=== PATIENT | female | born 1940 | race Caucasian/White ===

== ENCOUNTER → 2022-07-28 12:23 | Outpatient (CLI) | payer MEDICARE, OTHER, SELFPAY ==
--- NOTE | ~2022-07-28 | XR_ITS ---
XR chest 2V 07/28/2022 12:43 Indication: Difficulty breathing Procedure: 2 view chest Comparison: No prior studies for comparison. Findings: Cardiomegaly. Elevation of the right diaphragm with underlying compressive atelectasis. Lef t lung clear. No significant effusion, focal pneumonia, edema or pneumothorax. No acute osseous abnor mality. Partially visualized sclerotic lesion proximal aspect of the left humerus, likely bone island . Impression: 1: Elevation of the right diaphragm with underlying right basilar atelectasis. Reviewed, dictated and finalized at location A. Impression: 1: Elevation of the right diaphragm with underlying right basilar atelectasis.
== END ==
PROVIDERS: PCP Internal Medicine; Visit Provider Internal Medicine
DX: R06.89 Other abnormalities of breathing (principal)
CPT/HCPCS: 36415; 71046; 80053; 80061; 84443; 85025

== ENCOUNTER 2022-07-28 12:46 | Outpatient (CLI) | payer MEDICARE, SELFPAY ==
[2022-07-28 20:00] LABS: Alanine Aminotransferase 21 U/L (6-35); Albumin Level 4.1 g/dL (3.5-5.1); Alkaline Phosphatase 176 U/L (38-126); Anion Gap 13 mmol/L (8-16); Aspartate Amino Transferase 34 U/L (14-36); Bilirubin,Total 1.1 mg/dL (0.2-1.3); Blood Urea Nitrogen 21 mg/dL (7-17); Calcium 9.4 mg/dL (8.4-10.2); Carbon Dioxide 30 mmol/L (22-30); Chloride 100 mmol/L (98-107); Cholesterol 262 mg/dL (0-200); Estimated Glomerular Filt Rate 53; Glucose 90 mg/dL (65-110); HDL Direct 51 mg/dL; Potassium 4.2 mmol/L (3.4-5.0); Sodium 143 mmol/L (137-145); Triglycerides 89 mg/dL (<150)
[2022-07-28 20:11] LABS: LDL Cholesterol Direct 154 mg/dL
[2022-07-28 21:09] LABS: Basophils Percent Auto 0.6 % (0.2-1.2); Eosinophils Absolute Auto 0.1 K/mm3 (0-0.3); Eosinophils Percent Auto 1.8 % (0-4.4); Hematocrit 44.6 % (37.0-47.0); Hemoglobin 14.1 g/dL (12.0-15.0); Immature Granulocyte Absolute 0.01 K/mm3 (0.00-0.031); Immature Granulocyte Percent A 0.1 % (0-0.5); Mean Corpuscular HGB Conc 31.6 g/dl (32-36); Mean Corpuscular Hemoglobin 30.2 pg (26-34); Mean Corpuscular Volume 95.5 fl (80-100); Mean Platelet Volume 10.3 fl (7.4-10.4); Monocytes Absolute Auto 0.7 K/mm3 (0.1-0.6); Monocytes Percent Auto 10.2 % (2.6-8.5); Neutrophils Percent Auto 70.3 % (45.5-73.1); Platelet Count Result 244 k/mm3 (150-375); Red Blood Count 4.67 M/mm3 (4.2-5.4); Red Cell Distribution Width 13.8 % (11.5-14.5); White Blood Count 7.1 K/mm3 (4.5-10.0)
== END 2022-07-28 12:47 | disposition home or self-care (01) ==
PROVIDERS: PCP Internal Medicine; Visit Provider Internal Medicine
DX: I10 Essential (primary) hypertension (principal); Z79.01 Long term (current) use of anticoagulants; Z13.220 Encounter for screening for lipoid disorders; I48.91 Unspecified atrial fibrillation; E03.9 Hypothyroidism, unspecified
CPT/HCPCS: 36415; 80053; 80061; 84443; 85025

== ENCOUNTER 2022-08-22 08:35 | Outpatient (CLI) | payer MEDICARE, OTHER, SELFPAY ==
--- NOTE | ~2022-08-22 | CT_ITS ---
EXAMINATION: CT diagnostic chest wo con DATE: 08/22/2022 08:59 INDICATION: Elevated hemidiaphragm TECHNIQUE: Computed tomography (CT) of the chest was performed without intravenous contrast. The dose -length product (DLP) was 274.43 mGy-cm. Automated exposure control and iterative reconstruction tech nique were employed. COMPARISON: None FINDINGS: There is elevation of the right hemidiaphragm with adjacent passive atelectasis of the righ t lung. There is an endoluminal filling defect of a right middle lobe bronchus (image 59). There is a cluster of peripheral tree-in-bud opacities in the right upper lobe. There are scattered small nodul es. A fissural lymph node is noted along the major fissure on the left. No pleural effusion or pneumo thorax. There is biatrial enlargement of the heart. Calcified coronary artery atherosclerosis is note d. There are no pathologically enlarged thoracic lymph nodes. There are bridging osteophytes at multi ple levels in the spine, consistent with diffuse idiopathic skeletal hyperostosis (DISH). IMPRESSION: 1. Elevation of the right hemidiaphragm of unclear etiology. 2. Peripheral tree-in-bud opacities in the right upper lobe, likely infectious or inflammatory. 3. Endoluminal filling defect of a right middle lobe bronchus which may reflect mucous however, endob ronchial tumor is a consideration. Follow-up CT in three months is recommended. Reviewed, dictated and finalized at location A. IMPRESSION: 1. Elevation of the right hemidiaphragm of unclear etiology. 2. Peripheral tree-in-bud opacities in the right upper lobe, likely infectious or inflammatory. 3. Endoluminal filling defect of a right middle lobe bronchus which may reflect mucous however, endobronchial tumor is a consideration. Follow-up CT in three months is recommended.
--- NOTE | 2022-08-22 09:50 | ECHO_ITS ---
Patient Info Name: Catrina Clark Age: 82 years : 1940 Gender: Female Ht: 64 in Wt: 180 lbs BSA: 1.95 m2 HR: 92 bpm BP: 110 / 72 mmHg Heart Rhythm: Atrial Fibrillation Technical Quality: Fair Exam Date: 08/22/2022 10:29 AM Exam Location: [facility] Patient Status: Outpatient Admit Date: 08/22/2022 Staff Ordering Physician: Angel Corbin DO Family Lawyer: Angy Dean RDCS Attending Provider: Angel Corbin DO Referring Physician: Emerald SCHULTE; Exam Type: CA echo dop color flow w con Study Info Indications - non rheumatic mitral valve inssuffiency Complete two-dimensional, color flow and Doppler transthoracic echocardiogram is performed with contrast to opacify the left ventricle and to improve the deliniation of the left ventricle endocardial borders. Contrast/Agitated Saline Contrast/Ag. Saline: Definity Amount: 2.00 ml Administered By: Angy Dean [facility] IV Access: Left Site Condition: IV removed Summary 1. Left ventricular chamber dimension is normal. 2. Left ventricular systolic function is normal, estimated at 60-65%. 3. There is no increased left ventricular wall thickness. 4. The left ventricular diastolic function is indeterminate. 5. Left atrial chamber dimension is severely enlarged. 6. Right atrial chamber dimension is severely enlarged. 7. There is no aortic valve stenosis. 8. There is mild mitral valve regurgitation. 9. There is moderate to severe tricuspid valve regurgitation. 10. Mild pulmonary hypertension, estimated pulmonary arterial systolic pressure is 41 mmHg. Left Ventricle Left ventricular chamber dimension is normal. Left ventricular systolic function is normal, estimated at 60-65%. There is no increased left ventricular wall thickness. The left ventricular diastolic function is indeterminate. Right Ventricle Right ventricular chamber dimension is normal. Right ventricular systolic function is normal. Left Atria Left atrial chamber dimension is severely enlarged. Right Atria Right atrial chamber dimension is severely enlarged. Aortic Valve The aortic valve is not well visualized. There is no aortic valve stenosis. There is no aortic valve regurgitation. Pulmonic Valve The pulmonic valve is not well visualized. Mitral Valve The mitral valve has normal leaflets. There is mild mitral valve regurgitation. Tricuspid Valve The tricuspid valve leaflets are normal. There is moderate to severe tricuspid valve regurgitation. Mild pulmonary hypertension, estimated pulmonary arterial systolic pressure is 41 mmHg. Pericardium/Pleural The pericardium appears normal. There is small pericardial effusion. Inferior Vena Cava Normal inferior vena cava with >50% collapse upon inspiration consistent with normal right atrial pressure, 5 mmHg. Aorta The aortic root size at the sinus of Valsalva is normal. Left Ventricular Outflow Tract Name Value Normal LVOT Doppler LVOT Peak Gradient 4 mmHg LVOT Mean Gradient 2 mmHg LVOT VTI 21.61 cm LVOT VTI/AV VTI Ratio
[2022-08-22] MEDS: PERFLUTREN LIPID MICROSPHERES 1.5 ML VIAL DILUTED TO 10 ML TOTAL VOLUME IV PUSH (11:15)
== END 2022-08-22 08:36 | disposition home or self-care (01) ==
PROVIDERS: PCP Internal Medicine; Visit Provider Internal Medicine
DX: I48.91 Unspecified atrial fibrillation (principal); J98.6 Disorders of diaphragm; R91.8 Other nonspecific abnormal finding of lung field; I27.20 Pulmonary hypertension, unspecified; I08.1 Rheumatic disorders of both mitral and tricuspid valves
CPT/HCPCS: 71250; C8929

== ENCOUNTER 2023-05-06 11:16 | Emergency (ER) | payer MEDICARE, OTHER, SELFPAY ==
[2023-05-06 11:23] VITALS: BP 119/80; PULSE 60; RESP 18; TEMP 36.3; O2SAT 97
--- NOTE | 2023-05-06 14:17 | ED.LOWEXIN ---
HPI - Extremity Injury (Lower) General Chief Complaint: Extremity Injury, Lower Stated Complaint: left leg bruising - on Eliquis Time Seen by Provider: 05/06/23 12:20 Source: patient and family Mode of arrival: ambulatory Limitations: no limitations History of Present Illness HPI Narrative: This is a 82 year old female that presents to the ER after an injury this morning. Reports her son's dog hit her leg with its paw. Reports she has swelling and bruising to the area. Her [id number] brought her in for evaluation. Denies fever, erythema, edema, or numbness. Related Data Allergies Allergy/AdvReac Type Severity Reaction Status Date / Time No Known Allergies Allergy Unverified 05/06/23 11:17 Review of Systems Review of Systems: CONSTITUTIONAL: Denies fever SKIN: Reports hematoma MUSCULOSKELETAL: Denies joint pain, or myalgia. NEUROLOGIC: Denies numbness All systems reviewed & are unremarkable except as noted in HPI and below PMFSH Past Medical History Medical History Acquired hypothyroidism Atrial fibrillation Heart disease nursing home current use of anticoagulant Thyroid disorder Family History Family History Father Hypertension Heart problem Mother Parkinson disease Social History Social History Smoking status: Never smoker Exam Narrative: GENERAL: Well-appearing, well-nourished, and in no acute distress. HEAD: Normocephalic, atraumatic. EYES: EOMI. CHEST: No respiratory distress. HEART: Regular rate EXTREMITIES: Normal range of motion. No edema, erythema or warmth of the leg. Quarter sized hematoma to the left anterior shins. Compartments are soft. Normal DP pulse SKIN: Warm, dry, no rash. NEURO: No focal deficits. Alert and oriented x3. PSYCH: Normal mood and affect Course Vital Signs Vital signs: Vital Signs Temperature 97.3 F L 05/06/23 11:23 Pulse Rate 60 05/06/23 11:23 Respiratory Rate 18 05/06/23 11:23 Blood Pressure 119/80 05/06/23 11:23 Pulse Oximetry 97 05/06/23 11:23 Oxygen Delivery Room Air 05/06/23 11:23 Temperature 97.3 F L 05/06/23 11:23 Pulse Rate 60 05/06/23 11:23 Respiratory Rate 18 05/06/23 11:23 Blood Pressure 119/80 05/06/23 11:23 Pulse Oximetry 97 05/06/23 11:23 Oxygen Delivery Room Air 05/06/23 11:23 MDM - Extremity Injury (Lower) MDM Narrative Medical decision making narrative: This patient since emergency department for hematoma to the left anterior simon. Patient is neurovascularly intact. Compartments are soft. There is no erythema, warmth, or edema of the leg. Patient was instructed on continued care of her hematoma. She is on Eliquis, but will need to remain on this due to her history of atrial fibrillation with a recent stroke earlier this year. She does not live in the area. I instructed her that she should have some follow-up with a general surgeon for this. She was given warnings of signs/symptoms to look out for and when to return to the ER Differential Diagnosis Differential diagnosis: Likely other (hematoma, abrasion) Critical Care Time Critical Care Time Critical Care Time: No Discharge Plan Discharge Clinical Impression: Hematoma Patient Disposition: Home, Self-Care Condition: Stable Instructions: Hematoma (ED) Additional Instructions: Return to the emergency department if you experience fever, redness and swelling of your leg, abnormal drainage from the area, numbness, or any other symptoms that are concerning to you. Ice to the area. Elevate the leg while seated. Over the counter pain medication as needed. Wear YOGESH wrap while awake There is no signs of infection or anything concerning that I see today Follow-up with a general surgeon back home. You may need to eventually have this drained if it causes an
== END 2023-05-06 14:41 | disposition home or self-care (01) ==
PROVIDERS: Emergency Provider Physician Assistant
DX: S80.12XA Contusion of left lower leg, initial encounter (principal); I48.91 Unspecified atrial fibrillation; I51.9 Heart disease, unspecified; E03.9 Hypothyroidism, unspecified; Z86.73 Personal history of transient ischemic attack (TIA), and cerebral infarction without residual deficits; Z79.01 Long term (current) use of anticoagulants; W54.1XXA Struck by dog, initial encounter
CPT/HCPCS: 99282

== ENCOUNTER 2023-06-30 10:14 | Inpatient (IN) | payer MEDICARE, OTHER, SELFPAY ==
[2023-06-30] VITALS (7 sets, daily range): BP systolic 101–116; BP diastolic 67–82; PULSE 91–116; RESP 16–24; TEMP 35.8–36.6; O2SAT 94–99; BMI 29.3
--- NOTE | ~2023-06-30 | US_ITS ---
EXAMINATION: US abdomen limited DATE: 07/06/2023 08:31 INDICATION: Abnormal liver function tests. TECHNIQUE: Multiple grayscale and Doppler ultrasound images of the abdomen were obtained. COMPARISON: CT abdomen and pelvis 06/30/2023 FINDINGS: The visualized portions of the head and body of the pancreas are normal. The liver is amelia l without focal lesion. There is normal flow in main portal vein. The gallbladder is normal in size. No gallstones or gallbladder wall thickening. There is no sonographic Hebert sign. The common duct is normal and measures 4 mm. IMPRESSION: 1. Normal right upper quadrant ultrasound. Reviewed, dictated and finalized at location A.
--- NOTE | ~2023-06-30 | CT_ITS ---
EXAMINATION: CT abdomen pelvis wo con DATE: 06/30/2023 14:42 INDICATION: Nausea and vomiting. TECHNIQUE: Computed tomography (CT) of the abdomen and pelvis was performed without intravenous contr ast. Automated exposure control and iterative reconstruction technique were employed. The dose-length product was 698.58 mGy-cm. COMPARISON: Chest CT 08/22/2022 FINDINGS: There is chronic elevation of right hemidiaphragm. There is mild atelectasis bilaterally. T here is mild bronchiectasis in right middle lobe. No pleural effusion. There is biatrial enlargement of the heart. There are coronary artery calcifications. No pericardial effusion. There is a small sli ding hiatal hernia. The liver, gallbladder, pancreas, and adrenal glands are normal. There are are pe ripheral calcifications of the spleen, likely from old injury. Right kidney is normal. There are cyst s in left kidney measuring up to 1.9 cm. There is no urolithiasis. There is diverticulosis of the col on without evidence of diverticulitis. There is liquid stool in the colon suggestive of diarrhea. The appendix is normal. There is an umbilical hernia containing fat. Aortic atherosclerosis is noted. Th ere are no pathologically enlarged lymph nodes. There is mild thoracic and lumbar spondylosis. There are bridging endplate osteophytes at multiple levels in the spine, consistent with diffuse idiopathic skeletal hyperostosis (DISH). IMPRESSION: 1. Trace perihepatic ascites. 2. Small sliding hiatal hernia. 3. Chronic elevation of right hemidiaphragm. Reviewed, dictated and finalized at location A.
[2023-06-30 11:21] LABS: Basophils Percent Auto 0.5 % (0.2-1.2); Eosinophils Percent Auto 0.3 % (0-4.4); Hematocrit 50.3 % (37.0-47.0); Hemoglobin 16.8 g/dL (12.0-15.0); Immature Granulocyte Absolute 0.04 K/mm3 (0.00-0.031); Immature Granulocyte Percent A 0.6 % (0-0.5); Lymphocytes Absolute Auto 1.47 K/mm3 (0.9-3.2); Lymphocytes Percent Auto 22.9 % (18.3-44.2); Mean Corpuscular HGB Conc 33.4 g/dl (32-36); Mean Corpuscular Hemoglobin 30.1 pg (26-34); Mean Corpuscular Volume 90.1 fl (80-100); Mean Platelet Volume 10.8 fl (7.4-10.4); Monocytes Absolute Auto 0.8 K/mm3 (0.1-0.6); Monocytes Percent Auto 11.8 % (2.6-8.5); Neutrophils Absolute Auto 4.1 K/mm3 (1.3-6.7); Neutrophils Percent Auto 63.9 % (45.5-73.1); Platelet Count Result 248 k/mm3 (150-375); Red Blood Count 5.58 M/mm3 (4.2-5.4); Red Cell Distribution Width 17.2 % (11.5-14.5); White Blood Count 6.4 K/mm3 (4.5-10.0)
[2023-06-30 11:34] LABS: Alanine Aminotransferase 69 U/L (6-35); Albumin Level 4.6 g/dL (3.5-5.1); Alkaline Phosphatase 238 U/L (38-126); Anion Gap 18 mmol/L (8-16); Aspartate Amino Transferase 147 U/L (14-36); Bilirubin,Total 2.8 mg/dL (0.2-1.3); Blood Urea Nitrogen 27 mg/dL (7-17); Calcium 8.8 mg/dL (8.4-10.2); Carbon Dioxide 30 mmol/L (22-30); Chloride 89 mmol/L (98-107); Estimated CRCL calculation 32 ml/min; Estimated Glomerular Filt Rate 39; Glucose 106 mg/dL (65-110); Lipase 180 U/L (23-300); Potassium 2.9 mmol/L (3.4-5.0); Sodium 137 mmol/L (137-145)
[2023-06-30] MEDS: SODIUM CHLORIDE 0.9% IV 1,000 ML 999 ML IV CONT (14:10)
--- NOTE | 2023-06-30 15:25 | ED.NAVMDI ---
HPI - Nausea/Vomiting/Diarrhea General Chief complaint: Nausea/Vomiting/Diarrhea Stated complaint: n/v/d and epigastric pain Time Seen by Provider: 06/30/23 13:44 History of Present Illness HPI Narrative: This is an 82-year-old female, with past history of A-fib on Xarelto, presents emergency department complaining of nausea and vomiting for the past 4 days. The patient states she had some upper respiratory congestion but no known sick contacts. She began having multiple episodes of nausea and vomiting initially without blood and with small streaks of blood and now blood free. She denies pain, loss of consciousness but has some lightheadedness. Related Data Allergies Allergy/AdvReac Type Severity Reaction Status Date / Time No Known Allergies Allergy Verified 06/30/23 18:21 Review of Systems Review of Systems: CONSTITUTIONAL: Denies fever, chills, or sweats. ENT: Rhinorrhea and congestion denies sore throat, or otalgia. CARDIOVASCULAR: Palpitations denies chest pain, or edema. RESPIRATORY: Denies cough or dyspnea. GASTROINTESTINAL: Nausea, vomiting and diarrhea denies abdominal pain GENITOURINARY: Denies dysuria or hematuria. SKIN: Denies rash or itching. MUSCULOSKELETAL: Denies back pain, joint pain, or myalgia. NEUROLOGIC: Lightheadedness denies headache, numbness, or weakness. PSYCHIATRIC: Denies anxiety or depression. PMFSH Past Medical History Medical History Acquired hypothyroidism Atrial fibrillation Heart disease assisted current use of anticoagulant Thyroid disorder Family History Family History Father Hypertension Heart problem Mother Parkinson disease Social History Social History (Updated 06/30/23 @ 16:09 by Ronal Gao MD) Smoking status: Never smoker Alcohol intake: never Substance use: never Lack of Transportation: No Lack of Food: Never True Current Housing: Decline to Answer Concerned About Future Housing: Decline to Answer Difficulty Paying Gas/Electric Bills: Decline to Answer Difficulty Paying for Meds: Decline to Answer Currently Unemployed: Decline to Answer Education: Decline to Answer Difficulty w/ Childcare or Family Care: Decline to Answer Spiritual care concerns: No Exam Narrative: GENERAL: Well-developed, well-nourished, and in no acute distress. HEAD: Normocephalic, atraumatic. EYES: PERRLA and EOMI. ENT: Nares clear, no rhinorrhea or epistaxis. Mucous membranes dry. Oropharynx without tonsillar hypertrophy exudate or other lesions. NECK: Supple. No carotid bruits or JVD CHEST: Clear to auscultation. No respiratory distress. No wheezes rales or rhonchi HEART: Irregularly irregular rhythm. No murmur heard. Normal peripheral pulses. ABDOMEN: Soft, nontender, nondistended, normal active bowel sounds. EXTREMITIES: Normal range of motion. No edema. SKIN: Warm, dry, no rash. NEURO: Alert and oriented x3. Moving all 4 limbs purposefully. PSYCH: Normal mood and affect. Course Course Emergency Course: 16:05 - CT abdomen pelvis not concerning for obstruction. Chemistries demonstrate creatinine elevation of 1.3 from a baseline of 1 with hypokalemia of 2.9. Despite IV fluids and nausea medications, the patient continues to vomit. I discussed the patient with hospitalist, ETHAN Tello who accepts admission. Vital Signs Vital signs: Vital Signs Temperature 97.8 F 06/30/23 11:22 Pulse Rate 109 H 06/30/23 11:22 Respiratory Rate 16 06/30/23 11:22 Blood Pressure 101/67 06/30/23 11:22 Pulse Oximetry 99 06/30/23 11:22 Oxygen Delivery Room Air 06/30/23 11:22 Temperature 97.8 F 06/30/23 11:22 Pulse Rate 109 H 06/30/23 17:39 Respiratory Rate 24 H 06/30/23 17:39 Blood Pressure 116/71 06/30/23 17:39 Pulse Oximetry 94 06/30/23 18:35 Oxygen Delivery Room Air 06/30/23 18:35 MDM - Na
[2023-06-30] MEDS: POTASSIUM CHLORIDE 20 MEQ PACKET (FOR LIQUID) 40 MEQ PO (16:16)
[2023-06-30] MEDS: LACTATED RINGERS 1,000 ML 125 ML IV CONT (17:00)
[2023-06-30] MEDS: KCL 40 MEQ/WATER 100 ML 100 ML 25 ML IVPB (17:01)
--- NOTE | 2023-06-30 18:13 | ADMGEN ---
This patient, Catrina Clark, was admitted to Medical Room 347-01. Patient/family oriented to hospital policies and general routines including ID bracelet, bed and alarms, visiting hours, pain management, procedures, bathroom and other care routines, personal items, smoking policy, room service/diet, and visiting hours. Information on how to activate the Rapid Response Team has been discussed. Patient/Family are encouraged to report perceived risks to care and to ask questions if they do not understand what they are told or what they should do.
--- NOTE | 2023-06-30 21:03 | PM.IMHP ---
H&P: HPI History of Present Illness Date/Time: 06/30/23 21:03 Chief Complaint: Nausea and Vomiting Narrative: 82 y/o F with hx of A-Fib on anti-coagulation, CVA and AAA w/coiling (10/2022) presents here with 3-4 days of nausea and 6 days of loose stools. Patient reports 3-4 days of nausea and vomiting, as well as 6 days of loose stools. Patient described emesis as green with black in it . One episode of hemoptysis - described as vomit streaked with bright red blood. She denies fever, chills, and body aches. She has been experiencing decreased appetite - attempted to remedy with BRAT diet without success. Stool has been loose and brown. She denies recent antibiotic use. Remote history of AAA w/coil repair in Oct. Experienced CVA in December while off blood thinner, able to attend rehab and does not have residual deficits. 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 Patient lives with son. Full Code. Occasionally uses walker. 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 Sexual Orientation (if Verbalized by the Patient): Straight or Heterosexual Spiritual care concerns: No Meds Home Medications and Allergies Home Medications Medication Instructions Recorded Confirmed Type apixaban 5 mg tablet (Eliquis) 5 mg PO BID #60 tabs 12/09/22 09/05/23 Rx levothyroxine 88 mcg capsule 88 mcg PO DAILY #30 caps 10/03/22 06/30/23 Rx lisinopril 40 mg tablet 40 mg PO DAILY #30 tabs 10/03/22 06/30/23 Rx metoprolol succinate 100 mg 100 mg PO DAILY #30 tabs 10/03/22 06/30/23 Rx tablet,extended release 24 hr lorazepam 0.5 mg tablet 0.5 mg PO DAILY PRN anxiety #30 10/04/22 06/30/23 Rx tabs allopurinol 300 mg tablet 300 mg PO DAILY 06/30/23 06/30/23 History colchicine (gout) 0.6 mg capsule 0.6 mg PO BID 06/30/23 06/30/23 History hydrochlorothiazide 12.5 mg capsule 12.5 mg PO DAILY 06/30/23 06/30/23 History rosuvastatin 20 mg tablet 20 mg PO HS 06/30/23 06/30/23 History trospium 20 mg tablet 20 mg PO BID 06/30/23 06/30/23 History Allergies Allergy/AdvReac Type Severity Reaction Status Date / Time No Known Allergies Allergy Verified 06/30/23 18:21 Vital Signs Vital Signs - 24 hr 06/30/23 11:22 06/30/23 14:20 06/30/23 14:21 Temperature 97.8 F Pulse Rate 109 H 115 H 116 H Respiratory Rate 16 Blood Pressure 101/67 110/76 114/79 Pulse Oximetry 99 Oxygen Delivery Room Air 06/30/23 17:39 06/30/23 18:35 Temperature Pulse Rate 109 H Respiratory Rate 24 H Blood Pressure 116/71 Pulse Oximetry 94 94 Oxygen Delivery Room Air H&P: Results Labs Labs: Short CBC 06/30/23 Range/Units 11:09 WBC 6.4 (4.5-10.0) K/mm3 Hgb 16.8 H (12.0-15.0) g/dL Hct 50.3 H (37.0-47.0) % Plt Count 248 (150-375) k/mm3 BMP 06/30/23 11:09 Sodium 137 Potassium 2.9 L Chloride 89 L Carbon Dioxid
[2023-06-30] MEDS: ROSUVASTATIN 10 MG TABLET 20 MG PO (21:51)
[2023-06-30] MEDS: hydroCHLOROthiazide 12.5 MG CAPSULE PO (23:02)
[2023-07-01] VITALS (14 sets, daily range): BP systolic 78–111; BP diastolic 33–58; PULSE 82–124; RESP 14–20; TEMP 35.8–36.8; O2SAT 93–98
[2023-07-01] MEDS: METOPROLOL SUCCINATE EXT REL 100 MG TABCR PO ×2 (00:02→12:04)
[2023-07-01 03:08] LABS: Appearance Urine Cloudy (Clear); Bacteria Urine 1+ /hpf; Bilirubin Urine Negative (Negative); Blood Urine Negative (Negative); Color Urine Yellow (Yellow); Glucose Urine UA Negative (Negative); Hyaline Casts Urine Present /lpf; Ketones Urine 1+ mg/dL (Negative); Leukocyte Esterase Ur 2+ LEU/UL (Negative); Nitrate Urine Negative (Negative); Protein Urine Trace mg/dL (Negative); RBC Urine 0-2 /hpf (0-2); Specific Grav Ur 1.016 (1.001-1.035); Squamous Epithelial Cell Urine Moderate /hpf (Few); pH Urine 5.5 (5.0-9.0)
[2023-07-01 03:09] LABS: Add Urine Microscopic? YES
[2023-07-01] MEDS: LACTATED RINGERS 1,000 ML 125 ML IV CONT ×2 (05:17→16:31)
[2023-07-01] MEDS: LEVOTHYROXINE SODIUM 88 MCG TABLET PO (05:21)
[2023-07-01 05:45] LABS: Basophils Percent Auto 0.4 % (0.2-1.2); Eosinophils Percent Auto 0.7 % (0-4.4); Hemoglobin 13.1 g/dL (12.0-15.0); Immature Granulocyte Absolute 0.02 K/mm3 (0.00-0.031); Immature Granulocyte Percent A 0.4 % (0-0.5); Lymphocytes Absolute Auto 1.61 K/mm3 (0.9-3.2); Lymphocytes Percent Auto 29.9 % (18.3-44.2); Mean Corpuscular HGB Conc 32.8 g/dl (32-36); Mean Corpuscular Hemoglobin 29.5 pg (26-34); Mean Corpuscular Volume 90.1 fl (80-100); Monocytes Absolute Auto 0.9 K/mm3 (0.1-0.6); Neutrophils Absolute Auto 2.8 K/mm3 (1.3-6.7); Neutrophils Percent Auto 52.6 % (45.5-73.1); Platelet Count Result 205 k/mm3 (150-375); Red Blood Count 4.44 M/mm3 (4.2-5.4); Red Cell Distribution Width 16.4 % (11.5-14.5); White Blood Count 5.4 K/mm3 (4.5-10.0)
[2023-07-01 06:11] LABS: Anion Gap 6 mmol/L (8-16); Blood Urea Nitrogen 23 mg/dL (7-17); Calcium 7.6 mg/dL (8.4-10.2); Carbon Dioxide 31 mmol/L (22-30); Chloride 96 mmol/L (98-107); Estimated CRCL calculation 45 ml/min; Estimated Glomerular Filt Rate 60; Glucose 101 mg/dL (65-110); Potassium 2.6 mmol/L (3.4-5.0); Sodium 133 mmol/L (137-145)
[2023-07-01] MEDS: POTASSIUM CHLORIDE 20 MEQ ER TABLET 80 MEQ PO (06:41)
[2023-07-01 06:44] LABS: Magnesium 1.4 mg/dL (1.6-2.3)
[2023-07-01] MEDS: POTASSIUM CHLORIDE INJ 40 MEQ in SODIUM CHLORIDE 0.9% IV 500 ML 130 MEQ IVPB (06:47)
[2023-07-01] MEDS: FAMOTIDINE 20 MG TABLET PO ×2 (09:04→21:17)
[2023-07-01] MEDS: hydroCHLOROthiazide 12.5 MG CAPSULE PO (09:04)
[2023-07-01] MEDS: lisinopriL 20 MG TABLET 40 MG PO (09:04)
[2023-07-01] MEDS: allopurinoL 300 MG TABLET PO (09:04)
[2023-07-01] MEDS: COLCHICINE 0.6 MG TABLET PO ×2 (09:05→16:30)
[2023-07-01] MEDS: ONDANSETRON INJ 4 MG/2 ML VIAL IV PUSH (09:26)
--- NOTE | 2023-07-01 09:46 | PM.IMPN ---
Progress Note: A&P Assessment and Plan (1) Intractable vomiting: Code(s): R11.10 - Vomiting, unspecified Status: Acute Assessment and Plan: Concern for GI bleed, GI consult ordered and pending Will likely need EGD Continue PPI (2) JAYSON (acute kidney injury): Code(s): N17.9 - Acute kidney failure, unspecified Status: Acute Assessment and Plan: Resolved, monitor Normal saline bolus x1, recheck blood pressure after this (3) Atrial fibrillation: Code(s): I48.91 - Unspecified atrial fibrillation Status: Acute Assessment and Plan: Rate controlled, hold Eliquis, continue metoprolol, monitor Plan Chronic Conditions -Gout: continue allopurinol and colchicine -HTN: continue home medications HCTZ, lisinopril. Monitor BP. First HCTZ dose now, then resume as scheduled. -Hypothyroidism: continue Levothyroxine 88 mcg, check TSH w/reflex -Anxiety: continue 0.5 mg PO PRN -HLD: continue rosuvastatin 20 mg -AAA: coiled, no evidence of dissection or changes per CT Abd/Pelvis. See full read above. Diet: NPO, ice chips DVT Prophylaxis: SCDs, currently on Eliquis GI prophylaxis: PPI b.i.d. Code Status: Full Code Subjective Date/time seen: 07/01/23 09:46 Interval history: 82 y/o F with hx of A-Fib on anti-coagulation, CVA and AAA w/coiling (10/2022) presents here with 3-4 days of nausea and 6 days of loose stools concerning for GI bleed. No overnight events noted. No chest pain or shortness of breath. No fevers or chills. She reports coffee-ground emesis yesterday, couple episodes this morning. She continues to have nausea, emesis and diarrhea. No obvious blood in her stool. Review of Systems Review of Systems: 12 point review of systems was assessed and was negative except as noted in the HPI Exam Narrative: General: No acute distress, alert and oriented per baseline HEENT: Atraumatic, normocephalic, mucous membranes moist CV: Regular rate and rhythm, S1, S2 Lungs: Clear to auscultation bilaterally, no rales or crackles noted, no wheezes, good air entry Abdomen: Soft, nontender, nondistended Extremities: Normal to inspection Skin: No rashes noted, no lesions or wounds seen Psych: Euthymic, normal affect Objective Data Vital Signs Vital Signs: Vital Signs - 24 hr 06/30/23 11:22 06/30/23 14:20 06/30/23 14:21 Temperature 97.8 F Pulse Rate 109 H 115 H 116 H Respiratory Rate 16 Blood Pressure 101/67 110/76 114/79 Pulse Oximetry 99 Oxygen Delivery Room Air 06/30/23 17:39 06/30/23 18:35 06/30/23 20:00 Temperature Pulse Rate 109 H 104 H Respiratory Rate 24 H Blood Pressure 116/71 Pulse Oximetry 94 94 Oxygen Delivery Room Air 06/30/23 22:00 07/01/23 00:02 07/01/23 00:00 Temperature 96.4 F L Pulse Rate 91 124 H 117 H Respiratory Rate 18 Blood Pressure 107/82 Pulse Oximetry 97 Oxygen Delivery 07/01/23 04:00 07/01/23 05:57 07/01/23 08:00 Temperature 96.4 F L Pulse Rate 97 96 Respiratory Rate 18 Blood Pressure 111/58 L Pulse Oximetry 93 Oxygen Delivery Room Air Intake/Output Intake/Output: Intake & Output 06/28/23 06/29/23 06/30/23 07/01/23 23:59 23:59 23:59 23:59 Intake Total 1100 1640 Output Total 400 Balance 1100 1240 Meds/Results Medications: Active Medications Generic Name Dose Route Start Last Admin Trade Name Freq PRN Reason Stop Dose Admin Allopurinol 300 mg 07/01/23 09:00 07/01/23 09:04 Allopurinol 300 Mg Tablet PO 300 mg DAILY MIGUEL ANGEL Administration Colchicine 0.6 mg 07/01/23 09:00 07/01/23 09:05 Colchicine 0.6 Mg Tablet PO 07/31/23 08:59 0.6 mg BID MIGUEL ANGEL Administration Famotidine 20 mg 07/01/23 09:00 07/01/23 09:04 Famotidine 20 Mg Tablet PO 20 mg Q12HR MIGUEL ANGEL Administration Hydrochlorothiazide 12.5 mg 07/01/23 09:00 07/01/23 09:04 Hydrochlorothiazide 12.5 Mg Capsule PO 12.5 mg DAILY MIGUEL ANGEL
[2023-07-01] MEDS: MAGNESIUM SULF 2 GM/WATER 50ML 2 GM/50 ML BAG IVPB (12:05)
[2023-07-01] MEDS: SODIUM CHLORIDE 0.9% IV 1,000 ML 999 ML IV CONT ×2 (13:42→21:16)
[2023-07-01 13:51] LABS: Magnesium 2.6 mg/dL (1.6-2.3); Potassium 4.4 mmol/L (3.4-5.0)
[2023-07-01 16:20] LABS: Basophils Percent Auto 0.6 % (0.2-1.2); Eosinophils Percent Auto 0.8 % (0-4.4); Hematocrit 45.9 % (37.0-47.0); Hemoglobin 14.3 g/dL (12.0-15.0); Immature Granulocyte Absolute 0.02 K/mm3 (0.00-0.031); Immature Granulocyte Percent A 0.4 % (0-0.5); Lymphocytes Percent Auto 24.3 % (18.3-44.2); Mean Corpuscular HGB Conc 31.2 g/dl (32-36); Mean Corpuscular Hemoglobin 30.1 pg (26-34); Mean Corpuscular Volume 96.6 fl (80-100); Mean Platelet Volume 10.9 fl (7.4-10.4); Monocytes Absolute Auto 0.8 K/mm3 (0.1-0.6); Monocytes Percent Auto 15.4 % (2.6-8.5); Neutrophils Absolute Auto 2.9 K/mm3 (1.3-6.7); Neutrophils Percent Auto 58.5 % (45.5-73.1); Platelet Count Result 171 k/mm3 (150-375); Red Blood Count 4.75 M/mm3 (4.2-5.4); Red Cell Distribution Width 17.2 % (11.5-14.5); White Blood Count 4.9 K/mm3 (4.5-10.0)
[2023-07-01] MEDS: MIDODRINE HCL 10 MG TABLET PO (16:27)
[2023-07-01] MEDS: PANTOPRAZOLE SODIUM IV 40 MG VIAL IV PUSH ×2 (16:27→21:17)
[2023-07-01] MEDS: ROSUVASTATIN 10 MG TABLET 20 MG PO (21:17)
[2023-07-02] VITALS (15 sets, daily range): BP systolic 74–123; BP diastolic 42–75; PULSE 70–96; RESP 16–23; TEMP 35.8–36.7; O2SAT 92–100
[2023-07-02 05:38] LABS: Basophils Percent Auto 0.5 % (0.2-1.2); Eosinophils Absolute Auto 0.1 K/mm3 (0-0.3); Eosinophils Percent Auto 1.1 % (0-4.4); Hematocrit 41.8 % (37.0-47.0); Immature Granulocyte Absolute 0.03 K/mm3 (0.00-0.031); Immature Granulocyte Percent A 0.5 % (0-0.5); Lymphocytes Absolute Auto 1.29 K/mm3 (0.9-3.2); Mean Corpuscular HGB Conc 31.1 g/dl (32-36); Mean Corpuscular Hemoglobin 29.4 pg (26-34); Mean Corpuscular Volume 94.6 fl (80-100); Mean Platelet Volume 11.3 fl (7.4-10.4); Monocytes Absolute Auto 0.9 K/mm3 (0.1-0.6); Monocytes Percent Auto 15.3 % (2.6-8.5); Neutrophils Absolute Auto 3.4 K/mm3 (1.3-6.7); Neutrophils Percent Auto 59.6 % (45.5-73.1); Platelet Count Result 187 k/mm3 (150-375); Red Blood Count 4.42 M/mm3 (4.2-5.4); White Blood Count 5.6 K/mm3 (4.5-10.0)
[2023-07-02 05:50] LABS: Alanine Aminotransferase 52 U/L (6-35); Albumin Level 2.7 g/dL (3.5-5.1); Alkaline Phosphatase 183 U/L (38-126); Anion Gap 5 mmol/L (8-16); Aspartate Amino Transferase 96 U/L (14-36); Bilirubin,Total 1.1 mg/dL (0.2-1.3); Blood Urea Nitrogen 17 mg/dL (7-17); Calcium 7.7 mg/dL (8.4-10.2); Carbon Dioxide 25 mmol/L (22-30); Chloride 108 mmol/L (98-107); Estimated CRCL calculation 41 ml/min; Estimated Glomerular Filt Rate 53; Glucose 81 mg/dL (65-110); Potassium 3.6 mmol/L (3.4-5.0); Sodium 138 mmol/L (137-145)
--- NOTE | 2023-07-02 08:53 | PM.IMPN ---
Progress Note: A&P Assessment and Plan (1) Intractable vomiting: Code(s): R11.10 - Vomiting, unspecified Status: Acute Assessment and Plan: GI consult appreciated, EGD 07/02, continue PPI (2) JAYSON (acute kidney injury): Code(s): N17.9 - Acute kidney failure, unspecified Status: Acute Assessment and Plan: Resolved, monitor (3) Atrial fibrillation: Code(s): I48.91 - Unspecified atrial fibrillation Status: Acute Assessment and Plan: Rate controlled, hold Eliquis, continue metoprolol, monitor Plan Chronic Conditions -Gout: continue allopurinol and colchicine -HTN: continue home medications HCTZ, lisinopril. Monitor BP. First HCTZ dose now, then resume as scheduled. -Hypothyroidism: continue Levothyroxine 88 mcg, check TSH w/reflex -Anxiety: continue 0.5 mg PO PRN -HLD: continue rosuvastatin 20 mg -AAA: coiled, no evidence of dissection or changes per CT Abd/Pelvis. See full read above. Diet: ADAT DVT Prophylaxis: SCDs, currently on Eliquis GI prophylaxis: PPI b.i.d. Code Status: Full Code Subjective Date/time seen: 07/02/23 08:53 Interval history: 82 y/o F with hx of A-Fib on anti-coagulation, CVA and AAA w/coiling (10/2022) presents here with 3-4 days of nausea and 6 days of loose stools concerning for GI bleed. No overnight events noted. No chest pain or shortness of breath. No fevers or chills. Still with some diarrhea, less nausea, no emesis. Review of Systems Review of Systems: 12 point review of systems was assessed and was negative except as noted in the HPI Exam Narrative: General: No acute distress, alert and oriented per baseline HEENT: Atraumatic, normocephalic, mucous membranes moist CV: Regular rate and rhythm, S1, S2 Lungs: Clear to auscultation bilaterally, no rales or crackles noted, no wheezes, good air entry Abdomen: Soft, nontender, nondistended Extremities: Normal to inspection Skin: No rashes noted, no lesions or wounds seen Psych: Euthymic, normal affect Objective Data Vital Signs Vital Signs: Vital Signs - 24 hr 07/01/23 11:08 07/01/23 12:04 07/01/23 12:00 Temperature Pulse Rate 82 83 Respiratory Rate Blood Pressure Pulse Oximetry 93 Oxygen Delivery Room Air 07/01/23 14:00 07/01/23 15:57 07/01/23 16:00 Temperature 98.3 F Pulse Rate 84 82 Respiratory Rate 14 Blood Pressure 78/58 L 78/58 L Pulse Oximetry 98 Oxygen Delivery 07/01/23 20:43 07/01/23 21:53 07/01/23 20:00 Temperature 97.3 F L Pulse Rate 113 H 82 Respiratory Rate 20 Blood Pressure 85/33 L 84/55 L Pulse Oximetry 96 Oxygen Delivery 07/02/23 00:00 07/02/23 01:32 07/02/23 01:45 Temperature 97.5 F L Pulse Rate 73 70 Respiratory Rate 16 Blood Pressure 74/45 L 74/42 L Pulse Oximetry 93 Oxygen Delivery 07/02/23 01:46 07/02/23 04:00 07/02/23 05:43 Temperature 97.9 F Pulse Rate 79 77 Respiratory Rate 16 Blood Pressure 80/46 L 100/42 L Pulse Oximetry 92 Oxygen Delivery 07/02/23 08:43 Temperature Pulse Rate Respiratory Rate Blood Pressure Pulse Oximetry 92 Oxygen Delivery Room Air Intake/Output Intake/Output: Intake & Output 06/29/23 06/30/23 07/01/23 07/02/23 23:59 23:59 23:59 23:59 Intake Total 1100 4690 Output Total 404 100 Balance 1100 4286 -100 Meds/Results Medications: Active Medications Generic Name Dose Route Start Last Admin Trade Name Dustin PRN Reason Stop Dose Admin Allopurinol 300 mg 07/01/23 09:00 07/01/23 09:04 Allopurinol 300 Mg Tablet PO 300 mg DAILY MIGUEL ANGEL Administration Colchicine 0.6 mg 07/01/23 09:00 07/01/23 16:30 Colchicine 0.6 Mg Tablet PO 07/31/23 08:59 0.6 mg BID MIGUEL ANGEL Administration Famotidine 20 mg 07/01/23 09:00 07/01/23 21:17 Famotidine 20 Mg Tablet PO 20 mg Q12HR MIGUEL ANGEL Administration Lactated Ringer's 1,000 mls @ 125 mls/hr 06/30/23 16:10
[2023-07-02] MEDS: PANTOPRAZOLE SODIUM IV 40 MG VIAL IV PUSH ×2 (09:17→20:52)
[2023-07-02] MEDS: allopurinoL 300 MG TABLET PO (09:17)
[2023-07-02] MEDS: LEVOTHYROXINE SODIUM 88 MCG TABLET PO (09:17)
[2023-07-02] MEDS: COLCHICINE 0.6 MG TABLET PO ×2 (09:17→17:10)
[2023-07-02] MEDS: FAMOTIDINE 20 MG TABLET PO (09:17)
[2023-07-02] MEDS: LACTATED RINGERS 1,000 ML 125 ML IV CONT (09:22)
[2023-07-02] MEDS: LACTATED RINGERS 1,000 ML 150 ML IV CONT (12:02)
--- NOTE | 2023-07-02 12:18 | WPDANESEPPF ---
Anes - Initial Pre Proc Eval Procedure: Operation Date: 07/02/23 12:45 Proposed Procedures p Esophagogastroduodenoscopy EGD - rGaham Rodriguez MD Date/Time: 07/02/23 12:18 Surgeon: Ryan Olivo MD Pre Op Diagnosis: Intractable Nausea and Vomiting Patient Data Age: 82 Gender: F Height: 1.65 m Weight: 80 kg Last Vital Signs Temp 96.4 F L 07/02/23 11:58 Pulse 80 07/02/23 11:58 Resp 18 07/02/23 11:58 BP 86/48 L 07/02/23 11:58 Pulse Ox 98 07/02/23 11:58 O2 Del Method Room Air 07/02/23 11:58 Allergies Allergy/AdvReac Type Severity Reaction Status Date / Time No Known Allergies Allergy Verified 06/30/23 18:21 Home Medications Medication Instructions Recorded Confirmed Type apixaban 5 mg tablet (Eliquis) 5 mg PO BID #60 tabs 10/03/22 06/30/23 Rx levothyroxine 88 mcg capsule 88 mcg PO DAILY #30 caps 10/03/22 06/30/23 Rx lisinopril 40 mg tablet 40 mg PO DAILY #30 tabs 10/03/22 06/30/23 Rx metoprolol succinate 100 mg 100 mg PO DAILY #30 tabs 10/03/22 06/30/23 Rx tablet,extended release 24 hr lorazepam 0.5 mg tablet 0.5 mg PO DAILY PRN anxiety #30 10/04/22 06/30/23 Rx tabs allopurinol 300 mg tablet 300 mg PO DAILY 06/30/23 06/30/23 History colchicine (gout) 0.6 mg capsule 0.6 mg PO BID 06/30/23 06/30/23 History hydrochlorothiazide 12.5 mg capsule 12.5 mg PO DAILY 06/30/23 06/30/23 History rosuvastatin 20 mg tablet 20 mg PO HS 06/30/23 06/30/23 History trospium 20 mg tablet 20 mg PO BID 06/30/23 06/30/23 History Laboratory Tests 07/01/23 07/01/23 07/02/23 13:25 16:04 05:21 WBC 4.9 K/mm3 5.6 K/mm3 (4.5-10.0) (4.5-10.0) RBC 4.75 M/mm3 4.42 M/mm3 (4.2-5.4) (4.2-5.4) Hgb 14.3 g/dL 13.0 g/dL (12.0-15.0) (12.0-15.0) Hct 45.9 % 41.8 % (37.0-47.0) (37.0-47.0) MCV 96.6 D fl 94.6 fl (80-100) (80-100) MCH 30.1 pg 29.4 pg (26-34) (26-34) MCHC 31.2 L g/dl 31.1 L g/dl (32-36) (32-36) RDW 17.2 H % 17.0 H % (11.5-14.5) (11.5-14.5) Plt Count 171 k/mm3 187 k/mm3 (150-375) (150-375) MPV 10.9 H fl 11.3 H fl (7.4-10.4) (7.4-10.4) Immature Gran % (Auto) 0.4 % 0.5 % (0-0.5) (0-0.5) Neut % (Auto) 58.5 % 59.6 % (45.5-73.1) (45.5-73.1) Lymph % (Auto) 24.3 % 23.0 % (18.3-44.2) (18.3-44.2) [place] % (Auto) 15.4 H % 15.3 H % (2.6-8.5) (2.6-8.5) Eos % (Auto) 0.8 % 1.1 % (0-4.4) (0-4.4) Baso % (Auto) 0.6 % 0.5 % (0.2-1.2) (0.2-1.2) Lymph # (Auto) 1.20 K/mm3 1.29 K/mm3 (0.9-3.2) (0.9-3.2) [place] # (Auto) 0.8 H K/mm3 0.9 H K/mm3 (0.1-0.6) (0.1-0.6) Eos # (Auto) 0.0 K/mm3 0.1 K/mm3 (0-0.3) (0-0.3) Baso # (Auto) 0.0 K/mm3 0.0 K/mm3 (0.0-0.1) (0.0-0.1) Abs Immat Gran (auto) 0.02 K/mm3 0.03 K/mm3 (0.00-0.031) (0.00-0.031) Absolute Neuts (auto) 2.9 K/mm3 3.4 K/mm3 (1.3-6.7) (1.3-6.7) Absolute Nucleated RBC 0.0 K/mm3 0.0 K/mm3 (0.0-0.012) (0.0-0.012) Nucleated RBC % 0.0 % 0.0 % (0.0-0.2) (0.0-0.2) Sodium 138 mmol/L (137-145) Potassium 4.4 mmol/L 3.6 mmol/L (3.4-5.0) (3.4-5.0) Chloride 108 H mmol/L (98-107) Carbon Dioxide 25 mmol/L (22-30) Anion Gap 5 L mmol/L (8-16) BUN 17 mg/dL (7-17) Creatinine 1.00 mg/dL (0.7-1.0) Estim Creat Clear Calc 41 ml/min Estimated GFR 53 L (59 - ) Glucose 81 mg/dL (65-110) Calcium 7.7 L mg/dL (8.4-10.2) Magnesium 2.6 H mg/dL (1.6-2.3) Total Bilirubin 1.1 mg/dL (0.2-1.3) AST 96 H U/L (14-36) ALT 52 H U/L (6-35) Alkaline Phosphatase 183 H U/L (38-126) Total Protein 5.0 L g/dL (6.3-8.2) Albumin 2.7 L g/dL (3.5-5.1) TSH 2.110 uIU/mL (0.465-4.680) Patient hx anesthesia problems:
--- NOTE | 2023-07-02 12:43 | WPDGICN ---
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 She had 4 days of nausea and vomiting then noted coffee ground emesis, as well as 6 days of loose stools. She also had decreased appetite. Remote history of AAA w/coil repair in Oct. CVA in December now using eliquis. K 2.6, hgb 14, CT scan reviewed trace perihepatic ascites. Small sliding hiatal hernia. Chronic elevation of right hemidiaphragm. Also noted mild elevated transaminases. Review of Systems Review of Systems: CONSTITUTIONAL: Denies fever, chills, or sweats. ENT: Rhinorrhea and congestion denies sore throat, or otalgia. CARDIOVASCULAR: Palpitations denies chest pain, or edema. RESPIRATORY: Denies cough or dyspnea. GASTROINTESTINAL: Nausea, vomiting and diarrhea denies abdominal pain GENITOURINARY: Denies dysuria or hematuria. SKIN: Denies rash or itching. MUSCULOSKELETAL: Denies back pain, joint pain, or myalgia. NEUROLOGIC: Lightheadedness denies headache, numbness, or weakness. PSYCHIATRIC: Denies anxiety or depression. [facility] Past Medical History Medical History (Updated 07/02/23 @ 16:43 by Graham Rodriguez MD) AAA (abdominal aortic aneurysm) without rupture Acquired hypothyroidism Atrial fibrillation Coffee ground emesis Elevated liver enzymes Gout Heart disease HLD (hyperlipidemia) shelter current use of anticoagulant Family History Family History Father Hypertension Heart problem Mother Parkinson disease Social History Social History (Updated 07/01/23 @ 00:34 by Elisha Chairez APRN) Social History: . Patient lives with son. Full Code. Occasionally uses walker. 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
--- NOTE | 2023-07-02 13:14 | SUR.OPER ---
1312: DR. CA NOTIFIED OF BLOOD PRESSURE. STATES HE WILL COME OBSERVE PT. PT. AWAKE. PULSE 73. SAO2-100%.
--- NOTE | 2023-07-02 13:15 | SUR.OPER ---
1313:. DR. CA AT BEDSIDE.
--- NOTE | 2023-07-02 13:18 | SUR.OPER ---
10MG. EPHEDRINE GIVEN IVP PER DR. CA.
--- NOTE | 2023-07-02 13:24 | SUR.OPER ---
1319: BLOOD PRESSURE 123/75.
[2023-07-02] MEDS: ONDANSETRON INJ 4 MG/2 ML VIAL IV PUSH (18:04)
[2023-07-02] MEDS: ROSUVASTATIN 10 MG TABLET 20 MG PO (20:52)
[2023-07-02] MEDS: LORazepam (*CRX) 0.5 MG TABLET PO (20:54)
[2023-07-03] MEDS: LACTATED RINGERS 1,000 ML 125 ML IV CONT (02:37)
[2023-07-03 05:26] VITALS: BP 99/48; PULSE 97; RESP 18; TEMP 36.7; O2SAT 95
[2023-07-03 05:47] LABS: Basophils Percent Auto 0.7 % (0.2-1.2); Eosinophils Absolute Auto 0.1 K/mm3 (0-0.3); Eosinophils Percent Auto 1.1 % (0-4.4); Hematocrit 39.1 % (37.0-47.0); Hemoglobin 12.5 g/dL (12.0-15.0); Immature Granulocyte Absolute 0.04 K/mm3 (0.00-0.031); Immature Granulocyte Percent A 0.9 % (0-0.5); Lymphocytes Absolute Auto 1.26 K/mm3 (0.9-3.2); Lymphocytes Percent Auto 27.8 % (18.3-44.2); Mean Corpuscular Hemoglobin 30.3 pg (26-34); Mean Corpuscular Volume 94.9 fl (80-100); Mean Platelet Volume 11.2 fl (7.4-10.4); Monocytes Absolute Auto 0.9 K/mm3 (0.1-0.6); Neutrophils Absolute Auto 2.3 K/mm3 (1.3-6.7); Neutrophils Percent Auto 49.5 % (45.5-73.1); Platelet Count Result 154 k/mm3 (150-375); Red Blood Count 4.12 M/mm3 (4.2-5.4); Red Cell Distribution Width 17.1 % (11.5-14.5); White Blood Count 4.5 K/mm3 (4.5-10.0)
[2023-07-03 06:02] LABS: Alanine Aminotransferase 55 U/L (6-35); Albumin Level 2.8 g/dL (3.5-5.1); Alkaline Phosphatase 195 U/L (38-126); Anion Gap 7 mmol/L (8-16); Aspartate Amino Transferase 104 U/L (14-36); Bilirubin,Total 1.1 mg/dL (0.2-1.3); Blood Urea Nitrogen 17 mg/dL (7-17); Carbon Dioxide 28 mmol/L (22-30); Chloride 103 mmol/L (98-107); Estimated CRCL calculation 34 ml/min; Estimated Glomerular Filt Rate 43; Glucose 96 mg/dL (65-110); Potassium 3.5 mmol/L (3.4-5.0); Sodium 138 mmol/L (137-145)
[2023-07-03 08:00] VITALS: PULSE 97; RESP 18; O2SAT 95
[2023-07-03] MEDS: COLCHICINE 0.6 MG TABLET PO ×2 (08:16→17:13)
[2023-07-03] MEDS: PANTOPRAZOLE SODIUM IV 40 MG VIAL IV PUSH ×2 (08:16→21:16)
[2023-07-03] MEDS: allopurinoL 300 MG TABLET PO (08:16)
[2023-07-03] MEDS: LEVOTHYROXINE SODIUM 88 MCG TABLET PO (08:16)
--- NOTE | 2023-07-03 09:57 | PM.DS ---
DS: Admitting Diagnosis Discharge Date 07/03/23 Admitting Diagnosis diarrhea DS: Discharge Diagnosis Discharge Diagnosis (1) Intractable vomiting: Code(s): R11.10 - Vomiting, unspecified Status: Acute Assessment and Plan: GI consult appreciated, EGD 07/02, continue PPI (2) JAYSON (acute kidney injury): Code(s): N17.9 - Acute kidney failure, unspecified Status: Acute Assessment and Plan: Resolved, monitor (3) Atrial fibrillation: Code(s): I48.91 - Unspecified atrial fibrillation Status: Acute Assessment and Plan: Rate controlled, hold Eliquis, continue metoprolol, monitor Plan Chronic Conditions -Gout: continue allopurinol and colchicine -HTN: continue home medications HCTZ, lisinopril. Monitor BP. First HCTZ dose now, then resume as scheduled. -Hypothyroidism: continue Levothyroxine 88 mcg, check TSH w/reflex -Anxiety: continue 0.5 mg PO PRN -HLD: continue rosuvastatin 20 mg -AAA: coiled, no evidence of dissection or changes per CT Abd/Pelvis. See full read above. Diet: ADAT DVT Prophylaxis: SCDs, currently on Eliquis GI prophylaxis: PPI b.i.d. Code Status: Full Code DS: Summary Hospital Course Hospital Course: 82 y/o F with hx of A-Fib on anti-coagulation, CVA and AAA w/coiling (10/2022) presents here with 3-4 days of nausea and 6 days of loose stools. Patient reports 3-4 days of nausea and vomiting, as well as 6 days of loose stools. Patient described emesis as green with black in it . One episode of hemoptysis - described as vomit streaked with bright red blood. She denies fever, chills, and body aches. She has been experiencing decreased appetite - attempted to remedy with BRAT diet without success. Stool has been loose and brown. She denies recent antibiotic use. Remote history of AAA w/coil repair in Oct. Experienced CVA in December while off blood thinner, able to attend rehab and does not have residual deficits. Time Spent with Patient Time attestation: Total time spent providing and/or coordinating discharge services: Exam Narrative: General: No acute distress, alert and oriented per baseline HEENT: Atraumatic, normocephalic, mucous membranes moist CV: Regular rate and rhythm, S1, S2 Lungs: Clear to auscultation bilaterally, no rales or crackles noted, no wheezes, good air entry Abdomen: Soft, nontender, nondistended Extremities: Normal to inspection Skin: No rashes noted, no lesions or wounds seen Psych: Euthymic, normal affect DS: Data Data Completed and Pending Pending studies at discharge: Pending at discharge 07/02/23 12:50 Surgical [PTH] Routine Labs on day of discharge: Labs from last 24 hours 07/03/23 05:35 WBC 4.5 RBC 4.12 L Hgb 12.5 Hct 39.1 MCV 94.9 MCH 30.3 MCHC 32.0 RDW 17.1 H Plt Count 154 MPV 11.2 H Immature Gran % (Auto) 0.9 H Neut % (Auto) 49.5 Lymph % (Auto) 27.8 [place] % (Auto) 20.0 H Eos % (Auto) 1.1 Baso % (Auto) 0.7 Lymph # (Auto) 1.26 [place] # (Auto) 0.9 H Eos # (Auto) 0.1 Baso # (Auto) 0.0 Abs Immat Gran (auto) 0.04 H Absolute Neuts (auto) 2.3 Absolute Nucleated RBC 0.0 Nucleated RBC % 0.0 Sodium 138 Potassium 3.5 Chloride 103 Carbon Dioxide 28 Anion Gap 7 L BUN 17 Creatinine 1.20 H Estim Creat Clear Calc 34 Estimated GFR 43 L Glucose 96 Calcium 8.0 L Total Bilirubin 1.1 AST 104 H ALT 55 H Alkaline Phosphatase 195 H Total Protein 5.0 L Albumin 2.8 L Discharge Plan Discharge Attending physician on discharge: Stephanie Jackson Consulting providers: Graham Rodriguez Discharging Clinician: Stephanie Jackson Patient Disposition: Home, Self-Care Activity: as tolerated Diet: as tolerated Patient Instructions: Antibiotic Form Stand Alone Forms: General Discharge Information Follow-up/Referrals: Graham Rodriguez MD [Physician] - Angel Corbin DO [Primary Car
[2023-07-03] MEDS: SODIUM CHLORIDE 0.9% IV 1,000 ML 999 ML IV CONT (13:00)
[2023-07-03 13:16] VITALS: BP 103/68; PULSE 110; RESP 19
--- NOTE | 2023-07-03 13:54 | WPDGIPROGNO ---
Progress Note: A&P Assessment and Plan (1) Coffee ground emesis: Code(s): K92.0 - Hematemesis Status: Acute Assessment and Plan: no signs of bleeding mild esophagitis on ppi advance diet as tolerated, also antiemetics- still some nausea (2) Lower abdominal pain: Code(s): R10.30 - Lower abdominal pain, unspecified Status: Acute Assessment and Plan: CT scan reviewed monitor (3) Elevated liver enzymes: Code(s): R74.8 - Abnormal levels of other serum enzymes Status: Acute (4) JAYSON (acute kidney injury): Code(s): N17.9 - Acute kidney failure, unspecified Status: Acute Subjective Date/time seen: 07/03/23 13:54 Interval history: egd with mild esophagitis and mild gastritis, no signs of bleeding still some nausea but eating, also lower abdominal pain Review of Systems Review of Systems: All systems reviewed & are unremarkable except as noted in HPI and below Exam Narrative: General: No acute distress, alert and oriented per baseline HEENT: Atraumatic, normocephalic, mucous membranes moist Neck supple CV: Regular rate and rhythm, S1, S2 Lungs: Clear to auscultation bilaterally, no rales or crackles noted, no wheezes, good air entry Abdomen: Soft, mild ttp in lower abdomen, no rebound, +BS, nondistended Extremities: Normal to inspection Skin: No rashes noted, no lesions or wounds seen Psych: Euthymic, normal affect Objective Data Vital Signs Vital Signs: Vital Signs - 24 hr 07/02/23 15:32 07/02/23 20:45 07/02/23 20:00 Temperature 97.3 F L 98.1 F Pulse Rate 96 84 Respiratory Rate 18 18 Blood Pressure 93/57 L 104/50 L Pulse Oximetry 93 98 Oxygen Delivery Room Air 07/02/23 21:31 07/03/23 05:26 07/03/23 08:00 Temperature 98.1 F Pulse Rate 97 97 Respiratory Rate 18 18 Blood Pressure 99/48 L Pulse Oximetry 97 95 95 Oxygen Delivery Room Air Room Air 07/03/23 13:16 Temperature Pulse Rate 110 H Respiratory Rate 19 Blood Pressure 103/68 Pulse Oximetry Oxygen Delivery Intake/Output Intake/Output: Intake & Output 06/30/23 07/01/23 07/02/23 07/03/23 23:59 23:59 23:59 23:59 Intake Total 1100 4690 1640 1400 Output Total 404 101 Balance 1100 4286 1539 1400 Meds/Results Medications: Active Medications Generic Name Dose Route Start Last Admin Trade Name Freq PRN Reason Stop Dose Admin Allopurinol 300 mg 07/01/23 09:00 07/03/23 08:16 Allopurinol 300 Mg Tablet PO 300 mg DAILY MIGUEL ANGEL Administration Colchicine 0.6 mg 07/01/23 09:00 07/03/23 08:16 Colchicine 0.6 Mg Tablet PO 07/31/23 08:59 0.6 mg BID MIGUEL ANGEL Administration Levothyroxine Sodium 88 mcg 07/01/23 09:00 07/03/23 08:16 Levothyroxine Sodium 88 Mcg Tablet PO 07/31/23 08:59 88 mcg DAILY MIGUEL ANGEL Administration Lorazepam 0.5 mg 06/30/23 20:59 07/02/23 20:54 Lorazepam (*Crx) 0.5 Mg Tablet PO 0.5 mg DAILY PRN Administration anxiety Metoprolol Succinate 100 mg 07/01/23 12:00 07/01/23 12:04 Metoprolol Succinate Ext Rel 100 Mg Tabcr PO 100 mg DAILY MIGUEL ANGEL Administration Ondansetron HCl 4 mg 07/01/23 09:13 07/02/23 18:04 Ondansetron Inj 4 Mg/2 Ml Vial IV PUSH 4 mg Q4H PRN Administration Nausea And Vomiting Pantoprazole Sodium 40 mg 07/01/23 14:40 07/03/23 08:16 Pantoprazole Sodium Iv 40 Mg Vial IV PUSH 40 mg Q12HR MIGUEL ANGEL Administration Rosuvastatin Calcium 20 mg 06/30/23 21:00 07/02/23 20:52 Rosuvastatin 10 Mg Tablet PO 20 mg HS MIGUEL ANGEL Administration Radiology Results: ITS Impressions Abdomen/Pelvis CT 06/30/23 14:46 IMPRESSION: 1. Trace perihepatic ascites. 2. Small sliding hiatal hernia. 3. Chronic elevation of right hemidiaphragm. Labs Labs: Laboratory Results - last 24 hr 07/03/23 05:35 WBC 4.5 RBC 4.12 L Hgb 12.5 Hct 39.1 MCV 94.9 MCH 30.3 MCHC 32.0 RDW 17.1 H Plt Count 154 MPV 11.2 H Immature Gran % (Auto) 0.
[2023-07-03 15:20] LABS: Anion Gap 6 mmol/L (8-16); Blood Urea Nitrogen 15 mg/dL (7-17); Calcium 7.8 mg/dL (8.4-10.2); Carbon Dioxide 30 mmol/L (22-30); Chloride 103 mmol/L (98-107); Estimated CRCL calculation 34 ml/min; Estimated Glomerular Filt Rate 43; Glucose 98 mg/dL (65-110); Sodium 139 mmol/L (137-145)
--- NOTE | 2023-07-03 15:59 | PM.IMPN ---
Progress Note: A&P Assessment and Plan (1) Intractable vomiting: Code(s): R11.10 - Vomiting, unspecified Status: Acute Assessment and Plan: GI consult appreciated, EGD 07/02, continue PPI (2) JAYSON (acute kidney injury): Code(s): N17.9 - Acute kidney failure, unspecified Status: Acute Assessment and Plan: Resolved, monitor (3) Atrial fibrillation: Code(s): I48.91 - Unspecified atrial fibrillation Status: Acute Assessment and Plan: Rate controlled, hold Eliquis, continue metoprolol, monitor (4) Transaminitis: Code(s): R74.01 - Elevation of levels of liver transaminase levels Status: Acute Assessment and Plan: Unsure of etiology, continues to worsen, check hepatitis panel Plan Chronic Conditions -Gout: continue allopurinol and colchicine -HTN: continue home medications HCTZ, lisinopril. Monitor BP. First HCTZ dose now, then resume as scheduled. -Hypothyroidism: continue Levothyroxine 88 mcg, check TSH w/reflex -Anxiety: continue 0.5 mg PO PRN -HLD: continue rosuvastatin 20 mg -AAA: coiled, no evidence of dissection or changes per CT Abd/Pelvis. See full read above. Diet: ADAT DVT Prophylaxis: SCDs, currently on Eliquis GI prophylaxis: PPI b.i.d. Code Status: Full Code Subjective Date/time seen: 07/03/23 15:59 Interval history: 82 y/o F with hx of A-Fib on anti-coagulation, CVA and AAA w/coiling (10/2022) presents here with 3-4 days of nausea and 6 days of loose stools concerning for GI bleed. No overnight events noted. No chest pain or shortness of breath. No fevers or chills. Still with some diarrhea, less nausea, no emesis. Review of Systems Review of Systems: 12 point review of systems was assessed and was negative except as noted in the HPI Exam Narrative: General: No acute distress, alert and oriented per baseline HEENT: Atraumatic, normocephalic, mucous membranes moist CV: Regular rate and rhythm, S1, S2 Lungs: Clear to auscultation bilaterally, no rales or crackles noted, no wheezes, good air entry Abdomen: Soft, nontender, nondistended Extremities: Normal to inspection Skin: No rashes noted, no lesions or wounds seen Psych: Euthymic, normal affect Objective Data Vital Signs Vital Signs: Vital Signs - 24 hr 07/02/23 20:45 07/02/23 20:00 07/02/23 21:31 Temperature 98.1 F Pulse Rate 84 Respiratory Rate 18 Blood Pressure 104/50 L Pulse Oximetry 98 97 Oxygen Delivery Room Air Room Air 07/03/23 05:26 07/03/23 08:00 07/03/23 13:16 Temperature 98.1 F Pulse Rate 97 97 110 H Respiratory Rate 18 18 19 Blood Pressure 99/48 L 103/68 Pulse Oximetry 95 95 Oxygen Delivery Room Air Intake/Output Intake/Output: Intake & Output 06/30/23 07/01/23 07/02/23 07/03/23 23:59 23:59 23:59 23:59 Intake Total 1100 4690 1640 1400 Output Total 404 101 Balance 1100 4286 1539 1400 Meds/Results Medications: Active Medications Generic Name Dose Route Start Last Admin Trade Name Freq PRN Reason Stop Dose Admin Allopurinol 300 mg 07/01/23 09:00 07/03/23 08:16 Allopurinol 300 Mg Tablet PO 300 mg DAILY MIGUEL ANGEL Administration Colchicine 0.6 mg 07/01/23 09:00 07/03/23 08:16 Colchicine 0.6 Mg Tablet PO 07/31/23 08:59 0.6 mg BID MIGUEL ANGEL Administration Levothyroxine Sodium 88 mcg 07/01/23 09:00 07/03/23 08:16 Levothyroxine Sodium 88 Mcg Tablet PO 07/31/23 08:59 88 mcg DAILY MIGUEL ANGEL Administration Lorazepam 0.5 mg 06/30/23 20:59 07/02/23 20:54 Lorazepam (*Crx) 0.5 Mg Tablet PO 0.5 mg DAILY PRN Administration anxiety Metoprolol Succinate 100 mg 07/01/23 12:00 07/01/23 12:04 Metoprolol Succinate Ext Rel 100 Mg Tabcr PO 100 mg DAILY MIGUEL ANGEL Administration Ondansetron HCl 4 mg 07/01/23 09:13 07/02/23 18:04 Ondansetron Inj 4 Mg/2 Ml Vial IV PUSH 4 mg Q4H PRN Administration Nausea And Vomiting Pantoprazole
[2023-07-03] MEDS: POTASSIUM CHLORIDE INJ 40 MEQ in SODIUM CHLORIDE 0.9% IV 500 ML 100 MEQ IVPB (17:12)
[2023-07-03 17:18] LABS: Hepatitis B Surface Antigen Negative (Negative)
[2023-07-03 17:24] LABS: HAV RESULT Negative (Negative); Hepatitis B Core IgM Result Negative (Negative)
[2023-07-03 17:39] LABS: Hepatitis C Virus Antibody Negative (Negative)
[2023-07-03 19:44] VITALS: BP 115/64; PULSE 102; RESP 18; TEMP 36.7; O2SAT 95
[2023-07-03] MEDS: ROSUVASTATIN 10 MG TABLET 20 MG PO (21:15)
[2023-07-04 05:39] LABS: Basophils Percent Auto 0.5 % (0.2-1.2); Eosinophils Percent Auto 0.7 % (0-4.4); Hematocrit 39.2 % (37.0-47.0); Hemoglobin 12.5 g/dL (12.0-15.0); Immature Granulocyte Absolute 0.03 K/mm3 (0.00-0.031); Immature Granulocyte Percent A 0.7 % (0-0.5); Lymphocytes Absolute Auto 1.17 K/mm3 (0.9-3.2); Lymphocytes Percent Auto 27.9 % (18.3-44.2); Mean Corpuscular HGB Conc 31.9 g/dl (32-36); Mean Corpuscular Hemoglobin 29.9 pg (26-34); Mean Corpuscular Volume 93.8 fl (80-100); Mean Platelet Volume 10.8 fl (7.4-10.4); Monocytes Absolute Auto 0.8 K/mm3 (0.1-0.6); Neutrophils Absolute Auto 2.1 K/mm3 (1.3-6.7); Neutrophils Percent Auto 50.2 % (45.5-73.1); Platelet Count Result 133 k/mm3 (150-375); Red Blood Count 4.18 M/mm3 (4.2-5.4); Red Cell Distribution Width 17.1 % (11.5-14.5); White Blood Count 4.2 K/mm3 (4.5-10.0)
[2023-07-04 05:52] LABS: Alanine Aminotransferase 55 U/L (6-35); Albumin Level 2.6 g/dL (3.5-5.1); Alkaline Phosphatase 178 U/L (38-126); Anion Gap 4 mmol/L (8-16); Aspartate Amino Transferase 81 U/L (14-36); Blood Urea Nitrogen 12 mg/dL (7-17); Carbon Dioxide 30 mmol/L (22-30); Chloride 106 mmol/L (98-107); Estimated CRCL calculation 37 ml/min; Estimated Glomerular Filt Rate 48; Glucose 93 mg/dL (65-110); Sodium 140 mmol/L (137-145)
[2023-07-04 06:16] VITALS: BP 101/55; PULSE 89; RESP 16; TEMP 36.5; O2SAT 97
[2023-07-04 07:40] VITALS: RESP 16; O2SAT 97
[2023-07-04 07:55] LABS: Anisocytosis 1+ (NORMAL); Atypical Lymphocytes Present; Platelet Estimate Adequate (Adequate); Schistocytes None Seen (NORMAL)
[2023-07-04] MEDS: LEVOTHYROXINE SODIUM 88 MCG TABLET PO (08:53)
[2023-07-04] MEDS: allopurinoL 300 MG TABLET PO (08:53)
[2023-07-04] MEDS: PANTOPRAZOLE SODIUM IV 40 MG VIAL IV PUSH ×2 (08:53→20:51)
[2023-07-04] MEDS: COLCHICINE 0.6 MG TABLET PO ×2 (08:53→16:30)
--- NOTE | 2023-07-04 09:59 | WPDGIPROGNO ---
Progress Note: A&P Assessment and Plan (1) Intractable vomiting: Code(s): R11.10 - Vomiting, unspecified Status: Acute Assessment and Plan: Patient continues complain of vomiting but also is tolerating diet intermittently. Will continue supportive care for now. Recent EGD showed mild esophagitis. Continue PPI therapy and monitor for now. (2) Diarrhea: Code(s): R19.7 - Diarrhea, unspecified Status: Acute Assessment and Plan: Diarrhea noted today. Stool cultures will be obtained. Continue IV rehydration. Will give Lomotil briefly to try to control the symptoms. (3) Elevated liver enzymes: Code(s): R74.8 - Abnormal levels of other serum enzymes Status: Acute Assessment and Plan: mild elevation of LFTs noted. Appear to be in association with her current infection. Gastroenteritis suspected. Continue to monitor LFTs conservatively for now. Subjective Date/time seen: 07/04/23 09:59 Interval history: Patient seen covering for Dr. Trujillo today. Patient awakened this morning had several episodes of diarrhea. Continues to have mild emesis although has been offered a regular diet and keep it down. No bleeding noted. No fever noted. Review of Systems Review of Systems: Review of systems noncontributory. Exam Narrative: Physical exam reveals patient be alert comfortable at rest. HEENT exam reveals no icterus. Lungs are clear. Heart without murmur. Abdomen is soft and nontender today. No organomegaly evident. Objective Data Vital Signs Vital Signs: Vital Signs - 24 hr 07/03/23 13:16 07/03/23 19:44 07/03/23 20:00 Temperature 98.1 F Pulse Rate 110 H 102 H Respiratory Rate 19 18 Blood Pressure 103/68 115/64 Pulse Oximetry 95 Oxygen Delivery Room Air 07/04/23 06:16 Temperature 97.7 F Pulse Rate 89 Respiratory Rate 16 Blood Pressure 101/55 L Pulse Oximetry 97 Oxygen Delivery Intake/Output Intake/Output: Intake & Output 07/01/23 07/02/23 07/03/23 07/04/23 23:59 23:59 23:59 23:59 Intake Total 4690 1640 2440 770 Output Total 404 101 Balance 4286 1539 2440 770 Meds/Results Medications: Active Medications Generic Name Dose Route Start Last Admin Trade Name Freq PRN Reason Stop Dose Admin Allopurinol 300 mg 07/01/23 09:00 07/04/23 08:53 Allopurinol 300 Mg Tablet PO 300 mg DAILY MIGUEL ANGEL Administration Colchicine 0.6 mg 07/01/23 09:00 07/04/23 08:53 Colchicine 0.6 Mg Tablet PO 07/31/23 08:59 0.6 mg BID MIGUEL ANGEL Administration Diphenoxylate HCl/Atropine 1 tablet 07/04/23 09:57 Diphenoxylate/Atropine (*Crx) 2.5 Mg Tablet PO PRN PRN Diarrhea Levothyroxine Sodium 88 mcg 07/01/23 09:00 07/04/23 08:53 Levothyroxine Sodium 88 Mcg Tablet PO 07/31/23 08:59 88 mcg DAILY MIGUEL ANGEL Administration Lorazepam 0.5 mg 06/30/23 20:59 07/02/23 20:54 Lorazepam (*Crx) 0.5 Mg Tablet PO 0.5 mg DAILY PRN Administration anxiety Metoprolol Succinate 100 mg 07/01/23 12:00 07/01/23 12:04 Metoprolol Succinate Ext Rel 100 Mg Tabcr PO 100 mg DAILY MIGUEL ANGEL Administration Ondansetron HCl 4 mg 07/01/23 09:13 07/02/23 18:04 Ondansetron Inj 4 Mg/2 Ml Vial IV PUSH 4 mg Q4H PRN Administration Nausea And Vomiting Pantoprazole Sodium 40 mg 07/01/23 14:40 07/04/23 08:53 Pantoprazole Sodium Iv 40 Mg Vial IV PUSH 40 mg Q12HR MIGUEL ANGEL Administration Rosuvastatin Calcium 20 mg 06/30/23 21:00 07/03/23 21:15 Rosuvastatin 10 Mg Tablet PO 20 mg HS MIGUEL ANGEL Administration Radiology Results: ITS Impressions Abdomen/Pelvis CT 06/30/23 14:46 IMPRESSION: 1. Trace perihepatic ascites. 2. Small sliding hiatal hernia. 3. Chronic elevation of right hemidiaphragm. Labs Labs: Laboratory Results - last 24 hr 07/03/23 07/03/23 07/04/23 05:35 15:00 05:27 WBC 4.2 L RBC 4.18 L Hgb 12.5 Hct 39.2 MCV 93.8 MCH 29.9 MCHC 3
--- NOTE | 2023-07-04 12:50 | PM.IMPN ---
Progress Note: A&P Assessment and Plan (1) Intractable vomiting: Code(s): R11.10 - Vomiting, unspecified Status: Acute Assessment and Plan: GI consult appreciated, EGD 07/02, continue PPI (2) JAYSON (acute kidney injury): Code(s): N17.9 - Acute kidney failure, unspecified Status: Acute Assessment and Plan: Resolved, monitor (3) Atrial fibrillation: Code(s): I48.91 - Unspecified atrial fibrillation Status: Acute Assessment and Plan: Rate controlled, hold Eliquis, continue metoprolol, monitor (4) Transaminitis: Code(s): R74.01 - Elevation of levels of liver transaminase levels Status: Acute Assessment and Plan: Unsure of etiology, likely 2/2 acute infection-acute GE suspected, hepatitis panel negative Improving, monitor Stool studies, stool occult blood test pending Plan Chronic Conditions -Gout: continue allopurinol and colchicine -HTN: continue home medications HCTZ, lisinopril. Monitor BP. First HCTZ dose now, then resume as scheduled. -Hypothyroidism: continue Levothyroxine 88 mcg, check TSH w/reflex -Anxiety: continue 0.5 mg PO PRN -HLD: continue rosuvastatin 20 mg -AAA: coiled, no evidence of dissection or changes per CT Abd/Pelvis. See full read above. Diet: ADAT DVT Prophylaxis: SCDs, currently on Eliquis GI prophylaxis: PPI b.i.d. Code Status: Full Code Subjective Date/time seen: 07/04/23 12:50 Interval history: 82 y/o F with hx of A-Fib on anti-coagulation, CVA and AAA w/coiling (10/2022) presents here with 3-4 days of nausea and 6 days of loose stools concerning for GI bleed. No overnight events noted. No chest pain or shortness of breath. No nausea, vomiting. No fevers or chills. Still with diarrhea, much improved. Review of Systems Review of Systems: 12 point review of systems was assessed and was negative except as noted in the HPI Exam Narrative: General: No acute distress, alert and oriented per baseline HEENT: Atraumatic, normocephalic, mucous membranes moist CV: Regular rate and rhythm, S1, S2 Lungs: Clear to auscultation bilaterally, no rales or crackles noted, no wheezes, good air entry Abdomen: Soft, nontender, nondistended Extremities: Normal to inspection Skin: No rashes noted, no lesions or wounds seen Psych: Euthymic, normal affect Objective Data Vital Signs Vital Signs: Vital Signs - 24 hr 07/03/23 13:16 07/03/23 19:44 07/03/23 20:00 Temperature 98.1 F Pulse Rate 110 H 102 H Respiratory Rate 19 18 Blood Pressure 103/68 115/64 Pulse Oximetry 95 Oxygen Delivery Room Air 07/04/23 06:16 07/04/23 07:40 Temperature 97.7 F Pulse Rate 89 Respiratory Rate 16 16 Blood Pressure 101/55 L Pulse Oximetry 97 97 Oxygen Delivery Room Air Intake/Output Intake/Output: Intake & Output 07/01/23 07/02/23 07/03/23 07/04/23 23:59 23:59 23:59 23:59 Intake Total 4690 1640 2440 1130 Output Total 404 101 500 Balance 4286 1539 2440 630 Meds/Results Medications: Active Medications Generic Name Dose Route Start Last Admin Trade Name Freq PRN Reason Stop Dose Admin Allopurinol 300 mg 07/01/23 09:00 07/04/23 08:53 Allopurinol 300 Mg Tablet PO 300 mg DAILY MIGUEL ANGEL Administration Colchicine 0.6 mg 07/01/23 09:00 07/04/23 08:53 Colchicine 0.6 Mg Tablet PO 07/31/23 08:59 0.6 mg BID MIGUEL ANGEL Administration Diphenoxylate HCl/Atropine 1 tablet 07/04/23 09:57 Diphenoxylate/Atropine (*Crx) 2.5 Mg Tablet PO PRN PRN Diarrhea Levothyroxine Sodium 88 mcg 07/01/23 09:00 07/04/23 08:53 Levothyroxine Sodium 88 Mcg Tablet PO 07/31/23 08:59 88 mcg DAILY MIGUEL ANGEL Administration Lorazepam 0.5 mg 06/30/23 20:59 07/02/23 20:54 Lorazepam (*Crx) 0.5 Mg Tablet PO 0.5 mg DAILY PRN Administration anxiety Metoprolol Succinate 100 mg 07/01/23 12:00 07/01/23 12:04 Metoprolol Succinate Ext Rel 100 Mg Tabcr PO 1
[2023-07-04] MEDS: POTASSIUM CHLORIDE 20 MEQ ER TABLET 80 MEQ PO (13:18)
[2023-07-04 13:50] VITALS: BP 113/61; PULSE 118; RESP 18; TEMP 36.6; O2SAT 95
[2023-07-04] MEDS: DIPHENOXYLATE/ATROPINE (*CRX) 2.5 MG TABLET 1 TABLET PO ×2 (16:01→19:06)
[2023-07-04 16:54] LABS: Toxigenic C. Diff NEGATIVE (NEGATIVE)
[2023-07-04] MEDS: ROSUVASTATIN 10 MG TABLET 20 MG PO (20:51)
[2023-07-04 20:52] VITALS: BP 138/78; PULSE 76; RESP 18; TEMP 36.7; O2SAT 94
[2023-07-05 03:57] VITALS: BP 109/61; PULSE 89; RESP 16; TEMP 36.6; O2SAT 97
[2023-07-05 05:18] LABS: Basophils Percent Auto 0.6 % (0.2-1.2); Eosinophils Percent Auto 0.4 % (0-4.4); Hematocrit 38.4 % (37.0-47.0); Hemoglobin 12.4 g/dL (12.0-15.0); Immature Granulocyte Absolute 0.03 K/mm3 (0.00-0.031); Immature Granulocyte Percent A 0.6 % (0-0.5); Lymphocytes Absolute Auto 1.33 K/mm3 (0.9-3.2); Lymphocytes Percent Auto 24.8 % (18.3-44.2); Mean Corpuscular HGB Conc 32.3 g/dl (32-36); Mean Corpuscular Hemoglobin 29.8 pg (26-34); Mean Corpuscular Volume 92.3 fl (80-100); Mean Platelet Volume 10.7 fl (7.4-10.4); Monocytes Absolute Auto 1.1 K/mm3 (0.1-0.6); Monocytes Percent Auto 20.1 % (2.6-8.5); Neutrophils Absolute Auto 2.9 K/mm3 (1.3-6.7); Neutrophils Percent Auto 53.5 % (45.5-73.1); Platelet Count Result 156 k/mm3 (150-375); Red Blood Count 4.16 M/mm3 (4.2-5.4); Red Cell Distribution Width 16.7 % (11.5-14.5); White Blood Count 5.4 K/mm3 (4.5-10.0)
[2023-07-05 05:33] LABS: Alanine Aminotransferase 55 U/L (6-35); Albumin Level 2.6 g/dL (3.5-5.1); Alkaline Phosphatase 183 U/L (38-126); Anion Gap 2 mmol/L (8-16); Aspartate Amino Transferase 88 U/L (14-36); Blood Urea Nitrogen 10 mg/dL (7-17); Calcium 8.2 mg/dL (8.4-10.2); Carbon Dioxide 34 mmol/L (22-30); Chloride 103 mmol/L (98-107); Estimated CRCL calculation 41 ml/min; Estimated Glomerular Filt Rate 53; Glucose 95 mg/dL (65-110); Potassium 3.3 mmol/L (3.4-5.0); Sodium 139 mmol/L (137-145)
[2023-07-05 08:30] VITALS: RESP 16; O2SAT 97
[2023-07-05] MEDS: PANTOPRAZOLE SODIUM IV 40 MG VIAL IV PUSH ×2 (08:30→20:45)
[2023-07-05] MEDS: DIPHENOXYLATE/ATROPINE (*CRX) 2.5 MG TABLET 1 TABLET PO ×3 (08:30→16:32)
[2023-07-05] MEDS: allopurinoL 300 MG TABLET PO (08:30)
[2023-07-05] MEDS: COLCHICINE 0.6 MG TABLET PO ×2 (08:30→16:32)
[2023-07-05] MEDS: LEVOTHYROXINE SODIUM 88 MCG TABLET PO (08:30)
--- NOTE | 2023-07-05 09:48 | PM.IMPN ---
Progress Note: A&P Assessment and Plan (1) Intractable vomiting: Code(s): R11.10 - Vomiting, unspecified Status: Acute Assessment and Plan: GI consult appreciated, EGD 07/02, continue PPI (2) JAYSON (acute kidney injury): Code(s): N17.9 - Acute kidney failure, unspecified Status: Acute Assessment and Plan: Resolved, monitor (3) Atrial fibrillation: Code(s): I48.91 - Unspecified atrial fibrillation Status: Acute Assessment and Plan: Rate controlled, hold Eliquis, continue metoprolol, monitor (4) Transaminitis: Code(s): R74.01 - Elevation of levels of liver transaminase levels Status: Acute Assessment and Plan: Unsure of etiology, likely 2/2 acute infection-acute GE suspected, hepatitis panel negative Improving, monitor Stool studies, stool occult blood test pending 07/05: Unchanged, check RUQ US Plan Chronic Conditions -Gout: continue allopurinol and colchicine -HTN: continue home medications HCTZ, lisinopril. Monitor BP. First HCTZ dose now, then resume as scheduled. -Hypothyroidism: continue Levothyroxine 88 mcg, check TSH w/reflex -Anxiety: continue 0.5 mg PO PRN -HLD: continue rosuvastatin 20 mg -AAA: coiled, no evidence of dissection or changes per CT Abd/Pelvis. See full read above. Diet: ADAT DVT Prophylaxis: SCDs, currently on Eliquis GI prophylaxis: PPI b.i.d. Code Status: Full Code Subjective Date/time seen: 07/05/23 09:48 Interval history: 82 y/o F with hx of A-Fib on anti-coagulation, CVA and AAA w/coiling (10/2022) presents here with 3-4 days of nausea and 6 days of loose stools concerning for GI bleed. No overnight events noted. No chest pain or shortness of breath. No nausea, vomiting. No fevers or chills. Still with diarrhea, much improved. Feels much better than when she came in, and better than yesterday. Review of Systems Review of Systems: 12 point review of systems was assessed and was negative except as noted in the HPI Exam Narrative: General: No acute distress, alert and oriented per baseline HEENT: Atraumatic, normocephalic, mucous membranes moist CV: Regular rate and rhythm, S1, S2 Lungs: Clear to auscultation bilaterally, no rales or crackles noted, no wheezes, good air entry Abdomen: Soft, nontender, nondistended Extremities: Normal to inspection Skin: No rashes noted, no lesions or wounds seen Psych: Euthymic, normal affect Objective Data Vital Signs Vital Signs: Vital Signs - 24 hr 07/04/23 13:50 07/04/23 20:52 07/04/23 20:00 Temperature 97.9 F 98.1 F Pulse Rate 118 H 76 Respiratory Rate 18 18 Blood Pressure 113/61 138/78 Pulse Oximetry 95 94 Oxygen Delivery Room Air 07/05/23 03:57 07/05/23 08:30 Temperature 97.8 F Pulse Rate 89 Respiratory Rate 16 16 Blood Pressure 109/61 Pulse Oximetry 97 97 Oxygen Delivery Room Air Intake/Output Intake/Output: Intake & Output 07/02/23 07/03/23 07/04/23 07/05/23 23:59 23:59 23:59 23:59 Intake Total 1640 2440 1610 350 Output Total 101 1000 Balance 1539 2440 610 350 Meds/Results Medications: Active Medications Generic Name Dose Route Start Last Admin Trade Name Freq PRN Reason Stop Dose Admin Allopurinol 300 mg 07/01/23 09:00 07/05/23 08:30 Allopurinol 300 Mg Tablet PO 300 mg DAILY MIGUEL ANGEL Administration Colchicine 0.6 mg 07/01/23 09:00 07/05/23 08:30 Colchicine 0.6 Mg Tablet PO 07/31/23 08:59 0.6 mg BID MIGUEL ANGEL Administration Diphenoxylate HCl/Atropine 1 tablet 07/04/23 09:57 07/05/23 08:30 Diphenoxylate/Atropine (*Crx) 2.5 Mg Tablet PO 1 tablet PRN PRN Administration Diarrhea Levothyroxine Sodium 88 mcg 07/01/23 09:00 07/05/23 08:30 Levothyroxine Sodium 88 Mcg Tablet PO 07/31/23 08:59 88 mcg DAILY MIGUEL ANGEL Administration Lorazepam 0.5 mg 06/30/23 20:59 07/02/23 20:54 Lorazepam (*Crx) 0.5 Mg Tablet PO 0.5 mg DAILY PRN Ad
--- NOTE | 2023-07-05 10:13 | WPDGIPROGNO ---
Progress Note: A&P Assessment and Plan (1) Diarrhea: Code(s): R19.7 - Diarrhea, unspecified Status: Acute Assessment and Plan: Diarrhea appears to have lessened. Stool for C difficile toxin negative. Other cultures are pending. Patient on a trial of Lomotil to help with symptoms. Will await stool cultures. (2) Intractable vomiting: Code(s): R11.10 - Vomiting, unspecified Status: Acute Assessment and Plan: Patient no longer with intractable vomiting. She appears to have a poor appetite. But tolerating regular diet at present. (3) Transaminitis: Code(s): R74.01 - Elevation of levels of liver transaminase levels Status: Acute Assessment and Plan: Elevated transaminases noted. Hepatitis serologies are negative. Perhaps this is rated late it to her gastroenteritis. Continue to monitor. Will need to be followed till resolution. Dr. Trujillo returns tomorrow and will resume care. 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 Tolerating regular diet. She is somewhat difficult historian. But appears to have had less diarrhea than she complained of yesterday. Complains of not feeling well but specifics are difficult to describe. Stool cultures pending at this point. No additional vomiting reported. Review of Systems Review of Systems: Review of systems noncontributory. Exam Narrative: Physical exam reveals patient be alert sitting at bedside. Comfortable at rest. HEENT exam reveals no icterus. Lungs are clear. Heart without murmur. Abdomen bowel sounds present soft no localized tenderness. No masses appreciated. Objective Data Vital Signs Vital Signs: Vital Signs - 24 hr 07/04/23 13:50 07/04/23 20:52 07/04/23 20:00 Temperature 97.9 F 98.1 F Pulse Rate 118 H 76 Respiratory Rate 18 18 Blood Pressure 113/61 138/78 Pulse Oximetry 95 94 Oxygen Delivery Room Air 07/05/23 03:57 07/05/23 08:30 Temperature 97.8 F Pulse Rate 89 Respiratory Rate 16 16 Blood Pressure 109/61 Pulse Oximetry 97 97 Oxygen Delivery Room Air Intake/Output Intake/Output: Intake & Output 07/02/23 07/03/23 07/04/23 09/10/23 23:59 23:59 23:59 23:59 Intake Total 1640 2440 1610 470 Output Total 101 1000 Balance 1539 2440 610 470 Meds/Results Medications: Active Medications Generic Name Dose Route Start Last Admin Trade Name Freq PRN Reason Stop Dose Admin Allopurinol 300 mg 07/01/23 09:00 07/05/23 08:30 Allopurinol 300 Mg Tablet PO 300 mg DAILY MIGUEL ANGEL Administration Colchicine 0.6 mg 07/01/23 09:00 07/05/23 08:30 Colchicine 0.6 Mg Tablet PO 07/31/23 08:59 0.6 mg BID MIGUEL ANGEL Administration Diphenoxylate HCl/Atropine 1 tablet 07/04/23 09:57 07/05/23 08:30 Diphenoxylate/Atropine (*Crx) 2.5 Mg Tablet PO 1 tablet PRN PRN Administration Diarrhea Levothyroxine Sodium 88 mcg 07/01/23 09:00 07/05/23 08:30 Levothyroxine Sodium 88 Mcg Tablet PO 07/31/23 08:59 88 mcg DAILY MIGUEL ANGEL Administration Lorazepam 0.5 mg 06/30/23 20:59 07/02/23 20:54 Lorazepam (*Crx) 0.5 Mg Tablet PO 0.5 mg DAILY PRN Administration anxiety Metoprolol Succinate 100 mg 07/01/23 12:00 07/01/23 12:04 Metoprolol Succinate Ext Rel 100 Mg Tabcr PO 100 mg DAILY MIGUEL ANGEL Administration Ondansetron HCl 4 mg 07/01/23 09:13 07/02/23 18:04 Ondansetron Inj 4 Mg/2 Ml Vial IV PUSH 4 mg Q4H PRN Administration Nausea And Vomiting Pantoprazole Sodium 40 mg 07/01/23 14:40 07/05/23 08:30 Pantoprazole Sodium Iv 40 Mg Vial IV PUSH 40 mg Q12HR MIGUEL ANGEL Administration Rosuvastatin Calcium 20 mg 06/30/23 21:00 07/04/23 20:51 Rosuvastatin 10 Mg Tablet PO 20 mg HS MIGUEL ANGEL Administration Radiology Results: ITS Impr
[2023-07-05 14:02] VITALS: BP 101/53; PULSE 106; RESP 18; TEMP 36.4; O2SAT 96
[2023-07-05] MEDS: ROSUVASTATIN 10 MG TABLET 20 MG PO (20:45)
[2023-07-05 21:24] VITALS: BP 110/65; PULSE 117; RESP 18; TEMP 36.7; O2SAT 95
[2023-07-06 05:09] VITALS: BP 105/75; PULSE 62; RESP 15; TEMP 36.7; O2SAT 95
[2023-07-06 06:00] LABS: Basophils Percent Auto 0.3 % (0.2-1.2); Eosinophils Percent Auto 0.4 % (0-4.4); Hematocrit 41.6 % (37.0-47.0); Hemoglobin 13.4 g/dL (12.0-15.0); Immature Granulocyte Absolute 0.06 K/mm3 (0.00-0.031); Immature Granulocyte Percent A 0.9 % (0-0.5); Lymphocytes Absolute Auto 2.09 K/mm3 (0.9-3.2); Mean Corpuscular HGB Conc 32.2 g/dl (32-36); Mean Corpuscular Hemoglobin 29.8 pg (26-34); Mean Corpuscular Volume 92.4 fl (80-100); Mean Platelet Volume 10.9 fl (7.4-10.4); Monocytes Absolute Auto 1.1 K/mm3 (0.1-0.6); Neutrophils Absolute Auto 3.5 K/mm3 (1.3-6.7); Neutrophils Percent Auto 51.4 % (45.5-73.1); Platelet Count Result 172 k/mm3 (150-375); Red Cell Distribution Width 17.3 % (11.5-14.5); White Blood Count 6.8 K/mm3 (4.5-10.0)
[2023-07-06 06:08] LABS: Alanine Aminotransferase 72 U/L (6-35); Albumin Level 2.8 g/dL (3.5-5.1); Alkaline Phosphatase 242 U/L (38-126); Anion Gap 7 mmol/L (8-16); Aspartate Amino Transferase 120 U/L (14-36); Bilirubin,Total 1.5 mg/dL (0.2-1.3); Blood Urea Nitrogen 10 mg/dL (7-17); Calcium 8.4 mg/dL (8.4-10.2); Carbon Dioxide 32 mmol/L (22-30); Chloride 99 mmol/L (98-107); Estimated CRCL calculation 37 ml/min; Estimated Glomerular Filt Rate 48; Glucose 94 mg/dL (65-110); Sodium 138 mmol/L (137-145)
[2023-07-06 08:00] VITALS: PULSE 62; RESP 15; O2SAT 96
[2023-07-06] MEDS: COLCHICINE 0.6 MG TABLET PO ×2 (08:52→17:35)
[2023-07-06] MEDS: LEVOTHYROXINE SODIUM 88 MCG TABLET PO (08:52)
[2023-07-06] MEDS: PANTOPRAZOLE SODIUM IV 40 MG VIAL IV PUSH ×2 (08:52→20:22)
[2023-07-06] MEDS: allopurinoL 300 MG TABLET PO (08:52)
[2023-07-06 10:04] VITALS: O2SAT 96
[2023-07-06] MEDS: POTASSIUM CHLORIDE INJ 40 MEQ in SODIUM CHLORIDE 0.9% IV 500 ML 100 MEQ IVPB ×2 (10:27→17:35)
--- NOTE | 2023-07-06 10:32 | WPDGIPROGNO ---
Progress Note: A&P Assessment and Plan (1) Diarrhea: Code(s): R19.7 - Diarrhea, unspecified Status: Acute Assessment and Plan: pending stool studies supportive care C diff negative will consider to do sigmoidoscopy if no clinical improvement in 1-2 days (2) Lower abdominal pain: Code(s): R10.30 - Lower abdominal pain, unspecified Status: Acute (3) Coffee ground emesis: Code(s): K92.0 - Hematemesis Status: Acute Assessment and Plan: resolved mild esophagitis in EGD, pending biopsies (4) Transaminitis: Code(s): R74.01 - Elevation of levels of liver transaminase levels Status: Acute Assessment and Plan: in setting of gastroenteritis hepatitis negative monitor (5) Esophagitis: Code(s): K20.90 - Esophagitis, unspecified without bleeding Status: Acute Assessment and Plan: ppi Subjective Date/time seen: 07/06/23 10:32 Interval history: still with nausea and diarrhea similar lower abdominal pain, stool result pending Review of Systems Review of Systems: All systems reviewed & are unremarkable except as noted in HPI and below Exam Narrative: General: No acute distress, alert and oriented per baseline HEENT: Atraumatic, normocephalic, mucous membranes moist Neck supple CV: Regular rate and rhythm, S1, S2 Lungs: Clear to auscultation bilaterally, no rales or crackles noted, no wheezes, good air entry Abdomen: Soft, mild ttp in lower abdomen, no rebound, +BS, nondistended Extremities: Normal to inspection Skin: No rashes noted, no lesions or wounds seen Psych: Euthymic, normal affect Objective Data Vital Signs Vital Signs: Vital Signs - 24 hr 07/05/23 14:02 07/05/23 20:00 07/05/23 21:24 Temperature 97.6 F 98.0 F Pulse Rate 106 H 117 H Respiratory Rate 18 18 Blood Pressure 101/53 L 110/65 Pulse Oximetry 96 95 Oxygen Delivery Room Air 07/06/23 05:09 07/06/23 10:04 Temperature 98.0 F Pulse Rate 62 Respiratory Rate 15 Blood Pressure 105/75 Pulse Oximetry 95 96 Oxygen Delivery Room Air Intake/Output Intake/Output: Intake & Output 07/03/23 07/04/23 07/05/23 07/06/23 23:59 23:59 23:59 23:59 Intake Total 2440 1610 1610 Output Total 1000 600 Balance 2440 610 1010 Meds/Results Medications: Active Medications Generic Name Dose Route Start Last Admin Trade Name Dustin PRN Reason Stop Dose Admin Allopurinol 300 mg 07/01/23 09:00 07/06/23 08:52 Allopurinol 300 Mg Tablet PO 300 mg DAILY MIGUEL ANGEL Administration Colchicine 0.6 mg 07/01/23 09:00 07/06/23 08:52 Colchicine 0.6 Mg Tablet PO 07/31/23 08:59 0.6 mg BID MIGUEL ANGEL Administration Diphenoxylate HCl/Atropine 1 tablet 07/04/23 09:57 07/05/23 16:32 Diphenoxylate/Atropine (*Crx) 2.5 Mg Tablet PO 1 tablet PRN PRN Administration Diarrhea Potassium Chloride 40 meq/ 520 mls @ 130 mls/hr 07/06/23 09:50 07/06/23 10:27 Sodium Chloride IVPB 07/06/23 17:49 100 mls/hr Q4H MIGUEL ANGEL Administration Levothyroxine Sodium 88 mcg 07/01/23 09:00 07/06/23 08:52 Levothyroxine Sodium 88 Mcg Tablet PO 07/31/23 08:59 88 mcg DAILY MIGUEL ANGEL Administration Lorazepam 0.5 mg 06/30/23 20:59 07/02/23 20:54 Lorazepam (*Crx) 0.5 Mg Tablet PO 0.5 mg DAILY PRN Administration anxiety Metoprolol Succinate 100 mg 07/01/23 12:00 07/01/23 12:04 Metoprolol Succinate Ext Rel 100 Mg Tabcr PO 100 mg DAILY MIGUEL ANGEL Administration Ondansetron HCl 4 mg 07/01/23 09:13 07/02/23 18:04 Ondansetron Inj 4 Mg/2 Ml Vial IV PUSH 4 mg Q4H PRN Administration Nausea And Vomiting Pantoprazole Sodium 40 mg 07/01/23 14:40 07/06/23 08:52 Pantoprazole Sodium Iv 40 Mg Vial IV PUSH 40 mg Q12HR MIGUEL ANGEL Administration Rosuvastatin Calcium 20 mg 06/30/23 21:00 07/05/23 20:45 Rosuvastatin 10 Mg Tablet PO 20 mg HS MIGUEL ANGEL Administration Radiology Results: ITS Impressions Abdomen/Pelv
[2023-07-06 14:00] VITALS: BP 109/59; PULSE 117; RESP 18; TEMP 37.2; O2SAT 94
--- NOTE | 2023-07-06 16:37 | PM.IMPN ---
Progress Note: A&P Assessment and Plan (1) Intractable vomiting: Code(s): R11.10 - Vomiting, unspecified Status: Acute Assessment and Plan: GI consult appreciated, EGD 07/02, continue PPI Suspect etiology is acute viral GE Follow up stool studies C dif negative (2) JAYSON (acute kidney injury): Code(s): N17.9 - Acute kidney failure, unspecified Status: Acute Assessment and Plan: Resolved, monitor (3) Atrial fibrillation: Code(s): I48.91 - Unspecified atrial fibrillation Status: Acute Assessment and Plan: Rate controlled, hold Eliquis, continue metoprolol, monitor (4) Transaminitis: Code(s): R74.01 - Elevation of levels of liver transaminase levels Status: Acute Assessment and Plan: Unsure of etiology, likely 2/2 acute infection-acute GE suspected, hepatitis panel negative Improving, monitor Stool studies, stool occult blood test pending 07/05: Unchanged, check RUQ US 07/06: improved, US wnl, monitor Plan Chronic Conditions -Gout: continue allopurinol and colchicine -HTN: continue home medications HCTZ, lisinopril. Monitor BP. First HCTZ dose now, then resume as scheduled. -Hypothyroidism: continue Levothyroxine 88 mcg, check TSH w/reflex -Anxiety: continue 0.5 mg PO PRN -HLD: continue rosuvastatin 20 mg -AAA: coiled, no evidence of dissection or changes per CT Abd/Pelvis. Diet: ADAT DVT Prophylaxis: SCDs, currently on Eliquis GI prophylaxis: PPI b.i.d. Code Status: Full Code Subjective Date/time seen: 07/06/23 16:37 Interval history: 82 y/o F with hx of A-Fib on anti-coagulation, CVA and AAA w/coiling (10/2022) presents here with 3-4 days of nausea and 6 days of loose stools concerning for GI bleed. No overnight events noted. No chest pain or shortness of breath. No nausea, vomiting. No fevers or chills. Significantly less diarrhea today, feels much better than yesterday. Review of Systems Review of Systems: 12 point review of systems was assessed and was negative except as noted in the HPI Exam Narrative: General: No acute distress, alert and oriented per baseline HEENT: Atraumatic, normocephalic, mucous membranes moist CV: Regular rate and rhythm, S1, S2 Lungs: Clear to auscultation bilaterally, no rales or crackles noted, no wheezes, good air entry Abdomen: Soft, nontender, nondistended Extremities: Normal to inspection Skin: No rashes noted, no lesions or wounds seen Psych: Euthymic, normal affect Objective Data Vital Signs Vital Signs: Vital Signs - 24 hr 07/05/23 20:00 07/05/23 21:24 07/06/23 05:09 Temperature 98.0 F 98.0 F Pulse Rate 117 H 62 Respiratory Rate 18 15 Blood Pressure 110/65 105/75 Pulse Oximetry 95 95 Oxygen Delivery Room Air 07/06/23 10:04 07/06/23 08:00 07/06/23 14:00 Temperature 98.9 F Pulse Rate 62 117 H Respiratory Rate 15 18 Blood Pressure 109/59 L Pulse Oximetry 96 96 94 Oxygen Delivery Room Air Room Air Intake/Output Intake/Output: Intake & Output 07/03/23 07/04/23 07/05/23 07/06/23 23:59 23:59 23:59 23:59 Intake Total 2440 1610 1610 Output Total 1000 600 Balance 2440 610 1010 Meds/Results Medications: Active Medications Generic Name Dose Route Start Last Admin Trade Name Carlitoq PRN Reason Stop Dose Admin Allopurinol 300 mg 07/01/23 09:00 07/06/23 08:52 Allopurinol 300 Mg Tablet PO 300 mg DAILY MIGUEL ANGEL Administration Colchicine 0.6 mg 07/01/23 09:00 07/06/23 08:52 Colchicine 0.6 Mg Tablet PO 07/31/23 08:59 0.6 mg BID MIGUEL ANGEL Administration Diphenoxylate HCl/Atropine 1 tablet 07/04/23 09:57 07/05/23 16:32 Diphenoxylate/Atropine (*Crx) 2.5 Mg Tablet PO 1 tablet PRN PRN Administration Diarrhea Potassium Chloride 40 meq/ 520 mls @ 130 mls/hr 07/06/23 09:50 07/06/23 10:27 Sodium Chloride IVPB 07/06/23 17:49 100 mls/hr Q4H MIGUEL ANGEL Administration Levothyroxine Sodium
[2023-07-06] MEDS: ROSUVASTATIN 10 MG TABLET 20 MG PO (20:22)
[2023-07-06 21:27] VITALS: BP 115/65; PULSE 120; RESP 16; TEMP 36.2; O2SAT 97
[2023-07-07 05:26] LABS: Basophils Percent Auto 0.6 % (0.2-1.2); Eosinophils Percent Auto 0.4 % (0-4.4); Immature Granulocyte Absolute 0.04 K/mm3 (0.00-0.031); Immature Granulocyte Percent A 0.6 % (0-0.5); Lymphocytes Absolute Auto 1.26 K/mm3 (0.9-3.2); Lymphocytes Percent Auto 18.4 % (18.3-44.2); Mean Corpuscular HGB Conc 31.7 g/dl (32-36); Mean Corpuscular Hemoglobin 29.4 pg (26-34); Mean Corpuscular Volume 92.8 fl (80-100); Mean Platelet Volume 10.7 fl (7.4-10.4); Monocytes Percent Auto 14.5 % (2.6-8.5); Neutrophils Absolute Auto 4.5 K/mm3 (1.3-6.7); Neutrophils Percent Auto 65.5 % (45.5-73.1); Platelet Count Result 167 k/mm3 (150-375); Red Blood Count 4.42 M/mm3 (4.2-5.4); Red Cell Distribution Width 17.2 % (11.5-14.5); White Blood Count 6.9 K/mm3 (4.5-10.0)
[2023-07-07 05:37] LABS: Alanine Aminotransferase 91 U/L (6-35); Albumin Level 2.7 g/dL (3.5-5.1); Alkaline Phosphatase 249 U/L (38-126); Anion Gap 6 mmol/L (8-16); Aspartate Amino Transferase 168 U/L (14-36); Bilirubin,Total 1.8 mg/dL (0.2-1.3); Blood Urea Nitrogen 9 mg/dL (7-17); Calcium 7.8 mg/dL (8.4-10.2); Carbon Dioxide 29 mmol/L (22-30); Chloride 103 mmol/L (98-107); Estimated CRCL calculation 37 ml/min; Estimated Glomerular Filt Rate 48; Glucose 103 mg/dL (65-110); Potassium 3.5 mmol/L (3.4-5.0); Sodium 138 mmol/L (137-145)
[2023-07-07 05:41] VITALS: BP 115/62; PULSE 125; RESP 16; TEMP 36.7; O2SAT 91
[2023-07-07] MEDS: LEVOTHYROXINE SODIUM 88 MCG TABLET PO (09:00)
[2023-07-07] MEDS: COLCHICINE 0.6 MG TABLET PO ×2 (09:00→17:30)
[2023-07-07] MEDS: allopurinoL 300 MG TABLET PO (09:00)
[2023-07-07] MEDS: PANTOPRAZOLE SODIUM IV 40 MG VIAL IV PUSH ×2 (09:00→20:15)
--- NOTE | 2023-07-07 10:44 | PM.IMPN ---
Progress Note: A&P Assessment and Plan (1) Intractable vomiting: Code(s): R11.10 - Vomiting, unspecified Status: Acute Assessment and Plan: GI consult appreciated, EGD 07/02, continue PPI Suspect etiology is acute viral GE versus intrahepatic etiology? Ultrasound and hepatitis panel both negative, unsure of etiology of symptoms coupled with elevated transaminases? Follow up stool studies C dif negative (2) JAYSON (acute kidney injury): Code(s): N17.9 - Acute kidney failure, unspecified Status: Acute Assessment and Plan: Resolved, monitor (3) Atrial fibrillation: Code(s): I48.91 - Unspecified atrial fibrillation Status: Acute Assessment and Plan: Rate controlled, hold Eliquis, continue metoprolol, monitor Patient very concerned about being off the Eliquis, restart as soon as able (4) Transaminitis: Code(s): R74.01 - Elevation of levels of liver transaminase levels Status: Acute Assessment and Plan: Unsure of etiology, likely 2/2 acute infection-acute GE suspected, hepatitis panel negative Improving, monitor Stool studies, stool occult blood test pending 07/05: Unchanged, check RUQ US 07/06: Improved, US wnl, monitor 07/07: Cont to worsen, unsure of etiology, defer to GI for further workup, Plan Chronic Conditions -Gout: continue allopurinol and colchicine -HTN: continue home medications HCTZ, lisinopril. Monitor BP. First HCTZ dose now, then resume as scheduled. -Hypothyroidism: continue Levothyroxine 88 mcg, check TSH w/reflex -Anxiety: continue 0.5 mg PO PRN -HLD: hold statin while LFTs elevated -AAA: coiled, no evidence of dissection or changes per CT Abd/Pelvis. Diet: ADAT DVT Prophylaxis: SCDs, currently on Eliquis GI prophylaxis: PPI b.i.d. Code Status: Full Code Subjective Date/time seen: 07/07/23 10:44 Interval history: 82 y/o F with hx of A-Fib on anti-coagulation, CVA and AAA w/coiling (10/2022) presents here with 3-4 days of nausea and 6 days of loose stools concerning for GI bleed. Overnight patient states that she has significant nausea with emesis, diarrhea seems improved. She is also having some abdominal pain and cramping. She states she feels much worse than yesterday. No chest pain or shortness of breath. Review of Systems Review of Systems: 12 point review of systems was assessed and was negative except as noted in the HPI Exam Narrative: General: No acute distress, alert and oriented per baseline HEENT: Atraumatic, normocephalic, mucous membranes moist CV: Regular rate and rhythm, S1, S2 Lungs: Clear to auscultation bilaterally, no rales or crackles noted, no wheezes, good air entry Abdomen: Diffusely tender to palpation, no peritoneal signs Extremities: Normal to inspection Skin: No rashes noted, no lesions or wounds seen Psych: Euthymic, normal affect Objective Data Vital Signs Vital Signs: Vital Signs - 24 hr 07/06/23 14:00 07/06/23 20:00 07/06/23 21:27 Temperature 98.9 F 97.1 F L Pulse Rate 117 H 120 H Respiratory Rate 18 16 Blood Pressure 109/59 L 115/65 Pulse Oximetry 94 97 Oxygen Delivery Room Air 07/07/23 05:41 07/07/23 09:00 Temperature 98.1 F Pulse Rate 125 H Respiratory Rate 16 Blood Pressure 115/62 Pulse Oximetry 91 Oxygen Delivery Room Air Intake/Output Intake/Output: Intake & Output 07/04/23 07/05/23 07/06/23 07/07/23 23:59 23:59 23:59 23:59 Intake Total 1610 1610 742 50 Output Total 1000 600 Balance 610 1010 742 50 Meds/Results Medications: Active Medications Generic Name Dose Route Start Last Admin Trade Name Carlitoq PRN Reason Stop Dose Admin Allopurinol 300 mg 07/01/23 09:00 07/07/23 09:00 Allopurinol 300 Mg Tablet PO 300 mg DAILY MIGUEL ANGEL Administration Colchicine 0.6 mg 07/01/23 09:00 07/07/23 09:00 Colchicine 0.6 Mg Tablet PO 07/31/23 08:59 0.6 mg BID MIGUEL ANGEL Administration Diphenox
[2023-07-07 14:00] VITALS: BP 120/84; PULSE 118; RESP 20; TEMP 36.8; O2SAT 100
--- NOTE | 2023-07-07 14:28 | WPDGIPROGNO ---
Progress Note: A&P Assessment and Plan (1) Diarrhea: Code(s): R19.7 - Diarrhea, unspecified Status: Acute Assessment and Plan: stool studies no sign of infection supportive care C diff negative diarrhea improved some but still she is not back to her baseline, she is ok to proceed with colonoscopy tomorrow (2) Lower abdominal pain: Code(s): R10.30 - Lower abdominal pain, unspecified Status: Acute Assessment and Plan: similar (3) Coffee ground emesis: Code(s): K92.0 - Hematemesis Status: Acute Assessment and Plan: resolved, bx showed mild esophagitis (4) Transaminitis: Code(s): R74.01 - Elevation of levels of liver transaminase levels Status: Acute Assessment and Plan: in setting of gastroenteritis, abdominal US negative hepatitis negative monitor (5) Esophagitis: Code(s): K20.90 - Esophagitis, unspecified without bleeding Status: Acute Assessment and Plan: ppi bx reviewed Subjective Date/time seen: 07/07/23 14:28 Interval history: still with nausea and diarrhea but better consistency, not back to her baseline Review of Systems Review of Systems: All systems reviewed & are unremarkable except as noted in HPI and below Exam Narrative: General: No acute distress, alert and oriented per baseline HEENT: Atraumatic, normocephalic, mucous membranes moist Neck supple CV: Regular rate and rhythm, S1, S2 Lungs: Clear to auscultation bilaterally, no rales or crackles noted, no wheezes, good air entry Abdomen: Soft, mild ttp in lower abdomen, no rebound, +BS, nondistended Extremities: Normal to inspection Neuro: non-focal Skin: No rashes noted, no lesions or wounds seen Psych: Euthymic, normal affect Objective Data Vital Signs Vital Signs: Vital Signs - 24 hr 07/06/23 20:00 07/06/23 21:27 07/07/23 05:41 Temperature 97.1 F L 98.1 F Pulse Rate 120 H 125 H Respiratory Rate 16 16 Blood Pressure 115/65 115/62 Pulse Oximetry 97 91 Oxygen Delivery Room Air 07/07/23 09:00 Temperature Pulse Rate Respiratory Rate Blood Pressure Pulse Oximetry Oxygen Delivery Room Air Intake/Output Intake/Output: Intake & Output 09/09/23 09/10/23 09/11/23 09/12/23 23:59 23:59 23:59 23:59 Intake Total 1610 1610 742 50 Output Total 1000 600 Balance 610 1010 742 50 Meds/Results Medications: Active Medications Generic Name Dose Route Start Last Admin Trade Name Freq PRN Reason Stop Dose Admin Allopurinol 300 mg 07/01/23 09:00 07/07/23 09:00 Allopurinol 300 Mg Tablet PO 300 mg DAILY MIGUEL ANGEL Administration Colchicine 0.6 mg 07/01/23 09:00 07/07/23 09:00 Colchicine 0.6 Mg Tablet PO 07/31/23 08:59 0.6 mg BID MIGUEL ANGEL Administration Diphenoxylate HCl/Atropine 1 tablet 07/04/23 09:57 07/05/23 16:32 Diphenoxylate/Atropine (*Crx) 2.5 Mg Tablet PO 1 tablet PRN PRN Administration Diarrhea Levothyroxine Sodium 88 mcg 07/01/23 09:00 07/07/23 09:00 Levothyroxine Sodium 88 Mcg Tablet PO 07/31/23 08:59 88 mcg DAILY MIGUEL ANGEL Administration Lorazepam 0.5 mg 06/30/23 20:59 07/02/23 20:54 Lorazepam (*Crx) 0.5 Mg Tablet PO 0.5 mg DAILY PRN Administration anxiety Metoprolol Succinate 100 mg 07/01/23 12:00 07/01/23 12:04 Metoprolol Succinate Ext Rel 100 Mg Tabcr PO 100 mg DAILY MIGUEL ANGEL Administration Ondansetron HCl 4 mg 07/01/23 09:13 07/02/23 18:04 Ondansetron Inj 4 Mg/2 Ml Vial IV PUSH 4 mg Q4H PRN Administration Nausea And Vomiting Pantoprazole Sodium 40 mg 07/01/23 14:40 07/07/23 09:00 Pantoprazole Sodium Iv 40 Mg Vial IV PUSH 40 mg Q12HR MIGUEL ANGEL Administration Rosuvastatin Calcium 20 mg 06/30/23 21:00 07/06/23 20:22 Rosuvastatin 10 Mg Tablet PO 20 mg HS MIGUEL ANGEL Administration Radiology Results: ITS Impressions Abdomen/Pelvis CT 06/30/23 14:46 IMPRESSION: 1. Trace perihepatic ascites. 2. Small
[2023-07-07] MEDS: BISACODYL 5 MG TABLET EC 20 MG PO (17:30)
[2023-07-07] MEDS: polyethylene glycoL 3350 238 GM BOTTLE PO (17:30)
[2023-07-07 17:50] LABS: Influenza A QL RT-PCR Negative (Negative); Influenza B QL RT-PCR Negative (Negative); RSV RNA, RT-PCR Negative (Negative); SARS-CoV-2 RNA PCR Negative (Negative)
[2023-07-07 19:52] VITALS: BP 126/68; PULSE 70; RESP 16; TEMP 36.6; O2SAT 97
[2023-07-07] MEDS: ONDANSETRON INJ 4 MG/2 ML VIAL IV PUSH (22:21)
[2023-07-08] VITALS (9 sets, daily range): BP systolic 93–130; BP diastolic 65–81; PULSE 76–148; RESP 13–20; TEMP 36.1–36.8; O2SAT 94–98
[2023-07-08 05:41] LABS: Basophils Percent Auto 0.4 % (0.2-1.2); Eosinophils Absolute Auto 0.1 K/mm3 (0-0.3); Eosinophils Percent Auto 0.7 % (0-4.4); Hemoglobin 13.8 g/dL (12.0-15.0); Immature Granulocyte Absolute 0.03 K/mm3 (0.00-0.031); Immature Granulocyte Percent A 0.4 % (0-0.5); Lymphocytes Percent Auto 27.7 % (18.3-44.2); Mean Corpuscular HGB Conc 32.9 g/dl (32-36); Mean Corpuscular Hemoglobin 30.3 pg (26-34); Mean Corpuscular Volume 92.1 fl (80-100); Mean Platelet Volume 10.4 fl (7.4-10.4); Monocytes Absolute Auto 1.1 K/mm3 (0.1-0.6); Monocytes Percent Auto 13.9 % (2.6-8.5); Neutrophils Absolute Auto 4.3 K/mm3 (1.3-6.7); Neutrophils Percent Auto 56.9 % (45.5-73.1); Platelet Count Result 179 k/mm3 (150-375); Red Blood Count 4.56 M/mm3 (4.2-5.4); Red Cell Distribution Width 17.1 % (11.5-14.5); White Blood Count 7.6 K/mm3 (4.5-10.0)
[2023-07-08 05:49] LABS: Potassium 2.9 mmol/L (3.4-5.0); Sodium 138 mmol/L (137-145)
[2023-07-08 05:50] LABS: Alanine Aminotransferase 127 U/L (6-35); Albumin Level 2.8 g/dL (3.5-5.1); Alkaline Phosphatase 324 U/L (38-126); Anion Gap 7 mmol/L (8-16); Aspartate Amino Transferase 262 U/L (14-36); Bilirubin,Total 2.1 mg/dL (0.2-1.3); Blood Urea Nitrogen 6 mg/dL (7-17); Calcium 8.2 mg/dL (8.4-10.2); Carbon Dioxide 30 mmol/L (22-30); Chloride 101 mmol/L (98-107); Estimated CRCL calculation 37 ml/min; Estimated Glomerular Filt Rate 48; Glucose 91 mg/dL (65-110)
[2023-07-08] MEDS: PANTOPRAZOLE SODIUM IV 40 MG VIAL IV PUSH ×2 (08:32→20:46)
--- NOTE | 2023-07-08 09:30 | PC.NURSE ---
Patient off of unit to GI lab
--- NOTE | 2023-07-08 09:56 | PC.NURSE ---
Patient returned to unit from GI lab
--- NOTE | 2023-07-08 10:11 | PC.NURSE ---
Manager Search gave update to Stefan patient's son.
--- NOTE | 2023-07-08 10:12 | SUR.PREOP ---
pt transported to GI department via stretcher. VS obtained upon arrival. Anesthesia Ayden notified of VS immediately. pt appeared in NAD. denies complaints, A&O x 3. case CX per anesthesia and MD Trujillo notified. pt transported back to inpatient room. Floor RN aware.
--- NOTE | 2023-07-08 10:25 | PCNWS ---
Weekly nutritional screen. Patient is tolerating current diet with adequate intake. No weight loss reported. No nutritional needs at this time.
--- NOTE | 2023-07-08 10:49 | WPDGIPROGNO ---
Progress Note: A&P Assessment and Plan (1) Diarrhea: Code(s): R19.7 - Diarrhea, unspecified Status: Acute Assessment and Plan: stool studies no sign of infection supportive care C diff negative sigmoidoscopy tomorrow (today had Afib with RVR) (2) Lower abdominal pain: Code(s): R10.30 - Lower abdominal pain, unspecified Status: Acute Assessment and Plan: similar (3) Coffee ground emesis: Code(s): K92.0 - Hematemesis Status: Acute Assessment and Plan: resolved, bx showed mild esophagitis h/h stable will be ok to resume eliquis at this point (h/o Afib and stroke) (4) Transaminitis: Code(s): R74.01 - Elevation of levels of liver transaminase levels Status: Acute Assessment and Plan: in setting of gastroenteritis, recent abdominal US negative hepatitis negative monitor (5) Esophagitis: Code(s): K20.90 - Esophagitis, unspecified without bleeding Status: Acute Assessment and Plan: ppi bx reviewed Subjective Date/time seen: 07/08/23 10:50 Interval history: some nausea after drinking prep, this morning on Afib with RVR and postponed sigmoidoscopy Review of Systems Review of Systems: All systems reviewed & are unremarkable except as noted in HPI and below Exam Const: General: comfortable and no acute distress HENMT: Face/Nose/Sinus: Normal nares present Eyes: General: appearance normal, both eyes and all related structures Neck: Neck: supple Resp: Auscultation: clear to auscultation bilaterally Cardio: Rhythm: abnormal rhythm irregularly irregular GI: Inspection: non-distended GI Palp: Yes Soft to palpation and No Tenderness to palpation present (GI) Auscultation: normal bowel sounds Skin: General skin exam: normal color Neuro: Speech: normal speech Motor exam (neuro): 5/5 motor strength present throughout Extrem: General: normal to inspection Psych: Mental Status: mental status grossly normal Objective Data Vital Signs Vital Signs: Vital Signs - 24 hr 07/07/23 14:00 07/07/23 19:52 07/07/23 20:00 Temperature 98.2 F 97.8 F Pulse Rate 118 H 70 Respiratory Rate 20 16 Blood Pressure 120/84 126/68 Pulse Oximetry 100 97 Oxygen Delivery Room Air 07/08/23 04:47 07/08/23 08:32 07/08/23 09:52 Temperature 98.3 F 97.0 F L Pulse Rate 97 143 H Respiratory Rate 16 20 Blood Pressure 130/80 120/74 Pulse Oximetry 94 98 Oxygen Delivery Room Air Room Air Intake/Output Intake/Output: Intake & Output 07/05/23 07/06/23 07/07/23 07/08/23 23:59 23:59 23:59 23:59 Intake Total 6573 556 0383 300 Output Total 600 Balance 0952 116 5807 300 Meds/Results Medications: Active Medications Generic Name Dose Route Start Last Admin Trade Name Freq PRN Reason Stop Dose Admin Allopurinol 300 mg 07/01/23 09:00 07/08/23 07:59 Allopurinol 300 Mg Tablet PO Not Given DAILY MIGUEL ANGEL Colchicine 0.6 mg 07/01/23 09:00 07/08/23 07:59 Colchicine 0.6 Mg Tablet PO 07/31/23 08:59 Not Given BID MIGUEL ANGEL Dicyclomine HCl 20 mg 07/07/23 14:42 Dicyclomine Hcl 10 Mg Capsule PO QID PRN Abdominal Cramping Diphenoxylate HCl/Atropine 1 tablet 07/04/23 09:57 07/05/23 16:32 Diphenoxylate/Atropine (*Crx) 2.5 Mg Tablet PO 1 tablet PRN PRN Administration Diarrhea Levothyroxine Sodium 88 mcg 07/01/23 09:00 07/08/23 07:59 Levothyroxine Sodium 88 Mcg Tablet PO 07/31/23 08:59 Not Given DAILY MIGUEL ANGEL Lorazepam 0.5 mg 06/30/23 20:59 07/02/23 20:54 Lorazepam (*Crx) 0.5 Mg Tablet PO 0.5 mg DAILY PRN Administration anxiety Metoprolol Succinate 100 mg 07/01/23 12:00 07/01/23 12:04 Metoprolol Succinate Ext Rel 100 Mg Tabcr PO 100 mg DAILY MIGUEL ANGEL Administration Ondansetron HCl 4 mg 07/01/23 09:13 07/07/23 22:21 Ondansetron Inj 4 Mg/2 Ml Vial IV PUSH 4 mg Q4H PRN Administration Nausea And Vomiting Pantoprazole Sodium 40 m
--- NOTE | 2023-07-08 11:48 | ECG_ITS ---
Measurements Intervals [place] Rate: 125 P: ND: 0 QRS: -23 QRSD: 89 T: -31 QT: 328 QTc: 473 Interpretive Statements ATRIAL FIBRILLATION WITH RAPID VENTRICULAR RESPONSE LOW QRS VOLTAGE- DIFFUSE LEADS CANNOT RULE OUT SEPTAL INFARCT, AGE INDETERMINATE BORDERLINE T WAVE ABNORMALITY- ANT/INF LEADS ABNORMAL ECG NO PREVIOUS ECG AVAILABLE FOR COMPARISON Electronically Signed On 07-08-2023 12:30:15 CDT by Tyler Haywood D.O.
--- NOTE | 2023-07-08 12:31 | PC.NURSE ---
Medical Instrument Cable [employer]ator called Dr Isbell with results of EKG. No answer.
--- NOTE | 2023-07-08 13:28 | PC.NURSE ---
Patient IV is leaking. Deputy Clerk Of [address] called IV ultrasound Bright Dumont to place new IV.
[2023-07-08] MEDS: METOPROLOL TARTRATE INJ 5 MG/5 ML VIAL IV PUSH (13:40)
[2023-07-08] MEDS: COLCHICINE 0.6 MG TABLET PO (16:18)
--- NOTE | 2023-07-08 17:42 | PM.IMPN ---
Progress Note: A&P Assessment and Plan (1) Intractable vomiting: Code(s): R11.10 - Vomiting, unspecified Status: Acute Assessment and Plan: With concern for coffee-ground emesis. GI consult appreciated, EGD 07/02 showing grade 2 esophagitis in the distal esophagus so seen with erosive changes. Biopsies were taken. Hiatal hernia noted. Mild gastritis with biopsies taken. Duodenum was normal. CT of the abdomen pelvis showed trace perihepatic ascites. Suspect etiology is acute viral GE versus intrahepatic etiology? Ultrasound and hepatitis panel both negative, unsure of etiology of symptoms coupled with elevated transaminases? C dif negative. Stool studies are negative. Continue Protonix. (2) Diarrhea: Code(s): R19.7 - Diarrhea, unspecified Status: Acute Assessment and Plan: C diff is negative. Stool studies are negative. Stool study showing no signs of infection. GI has been consulted. Plan is for sigmoidoscopy tomorrow. Resume Eliquis when okay with GI after procedure. (3) JAYSON (acute kidney injury): Code(s): N17.9 - Acute kidney failure, unspecified Status: Acute Assessment and Plan: Creatinine 1.3 on admission and has overall improved to 1.1. Probably at her baseline. Will continue to monitor. (4) Atrial fibrillation: Code(s): I48.91 - Unspecified atrial fibrillation Status: Acute Assessment and Plan: Patient very concerned about being off the Eliquis. Explained that would be inappropriate added back today since she could have a colonoscopy that may require biopsies. She was hypotensive early in her hospital course blood pressures been stable since. Metoprolol has not been resumed. Called by nursing due to tachycardia. EKG does show AFib with RVR so IV metoprolol x1 was given. Will continue to monitor on telemetry. Will add back oral metoprolol immediate release and advance as she tolerates. (5) Transaminitis: Code(s): R74.01 - Elevation of levels of liver transaminase levels Status: Acute Assessment and Plan: Unsure of etiology, likely 2/2 acute infection-acute GE suspected, hepatitis panel negative. Right upper quadrant ultrasound was normal. All values are trending upward still. Check lipase. May need MRCP. Plan Chronic Conditions -Gout: continue allopurinol but hold colchicine -HTN: BP soft early on but better now. HCTZ, lisinopril remain on hold. Resume scheduled metoprolol. -Hypothyroidism: TSH normal. continue Levothyroxine -Anxiety: continue Ativan 0.5 mg PO PRN -HLD: hold statin while LFTs elevated -AAA: coiled, no evidence of dissection or changes per CT Abd/Pelvis. Diet: clears DVT Prophylaxis: SCDs GI prophylaxis: PPI b.i.d. Code Status: Full Code Subjective Date/time seen: 07/08/23 17:42 Interval history: 82 y/o F with hx of A-Fib on anti-coagulation, CVA and AAA w/coiling (10/2022) presents here with 3-4 days of nausea and 6 days of loose stools concerning for GI bleed. Assuming care. Chart reviewed. Patient feeling better. No longer feels nauseous. No vomiting. Denies chest pain or shortness of breath. Still having some mild lower abdominal pain. Endoscopy cancelled due to elevated heart rate. walking with walker. up to the chair Exam Narrative: General: No acute distress, alert and oriented per baseline sitting at side of bed feeding herself HEENT: Atraumatic, normocephalic, mucous membranes moist CV: irregularly irregular; tele now showing controlled rate Lungs: Clear to auscultation bilaterally, no rales or crackles noted, no wheezes, good air entry Abdomen: NT/ND, +BS, sot Extremities: trace edema Skin: No rashes noted, left simon raised black eschar about the size of a renato Psych: anxious Objective Data Vital Signs Vital Signs: Vital Signs - 24 hr 07/07/23 19:52 07/07/23 20:00 07/08/23 04:47 Temperature 97.8 F 98.3 F Pulse Rate 70 9
[2023-07-08 18:31] LABS: Magnesium 0.8 mg/dL (1.6-2.3); Potassium 2.9 mmol/L (3.4-5.0)
[2023-07-08] MEDS: METOPROLOL TARTRATE 25 MG TABLET PO (20:47)
[2023-07-08] MEDS: POTASSIUM CHLORIDE INJ 40 MEQ in SODIUM CHLORIDE 0.9% IV 500 ML 130 MEQ IVPB (20:47)
[2023-07-08] MEDS: MAGNESIUM SULFATE 3GM/D5W100ML 3 GM/100 ML BAG IVPB (20:47)
[2023-07-09] VITALS (15 sets, daily range): BP systolic 72–112; BP diastolic 34–71; PULSE 73–100; RESP 14–28; TEMP 36.2–36.6; O2SAT 94–98
[2023-07-09 05:54] LABS: Basophils Percent Auto 0.6 % (0.2-1.2); Eosinophils Percent Auto 0.4 % (0-4.4); Hemoglobin 12.1 g/dL (12.0-15.0); Immature Granulocyte Absolute 0.05 K/mm3 (0.00-0.031); Immature Granulocyte Percent A 0.7 % (0-0.5); Lymphocytes Absolute Auto 1.63 K/mm3 (0.9-3.2); Lymphocytes Percent Auto 23.8 % (18.3-44.2); Mean Corpuscular HGB Conc 32.7 g/dl (32-36); Mean Corpuscular Hemoglobin 30.1 pg (26-34); Mean Platelet Volume 10.3 fl (7.4-10.4); Monocytes Percent Auto 14.9 % (2.6-8.5); Neutrophils Absolute Auto 4.1 K/mm3 (1.3-6.7); Neutrophils Percent Auto 59.6 % (45.5-73.1); Platelet Count Result 154 k/mm3 (150-375); Red Blood Count 4.02 M/mm3 (4.2-5.4); Red Cell Distribution Width 17.2 % (11.5-14.5); White Blood Count 6.9 K/mm3 (4.5-10.0)
[2023-07-09 06:09] LABS: Alanine Aminotransferase 115 U/L (6-35); Albumin Level 2.5 g/dL (3.5-5.1); Alkaline Phosphatase 335 U/L (38-126); Anion Gap 2 mmol/L (8-16); Aspartate Amino Transferase 180 U/L (14-36); Bilirubin,Total 1.5 mg/dL (0.2-1.3); Blood Urea Nitrogen 6 mg/dL (7-17); Calcium 7.7 mg/dL (8.4-10.2); Carbon Dioxide 32 mmol/L (22-30); Chloride 104 mmol/L (98-107); Estimated CRCL calculation 37 ml/min; Estimated Glomerular Filt Rate 48; Glucose 91 mg/dL (65-110); Lipase 205 U/L (23-300); Potassium 3.1 mmol/L (3.4-5.0); Sodium 138 mmol/L (137-145)
[2023-07-09] MEDS: METOPROLOL TARTRATE 25 MG TABLET PO ×2 (08:48→21:20)
[2023-07-09] MEDS: LEVOTHYROXINE SODIUM 88 MCG TABLET PO (08:48)
[2023-07-09] MEDS: PANTOPRAZOLE SODIUM IV 40 MG VIAL IV PUSH (08:48)
[2023-07-09 10:42] LABS: Magnesium 1.8 mg/dL (1.6-2.3)
[2023-07-09] MEDS: LACTATED RINGERS 1,000 ML 150 ML IV CONT (12:35)
--- NOTE | 2023-07-09 13:08 | WPDANESEPPF ---
Anes - Initial Pre Proc Eval Procedure: Operation Date: 07/02/23 12:45 Proposed Procedures p Esophagogastroduodenoscopy EGD - Graham Rodriguez MD Operation Date: 07/08/23 11:00 Proposed Procedures p Flexible Sigmoidoscopy - Graham Rodriguez MD Operation Date: 07/09/23 13:30 Proposed Procedures p Flexible Sigmoidoscopy - Graham Rodriguez MD Date/Time: 07/09/23 13:08 Surgeon: Ryan Olivo MD Pre Op Diagnosis: Intractable Nausea and Vomiting Patient Data Age: 82 Gender: F Height: 1.65 m Weight: 80 kg Last Vital Signs Temp 36.2 C L 07/09/23 12:33 Pulse 81 07/09/23 12:33 Resp 18 07/09/23 12:33 BP 93/71 L 07/09/23 12:33 Pulse Ox 96 07/09/23 12:33 O2 Del Method Room Air 07/09/23 12:33 Allergies Allergy/AdvReac Type Severity Reaction Status Date / Time No Known Allergies Allergy Verified 07/09/23 12:32 Home Medications Medication Instructions Recorded Confirmed Type apixaban 5 mg tablet (Eliquis) 5 mg PO BID #60 tabs 10/03/22 06/30/23 Rx levothyroxine 88 mcg capsule 88 mcg PO DAILY #30 caps 10/03/22 06/30/23 Rx lisinopril 40 mg tablet 40 mg PO DAILY #30 tabs 10/03/22 06/30/23 Rx metoprolol succinate 100 mg 100 mg PO DAILY #30 tabs 10/03/22 06/30/23 Rx tablet,extended release 24 hr lorazepam 0.5 mg tablet 0.5 mg PO DAILY PRN anxiety #30 10/04/22 06/30/23 Rx tabs allopurinol 300 mg tablet 300 mg PO DAILY 06/30/23 06/30/23 History colchicine (gout) 0.6 mg capsule 0.6 mg PO BID 06/30/23 06/30/23 History hydrochlorothiazide 12.5 mg capsule 12.5 mg PO DAILY 06/30/23 06/30/23 History rosuvastatin 20 mg tablet 20 mg PO HS 06/30/23 06/30/23 History trospium 20 mg tablet 20 mg PO BID 06/30/23 06/30/23 History Laboratory Tests 07/08/23 07/09/23 07/09/23 17:51 05:30 05:33 WBC 6.9 K/mm3 (4.5-10.0) RBC 4.02 L M/mm3 (4.2-5.4) Hgb 12.1 g/dL (12.0-15.0) Hct 37.0 % (37.0-47.0) MCV 92.0 fl (80-100) MCH 30.1 pg (26-34) MCHC 32.7 g/dl (32-36) RDW 17.2 H % (11.5-14.5) Plt Count 154 k/mm3 (150-375) MPV 10.3 fl (7.4-10.4) Immature Gran % (Auto) 0.7 H % (0-0.5) Neut % (Auto) 59.6 % (45.5-73.1) Lymph % (Auto) 23.8 % (18.3-44.2) [place] % (Auto) 14.9 H % (2.6-8.5) Eos % (Auto) 0.4 % (0-4.4) Baso % (Auto) 0.6 % (0.2-1.2) Lymph # (Auto) 1.63 K/mm3 (0.9-3.2) [place] # (Auto) 1.0 H K/mm3 (0.1-0.6) Eos # (Auto) 0.0 K/mm3 (0-0.3) Baso # (Auto) 0.0 K/mm3 (0.0-0.1) Abs Immat Gran (auto) 0.05 H K/mm3 (0.00-0.031) Absolute Neuts (auto) 4.1 K/mm3 (1.3-6.7) Absolute Nucleated RBC 0.0 K/mm3 (0.0-0.012) Nucleated RBC % 0.0 % (0.0-0.2) Sodium 138 mmol/L (137-145) Potassium 2.9 L mmol/L 3.1 L mmol/L (3.4-5.0) (3.4-5.0) Chloride 104 mmol/L (98-107) Carbon Dioxide 32 H mmol/L (22-30) Anion Gap 2 L mmol/L (8-16) BUN 6 L mg/dL (7-17) Creatinine 1.10 H mg/dL (0.7-1.0) Estim Creat Clear Calc 37 ml/min Estimated GFR 48 L (59 - ) Glucose 91 mg/dL (65-110) Calcium 7.7 L mg/dL (8.4-10.2) Magnesium 0.8 L mg/dL 1.8 mg/dL (1.6-2.3) (1.6-2.3) Total Bilirubin 1.5 H mg/dL (0.2-1.3) AST 180 H U/L (14-36) ALT 115 H U/L (6-35) Alkaline Phosphatase 335 H U/L (38-126) Total Protein 5.0 L g/dL (6.3-8.2) Albumin 2.5 L g/dL (3.5-5.1) Lipase 205 U/L (23-300) Patient hx anesthesia problems: none Family hx anesthesia problems: none Results Review: All pre-operative results and documents have been reviewed as part of the pre-operative evaluation. [facility] Past Medical History Medical History
[2023-07-09] MEDS: allopurinoL 300 MG TABLET PO (14:40)
[2023-07-09] MEDS: POTASSIUM CHLORIDE 20 MEQ PACKET (FOR LIQUID) 40 MEQ PO (15:15)
--- NOTE | 2023-07-09 15:40 | PM.IMPN ---
Progress Note: A&P Assessment and Plan (1) Intractable vomiting: Code(s): R11.10 - Vomiting, unspecified Status: Acute Assessment and Plan: With concern for coffee-ground emesis. GI consult appreciated, EGD 07/02 showing grade 2 esophagitis in the distal esophagus seen with erosive changes. Biopsies were taken. Hiatal hernia noted. Mild gastritis with biopsies taken. Duodenum was normal. CT of the abdomen pelvis showed trace perihepatic ascites. Path showing reactive changes and mild esophagitis but no eosinophils and negative for H. pylori. C dif negative. Stool studies are negative. Ultrasound and hepatitis panel both negative. Suspect etiology is acute viral GE with her symptoms coupled with elevated LFTs Continue Protonix. (2) Diarrhea: Code(s): R19.7 - Diarrhea, unspecified Status: Acute Assessment and Plan: C diff is negative. Stool studies are negative. Stool study showing no signs of infection. GI has been consulted. Sigmoidoscopy normal. Resume diet. (3) JAYSON (acute kidney injury): Code(s): N17.9 - Acute kidney failure, unspecified Status: Acute Assessment and Plan: Creatinine 1.3 on admission and has overall improved to 1.1. Probably at her baseline. Will continue to monitor. (4) Atrial fibrillation: Code(s): I48.91 - Unspecified atrial fibrillation Status: Acute Assessment and Plan: Patient very concerned about being off the Eliquis. Sigmoidoscopy noted - resume Eliquis today. She was hypotensive early in her hospital course and Metoprolol had not been resumed. Patient developed tachycardia. EKG does show AFib with RVR so IV metoprolol x1 was given. Will continue to monitor on telemetry. BP better so resumed low dose of metoprolol yesterday. BP still soft during the procedure. Continue to hold HCTZ and lisinopril. Advance metoprolol as able. (5) Transaminitis: Code(s): R74.01 - Elevation of levels of liver transaminase levels Status: Acute Assessment and Plan: Unsure of etiology, likely 2/2 acute infection-acute GE suspected. Hepatitis panel negative. Right upper quadrant ultrasound was normal. AST/ALT trending down now. Lipase normal. Follow Plan Chronic Conditions -Gout: continue allopurinol but hold colchicine -HTN: BP soft still. HCTZ, lisinopril remain on hold. Continue scheduled metoprolol. -Hypothyroidism: TSH normal. continue Levothyroxine -Anxiety: continue Ativan 0.5 mg PO PRN -HLD: hold statin while LFTs elevated -AAA: coiled, no evidence of dissection or changes per CT Abd/Pelvis. Diet: low fiber DVT Prophylaxis: SCDs GI prophylaxis: PPI b.i.d. Code Status: Full Code Subjective Date/time seen: 07/09/23 15:40 Interval history: 82 y/o F with hx of A-Fib on anti-coagulation, CVA and AAA w/coiling (10/2022) presents here with 3-4 days of nausea and 6 days of loose stools concerning for GI bleed. Feels well today. No chest pain or shortness of breath. Last night she did have left arm left pain that radiated to left chest and across to right chest lasting a few seconds. This is typical and chronic for her. She has it about once per month. Her physician is aware. She states that she hasn't had a stress test or LHC in the past Exam Narrative: AF 97.9 112/70 88 18 94% ra Gen - NARD Chest - CTA bilaterally, nml RR CV - irregularly irregular; tele now showing controlled rate Abd - Soft, NT/ND, Positive BS Ext - No pedal edema Neuro - Alert and oriented. Nonfocal exam. Psych - Nml mood and affect Skin - Warm and dry. left simon raised black eschar about the size of a renato Objective Data Vital Signs Vital Signs: Vital Signs - 24 hr 07/08/23 16:04 07/08/23 20:47 07/08/23 21:21 Temperature 98.2 F Pulse Rate 85 76 84 Respiratory Rate 13 Blood Pressure 93/65 L Pulse Oximetry 95 Oxygen Delivery Oxygen Flow Rate 07/08/23 20:00 0
[2023-07-09] MEDS: DICYCLOMINE HCL 10 MG CAPSULE 20 MG PO (21:20)
[2023-07-09] MEDS: APIXABAN 5 MG TABLET PO (21:20)
[2023-07-10] VITALS (8 sets, daily range): BP systolic 102; BP diastolic 51–64; PULSE 74–93; RESP 16; TEMP 36.4–36.5; O2SAT 97
[2023-07-10 05:49] LABS: Basophils Percent Auto 0.5 % (0.2-1.2); Eosinophils Percent Auto 0.3 % (0-4.4); Hematocrit 35.4 % (37.0-47.0); Hemoglobin 11.2 g/dL (12.0-15.0); Immature Granulocyte Absolute 0.04 K/mm3 (0.00-0.031); Immature Granulocyte Percent A 0.6 % (0-0.5); Lymphocytes Absolute Auto 1.37 K/mm3 (0.9-3.2); Lymphocytes Percent Auto 22.2 % (18.3-44.2); Mean Corpuscular HGB Conc 31.6 g/dl (32-36); Mean Corpuscular Hemoglobin 29.9 pg (26-34); Mean Corpuscular Volume 94.4 fl (80-100); Mean Platelet Volume 10.7 fl (7.4-10.4); Monocytes Absolute Auto 0.9 K/mm3 (0.1-0.6); Monocytes Percent Auto 14.6 % (2.6-8.5); Neutrophils Absolute Auto 3.8 K/mm3 (1.3-6.7); Neutrophils Percent Auto 61.8 % (45.5-73.1); Platelet Count Result 137 k/mm3 (150-375); Red Blood Count 3.75 M/mm3 (4.2-5.4); Red Cell Distribution Width 17.6 % (11.5-14.5); White Blood Count 6.2 K/mm3 (4.5-10.0)
[2023-07-10 05:58] LABS: Alanine Aminotransferase 92 U/L (6-35); Albumin Level 2.3 g/dL (3.5-5.1); Alkaline Phosphatase 273 U/L (38-126); Anion Gap 1 mmol/L (8-16); Aspartate Amino Transferase 124 U/L (14-36); Blood Urea Nitrogen 11 mg/dL (7-17); Calcium 7.8 mg/dL (8.4-10.2); Carbon Dioxide 31 mmol/L (22-30); Chloride 105 mmol/L (98-107); Estimated CRCL calculation 32 ml/min; Estimated Glomerular Filt Rate 39; Glucose 101 mg/dL (65-110); Magnesium 1.4 mg/dL (1.6-2.3); Potassium 3.1 mmol/L (3.4-5.0); Sodium 137 mmol/L (137-145)
--- NOTE | 2023-07-10 08:00 | P.PNAN_ITS ---
Anes - Prog Note Post-Op Date/Time: 07/10/23 08:00 Cardiovascular status: normal Respiratory status: normal Airway patency: baseline Mental status: baseline Post-Op hydration status: normal Vital Signs: Last Vital Signs Temp 36.5 C 07/10/23 03:55 Pulse 86 07/10/23 04:00 Resp 16 07/10/23 03:55 BP 102/64 07/10/23 03:55 Pulse Ox 97 07/10/23 03:55 O2 Del Method Room Air 07/09/23 20:00 O2 Flow Rate 4 07/09/23 13:26 Pain Score (VAS): no complaints I/O: Intake & Output 07/09/23 07/10/23 07/10/23 23:59 07:59 15:59 Intake Total 480 450 Balance 480 450 Laboratory Tests 07/10/23 05:27 07/10/23 05:27 07/04/23 07/09/23 07/09/23 15:29 05:30 14:28 WBC RBC Hgb Hct MCV MCH MCHC RDW Plt Count MPV Immature Gran % (Auto) Neut % (Auto) Lymph % (Auto) [place] % (Auto) Eos % (Auto) Baso % (Auto) Lymph # (Auto) [place] # (Auto) Eos # (Auto) Baso # (Auto) Abs Immat Gran (auto) Absolute Neuts (auto) Absolute Nucleated RBC Nucleated RBC % Sodium Potassium 3.0 L Chloride Carbon Dioxide Anion Gap BUN Creatinine Estim Creat Clear Calc Estimated GFR Glucose Calcium Magnesium 1.8 Total Bilirubin AST ALT Alkaline Phosphatase Total Protein Albumin Ova & Parasites Negative 07/10/23 05:27 WBC 6.2 RBC 3.75 L Hgb 11.2 L Hct 35.4 L MCV 94.4 MCH 29.9 MCHC 31.6 L RDW 17.6 H Plt Count 137 L MPV 10.7 H Immature Gran % (Auto) 0.6 H Neut % (Auto) 61.8 Lymph % (Auto) 22.2 [place] % (Auto) 14.6 H Eos % (Auto) 0.3 Baso % (Auto) 0.5 Lymph # (Auto) 1.37 [place] # (Auto) 0.9 H Eos # (Auto) 0.0 Baso # (Auto) 0.0 Abs Immat Gran (auto) 0.04 H Absolute Neuts (auto) 3.8 Absolute Nucleated RBC 0.0 Nucleated RBC % 0.0 Sodium 137 Potassium 3.1 L Chloride 105 Carbon Dioxide 31 H Anion Gap 1 L BUN 11 D Creatinine 1.30 H Estim Creat Clear Calc 32 Estimated GFR 39 L Glucose 101 Calcium 7.8 L Magnesium 1.4 L Total Bilirubin 1.0 AST 124 H ALT 92 H Alkaline Phosphatase 273 H Total Protein 5.0 L Albumin 2.3 L Ova & Parasites Post-procedural complaints: none Patient Feedback: Patient satisfied with anesthetic care.
[2023-07-10] MEDS: PANTOPRAZOLE 40 MG TABLET PO (09:28)
[2023-07-10] MEDS: DICYCLOMINE HCL 10 MG CAPSULE 20 MG PO (09:28)
[2023-07-10] MEDS: DIPHENOXYLATE/ATROPINE (*CRX) 2.5 MG TABLET 1 TABLET PO (09:28)
[2023-07-10] MEDS: APIXABAN 5 MG TABLET PO (09:28)
[2023-07-10] MEDS: METOPROLOL TARTRATE 25 MG TABLET PO (09:28)
[2023-07-10] MEDS: allopurinoL 300 MG TABLET PO (09:28)
[2023-07-10] MEDS: MAGNESIUM SULF 2 GM/WATER 50ML 2 GM/50 ML BAG IVPB (09:32)
[2023-07-10] MEDS: POTASSIUM CHLORIDE 20 MEQ PACKET (FOR LIQUID) 40 MEQ PO (09:32)
[2023-07-10] MEDS: LEVOTHYROXINE SODIUM 88 MCG TABLET PO (11:59)
--- NOTE | 2023-07-10 13:38 | WPDGIPROGNO ---
Progress Note: A&P Assessment and Plan (1) Diarrhea: Code(s): R19.7 - Diarrhea, unspecified Status: Acute Assessment and Plan: stool studies no sign of infection sigmoidoscopy unremarkable clinically better, she can go home (2) Lower abdominal pain: Code(s): R10.30 - Lower abdominal pain, unspecified Status: Acute Assessment and Plan: resolved (3) Coffee ground emesis: Code(s): K92.0 - Hematemesis Status: Acute Assessment and Plan: resolved, bx showed mild esophagitis she is back on eliquis (4) Transaminitis: Code(s): R74.01 - Elevation of levels of liver transaminase levels Status: Acute Assessment and Plan: in setting of gastroenteritis, recent abdominal US negative hepatitis negative monitor (5) Esophagitis: Code(s): K20.90 - Esophagitis, unspecified without bleeding Status: Acute Assessment and Plan: ppi Subjective Date/time seen: 07/10/23 13:38 Interval history: she is feeling much better, sigmoidoscopy only diverticulosis, no colitis she is ready to go home Review of Systems Review of Systems: All systems reviewed & are unremarkable except as noted in HPI and below Exam Const: General: comfortable and no acute distress HENMT: Face/Nose/Sinus: Normal nares present Eyes: General: appearance normal, both eyes and all related structures Neck: Neck: no JVD Resp: Auscultation: clear to auscultation bilaterally Cardio: Rate: regular rate Rhythm: abnormal rhythm regularly irregular GI: Inspection: non-distended GI Palp: Yes Soft to palpation and No Tenderness to palpation present (GI) Auscultation: normal bowel sounds Skin: General skin exam: normal color Neuro: Speech: normal speech Motor exam (neuro): 5/5 motor strength present throughout Extrem: General: normal to inspection Psych: Mental Status: mental status grossly normal Objective Data Vital Signs Vital Signs: Vital Signs - 24 hr 07/09/23 13:56 07/09/23 14:00 07/09/23 16:05 Temperature 97.9 F Pulse Rate 77 88 91 Respiratory Rate 25 H 18 Blood Pressure 93/49 L 112/70 Pulse Oximetry 96 94 Oxygen Delivery Room Air 07/09/23 21:01 07/09/23 21:20 07/09/23 20:00 Temperature 97.7 F Pulse Rate 92 92 Respiratory Rate 18 Blood Pressure 106/70 Pulse Oximetry 94 Oxygen Delivery Room Air 07/10/23 03:55 07/09/23 20:00 07/10/23 00:00 Temperature 97.7 F Pulse Rate 88 81 74 Respiratory Rate 16 Blood Pressure 102/64 Pulse Oximetry 97 Oxygen Delivery 07/10/23 04:00 07/10/23 09:28 Temperature Pulse Rate 86 86 Respiratory Rate Blood Pressure Pulse Oximetry Oxygen Delivery Intake/Output Intake/Output: Intake & Output 07/07/23 07/08/23 07/09/23 07/10/23 23:59 23:59 23:59 23:59 Intake Total 1410 1260 1630 690 Output Total 600 Balance 1410 1260 1030 690 Meds/Results Medications: Active Medications Generic Name Dose Route Start Last Admin Trade Name Freq PRN Reason Stop Dose Admin Allopurinol 300 mg 07/01/23 09:00 07/10/23 09:28 Allopurinol 300 Mg Tablet PO 300 mg DAILY MIGUEL ANGEL Administration Apixaban 5 mg 07/09/23 21:00 07/10/23 09:28 Apixaban 5 Mg Tablet PO 5 mg Q12HR MIGUEL ANGEL Administration Colchicine 0.6 mg 07/01/23 09:00 07/08/23 16:18 Colchicine 0.6 Mg Tablet PO 07/31/23 08:59 0.6 mg BID MIGUEL ANGEL Administration Dicyclomine HCl 20 mg 07/07/23 14:42 07/10/23 09:28 Dicyclomine Hcl 10 Mg Capsule PO 20 mg QID PRN Administration Abdominal Cramping Diphenoxylate HCl/Atropine 1 tablet 07/04/23 09:57 07/10/23 09:28 Diphenoxylate/Atropine (*Crx) 2.5 Mg Tablet PO 1 tablet PRN PRN Administration Diarrhea Levothyroxine Sodium 88 mcg 07/10/23 11:00 07/10/23 11:59 Levothyroxine Sodium 88 Mcg Tablet PO 88 mcg DAILY@0630 MIGUEL ANGEL Administration Lorazepam 0.5 mg 06/30/23 20:59 07/02/23 20:54 Lorazepam
--- NOTE | 2023-07-10 15:58 | PM.DS ---
DS: Admitting Diagnosis Discharge Date 07/10/23 Admitting Diagnosis Nausea and Vomiting DS: Discharge Diagnosis Discharge Diagnosis (1) Intractable vomiting: Code(s): R11.10 - Vomiting, unspecified Status: Acute (2) Diarrhea: Code(s): R19.7 - Diarrhea, unspecified Status: Acute (3) JAYSON (acute kidney injury): Code(s): N17.9 - Acute kidney failure, unspecified Status: Acute (4) Atrial fibrillation: Code(s): I48.91 - Unspecified atrial fibrillation Status: Acute (5) Transaminitis: Code(s): R74.01 - Elevation of levels of liver transaminase levels Status: Acute DS: Summary Hospital Course Reason for hospitalization: 82 y/o F with hx of A-Fib on anti-coagulation, CVA and AAA w/coiling (10/2022) presents here with 3-4 days of nausea and 6 days of loose stools concerning for GI bleed. Please see H&P for details. Hospital Course: On admission, there was concern for coffee-ground emesis. GI consulted. EGD 07/02 showing grade 2 esophagitis in the distal esophagus seen with erosive changes.? Biopsies were taken.? Hiatal hernia noted.? Mild gastritis with biopsies taken.? Duodenum was normal.? CT of the abdomen pelvis showed trace perihepatic ascites. Path showing reactive changes and mild esophagitis but no eosinophils and negative for H. pylori. C diff negative.? Stool studies are negative. Abdominal ultrasound normal and hepatitis panel both negative. Sigmoidoscopy normal. Creatinine 1.3 on admission and has overall improved to 1.1.? Probably at her baseline.?LFTs elevated likely 2/2 acute infection-acute GE suspected. AST/ALT trending down now.? Lipase normal.? Patient very concerned about being off the Eliquis but resumed when safe to do so. She was hypotensive early in her hospital course and Metoprolol was held.? Patient developed tachycardia. EKG does show AFib with RVR so IV metoprolol x1 was given.? BP better so resumed low dose of metoprolol. BP still soft during the procedure so not advanced. Continue to hold HCTZ and lisinopril. She overall did well and was able to be discharged home on 07/10/23\ Status at Discharge Cognitive/behavioral status at discharge: Stable Time Spent with Patient Time attestation: Total time spent providing and/or coordinating discharge services: 34 minutes Time spent: Greater than 30 minutes Exam Narrative: AF 97.5 102/51 80 16 97% ra Gen - NARD Chest - CTA bilaterally, nml RR CV - irregularly irregular; tele now showing controlled rate Abd - Soft, NT/ND, Positive BS Ext - No pedal edema Psych - Nml mood and affect Skin - Warm and dry. left simon raised black eschar about the size of a renato DS: Data Data Completed and Pending Completed studies during hospitalization: Pending at discharge 07/02/23 12:50 Surgical [PTH] Routine Pending studies at discharge: Pending at discharge 07/09/23 13:25 Surgical [PTH] Routine Labs on day of discharge: Labs from last 24 hours 07/10/23 07/04/23 05:27 15:29 WBC 6.2 RBC 3.75 L Hgb 11.2 L Hct 35.4 L MCV 94.4 MCH 29.9 MCHC 31.6 L RDW 17.6 H Plt Count 137 L MPV 10.7 H Immature Gran % (Auto) 0.6 H Neut % (Auto) 61.8 Lymph % (Auto) 22.2 Keith % (Auto) 14.6 H Eos % (Auto) 0.3 Baso % (Auto) 0.5 Lymph # (Auto) 1.37 Keith # (Auto) 0.9 H Eos # (Auto) 0.0 Baso # (Auto) 0.0 Abs Immat Gran (auto) 0.04 H Absolute Neuts (auto) 3.8 Absolute Nucleated RBC 0.0 Nucleated RBC % 0.0 Sodium 137 Potassium 3.1 L Chloride 105 Carbon Dioxide 31 H Anion Gap 1 L BUN 11 D Creatinine 1.30 H Estim Creat Clear Calc 32 Estimated GFR 39 L Glucose 101 Calcium 7.8 L Magnesium 1.4 L Total Bilirubin 1.0 AST 124 H ALT 92 H Alkaline Phosphatase 273 H Total Protein 5.0 L Albumin 2.3 L Ova & Parasites Negative Discharge Plan Discharge Attending physician on dischar
== END 2023-07-10 18:25 | disposition home health service (06) | DRG 392 ==
LOC: ANHED 14:07 → ANH3MED 18:01
PROVIDERS: Internal Medicine; Internal Medicine Gastroenterology; Student in an Organized Health Care Education/Training Program; Admitting Provider Hospitalist; Emergency Provider Preventive Medicine Aerospace Medicine; PCP Internal Medicine; Visit Provider Internal Medicine
PROC: 0DJ08ZZ Inspection of Upper Intestinal Tract, Via Natural or Artificial Opening Endoscopic (ICD-10-PCS; CPT 43235; principal; 2023-07-02 12:45)
PROC: 0DJD8ZZ Inspection of Lower Intestinal Tract, Via Natural or Artificial Opening Endoscopic (ICD-10-PCS; CPT 45330; principal; 2023-07-08 11:00)
DX: K20.90 Esophagitis, unspecified without bleeding (principal); N17.9 Acute kidney failure, unspecified; K92.0 Hematemesis; A08.4 Viral intestinal infection, unspecified; K57.30 Diverticulosis of large intestine without perforation or abscess without bleeding; E03.9 Hypothyroidism, unspecified; E78.5 Hyperlipidemia, unspecified; E87.6 Hypokalemia; F41.9 Anxiety disorder, unspecified; I95.9 Hypotension, unspecified; I10 Essential (primary) hypertension; I48.91 Unspecified atrial fibrillation; K44.9 Diaphragmatic hernia without obstruction or gangrene; K29.70 Gastritis, unspecified, without bleeding; M10.9 Gout, unspecified; R74.8 Abnormal levels of other serum enzymes; R74.01 Elevation of levels of liver transaminase levels; Z20.822 Contact with and (suspected) exposure to COVID-19; Z86.73 Personal history of transient ischemic attack (TIA), and cerebral infarction without residual deficits; Z79.01 Long term (current) use of anticoagulants
CPT/HCPCS: 36415; 74176; 76705; 80048; 80053; 80074; 81001; 83690; 83735; 84132; 84443; 85025; 87045; 87086; 87088; 87177; 87209; 87269; 87272; 87427; 87449; 87493; 87637; 88305; 88312; 89055; 93005; 96361; 96365; 96366; 96367; 96375; 99285; A9270; C9113; G0378; J2371; J2405; J2704; J3475; J3480; J7030; J7040; J7120

== ENCOUNTER 2023-07-15 15:18 | Outpatient (NON) | payer MEDICARE, OTHER, SELFPAY ==
[2023-07-15 15:59] LABS: Hematocrit 39.7 % (37.0-47.0); Hemoglobin 12.6 g/dL (12.0-15.0); Mean Corpuscular HGB Conc 31.7 g/dl (32-36); Mean Corpuscular Hemoglobin 29.8 pg (26-34); Mean Corpuscular Volume 93.9 fl (80-100); Mean Platelet Volume 10.2 fl (7.4-10.4); Platelet Count Result 257 k/mm3 (150-375); Red Blood Count 4.23 M/mm3 (4.2-5.4); Red Cell Distribution Width 18.7 % (11.5-14.5); White Blood Count 5.7 K/mm3 (4.5-10.0)
[2023-07-15 16:25] LABS: Appearance Urine Clear (Clear); Bacteria Urine None Seen /hpf; Bilirubin Urine Negative (Negative); Blood Urine Negative (Negative); Color Urine Yellow (Yellow); Glucose Urine UA Negative (Negative); Ketones Urine Negative (Negative); Leukocyte Esterase Ur 2+ LEU/UL (Negative); Nitrate Urine Negative (Negative); Non Pathogenic Casts 0-2; Protein Urine Negative (Negative); RBC Urine 0-2 /hpf (0-2); Specific Grav Ur 1.008 (1.001-1.035); Squamous Epithelial Cell Urine Occasional /hpf (Few)
[2023-07-15 16:33] LABS: Add Urine Microscopic? YES
[2023-07-15 16:39] LABS: Magnesium 1.6 mg/dL (1.6-2.3)
== END 2023-07-15 15:19 | disposition home or self-care (01) ==
PROVIDERS: PCP Internal Medicine; Visit Provider Internal Medicine
DX: K20.90 Esophagitis, unspecified without bleeding (principal); K92.0 Hematemesis; N17.9 Acute kidney failure, unspecified; E87.6 Hypokalemia; R74.01 Elevation of levels of liver transaminase levels; R39.15 Urgency of urination
CPT/HCPCS: 81001; 83735; 85027; 87086; 87088

== ENCOUNTER 2023-07-20 17:24 | Emergency (ER) | payer MEDICARE, OTHER, SELFPAY ==
[2023-07-20 18:08] VITALS: BP 104/56; PULSE 94; RESP 19; TEMP 36.5; O2SAT 97
[2023-07-20 20:05] VITALS: BP 110/64; PULSE 64; RESP 17; TEMP 36.6; O2SAT 98
--- NOTE | 2023-07-20 22:00 | ED.WOUNDLAC ---
HPI - Wound/Laceration General Chief Complaint: Wound/Laceration Stated Complaint: left simon lac Time Seen by Provider: 07/20/23 20:38 Source: patient Mode of arrival: ambulatory Limitations: no limitations History of Present Illness HPI narrative: Patient is an 82-year-old female who presents to the ED with report of a wound to her left simon. Patient reports she was trying to pull her walker closer to her from sitting on the couch when the walker hit her simon and she sustained a flap laceration to her mid simon. Patient then presented here for evaluation. She is on eliquis d/t hx of afib. Denies any other injuries. Denies significant pain. Denies numbness or tingling. Related Data Home Medications Medication Instructions Recorded Confirmed allopurinol 300 mg tablet 300 mg PO DAILY 06/30/23 06/30/23 colchicine (gout) 0.6 mg capsule 0.6 mg PO BID 06/30/23 06/30/23 rosuvastatin 20 mg tablet 20 mg PO HS 06/30/23 06/30/23 trospium 20 mg tablet 20 mg PO BID 06/30/23 06/30/23 Allergies Allergy/AdvReac Type Severity Reaction Status Date / Time No Known Allergies Allergy Verified 07/09/23 12:32 Review of Systems Review of Systems: CONSTITUTIONAL: Denies fever, chills, or sweats. SKIN: See HPI. MUSCULOSKELETAL: Denies back pain, joint pain, or myalgia. NEUROLOGIC: Denies tingling, numbness, or weakness. All systems reviewed & are unremarkable except as noted in HPI and below PMFSH Past Medical History Medical History AAA (abdominal aortic aneurysm) without rupture Acquired hypothyroidism Atrial fibrillation Coffee ground emesis Elevated liver enzymes Esophagitis Gout Heart disease HLD (hyperlipidemia) residential current use of anticoagulant Lower abdominal pain Family History Family History Father Hypertension Heart problem Mother Parkinson disease Social History Social History Social History: . Patient lives with son. Full Code. Occasionally uses walker. 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 HEAD: Normocephalic, atraumatic. NECK: Supple. No adenopathy, no masses. RESPIRATORY: Airway patent, respirations nonlabored. Clear to auscultation bilaterally, no rales, rhonchi, wheezing. CARDIOVASCULAR: Regular rate and rhythm without murmurs, rubs, or gallops. Pedal pulses 2+ and equal bilaterally. MUSCULOSKELETAL: Moves all extremities. Strength/ROM intact without gross deformities. SKIN: Warm, dry, normal color. No rashes. L mid simon with 3cm flap skin tear. Flap of skin very thin. Small underlying hematoma. No significant TTP. No active bleeding. NEURO: A&O X3. Speech clear. Cranial nerves II-XII grossly intact. Steady gait. No ataxic movements. PSYCHIATRIC: Appropriate mood and affect. Normal interaction. Course Vital Signs Vital signs: Vital Signs Temperature 97.7 F 07/20/23 18:08 Pulse Rate 94 07/20/23 18:08 Respiratory Rate 19 07/20/23 18:08 Blood Pressure 104/56 L 07/20/23 18:08 Pulse Oximetry 97 07/20/23 18:08 Oxygen Delivery Room Air 07/20/23 18:08 Temperature 97.8 F 07/20/23 20:05
[2023-07-20] MEDS: TETANUS,DIPHTHERIA,AC PERTUSSIS ADULT (0.5 ML) BOOSTRIX IM (23:01)
== END 2023-07-20 23:15 | disposition home or self-care (01) ==
PROVIDERS: Emergency Provider Physician Assistant; PCP Internal Medicine
DX: S81.812A Laceration without foreign body, left lower leg, initial encounter (principal); Z79.01 Long term (current) use of anticoagulants; E03.9 Hypothyroidism, unspecified; I48.91 Unspecified atrial fibrillation; W22.8XXA Striking against or struck by other objects, initial encounter; Z23 Encounter for immunization
CPT/HCPCS: 90471; 90715; 99282

== ENCOUNTER 2023-07-31 17:45 | Outpatient (NON) | payer MEDICARE, OTHER, SELFPAY ==
[2023-07-31 18:38] LABS: Basophils Percent Auto 0.5 % (0.2-1.2); Eosinophils Absolute Auto 0.2 K/mm3 (0-0.3); Eosinophils Percent Auto 2.5 % (0-4.4); Hematocrit 42.6 % (37.0-47.0); Hemoglobin 13.1 g/dL (12.0-15.0); Immature Granulocyte Absolute 0.02 K/mm3 (0.00-0.031); Immature Granulocyte Percent A 0.3 % (0-0.5); Lymphocytes Absolute Auto 2.33 K/mm3 (0.9-3.2); Lymphocytes Percent Auto 39.4 % (18.3-44.2); Mean Corpuscular HGB Conc 30.8 g/dl (32-36); Mean Corpuscular Hemoglobin 30.3 pg (26-34); Mean Corpuscular Volume 98.4 fl (80-100); Mean Platelet Volume 10.8 fl (7.4-10.4); Monocytes Absolute Auto 0.8 K/mm3 (0.1-0.6); Monocytes Percent Auto 13.4 % (2.6-8.5); Neutrophils Absolute Auto 2.6 K/mm3 (1.3-6.7); Neutrophils Percent Auto 43.9 % (45.5-73.1); Platelet Count Result 265 k/mm3 (150-375); Red Blood Count 4.33 M/mm3 (4.2-5.4); Red Cell Distribution Width 17.6 % (11.5-14.5); White Blood Count 5.9 K/mm3 (4.5-10.0)
[2023-07-31 18:54] LABS: Appearance Urine Clear (Clear); Bacteria Urine Rare /hpf; Bilirubin Urine Negative (Negative); Blood Urine Negative (Negative); Color Urine Yellow (Yellow); Glucose Urine UA Negative (Negative); Ketones Urine Negative (Negative); Leukocyte Esterase Ur 2+ LEU/UL (Negative); Need Manual Microscopic Reviewed; Nitrate Urine Negative (Negative); Non Pathogenic Casts 0-2; Protein Urine Negative (Negative); RBC Urine 0-2 /hpf (0-2); Specific Grav Ur 1.009 (1.001-1.035); Squamous Epithelial Cell Urine Few /hpf (Few); Urobilinogen Urine 0.2 mg/dL (<2.0); WBC Urine 0-5 /hpf; pH Urine 6.5 (5.0-9.0)
[2023-07-31 18:57] LABS: Add Urine Microscopic? YES
[2023-07-31 19:29] LABS: Alanine Aminotransferase 27 U/L (6-35); Albumin Level 3.5 g/dL (3.5-5.1); Alkaline Phosphatase 216 U/L (38-126); Anion Gap 8 mmol/L (8-16); Aspartate Amino Transferase 51 U/L (14-36); Bilirubin,Total 0.8 mg/dL (0.2-1.3); Blood Urea Nitrogen 6 mg/dL (7-17); Calcium 8.8 mg/dL (8.4-10.2); Carbon Dioxide 30 mmol/L (22-30); Chloride 101 mmol/L (98-107); Estimated Glomerular Filt Rate 60; Glucose 58 mg/dL (65-110); Magnesium 1.6 mg/dL (1.6-2.3); Potassium 3.7 mmol/L (3.4-5.0); Sodium 139 mmol/L (137-145)
== END 2023-07-31 17:46 | disposition home or self-care (01) ==
LOC: HOME HLTH 17:48
PROVIDERS: PCP Internal Medicine; Visit Provider Clinical Nurse Specialist
DX: K92.0 Hematemesis (principal); R74.01 Elevation of levels of liver transaminase levels; R39.15 Urgency of urination
CPT/HCPCS: 80053; 81001; 83735; 85025

== ENCOUNTER 2023-08-03 12:57 | Outpatient (CLI) | payer MEDICARE, OTHER, SELFPAY ==
--- NOTE | ~2023-08-03 | US_ITS ---
EXAMINATION: US aorta DATE: 08/03/2023 13:35 INDICATION: Abdominal aortic aneurysm TECHNIQUE: Grayscale, color Doppler, and pulsed Doppler images of the aorta and common iliac arteries were obtained. COMPARISON: None. FINDINGS: The proximal aorta measures 1.7 cm. The mid aorta measures 1.8 cm. The distal aorta measures 1.7 cm. The right common iliac artery measures 1.2 cm. The left common iliac artery measures 1.4 cm. IMPRESSION: 1. Normal caliber abdominal aorta. Reviewed, dictated and finalized at location A.
--- NOTE | ~2023-08-03 | MM_ITS ---
EXAMINATION: MM screening michael BI w lupe HISTORY: Screening mammogram TECHNIQUE: Craniocaudal and mediolateral oblique 3-D tomosynthesis images were obtained and synthetic 2-D images were generated. CAD analysis was submitted and interpreted. COMPARISON: No prior mammogram is available for comparison at this institution. BREAST PARENCHYMAL COMPOSITION: There are scattered areas of fibroglandular density. FINDINGS: Mild fibroglandular asymmetry. Occasional bilateral benign calcifications. There is no evid ence of suspicious mass, calcification, or architectural distortion to suggest malignancy in either b reast.. IMPRESSION: 1. No mammographic evidence of malignancy. 2. Recommend routine screening mammography in one year. BI-RADS Category 2: Benign finding(s). Reviewed, dictated and finalized at location A.
== END 2023-08-03 12:58 | disposition home or self-care (01) ==
LOC: CHSIMG 12:59
PROVIDERS: PCP Internal Medicine; Visit Provider Clinical Nurse Specialist
DX: Z12.31 Encounter for screening mammogram for malignant neoplasm of breast (principal); I71.40 Abdominal aortic aneurysm, without rupture, unspecified
CPT/HCPCS: 76775; 77063; 77067

== ENCOUNTER 2023-08-20 09:28 | Outpatient (CLI) | payer MEDICARE, OTHER, SELFPAY ==
[2023-08-20 19:59] LABS: Appearance Urine Cloudy (Clear); Bacteria Urine Rare /hpf; Bilirubin Urine Negative (Negative); Blood Urine Negative (Negative); Color Urine Yellow (Yellow); Glucose Urine UA Negative (Negative); Ketones Urine Negative (Negative); Leukocyte Esterase Ur 3+ LEU/UL (NEGATIVE); Nitrate Urine Negative (Negative); Non Pathogenic Casts 0-2; Protein Urine Negative (Negative); RBC Urine 0-2 /hpf (0-2); Specific Grav Ur 1.011 (1.001-1.035); Squamous Epithelial Cell Urine Moderate /hpf (Few); Urobilinogen Urine 0.2 mg/dL (<2.0); pH Urine 5.5 (5.0-9.0)
[2023-08-20 20:02] LABS: Add Urine Microscopic? YES
== END 2023-08-20 09:29 | disposition home or self-care (01) ==
PROVIDERS: PCP Internal Medicine; Visit Provider Internal Medicine
DX: R39.15 Urgency of urination (principal)
CPT/HCPCS: 81001; 87086; 87088

== ENCOUNTER → 2023-08-31 13:45 | Outpatient (CLI) | payer MEDICARE, OTHER, SELFPAY ==
--- NOTE | ~2023-08-31 | CT_ITS ---
CT Scan of the Chest without Contrast: Clinical Indication: Endobronchial mass, abnormal x-ray Technique: Contiguous sections were acquired throughout the chest without intravenous contrast. Dose reduction technique was used on this scan by utilizing automated exposure control and iterative recon struction technique. The dose-length product (DLP) was 198.48 mGy-cm. COMPARISON: 08/22/2022 Findings: There is no evidence of any significant mediastinal, hilar or axillary lymphadenopathy. Atherosclerot ic calcifications of the aorta. There is no evidence of pleural or pericardial effusion. Focal tree-in-bud type opacities in the peripheral right upper lobe are stable from prior exam. Focal endobronchial densities or nodules in the right middle lobe are unchanged. Left lung is clear. Images through the upper abdomen reveal no abnormalities. Impression: Stable focal tree-in-bud opacities in the peripheral right upper lobe. Small airways infection is a c onsideration. Focal endobronchial densities/nodules and right middle lobe are unchanged. Stability suggests chronic mucous or impacted debris. Reviewed, dictated and finalized at location M. 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 Small ai rways infection is a consideration. Focal endobronchial densities/nodules and right middle lobe are unchanged. Stab ility suggests chronic mucous or impacted debris.
== END ==
PROVIDERS: PCP Internal Medicine; Visit Provider Internal Medicine
DX: R91.8 Other nonspecific abnormal finding of lung field (principal)
CPT/HCPCS: 71250

== ENCOUNTER 2024-06-09 14:35 | Emergency (ER) | payer MEDICARE, OTHER, SELFPAY ==
[2024-06-09 14:46] VITALS: BP 104/55; PULSE 84; RESP 16; TEMP 36.5; O2SAT 98
--- NOTE | 2024-06-09 14:56 | ED.LOWEXIN ---
HPI - Extremity Injury (Lower) General Chief Complaint: Extremity Injury, Lower Stated Complaint: SCRATCH TO R LEG Time Seen by Provider: 06/09/24 14:56 Source: patient, family, RN notes reviewed and old records reviewed Mode of arrival: ambulatory (with walker) Limitations: no limitations History of Present Illness HPI Narrative: 83-year-old female who presents to [facility] accompanied by son with complaints of skin tear to her right lower leg after dog jumped up on her last night and scratched her anterior lower leg causing skin tear with bleeding under control. Patient reports that after patient took a nap today the area started bleeding along the top of the skin tear area and can't get it to stop. Patient is on daily Eliquis for afib MD complaint: leg injury Onset (ago): day(s) (since yesterday evening) Type of Injury: other (skin tear) Severity scale (1-10): 4 Treatments prior to arrival: bandage Related Data Home Medications Medication Instructions Recorded Confirmed allopurinol 300 mg tablet 300 mg PO DAILY 06/30/23 06/09/24 trospium 20 mg tablet 20 mg PO BID 06/30/23 05/23/24 aspirin 81 mg tablet,delayed 81 mg PO DAILY 05/03/24 06/09/24 release (Adult Aspirin Regimen) metoprolol succinate 25 mg 20 mg PO DAILY 06/09/24 06/09/24 tablet,extended release 24 hr Allergies Allergy/AdvReac Type Severity Reaction Status Date / Time No Known Allergies Allergy Verified 05/23/24 11:09 Review of Systems Review of Systems: CONSTITUTIONAL: Denies fever, chills, or sweats. CARDIOVASCULAR: Denies chest pain, palpitations, or edema. RESPIRATORY: Denies cough or dyspnea. GASTROINTESTINAL: Denies abdominal pain, nausea, vomiting SKIN: Reports skin tear to right lower leg after son's dog jumped on her and scraped her skin last night bleeding had been under control till today after she awoke from her nap. Patient has some active bleeding to upper skin tear area, patient is on Eliquis MUSCULOSKELETAL: Denies myalgia. 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 Patient lives with son. Full Code. Occasionally uses walker. 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 There is no relevant family history pertinent to the presenting complaint Exam Narrative: GENERAL: Well-appearing, well-nourished, and in no acute distress. HEAD: Normocephalic, atraumatic. EYES: PERRLA and EOMI. ENT: Nares clear, no rhinorrhea or epistaxis. Mucous membra
== END 2024-06-09 16:28 | disposition home or self-care (01) ==
PROVIDERS: Emergency Provider Registered Nurse; PCP Internal Medicine
DX: S81.811A Laceration without foreign body, right lower leg, initial encounter (principal); W54.8XXA Other contact with dog, initial encounter; I48.91 Unspecified atrial fibrillation; Z79.01 Long term (current) use of anticoagulants; E03.9 Hypothyroidism, unspecified; M10.9 Gout, unspecified; I50.9 Heart failure, unspecified; I65.22 Occlusion and stenosis of left carotid artery; Z79.82 Long term (current) use of aspirin
CPT/HCPCS: 99213; G0463

== ENCOUNTER 2024-07-28 11:00 | Outpatient (RCR) | payer MEDICARE, OTHER, SELFPAY ==
--- NOTE | 2024-07-18 12:12 | OPREHPOC ---
Outpatient Therapy Plan of Care This is a Multidisciplinary Plan of Care that may contain components documented by all disciplines (PT, OT, and ST.) PT Problem 1 PT Problem #1 Knowledge Deficit PT Goal 1 Goal / Goal Update Patient will be independent with HEP Target Visit 2 PT Problem 2 PT Problem #2 Impaired Strength PT Goal 1 Goal / Goal Update Improve fortunato hip flexion strength to 4+/5 to improve foot clearance with gait and ADLs Target Visit 10 PT Goal 2 Goal / Goal Update Improve fortunato hip abduction strength to 4/5 to improve pelvic stability with gait and ADLs Target Visit 10 PT Problem 3 PT Problem #3 Impaired Balance PT Goal 1 Goal / Goal Update Improve Tinetti score by 5 point to reduce fall risk with daily ambulation and transfers Target Visit 10 PT Goal 2 Goal / Goal Update Patient will improve 2 minute walk test to 300' to improve gait speed for fall reduction in community ambulation Target Visit 10
--- NOTE | 2024-07-18 12:12 | PTOPEVAL1 ---
Assessment and note entered by Marcus Tavarez, PT Evaluation Information Assessment Status Evaluation ICD-10 Condition Codes (PT) R26.9,Weakness R53.1 Onset December 2022 Subjective Information Reports that she has been doing home health therapy. She had a CVA 1.5 years ago. She has history of falls with the most recent being March 2024. She has been doing therapy off and on since then while living with her son up in [place]. She has been using a Rollator walker since this. Reports more weakness on on the left side of her body. She is doing some ambulation around the house without AD. She is having a lot of trouble getting up and out of chairs as well. She has been trying to increase her walking but has been getting out of breath. Not currently driving but was prior to CVA. Reported Pain Level Pain Score 0: Self Report Assessment PT Clinical Summary Patient presents with fortunato weakness greater on left and more prevalent in hips. She demonstrates High fall risk in three different assessment categories and has shown inconsistent use of AD for safety. Patient will benefit form skilled therapy to address functional and objective deficits for reduced fall risk, improved ambulation, improved strength, and improved ADL performance. Plan of Care Interventions Gait Training,Hot Pack/Cold Pack,Neuro Re- education,Therapeutic Activities,Therapeutic Exercise PT Services Indicated Yes Treatment Frequency and 2x/week for 10 visits Duration These treatments will address the objective and functional deficits as defined above. The patient will be advanced safely and appropriately in order for the patient to progress towards his/her prior level of function. Additional exercises will be introduced and as well as a comprehensive home exercise program upon discharge, if needed, ?to ensure carryover of functional gains achieved in the clinic. This treatment plan has been reviewed and agreement upon by the patient.
== END 2024-10-07 10:42 | disposition home or self-care (01) ==
LOC: ANHPT 11:00
PROVIDERS: PCP Internal Medicine; Visit Provider Nurse Practitioner
DX: R26.9 Unspecified abnormalities of gait and mobility (principal); R53.1 Weakness
CPT/HCPCS: 97110; 97112; 97161; 97530

== ENCOUNTER 2025-05-02 20:31 | Inpatient (IN) | payer MEDICARE, OTHER, SELFPAY ==
--- NOTE | ~2025-05-02 | CT_ITS ---
CT of the Abdomen and Pelvis: Indication: Abdominal pain Technique: 2.5 mm axial scans were obtained through the abdomen and pelvis following intravenous adm inistration of 100 cc of Omnipaque 350. Dose reduction technique was used on this scan by utilizing a utomated exposure control and iterative reconstruction technique. The dose-length product (DLP) was 9 49.18 mGy-cm. COMPARISON: 06/30/2023 Findings: Scans through the lung bases are unremarkable. Small hiatal hernia present. The liver, spleen, pancreas, gallbladder, adrenals and kidneys are within normal limits. There are at herosclerotic calcifications of the aorta. No lymphadenopathy. There is wall thickening of the distal/terminal ileum with mild adjacent haziness. No bowel obstructi on. No abscess or free air. Small fat-containing umbilical hernia present. Images through the pelvis were performed. Urinary bladder unremarkable. No adnexal mass evident. Trac e pelvic free fluid present. Impression: Wall thickening of the distal/terminal ileum with adjacent haziness, compatible with infectious/infla mmatory enteritis. Correlate clinically. Small hiatal hernia. Small fat-containing umbilical hernia. Reviewed, dictated and finalized at location . Impression: Wall thickening of the distal/terminal ileum with adjacent haziness, compatible with infectious/inflammatory enteritis. Correlate clinically. Small hiatal hernia. Small fat-containing umbilical hernia.
--- OUTSIDE RECORDS SUMMARY | 2025-05-02 20:33 | XMS_ITS | Patient Health Record ---
Author Organization [facility] Address [address] [place] [address] Care Team Providers Care Aligning Checker Name Role Phone Christopher Mejia Primary Care Provider VESTA Torres Unavailable [phone] Allergies No Known Allergies Reason For Referral No Information Medications Medication SIG (Take, Route, Frequency, Duration) Notes Start Date End Date Status Eliquis 5 MG Oral for 30 Activ e Colchicine 0.6 MG TAKE 1 CAPSULE BY MOUTH TWICE DAILY Oral for 30 Active Levothyroxine Sodium 88 MCG Oral for 30 Active Metoprolol Succinate ER 100 MG TAKE 1 TA BLET BY MOUTH EVERY DAY Oral for 30 Active Trospium Chloride 20 MG TAKE 1 TABLET BY MOUTH TWICE DAILY Oral for 30 Active hydroCHLOROthiazide 12.5 MG TAKE 1 CAPSU LE BY MOUTH EVERY DAY Oral for 30 Active Social History Tobacco Use: Social History Observation Description Date Details (start date - stop date) Never Smoker NA - NA Tobacco Use/Smoking Question Answer Notes Are you a nonsmoker Problems Problem Type SNOMED Code ICD Code Onset Dates Problem Status W/U Status Risk Notes Problem [id number] Cerebrovascular event (I63.9) Active confirmed Plan Of Treatment Pending Test Test Name Order Date EEG 04/17/2023 Insurance Providers Payer Name Payer Address Payer Phone Subscriber Number Group Number Insured Name Patient Relationship to Insured Coverage Start Date Coverage End Date [place]IC[place] [address] [place] [phone] [id number] YOSI PAL Self - patient is the insured [facility] [address] [address] [place] [phone] [id number] YOSI PAL Self - patient is the insured Medical (General) History Medical History History ICD Code Stroke Arthritis Hospitalization History Reason Date(Month/Year) Stroke - [facility] 12/2022 Aneurysm - [facility] 10/2022
--- OUTSIDE RECORDS SUMMARY | 2025-05-02 20:34 | XMS_ITS | Continuity of Care Document ---
Author Organization [facility] Address [address] [place] [address] [place] [address] Phone Care Team Providers Care Goodyear Stitcher Name Role Phone Rashi Orozco PTA Unavailable Unavailable Procedures Procedure Date Therapeutic Activities Neuromuscular Re-Ed Therapeutic Activities Therapeutic Exercise Hot or Cold Pack Therapeutic Activities Therapeutic Exercise Manual Therapy Therapeutic Activities Therapeutic Exercise Manual Therapy Hot or Cold Pack Therapeutic Activities Neuromuscular Re-Ed Therapeutic Activities Therapeutic Exercise Manual Therapy Hot or Cold Pack Therapeutic Activities Therapeutic Exercise Hot or Cold Pack Therapeutic Activities Neuromuscular Re-Ed Therapeutic Activities Neuromuscular Re-Ed Therapeutic Activities Therapeutic Exercise Hot or Cold Pack Progress Note Therapeutic Exercise Hot or Cold Pack Therapeutic Activities Progress Note Therapeutic Activities Neuromuscular Re-Ed Advance Directives Directive Yes / No Effective Date File Name No Information Encounters Encounter Description Practice Location Reason(s) For Visit Diagnoses Date Provider Providers Copied on Encounter [facility], [address] [facility] [address], [place], [place], [id number], tel:[phone] [place] No Information 5 Ohnesorge Rashi. . Referring Provider: Ryan Hinson, [address], [place], [address]. tel:[phone] [facility] [address] [facility] [address], [place], [place], [id number], [place] tel:[phone] [place] No Information 5 Perry Alfaro. . Referring Provider: Ryan Hinson [address], [place], [address]. tel:[phone] [facility] [address] [place], [place] [address], [place], [place], [id number], tel:[phone] [place] No Information 0 5 [place] Rashi. . Referring Provider: Ryan Hinson [address], [place], [address]. tel:[phone] [facility] [address] [facility] [address] [facility] [address], [place], [place], [id number], tel:[phone] [place] No Information 0 5 Daryl Delatorre. . Referring Provider: Ryan Hinson [address], [place], [address]. tel:[phone] [facility] [address] [facility] [address], [place], [place], [address], [place] tel:[phone] [place] No Information 5 Oh[place]orge Rashi. . Referring Provider: Ryan Hinson [address], [place], [address]. tel:[phone] [facility] [address], [place], [place], [address], [place] tel:[phone] [place] No Information Ok-2 6-202 5 Forbes Aleida. . Referring Provider: Robyn Perez [address], [place], [address]. tel:[phone] [facility] [address], [place], [place], [address], [place] tel:[phone] [place] No Information Ok-2 3-202 5 Forbes Aleida. . Referring Provider: Robyn Perez [address], [place], [address]. tel:[phone] [facility] [address] [place], [place] [address], [place], [place], [address], [place] tel:[phone] [place] No Information Ok-2 3-202 5 Ohnesorge Rashi. . Referring Provider: Robyn Perez [address], [place], [address]. tel:[phone] [facility] [address], [place], [place], [address], [place] tel:[phone] [place] No Information Ok-2 0-202 5 Ohnesorge Rashi. . Referring Provider: Robyn Perez [address], [place], [address]. tel:[phone] [facility] [address], [place], [place], [address], [place] tel:[phone] [place] No Information Ok-2 0-202 5 Brito Nandini. . Referring Provider: Viviana [address], [place], [address]. tel:[phone] [facility] [address], [place], [place], [address], [place] tel:[phone] [place] No Information Ok-1 2-202 5 Andrei Shin. . Referring Provider: Ryan Hinson, [address], [place], [address]. tel:[phone] [facility], [address], [place], [place], [id number], tel:[phone] [place] No Information 5 Ernesto Markham. . Referring Provider: Ryan Hinson [address], [place], [address]. tel:[phone] Family History Family Member Type Diagnosis Age At Onset No Information Payers Payer name Insurance type Covered democrat ID Authorconniea augie(s) Medicare [place] [id number] Social History Type Description Quantity Date Captured Comments Sex Female Smoking Status No Information Chief Complaint And Reason For Visit No Information Reason For Referral Reason For Referral No Information History Of Present Illness Encounter Date Complaint History Of Prese nt Illness No Information Functional Status Date Functional Assessmen t No Information Instructions Date Instruction Additional Infor mation No Information Assessments Type Assessment Date No Information Patient Care Teams Name Effective Dates (start - stop) Status Members No Information
--- OUTSIDE RECORDS SUMMARY | 2025-05-02 20:34 | XMS_ITS | Encounter Summary ---
Author Organization [facility] Address [address] [place] [address] Phone Care Team Providers Care Recycling Technician Name Role Phone Genesis Link MD Unavailable [phone] Silvano Lopes MD Primary Care Provider [phone] Arnoldo Begum MD Unavailable Dalila Pool APRN, [employer] CLAIM EXAMINER Unavailable Encounter Details Date Type Department Care Team (Late st Contact Info) Description 06/04/2020 Telephone [facility] [address] [place] [address] Jemal Davis MD [address] [facility] [address] [place] [id number] Social History Tobacco Use Types Packs/Day Years Used Date Smoking Tobacco: Never Smokeless Tobacco: Never Alcohol Use Standard Drinks/Week Comments No 0 (1 standard drink = 0.6 oz pur e alcohol) Comments No Sex and Gender Information Value Date Recorded Sex Assigned at Not on file Legal Sex Female 3:08 AM GLOBE CHANGER Gender Identity Not on file Sexual Orientation Not on file COVID-19 Exposure Response Date Recorded In the last month, have you been in contact with someone who was confirmed or suspected to have Coronavirus / COVID-19? No / Unsure 06/07/2020 11:03 AM CDT documented as of this encounter Miscellaneous Notes * Telephone Encounter - Emely Vargas - 06/04/2020 2:26 PM CDT Call to patient reviewed preop appts and covid testing with patient she voiced understanding. documented in this encounter Plan of Treatment Not on file documented as of this encounter Visit Diagnoses Not on filedocumented in this encounter Additional Health Concerns Infection Onset Date Last Indicated Resolved Time COVID - 19 09/22/2021 09/22/2021 10/12/2021 12:1 6 AM GLOBE CHANGER Assessment Noted Time PHQ-9 Depression Total Score: 0 02/10/20 18 12:17 PM CDT documented as of this encounter Care Teams Recycling Technician Relationship Specialty Start Date End Date Silvano Lopes MD [address] [address] PCP - General Internal Medicine 08/02/19 Genesis Link MD [address] [place] [address] Consulting Physician Cardiovascular Disease - Cardiology 10/24/11 Arnoldo Begum MD [address] [place] [address] Consulting Physician Cardiovascular Disease - Cardiology 09/30/19 Dalila Pool, SUPERVISOR CD AREA, [employer]INE INS[employer] CLAIM EXAMINER [address] [place] [address] Nurse Practitioner Advanced Practice Nurse 08/02/21 documented as of this encounter
--- OUTSIDE RECORDS SUMMARY | 2025-05-02 20:34 | XMS_ITS ---
Author Name MARIAELENA HOPPER Address [address] [facility] [address] [place] [address] Phone [phone] Organization [facility]) Care Team Providers Care Air Conditioning Mechanic Industrial Name Role Phone PAUL MARIAELENA Unavailable [phone] Unavailable Unavailable Unavailable Max Leach Unavailable [phone] ALICIA MOSES Unavailable [phone] Reason for Referral Not Available Allergies, adverse reactions, alerts No known allergies History of medication use Medication Class Instructions Start Date End Date Trospium Chloride 20 mg Tab No Data Available No Data Available Colchicine 0.6 mg Tab No Data Available 2024-11-01 N o Data Available Allopurinol 300 mg Tab No Data Available 2024-11-01 No Data Available Levothyroxine Sodium 75 MCG Tab No Data Available 2024 No Data Available Eliquis 5 mg Tab No Data Available 2024-11-01 No Jourdan a Available Metoprolol Succinate ER 50 m g Tab ER 24hr No Data Available 2024-11-01 No Data Available Rosuvastatin Calcium 10 mg Tab No Data Available 11-01 No Data Available Aspirin 81 mg Tab delayed rel No Data Available 11-01 No Data Available MiraLax 17 GM/SCOOP Powder No Data Available 7 No Data Available Problem List Problem Status Onset Date Resolved Date Synopsis Hyperlipidemia Active 2024-11-01 N/A N/A Primary hypothyroidism Active 2024-11-01 N/A N/ A Gout Active 2024-11-01 N/A N/A Osteoarthritis Active 2024-11-01 N/A N/A Osteoporosis Active 2024-11-01 N/A N/A Hypertensive heart failure Active 2024-12-02 N/A Taking medications as schedule. Blood pressure is stable. Heart failure is stable. No signs of current or impending exacerbation. Monitor. Chronic heart failure with preserved ejection fraction Active 2024-11-01 N/A Taki ng medications as schedule. Heart failure is stable. No signs of current or impending exacerbation. Monitor. Afib Active 2024-11-01 N/A On Metoprolol and Eliquis. No abnormal bleeding or bruising. Disease process is stable. Monitor. Influenza A Active 2024-12-02 N/A Tested positi ve on 11/25, continues to have a cough. Getting better. Treated with a course of Tamiflu. Monitor Pulmonary hypertension Active 2024-11-01 N/A Di sease process is stable. Taking her medications as prescribed. Montior. Encounters Encounters Type Facility Date of Service Diagnosis/Co mplaint Home visit for evaluation and management of new patient requiring medically appropriate examination and high level of medical decision making. If using time, at least 75 minutes total time on [facility] 11/01/2024 Unspecified atrial fibrillationEssential (primary) hypertensionHyperlipidemia, unspecifiedHypothyroidism, unspecifiedGout, unspecifiedUnspecified osteoarthritis, unspecified siteChronic diastolic (congestive) heart failurePulmonary hypertension, unspecifiedDepression, unspecified Home visit for evaluation and management of new patient requiring medically appropriate examination and high level of medical decision making. If using time, at least 75 minutes total time on [facility] 11/01/2024 Essential (primary) hypertensionChronic diastolic (congestive) heart failureUnspecified atrial fibrillation Home visit for evaluation and management of new patient requiring medically appropriate examination and high level of medical decision making. If using time, at least 75 minutes total time on [facility] 11/01/2024 Essential (primary) hypertensionChronic diastolic (congestive) heart failure Home visit for evaluation and management of new patient requiring medically appropriate examination and high level of medical decision making. If using time, at least 75 minutes total time on [facility] 11/01/2024 Unspecified osteoart hritis, unspecified site Home visit for evaluation and management of new patient requiring medically appropriate examination and high level of medical decision making. If using time, at least 75 minutes total time on [facility] 11/01/2024 Unspecified atrial fibrillationEssential (primary) hypertensionHyperlipidemia, unspecifiedHypothyroidism, unspecifiedGout, unspecified Home visit for evaluation and management of established patient requiring medically appropriate examination and low level of medical decision making. If using time, at least 30 minutes total time on [facility] 12/02/2024 Unspecified atrial fibrillationHyperlipidemia, unspecifiedGout, unspecifiedChronic diastolic (congestive) heart failureHypertensive heart disease with heart failureFlu due to oth ident influenza virus w oth resp manifestPulmonary hypertension, unspecified Home visit for evaluation and management of established patient requiring medically appropriate examination and low level of medical decision making. If using time, at least 30 minutes total time on [facility] 12/02/2024 Essential (primary) hypertension Home visit for evaluation and management of established patient requiring medically appropriate examination and low level of medical decision making. If using time, at least 30 minutes total time on [facility] 12/02/2024 Essential (primary) hypertension Home visit for evaluation and management of established patient requiring medically appropriate examination and low level of medical decision making. If using time, at least 30 minutes total time on [facility] 12/02/2024 Flu due to oth ident influenza virus w oth resp manifestChronic diastolic (congestive) heart failureHypertensive heart disease with heart failure Vital Signs Date of Collection Vitals 2024-11-01 08:35:37 Height - 162.56 cmWe ight - 70.76 kgBody Mass Index (BMI) - 26.78 kg/m2BP Diastolic - 80.0 mm[Hg]BP Systolic - 98.0 mm[Hg]Heart Rate - 68.0 /minRespiratory Rate - 14.0 /minBody Temperature - 36.67 CelO2 % BldC Oximetry - 96.0 %Pain Scale - 0.0 {score} 2024-12-02 09:21:14 BP Diastolic - 72.0 mm[Hg]BP Systolic - 118.0 mm[Hg]Heart Rate - 98.0 /minRespiratory Rate - 18.0 /minBody Temperature - 37.0 CelO2 % BldC Oximetry - 97.0 %Pain Scale - 0.0 {score} Social History Social History Social History Observation Description Effec tive Time Current Smoking Status Never smoker 9 Sex Female History of Procedures Procedures Service Procedure code Service date Servicing provider Phone# Home visit for evaluation and management of new patient requiring medically appropriate examination and high level of medical decision making. If using time, at least 75 minutes total time on encounte [id number] 2024-11-01 No Data Available No Data Availa ble Most recent systolic blood pressure <130 mm Hg 3074F 2024-11-01 No Data Available No Data Availa ble Most recent dystolic blood pressure 80-89 mm Hg 3079F 2024-11-01 No Data Available No Data Availa ble Pain severity quantified; no pain present 1126F 2024-11-01 No Data Available No Data Availa ble Medication list documented in medical record [id number] 2024-11-01 No Data Available No Data Availa ble Home visit for evaluation and management of established patient requiring medically appropriate examination and low level of medical decision making. If using time, at least [place] [address] 2024-12-02 No Data Available No Data Availa ble Most recent systolic blood pressure <130 mm Hg 3074F 2024-12-02 No Data Available No Data Availa ble Most recent dystolic blood pressure <80 mm Hg 3078F 2024-12-02 No Data Available No Data Availa ble Pain severity quantified; no pain present 1126F 2024-12-02 No Data Available No Data Availa ble Functional Status No Information Mental Status No Information Assessments Date of Service Assessments 2024-11-01 08:35:37 AfibEssential hypert ensionHyperlipidemiaPrimary hypothyroidismGoutChronic heart failure with preserved ejection fractionOsteoarthritisPulmonary hypertensionDepression 2024-12-02 09:21:14 AfibChronic heart fa ilure with preserved ejection fractionPulmonary hypertensionHypertensive heart failureInfluenza A Plan of Care Date of Service Plans 2024-11-01 08:35:37 Well-controlled on E liquisDiscussed follow-up with PCP and cardiology as directedWell-controlled on metoprololDiscussed follow-up with PCP and cardiology as directedWell-controlled on rosuvastatinDiscussed follow-up with PCP and cardiology as directedWell-controlled on levothyroxineDiscussed follow-up with PCP as directedWell-controlled on allopurinolDiscussed follow-up with PCP as directedWell-controlled now, obtain ECHODiscussed follow-up with PCP and cardiology as directedWell-controlled, no medsDiscussed follow-up with PCP as Vernoica, obtain ECHODiscussed follow-up with Zara, however pt is interested in meeting with psychRefignacio sent to [facility] provider 2024-12-02 09:21:14 On Metoprolol and El iquis. No abnormal bleeding or bruising. Disease process is stable. Monitor.Taking medications as schedule. Heart failure is stable. No signs of current or impending exacerbation. Monitor.Disease process is stable. Taking her medications as prescribed. Montior.Taking medications as schedule. Blood pressure is stable. Heart failure is stable. No signs of current or impending exacerbation. Monitor.Tested positive on 11/25, continues to have a cough. Getting better. Treated with a course of Tamiflu. Monitor Health Concerns Date Concern 2024-12-02 The patient was seen and examined this morning. She reports having a cough. Coughing up white sputum. She took a bad fall in August of last year. Multiple fractures of the face and kneecap. While she was hospitalized she developed pneumonia.Since then she has been okay but then she tested positive for Influenza A after coming down with a cough and being sent to the immediate care. She was treated with a course of Tamiflu.
--- OUTSIDE RECORDS SUMMARY | 2025-05-02 20:34 | XMS_ITS | Patient Health Record ---
Author Organization [facility] Address [address] [place] [address] Support Name Relationship Address Phone Catrina Clark Guarantor Unknown [phone] Allergies No Known Allergies Reason For Referral No Information Medications Medication SIG (Take, Route, Frequency, Duration) Notes Start Date End Date Status Lisinopril 40 MG Oral daily; Duration: 0 1 (one) TABLET qD (daily) ORAL 09/06/2013 Active Digoxin 250 MCG Oral daily; Duration: 0 1 (one) TABLET qD (daily) ORAL 09/06/2013 Active Problems Problem Type SNOMED Code ICD Code Onset Dates Problem Status W/U Status Risk Notes Problem Localized, primary osteoarthritis of the ankle and/or foot (969055593) OA, Foot- Ankle (715.17) 11/15/2012 Active confirmed Problem Arthralgia of the ankle and/or foot (990756952) Jnt Pain Ankle/Foot (719.47) 11/15/2012 Active confirmed Plan Of Treatment No Information Insurance Providers Payer Name Payer Address Payer Phone Subscriber Number Group Number Insured Name Patient Relationship to Insured Coverage Start Date Coverage End Date Medicare Part B [address] [facility] [place] [id number] Catrina Simpson i Self - patient is the insured 3 [facility] [address] [address] [place] [address] [id number] Brandon Simpson i Spouse - patient is the spouse of the insured 3 Medical (General) History Surgical History Surgery Date(Month/Year) surgical / procedural No surgical / proc edural history
--- OUTSIDE RECORDS SUMMARY | 2025-05-02 20:34 | XMS_ITS | Encounter Summary ---
Author Organization [facility] Address [address] [place] [address] Phone Care Team Providers Care Advanced Manufacturing Technician Name Role Phone Genesis Link MD Unavailable [phone] Silvano Lopes MD Primary Care Provider Arnoldo Begum MD Unavailable Dalila Pool APRN, CHAIRMAN EMERITUS Unavailable Reason for Visit * Reason Comments Medication Refill toprol Encounter Details Date Type Department Care Team (Late st Contact Info) Description 09/29/2022 Refill [facility] [place] [facility] - [place] [place] [address] Genesis Link MD [address] [place] [address] Medication Refill (toprol) Social History Tobacco Use Types Packs/Day Years Used Date Smoking Tobacco: Never Smokeless Tobacco: Never Alcohol Use Standard Drinks/Week Comments No 0 (1 standard drink = 0.6 oz pur e alcohol) Comments No Sex and Gender Information Value Date Recorded Sex Assigned at Not on file Legal Sex Female 3:08 AM QUALITY CONTROL INDUSTRIAL ENGINEER Gender Identity Not on file Sexual Orientation Not on file documented as of this encounter Miscellaneous Notes * Telephone Encounter - Jojo Ferris - 09/30/2022 7:02 AM CST Patient of Dr. Link Last office visit- 07/17/2020 Next office visit- Patient cancelled 01/01/2022 appointment and never rescheduled Scheduling - can you please contact patient to reschedule follow-up for future refills. Results for orders placed or performed in visit on 08/29/20 EKG 12 LEAD Result Value Ref Range Ventricular Rate 79 BPM Atrial Rate 468 BPM QRS Duration 76 ms Q-T Duration 368 ms QTC CALCULATION 421 ms R [place] -12 degrees T [place] 0 degrees Impression Atrial fibrillation Low voltage QRS Cannot rule out Anterior infarct , age undetermined Abnormal ECG When compared with ECG of 17-JUL-2020 13:37, Vent. rate has decreased BY 43 BPM Minimal criteria for Anterior infarct are now present Confirmed by Pushpa AGUILAR, Gray Galicia ([id number]) on 09/04/2020 8:35:12 AM Refill approved per protocol and sent to for cosign. ITY CONTROL INDUSTRIAL ENGINEER documented in this encounter Plan of Treatment Not on file documented as of this encounter Visit Diagnoses Not on filedocumented in this encounter Additional Health Concerns Assessment Noted Time PHQ-9 Depression Total Score: 0 02/10/20 18 12:17 PM CDT documented as of this encounter Care Teams Advanced Manufacturing Technician Relationship Specialty Start Date End Date Silvano Lopes MD [address] [facility] [address] [address] [address] PCP - General Internal Medicine 08/02/19 Genesis Link MD [address] [place] [phone] Consulting Physician Cardiovascular Disease - Cardiology 10/24/11 Arnoldo Begum MD [address] [place] [address] Consulting Physician Cardiovascular Disease - Cardiology 09/30/19 Dalila Pool APRN, CHAIRMAN EMERITUS [address] [place] [address] Nurse Practitioner Advanced Practice Nurse 08/02/21 documented as of this encounter
--- OUTSIDE RECORDS SUMMARY | 2025-05-02 20:34 | XMS_ITS | Encounter Summary ---
Author Organization [facility] Address [address] [place] [address] Phone Care Team Providers Care Vest Baster Name Role Phone Genesis Link MD Unavailable [phone] Silvano Lopes MD Primary Care Provider Arnoldo Begum MD Unavailable Dalila Pool APRN, MASTER CONTROL ENGINEER Unavailable Encounter Details Date Type Department Care Team (Late st Contact Info) Description 06/04/2020 Telephone [facility] [place] [address] [place] [address] Jemal Davis MD [address] [facility] [address] [place] [phone] Social History Tobacco Use Types Packs/Day Years Used Date Smoking Tobacco: Never Smokeless Tobacco: Never Alcohol Use Standard Drinks/Week Comments No 0 (1 standard drink = 0.6 oz pur e alcohol) Comments No Sex and Gender Information Value Date Recorded Sex Assigned at Not on file Legal Sex Female 3:08 AM CHOIR ACCOMPANIST Gender Identity Not on file Sexual Orientation Not on file COVID-19 Exposure Response Date Recorded In the last month, have you been in contact with someone who was confirmed or suspected to have Coronavirus / COVID-19? No / Unsure 06/07/2020 11:03 AM CDT documented as of this encounter Miscellaneous Notes * Telephone Encounter - Emely Vargas - 06/04/2020 1:44 PM CDT Call to patient [facility]. Advised her of need for covid testing and H and P. Call to Dr. Lopes's office and they will see patient on 06/05/20 at 1445. Left message on [employer] to return scotty. documented in this encounter Plan of Treatment Not on file documented as of this encounter Results * PRE PROCEDURE/SCREEN SARS-COV-2 PCR (06/05/2020 5:15 PM CDT) SARSCOV2 NOT DETECTED (Reference Range for this test is Not Detected) 06/06/2020 1:36 PM CDT [facility] Swab NASOPHARYNGEAL STRUCTURE / Unknown Non-Phlebotomy Collection / Unknown 06/05/2020 5:15 PM CDT 06/05/2020 5:15 PM CDT Narrative [facility] - 06/06/2020 1:36 PM CDT Authorized Fact Sheets about this test for providers and patients are available at: https://www.fda.gov/medical-devices/yhaiozyku-orytxrybvh-anndwkt-devices/emergen cy-us e-authorizations us Jemal Davis MD MICROBIOLOGY - GENERAL ORDERABL ES Final Result [facility] [address] [place] [address], [place] documented in this encounter Visit Diagnoses Diagnosis Preop testing- Primary Preoperative examination, unspecified documented in this encounter Additional Health Concerns Infection Onset Date Last Indicated Resolved Time COVID - 19 09/22/2021 09/22/2021 10/12/2021 12:1 6 AM CHOIR ACCOMPANIST Assessment Noted Time PHQ-9 Depression Total Score: 0 02/10/20 18 12:17 PM CDT documented as of this encounter Care Teams Vest Baster Relationship Specialty Start Date End Date Silvano Lopes MD [address] [place] [address] PCP - General Internal Medicine 08/02/19 Genesis Link MD [address] [facility] [place] [phone] Consulting Physician Cardiovascular Disease - Cardiology 10/24/11 Arnoldo Begum MD [address] [place] [phone] Consulting Physician Cardiovascular Disease - Cardiology 09/30/19 Dalila Pool APRN, MASTER CONTROL ENGINEER [address] [facility] [address] Nurse Practitioner Advanced Practice Nurse 08/02/21 documented as of this encounter
--- OUTSIDE RECORDS SUMMARY | 2025-05-02 20:34 | XMS_ITS | Clinical Summary ---
Author Organization [facility] Address [address] [place] [address] Phone Care Team Providers Care School Bus Driver Name Role Phone Genesis Link MD Unavailable [phone] Silvano Lopes MD Primary Care Provider Arnoldo Begum MD Unavailable Dalila Pool APRN, DRY MILL OPERATOR Unavailable Allergies No known active allergies Medications Cholecalciferol (VITAMIN D PO) Take 5,000 Units by mouth daily. Active colchicine-probe necid 0.5-500 MG Tablet Take 1 Tablet by mouth 2 times daily. 1 Active Calcium Carb-Cholecalcif jah (CALCIUM 600 + D PO) Take by mouth daily. Active levothyroxine (SYNTHROID) 88 MCG Tablet 1 tablet once daily except on Sundays 30 Tablet 7 1 Active alendronate (FOSAMAX) 70 MG Tablet One tablet once a week 12 Tablet 3 1 Active methylPREDNISolo ne (MEDROL) 4 MG Tablet Take 4 mg by mouth daily. Active apixaban (Eliquis) 5 MG TabletIndication s:Atrial Fibrillation Take 1 Tablet by mouth 2 times daily. Indications: Atrial Fibrillation 180 Tablet 3 2 Active lisinopril (PRINIVIL, ZESTRIL) 40 MG Tablet TAKE 1 TABLET BY MOUTH DAILY 30 Tablet 2 Active metoprolol Succinate (TOPROL-XL) 100 MG TABLET SR 24 HR Take 1 Tablet by mouth daily. 90 Tablet 2 Active Active Problems Problem Noted Date Diagnosed Date Closed displaced fracture of styloid process of left radius with routine healing 06/04/2020 Caregiver stress 10/10/2019 Osteoarthritis of both knees 02/09/2018 Vitamin D deficiency 08/22/2016 Moderate tricuspid regurgitation 07/22/2016 Atrial enlargement, bilateral 07/22/2016 Mild pulmonary hypertension 07/22/2016 Anticoagulant long-term use 07/22/2016 Gout 11/14/2013 Primary hypothyroidism 09/08/2013 Hyperlipidemia 09/08/2013 Obesity 07/01/2011 Osteopenia 07/01/2011 Anticoagulation management encounter 06/10/2011 AF (atrial fibrillation) 10/15/2010 Cardiomyopathy, secondary 10/15/2010 Resolved Problems Problem Noted Date Diagnosed Date Resolved Date Systolic and diastolic CHF, chronic 10/15/2010 10/03/2014 Immunizations Immunization Administration Dates Next Due Influenza Vaccine 09/08/2013 Influenza Vaccine greater than 3 yrs 07/26/2018, 07/26/2017 Influenza, High-dose, Quadrivalent 07/27/2022 Influenza, Quadrivalent, Adjuvanted 07/22/2021 Influenza, Trivalent, Adjuvanted, PF 08/23/2019 Influenza, high-dose, trivalent, PF 07/12/2020,1 10/29/2014 PUR FLU 3+ YRS PRES FREE QUAD IM 10/03/2014 PUR FLU HIGH DOSE (FLUZONE) 08/22/2016 PUR PCV-13 09/29/2016 Pneumococcal Vaccine - 13 Valent 09/29/2016 Pneumococcal Vaccine Adult - 23 Valent 1 TDAP Vaccine 05/18/2019 Zoster Vaccine, live 09/06/2014 Family History Medical History Relation Name Comments Breast Cancer Maternal Aunt Coronary Artery Disease Other Hypertension Other Osteoporosis Other Ovarian Cancer Neg Hx Relation Name Status Comments Maternal Aunt Other Social History Tobacco Use Types Packs/Day Years Used Date Smoking Tobacco: Never Smokeless Tobacco: Never Tobacco Cessation:Counseling Given: No Alcohol Use Standard Drinks/Week Comments No 0 (1 standard drink = 0.6 oz pur e alcohol) Comments No Sex and Gender Information Value Date Recorded Sex Assigned at Not on file Legal Sex Female 3:08 AM COOK CASHIER FOOD PREP Gender Identity Not on file Sexual Orientation Not on file Last Filed Vital Signs Vital Sign Reading Time Taken Comments Blood Pressure 136/65 09/22/2021 10:31 AM COOK CASHIER FOOD PREP Pulse 84 09/22/2021 10:31 AM COOK CASHIER FOOD PREP Temperature 37.2 C (98.9 F) 09/22/2021 10:31 AM COOK CASHIER FOOD PREP Respiratory Rate 18 09/22/2021 10:31 AM COOK CASHIER FOOD PREP Oxygen Saturation 98% 09/22/2021 10:31 AM COOK CASHIER FOOD PREP Inhaled Oxygen Concentration - - Weight 81.6 kg (180 lb) 09/22/2021 10:31 AM COOK CASHIER FOOD PREP Height 165.1 cm (5' 5) 08/02/2021 9:16 AM CDT Body Mass Index 29.95 08/02/2021 9:16 AM CDT Plan of Treatment Health Maintenance Due Date Last Done Comments Hepatitis C Virus (HCV) Screening 1940 Zoster Immunization (2 of 3) 11/01/2014 09/06/2014 Respiratory Syncytial Virus (RSV) Immunization (Adult) (1 - 1-dose 75+ series) 2016 SARS-COV-2 Immunization ( season) 2024 07/27/2022, 03/17/2022, 08/21/2021, Additional history exists Influenza Immunization (#1) 06/26/202511/2021, 07/22/2021, 07/12/2020, Additional history exists Pneumococcal Immunization (50+ years) Completed 09/29/2016, 09/29/2016, 10/03/2011 Pneumococcal Immunization Combined Discontinued 09/29/2016, 09/29/2016, 10/03/2011 DTaP/Tdap/Td Immunization Discontinued 05/18/2019 DEXA Bone Density Discontinued 08/09/2020, , 09/08/2016, Additional history exists Hepatitis B Immunization Aged Out No longer eligible based on patient's age to complete this topic Human Papillomavirus (HPV) Immunization Aged Out No longer eligible based on patient's age to complete this topic Meningococcal Immunization (ACWY) Aged Out No longer eligible based on patient's age to complete this topic Rotavirus Immunization Aged Out No lo nger eligible based on patient's age to complete this topic Medical Devices Implanted Type Area Production Service Manager Device Identifier Shelf Expiration Date Model / Serial / Lot Wire Fix 5.5in .062in Alyssia Gw .77mm [employer] Gun Tester - [id number] Implanted:Qty: 2 on 06/07/2020 by Jemal Davis MD at [facility] IMPLANT [employer] [id number] / / NONE Procedures Procedure Name Priority Date/Time Associated Diagnosis Comments [facility] BONE DENSITOMETRY AXIAL SKELETON Routine 08/09/2020 9:41 AM CDT Osteopenia of multiple sites from Last 3 Months or Most Recently Relevant to Health Maintenance Results * [facility] BONE DENSITOMETRY AXIAL SKELETON (08/09/2020 9:41 AM CDT) Anatomical Region Laterality Modality BODY N/A Other 08/09/2020 9:41 AM CDT Impressions 08/09/2020 11:09 AM CDT IMPRESSION: 1. Osteopenia. 2. Data predicts an increased risk of future fractures. 3. A followup DXA exam in 2 years is recommended. Narrative 08/09/2020 11:09 AM CDT DICTATING PHYSICIAN: Davis Betancur M.D. EXAM: [facility] BONE DENSITOMETRY AXIAL SKELETON. DATE: 08/09/2020 9:41 AM. COMPARISON: 02/03/2018. CLINICAL HISTORY: Postmenopausal. Osteopenia. Patient is being treated for osteoporosis. FINDINGS: Bone mineral density (BMD) was assessed with dual-energy x-ray absorptiometry (DXA). The average BMD of the lumbar spine (L1-L4) for this exam is 0.843 g/cm2. This indicates osteopenia with a T-score of -1.9. The BMD of the lumbar spine is not significantly changed compared to the prior exam. The average BMD of the left hip (the total hip area) for this exam is 0.734 g/cm2. This indicates osteopenia with a T-score of -1.7. The BMD of the left total hip is significantly decreased by 8.5% compared to the prior exam. . Procedure Note Davis Betancur MD - 08/09/2020 DICTATING PHYSICIAN: Davis Betancur M.D. EXAM: [facility] BONE DENSITOMETRY AXIAL SKELETON. DATE: 08/09/2020 9:41 AM. COMPARISON: 02/03/2018. CLINICAL HISTORY: Postmenopausal. Osteopenia. Patient is being treated forosteoporosis. FINDINGS: Bone mineral density (BMD) was assessed with dual-energy x-rayabsorptiometry (DXA). The average BMD of the lumbar spine (L1-L4) for this exam is 0.843 g/cm2.This indicates osteopenia with a T-score of -1.9. The BMD of the lumbarspine is not significantly changed compared to the prior exam. The average BMD of the left hip (the total hip area) for this exam is0.734 g/cm2. This indicates osteopenia with a T-score of -1.7. The BMD ofthe left total hip is significantly decreased by 8.5% compared to theprior exam. . IMPRESSION: 1. Osteopenia. 2. Data predicts an increased risk of future fractures. 3. A followup DXA exam in 2 years is recommended. Sunil Meol MD IMG DEXA ORDERABLES Final Result from Last 3 Months or Most Recently Relevant to Health Maintenance Insurance MEDICARE [facility] [employer] Care Teams School Bus Driver Relationship Specialty Start Date End Date Silvano Lopes MD [address] [address] PCP - General Internal Medicine 08/02/19 Genesis Link MD [address] [facility] [place] [address] Consulting Physician Cardiovascular Disease - Cardiology 10/24/11 Arnoldo Begum MD [address] [place] [address] Consulting Physician Cardiovascular Disease - Cardiology 09/30/19 Dalila Pool APRN, DRY MILL OPERATOR [address] [place] [address] Nurse Practitioner Advanced Practice Nurse 08/02/21
--- OUTSIDE RECORDS SUMMARY | 2025-05-02 20:34 | XMS_ITS | Encounter Summary ---
Author Organization [facility] Address [address] [place] [address] Phone Care Team Providers Care Tomato Grader Name Role Phone Genesis Link MD Unavailable [phone] Silvano Lopes MD Primary Care Provider Arnoldo Begum MD Unavailable Dalila Pool APRN, DEVELOPER ARCHITECT Unavailable Reason for Visit * Reason Onset Date Comments Other 08/31/2020 Encounter Details Date Type Department Care Team (Late st Contact Info) Description 08/31/2020 [facility] [place] [facility] [address] [place] [address] Genesis Link MD [address] [place] [address] Other Social History Tobacco Use Types Packs/Day Years Used Date Smoking Tobacco: Never Smokeless Tobacco: Never Alcohol Use Standard Drinks/Week Comments No 0 (1 standard drink = 0.6 oz pur e alcohol) Comments No Sex and Gender Information Value Date Recorded Sex Assigned at Not on file Legal Sex Female 3:08 AM COTTON SAMPLER Gender Identity Not on file Sexual Orientation Not on file COVID-19 Exposure Response Date Recorded In the last month, have you been in contact with someone who was confirmed or suspected to have Coronavirus / COVID-19? No / Unsure 08/29/2020 10:01 AM COTTON SAMPLER documented as of this encounter Plan of Treatment Not on file documented as of this encounter Visit Diagnoses Not on filedocumented in this encounter Additional Health Concerns Infection Onset Date Last Indicated Resolved Time COVID - 19 09/22/2021 09/22/2021 10/12/2021 12:1 6 AM COTTON SAMPLER Assessment Noted Time PHQ-9 Depression Total Score: 0 02/10/20 18 12:17 PM CDT documented as of this encounter Care Teams Tomato Grader Relationship Specialty Start Date End Date Silvano Lopes MD [address] [address] PCP - General Internal Medicine 08/02/19 Genesis Link MD [address] [place] [phone] Consulting Physician Cardiovascular Disease - Cardiology 10/24/11 Arnoldo Begum MD [address] [place] [address] Consulting Physician Cardiovascular Disease - Cardiology 09/30/19 Dalila Pool, TECHNICAL SALES CONSULTANT, DEVELOPER ARCHITECT [address] [place] [address] Nurse Practitioner Advanced Practice Nurse 08/02/21 documented as of this encounter
--- OUTSIDE RECORDS SUMMARY | 2025-05-02 20:34 | XMS_ITS | Continuity of Care Document ---
Author Organization [facility] Address [address] [place] [address] Care Team Providers Care Supervisor Smoke Control Name Role Phone Jeffrey AGUILAR, Jason Unavailable Unavailable Allergies, Adverse Reactions, Alerts Substance Reaction Status Criticality No Known Allergies Active No Inform ation Medications Medication Instructions Dosage Effective Dates (start - stop) Status Comments allopurinol 300 mg tablet take 1 tablet by oral route every day 300 MG - Active fluticasone propionate 50 mcg/actuation nasal spray,suspension inhale 1 spray by intranasal route every day in each nostril as needed 50 MCG - Active colchicine 0.6 mg capsule take 1 capsule by oral route every day 0.6 MG - Active Miralax 17 gram oral powder packet - Active scopolamine 1 mg over 3 days transdermal patch apply 1 patch by transdermal route to the hairless area behind 1 ear at least 4 hr before effect is required; reapply every 3 days as needed 1.00 patch - Active Eliquis 5 mg tablet take 1 tablet by oral route 2 times every day 5 MG - Active levothyroxine 88 mcg capsule take 1 capsule by oral route every day 88 MCG - Active metoprolol succinate ER 25 mg tablet,extended release 24 hr take 1 tablet by oral route every day 25 MG - Active rosuvastatin 20 mg tablet take 1 tablet by oral route every day 20 MG - Active Procedures Procedure Date Offic/outpt E&m Estab Advanced Directives Documented Complex e/m visit add on Duplex Scan Extracran Art; Feliz 25 Offic/outpt E&m Estab Advanced Directives Documented 24 Complex e/m visit add on Duplex Scan Extracran Art; Feliz 24 Advanced Directives Documented Ecg-routine 12 Lead; W/intrpt 4 Offic/outpt E&m Estab Offic/outpt E&m Estab Advanced Directives Documented Ecg-routine 12 Lead; W/intrpt 4 Subsqt Hosp-da E&m Minr Compl 4 Init Hosp-da E&m Mod Severity 4 Echo Ecg-routine 12 Lead; Intrpt & 4 Offic/outpt E&m Estab Advanced Directives Documented 24 Complex e/m visit add on Cta Head W/ & Wo Contrast Cta Neck W/ & Wo Contrast Offic/outpt E&m Estab Advanced Directives Documented 24 Complex e/m visit add on Duplex Scan Extracran Art; Feliz 23 Offic/outpt E&m Estab Subsqt Hosp-da E&m Stable Init Hosp-da E&m Hi Severity Subsqt Hosp-da E&m Sig Compl Init Hosp-da E&m Hi Severity Subsqt Hosp-da E&m Minr Compl 3 Subsqt Hosp-da E&m Minr Compl 3 Subsqt Hosp-da E&m Sig Compl Subsqt Hosp-da E&m Sig Compl Ecg-routine 12 Lead; Intrpt & 3 Ecg-routine 12 Lead; Intrpt & 3 Ecg-routine 12 Lead; Intrpt & 3 Subsqt Hosp-da E&m Minr Compl 3 Subsqt Hosp-da E&m Minr Compl 3 Trans Echo Init Hosp-da E&m Mod Severity 3 Echo Ecg-routine 12 Lead; Intrpt & 3 Advance Directives Directive Yes / No Effective Date File Name Other Directive No N/A N/A WARNING:The information contained in this section is historical and is provided for information only and does not constitute a legal document or any assurance that the information is still accurate. Please verify the information with the castillo of the legal document before using it for clinical purposes. Encounters Encounter Description Practice Location Reason(s) For Visit Diagnoses Date Provider Providers Copied on Encounter Offic/outpt E&m Estab [facility], [address] [place] [address], [facility], [facility], [address] ROV (chief complaint)Ca rdiovascular Review (chief complaint) Occlusion of left carotid arteryAcute CVA (cerebrovasc ular accident)His tory of GI bleedParoxys mal atrial fibrillation Venous insufficienc y (chronic) (peripheral) 5 Jeffrey [facility]. [address] [place] [address], [facility] [address] [place], [place], [facility], . tel:[phone] Referring Provider: Christopher Fuentes, [address], [place], [address]. tel:[phone] [facility], [address] [place] [address], [facility], [place] [facility] [address] No Information 5 Abhinav Sweeney. [address] [place] [address], [address], [place], [facility], . tel:[phone] Referring Provider: [facility] Jeffrey, [address] [place] [address] [address] [place], [place], [facility]. tel:[phone] Offic/outpt E&m [facility], [address] [place] [address], [address], [place] [facility], [address] ROV (chief complaint)Ca rdiovascular Review (chief complaint) Occlusion of left carotid arteryAcute CVA (cerebrovasc ular accident)His tory of GI bleedParoxys mal atrial fibrillation 4 Baqai Jason. [address] [place] [address], [address] [place], [address], [place]. tel:[phone] Referring Provider: Christopher Fuentes, [address], [place], [address]. tel:[phone] [facility], [address] [place] [address], [address], [place] [facility] [address] No Information Jul- 4 Baq Jason. [address] [place] [address], [address] [place], [address], [place]. tel:[phone] Referring Provider: [facility], [address] [place] [address] [place] [address], [address]. tel:[phone] Offic/outpt E&m [facility], [address] [place] [address], [address], [place] [facility] [address] *Abnormal ECG (chief complaint) Other persistent atrial fibrillation Occlusion of left carotid arteryAcute CVA (cerebrovasc ular accident)His tory of GI bleedEssenti al (primary) hypertension Pure hypercholest erolemia, unspecified Jul- 4 Sorensen Taral. [address] [place] [address], [address], [place], [address], [place]. tel:[phone] Referring Provider: Christopher Fuentes, [address], [place], [address]. tel:[phone] Offic/outpt E&m [facility], [address] [place] [address], [address], [place] [facility] [address] *Atrial Fibrillation (chief complaint)Ca rdiovascular Review (chief complaint) Occlusion of left carotid arteryAcute CVA (cerebrovasc ular accident)His tory of GI bleedEssenti al (primary) hypertension Other persistent atrial fibrillation Pure hypercholest erolemia, unspecified 4 Christine Crook. [address] [place] [address], [address], [address], [place]. tel:[phone] Referring Provider: Christopher Fuentes, [address], [place], [address]. tel:[phone] Subst Hosp- E&m Minr [facility], [address] [place] [address], [address], [place] [facility] No Information 4 Christine Crook. [address] [place] [address], [address], [address], [place]. tel:[phone] Referring Provider: Armaan Noguera, [address] [place] [address] Suite [facility], [place], [address]. tel:[phone] [facility], [address] [place] [address], [address], [place] [facility] No Information 4 Javier Davis. [address] [place] [address], [id number], [place]. tel:[phone] Referring Provider: Susan Herrera, [address] [place] [address], [address]. tel:[phone] [facility], [address] [place] [address], [address], [place] [facility] No Information 4 Christine Crook. [address] [place] [address], [address], [address], [place]. tel:[phone] Referring Provider: Armaan Noguera, [address] [place] [address] [address], [place], [address]. tel:[phone] Offic/outpt E&m Estab [facility], [address] [place] [address], [address], [place] [facility], [address] ROV (chief complaint)Ca rdiovascular Review (chief complaint) Occlusion of left carotid arteryAcute CVA (cerebrovasc ular accident)His tory of GI bleedParoxys mal atrial fibrillation 4 Baqai Jason. [address], [address] [place] [address], [address], [place]. tel:[phone] Referring Provider: Christopher Fuentes, [address], [place], [address]. tel:[phone] [facility], [address] [place] [address], [address], [place] [facility] [address] No Information 4 Zuleyma Schaefer. [address], [facility] [address] [facility] [place], [address], [place]. tel:[phone] Referring Provider: Silvano Arboleda, [address] [facility] [address] [facility] [place], [address]. tel:[phone] Offic/outpt E&m [facility], [address] [place] [address], [address], [place] [facility], [address] test results (chief complaint)Ca rdiovascular Review (chief complaint) Occlusion of left carotid arteryAcute CVA (cerebrovasc ular accident)His tory of GI bleedParoxys mal atrial fibrillation 4 Baqai Jason. [address], [address] [place] [address], [address], [place]. tel:[phone] Referring Provider: Christopher Fuentes, [address], [place], [address]. tel:[phone] [facility], [address] [place] [address], [address], [place] [facility] [address] No Information 3 Abhinav Sweeney. [address] [place] [address], [address] [place], [address], [place]. tel:[phone] Referring Provider: Patel La, [address] [place] [address] [address] [place], [address]. tel:[phone] Offic/outpt E&m Estab [facility], [address] [place] [address], [address], [place] [facility], [address] post hospital f/u (chief complaint)Fr eeform HPI (chief complaint)Ca rdiovascular Review (chief complaint) Ruptured abdominal aortic aneurysm (AAA), unspecified partOcclusio n of left carotid arteryAcute CVA (cerebrovasc ular accident) 3 Steve Forde. [address] [place] [address] Rd, [address], [place], [place], [id number], [place]. tel:[phone] Referring Provider: Christopher Fuentes, [address], [place], [address]. tel:[phone] [facility], [address] [place] [address], [address], [place] [facility] [address] No Information 3 Jeffrey Caseif. [address] [place] [address] Rd, [address] [place], [address], [place]. tel:[phone] Subsqt Hosp-da E&m Stable [facility], [address] [place] [address], [address], [place] [facility] No Information 3 Gavin Saba. [address] [place] [address], [address] [place], [address], [place]. tel:[phone] Referring Provider: Jayant Alonso, [address] [place] [address] [address] [place], [address]. tel:[phone] Init Hosp-da E&m Hi Severity [facility], [address] [place] [address], [address], [place] [facility] No Information 3 Gavin Saba. [address] [place] [address], [address] [place], [address], [place]. tel:[phone] Referring Provider: Jayant Alonso, [address] [place] [address] [address], [place], [address]. tel:[phone] Subsqt Hosp-da E&m Sig Compl [facility], [address] [place] [address], [address], [place] [facility] No Information 3 Javier Davis. [address], [address], [id number], [place]. tel:[phone] Referring Provider: Susan Herrera, [address] [place], [place] [address]er [address], [address]. tel:[phone] Init Hosp-da E&m Hi Severity [facility], [address] [place] [address], [address], [place] [facility] No Information 3 Baqai Jason. [address], [address], [address], [place]. tel:[phone] Referring Provider: Jason Baqai, [address], [address]. tel:[phone] Subsqt Hosp-da E&m Sig Compl [facility], [address] [place] [address], [address], [place] [facility] No Information 3 Javier Davis. [address], [address], [id number], [place]. tel:[phone] Referring Provider: Susan Herrera, [address] [place] [address], [address]. tel:[phone] [facility], [address] [place] [address], [address], [place] [facility] No Information Dec- 3 Lenore Lobo. [address] [place] [address], [address], [address], . tel:[phone] Referring Provider: Carlos Garcia, [facility] [place], [address]. tel:[phone] [facility], [address] [place] [address], [address], [facility] No Information 3 Groverraul Lobo. [address] [place] [address], [address], [facility], . tel:[phone] Referring Provider: Carlos Garcia, [facility] [place], [address]. tel:[phone] Subsqt Hosp-da E&m Minr Compl [facility], [address] [place] [address], [address], [place] [facility] No Information 3 Adrian Caballero. [address] [place] [address] Rd, [address], [address], [place]. tel:[phone] Referring Provider: Ada Jackson, [address] [place] [address], [address]. tel:[phone] Subsqt Hosp-da E&m Minr Compl [facility], [address] [place] [address], [address], [place] [facility] No Information 3 Javier Davis. [address] [facility], [address], [id number], [place]. tel:[phone] Referring Provider: Susan Herrera, [address] [address], [place], [address]. tel:[phone] [facility], [address] [place] [address], [address], [place] [facility] No Information 3 Javier Davis. [address], [address] [address], [place], [place], [id number], [place]. tel:[phone] Referring Provider: Susan Herrera, [address] [address], [place], [address]. tel:[phone] [facility], [address] [place] [address], [address], [place] [facility] No Information 3 Javier Davis. [address], [address] [address], [place], [place], [id number], [place]. tel:[phone] Referring Provider: Susan Herrera, [address] [address], [place], [address]. tel:[phone] [facility], [address] [place] [address], [address], [place] [facility] No Information 3 Conor Triplett. [address] [place] [address], [address], [place], [address], [place]. tel:[phone] Referring Provider: Uziel Perdomo, [address] [place] [address] [address], [place], [address]. tel:[phone] [facility], [address] [place] [address], [address], [place] [facility] No Information 3 Trevon Hill. [address] [facility], [place], [id number], . tel:[phone] Referring Provider: Liz Galicia, [address], [place], [address]. tel:[phone] Family History Family Member Type Diagnosis Age At Onset Problem No family histor y of Coronary artery disease, premature Payers Payer name Insurance type Covered constitution party ID Authorconniea augie(s) Medicare 16 [facility] [id number] [facility] [id number] Social History Type Description Quantity Date Captured Comments Alcohol Use Details No 1 drink occasionally Caffeine Use Details No Tobacco Use Status Current non-smoker Smoking Status Never smoker Non-Smoking Tobacco Use Details : No Details Available : No Details Available Sex Female Vital Signs Date / Time: Height Weight BMI Pulse Rate Blood Pressure Temperature Respiratory Rate Body Surface Area Head Circumference Head Circ. Percentile Wt./Tad. Percentile BMI percentile Pulse Ox Inhaled Ox 2:44 PM 65.00 in 71.668 kg (158.00 lbs) 26.2 9 kg/m eter (2) 78 /min 75/50 mm[Hg] 1.81 meter(2) 98 % 2:49 PM 65.00 in 89 /min 108/66 mm[Hg] Chief Complaint And Reason For Visit From encounter dated '01/09/2025 14:45'. ROV (chief complaint). Description: 84 y.o f w/pmh of thoracic aortic aneurysm, AV disease, afib oneliquis who presented to [facility] with aphasia and right sided weakness, found to have acute CVA. She was tx to [facility] for potential thrombectomy but thrombectomy ws deferred due to low NIHSS score. Found to have punctate foci of restriction diffusion in left frontal, parietal, and temporal lobes c/w mult small embolic acute infarcts. Months prior to event, was taken off her Eliquis due to ruptured aneurysm which she states was repaired in October. 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 R CCA patent as well as verbal arteries. Vascular surgery was consulted for carotid artery occlusion.Vascular surgery saw patient has inpatient and recommended follow up in office, no surgical intervention indicated. Presents for 6 month follow up for carotids. No new neurologic deficits.Has had chronic L>R LE edema. May have had Hx of DVT. No prior venous therapy. Never wore compression stockings. No chronic non-healing ulcers. No claudication/rest pain/nonhealing wounds. Cardiovascular Review (chief complaint). Description: She has had no chest discomfort suggestive ofischemia. Ms. Clark has edema. She denies orthopnea, PND or JEAN. Ms. Clark has not had palpitations, syncope or near syncope. The patient has discoloration of their lower extremities. Ms. Clark has no lower extremity ulcers. She has had no recent TIA symptoms. Reason For Referral Reason For Referral No Information Plan Of Treatment Date Type Action Status Appointment Catrina Clark BOOKED Appointment Catrina Clark BOOKED History Of Present Illness Encounter Date Complaint History Of Prese nt Illness Cardiovascular Review She has cheatham d no chest discomfort suggestive of ischemia. Ms. Clark has edema. She denies orthopnea, PND or JEAN. Ms. Clark has not had palpitations, syncope or near syncope. The patient has discoloration of their lower extremities. Ms. Clark has no lower extremity ulcers. She has had no recent TIA symptoms. ROV 84 y.o f w/pmh o f thoracic aortic aneurysm, AV disease, afib on eliquis who presented to [facility] with aphasia and right sided weakness, found to have acute CVA. She was tx to [facility] for potential thrombectomy but thrombectomy ws deferred due to low NIHSS score. Found to have punctate foci of restriction diffusion in left frontal, parietal, and temporal lobes c/w mult small embolic acute infarcts. Months prior to event, was taken off her Eliquis due to ruptured aneurysm which she states was repaired in October. 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 R CCA patent as well as verbal arteries. Vascular surgery was consulted for carotid artery occlusion.Vascular surgery saw patient has inpatient and recommended follow up in office, no surgical intervention indicated. Presents for 6 month follow up for carotids. No new neurologic deficits.Has had chronic L>R LE edema. May have had Hx of DVT. No prior venous therapy. Never wore compression stockings. No chronic non-healing ulcers. No claudication/rest pain/nonhealing wounds. ROV 84 y.o f w/pmh o f thoracic aortic aneurysm, AV disease, afib on eliquis who presented to [facility] with aphasia and right sided weakness, found to have acute CVA. She was tx to [facility] for potential thrombectomy but thrombectomy ws deferred due to low NIHSS score. Found to have punctate foci of restriction diffusion in left frontal, parietal, and temporal lobes c/w mult small embolic acute infarcts. Months prior to event, was taken off her Eliquis due to ruptured aneurysm which she states was repaired in October. 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 R CCA patent as well as verbal arteries. Vascular surgery was consulted for carotid artery occlusion.Vascular surgery saw patient has inpatient and recommended follow up in office, no surgical intervention indicated. She was discharged to rehab and is now seeing us for follow upShe denies any new stroke symptomsAphasia resolved. No plegia.She had a repeat carotid duplex and is here to discuss the results. Cardiovascular Review She has cheatham d no chest discomfort suggestive of ischemia.The patient denies orthopnea, PND, JEAN, or edema. Ms. Clark has not had palpitations, syncope or near syncope. She denies claudication. There is no discoloration or ulceration of the lower extremities. She has had no TIA or stroke-like symptoms. *Abnormal ECG 84F sees Dr Sarita magaña. Carotid artery disease, prior stroke, paroxysmal atrial fibrillation. She recently presented to the hospital after a fall with head trauma and was found to have a UTI. During that time she was noted to be in atrial fibrillation with faster VR. Her rate control medications were adjusted. She now presents for follow-up.Due to unstady gait and fall risk, she is referred for Watchman device. *Atrial Fibrillation Patient is a 83-year-old female with past medical history significant for carotid artery disease, Prior stroke along with paroxysmal atrial fibrillation. She recently presented to the hospital after a fall with head trauma and was found to have a UTI. During that time she was noted to be in atrial fibrillation with faster VR. Her rate control medications were adjusted. She now presents for follow-up. Cardiovascular Review She has cheatham d no chest discomfort suggestive of ischemia. The patient denies orthopnea, PND, JEAN, or edema. Ms. Clark has not had palpitations, syncope or near syncope. She denies claudication. There is no discoloration or ulceration of the lower extremities. She has had no TIA or stroke-like symptoms. Cardiovascular Review She has cheatham d no chest discomfort suggestive of ischemia. The patient denies orthopnea, PND, JEAN, or edema. Ms. Clark has not had palpitations, syncope or near syncope. She denies claudication. There is no discoloration or ulceration of the lower extremities. She has had no TIA or stroke-like symptoms. ROV 83 y.o f w/pmh o f thoracic aortic aneurysm, AV disease, afib on eliquis who presented to [facility] with aphasia and right sided weakness, found to have acute CVA. She was tx to [facility] for potential thrombectomy but thrombectomy ws deferred due to low NIHSS score. Found to have punctate foci of restriction diffusion in left frontal, parietal, and temporal lobes c/w mult small embolic acute infarcts. Months prior to event, was taken off her Eliquis due to ruptured aneurysm which she states was repaired in October. 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 R CCA patent as well as verbal arteries. Vascular surgery was consulted for carotid artery occlusion.Vascular surgery saw patient has inpatient and recommended follow up in office, no surgical intervention indicated. She was discharged to rehab and is now seeing us for follow upShe denies any new stroke symptomsAphasia resolved. No plegia. test results 83 y.o f w/pmh o f thoracic aortic aneurysm, AV disease, afib on eliquis who presented to [facility] with aphasia and right sided weakness, found to have acute CVA. She was tx to [facility] for potential thrombectomy but thrombectomy ws deferred due to low NIHSS score. Found to have punctate foci of restriction diffusion in left frontal, parietal, and temporal lobes c/w mult small embolic acute infarcts. Months prior to event, was taken off her Eliquis due to ruptured aneurysm which she states was repaired in October. 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 R CCA patent as well as verbal arteries. Vascular surgery was consulted for carotid artery occlusion.Vascular surgery saw patient has inpatient and recommended follow up in office, no surgical intervention indicated. She was discharged to rehab and is now seeing us for follow upShe denies any new stroke symptomsAphasia resolved. No plegia.Had repeat carotid duplex today, here to discuss results. Cardiovascular Review She has cheatham d no chest discomfort suggestive of ischemia. The patient denies orthopnea, PND, JEAN, or edema. Ms. Clark has not had palpitations, syncope or near syncope. She has had astroke in the past. Ms. Clark has no lower extremity ulcers. There is no discoloration of her lower extremities. She has had no recent TIA symptoms. Freeform HPI post hospital f/u 82 y.o f w/pmh of thoracic aortic aneurysm, AV disease, afib on eliquis who presented to [facility] with aphasia and right sided weakness, found to have acute CVA. She was tx to [facility] for potential thrombectomy but thrombectomy ws deferred due to low NIHSS score. Found to have punctate foci of restriction diffusion in left frontal, parietal, and temporal lobes c/w mult small embolic acute infarcts. Months prior to event, was taken off her ELiquis due to ruptured aneurysm which she states was repaired in October. 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 R cca patent as well as verbal arteries. Vascular surgery was consulted for carotid artery occlusion.Vascular surgery saw patient has inpatient and recommended follow up in office, no surgical intervention indicated. She was discharged to rehab and is now seeing us for follow upShe denies any new stroke symptomsAphasia resolved. No plegia. Cardiovascular Review She denies claudication. There is no discoloration or ulceration of the lower extremities. She has had no TIA or stroke-like symptoms. Functional Status Date Functional Assessmen t No Information Instructions Date Instruction Additional Infor mation No Information Assessments Type Assessment Date No Information Patient Care Teams Name Effective Dates (start - stop) Status Members No Information
--- OUTSIDE RECORDS SUMMARY | 2025-05-02 20:34 | XMS_ITS | Continuity of Care Document ---
Author Organization [facility] Address [address] [facility] [address] [place] [address] Phone Care Team Providers Care Master Control Technician Name Role Phone Dmitriy Isbell DPT Unavailable Unavailable Procedures Procedure Date Therapeutic Activities Therapeutic Activities Neuromuscular Re-Ed Hot or Cold Pack Therapeutic Activities Neuromuscular Re-Ed Hot or Cold Pack Therapeutic Activities Progress Note Therapeutic Activities Therapeutic Exercise Hot or Cold Pack Therapeutic Activities Therapeutic Activities Therapeutic Activities Neuromuscular Re-Ed Hot or Cold Pack Therapeutic Activities Neuromuscular Re-Ed Hot or Cold Pack Therapeutic Activities Therapeutic Exercise Hot or Cold Pack Therapeutic Activities Therapeutic Activities Neuromuscular Re-Ed Therapeutic Exercise Hot or Cold Pack Doc neg elder mal no plan PRES/ABSN URINE INCON ASSESS PT Evaluation Moderate Complexity Therapeutic Activities Therapeutic Activities Neuromuscular Re-Ed Hot or Cold Pack Therapeutic Activities Therapeutic Exercise Hot or Cold Pack Therapeutic Activities Neuromuscular Re-Ed Hot or Cold Pack Doc neg elder mal no plan PRES/ABSN URINE INCON ASSESS Identified as not an unhealthy alcohol u ser Not identified as unhealthy alcohol via screening Identified as not an unhealthy alcohol u ser Not identified as unhealthy alcohol via screening OT Evaluation Moderate Complexity Therapeutic Activities Therapeutic Exercise Advance Directives Directive Yes / No Effective Date File Name No Information Encounters Encounter Description Practice Location Reason(s) For Visit Diagnoses Date Provider Providers Copied on Encounter [facility] [address] [place] [facility] [address] [place] [address], [id number], tel:[phone] [place] [facility] No Information Sukhi Izaguirre. . Referring Provider: Ryan Hinson [address], [place], [address]. tel:[phone] [address] [place] [employer] [address] [place] [address], [id number], tel:[phone] [place] No Information Ignacio Tillman. . Referring Provider: Ryan Hinson [address], [place], [address]. tel:[phone], [address] [facility] [address] [place] [address], [id number], tel:[phone] [place] No Information Ignacio Tillman. . Referring Provider: Ryan Hinson [address], [place], [address]. tel:[phone], [address] [facility] [address] [place] [address], [id number], tel:[phone] [place] No Information Borkar Dmitriy. . Referring Provider: Ryan Hinson, [address], [place], [address]. tel:[phone], [address] [address], [place], [place], [id number], tel:[phone] [place] No Information Ignacio Layne. . Referring Provider: Ryan Hinson, [address], [place], [address]. tel:[phone], [address] [address], [place], [place], [id number], [place] tel:[phone] [place] No Information Borkar Dmitriy. . Referring Provider: Ryan Hinson, [address], [place], [address]. tel:[phone], [address], [id number], tel:[phone] [place] No Information Borkar Dmitriy. . Referring Provider: Ryan Hinson [address], [place], [address]. tel:[phone], [address], [id number], tel:[phone] [place] No Information Ignacio Layne. . Referring Provider: Ryan Hinson [address], [place], [address]. tel:[phone], [address] [address], [place], [place], [id number], [place] tel:[phone] [place] No Information Ignacio Layne. . Referring Provider: yRan Hinson [address], [place], [address]. tel:[phone], [address], [id number], [place] tel:[phone] [place] No Information Ignacio Layne. . Referring Provider: Ryan Hinson [address], [place], [address]. tel:[phone], [address], [id number], tel:[phone] [place] No Information Sukhi Izaguirre. . Referring Provider: Ryan Hinson, [address], [place], [address]. tel:[phone], [address] [place] [address], [id number], tel:[phone] [place] No Information Ignacio Layne. . Referring Provider: Ryan Hinson [address], [place], [address]. tel:[phone], [address], [id number], tel:[phone] [place] No Information Sukhi Brownleejun. . Referring Provider: Ryan Hinson [address], [place], [address]. tel:[phone], [address] [place] [address], [id number], tel:[phone] [place] No Information Ignacio Layne. . Referring Provider: Ryan Hinson [address], [place], [address]. tel:[phone], [facility] [address], [id number], tel:[phone] [place] No Information Ignacio Layne. . Referring Provider: Ryan Hinson [address], [place], [address]. tel:[phone], [address] [facility] [address] [place] [address], [id number], tel:[phone] [place] No Information Ignacio Tillman. . Referring Provider: Ryan Hinson, [address] , [place], [address]. tel:[phone] [facility], [address], [place], [place], [id number], tel:[phone] [place] No Information Ignacio Tillman. . Referring Provider: Ryan Hinson, [address] , [place], [address]. tel:[phone] Family History Family Member Type Diagnosis Age At Onset No Information Payers Payer name Insurance type Covered constitution party ID Authoriza tijosselin(s) Medicare [place] MB [id number] [facility] Medicare Replacement CI [id number] Social History Type Description Quantity Date Captured [...]
[2025-05-02 21:01] VITALS: BP 133/60; PULSE 100; RESP 20; TEMP 36.8; O2SAT 97
--- OUTSIDE RECORDS SUMMARY | 2025-05-02 22:08 | XMS_ITS | Continuity of Care Document ---
Author Organization [facility] Address [address] [facility] [address] [place] [address] Phone Care Team Providers Care Cell Biologist Name Role Phone Dmitriy Isbell DPT Unavailable [...] Diagnoses Date Provider Providers Copied on Encounter [facility] [address] [place] [address] [place] [address], [id number], tel:[phone] [facility] No Information Sukhi Izaguirre. . Referring Provider: Ryan Hinson [address], [place], [address]. tel:[phone] [address] [place] [address], [id number], tel:[phone] [place] No Information Ignacio Tillman. . Referring Provider: Ryan Hinson [address], [place], [address]. tel:[phone] [address] [place] [address], [id number], tel:[phone] [place] No Information Ignacio Tillman. . Referring Provider: Ryan Hinson [address], [place], [address]. tel:[phone] [address] [place] [address], [id number], tel:[phone] [place] No Information Borkar Dmitriy. . Referring Provider: Ryan Hinson, [address], [place], [address]. tel:[phone] [address] [address], [place], [place], [id number], tel:[phone] [place] No Information Ignacio Layne. . Referring Provider: Ryan Hinson, [address], [place], [address]. tel:[phone], [address] [address], [place], [place], [id number], [place] tel:[phone] [place] No Information Borkar Dmitriy. . Referring Provider: Ryan Hinson, [address], [place], [address]. tel:[phone], [address], [id number], tel:[phone] [place] No Information Borkar Dmitriy. . Referring Provider: Ryan Hinson [address], [place], [address]. tel:[phone] [address], [id number], tel:[phone] [place] No Information Ignacio Layne. . Referring Provider: Ryan Hinson [address], [place], [address]. tel:[phone], [address] [address], [place], [place], [id number], [place] tel:[phone] [place] No Information Ignacio Layne. . Referring Provider: Ryan Hinson [address], [place], [address]. tel:[phone], [address], [id number], [place] tel:[phone] [place] No Information Ignacio Layne. . Referring Provider: Ryan Hinson [address], [place], [address]. tel:[phone] [address], [id number], tel:[phone] [place] No Information Sukhi Izaguirre. . Referring Provider: Ryan Hinson, [address], [place], [address]. tel:[phone] [address] [place] [address], [id number], tel:[phone] [place] No Information Ignacio Layne. . Referring Provider: Ryan Hinson [address], [place], [address]. tel:[phone] [address], [id number], tel:[phone] [place] No Information Sukhi Brownleejun. . Referring Provider: Ryan Hinson [address], [place], [address]. tel:[phone] [address] [place] [address], [id number], tel:[phone] [place] No Information Ignacio Layne. . Referring Provider: Ryan Hinson [address], [place], [address]. tel:[phone] [address], [id number], tel:[phone] [place] No Information Ignacio Layne. . Referring Provider: Ryan Hinson [address], [place], [address]. tel:[phone], [address] [facility] [address] [place] [address], [id number], tel:[phone] [place] No Information Ignacio Tillman. . Referring Provider: Ryan Hinson, [address] , [place], [address]. tel:[phone] [facility], [address], [place], [place], [id number], tel:[phone] [place] No Information Ignacio Tillman. . Referring Provider: Ryan Hinson, [address] , [place], [address]. tel:[phone] Family History Family Member Type Diagnosis Age At Onset No Information Payers Payer name Insurance type Covered constitution party ID Authoriza tijosselin(s) Medicare [place] MB [id number] [facility] Medicare Replacement CI [id number] Social History Type Description Quantity Date Captured [...]
--- OUTSIDE RECORDS SUMMARY | 2025-05-02 22:08 | XMS_ITS | Continuity of Care Document ---
Author Organization [facility] Address [address] [place] [address] Care Team Providers Care Radiologic Technologist Mammogram Name Role Phone Jeffrey AGUILAR, Jason Unavailable [...] Encounter Offic/outpt E[facility]m [facility], [address] [place] [address], [facility], [facility], [address] ROV (chief complaint)Ca rdiovascular Review (chief complaint) Occlusion of left carotid arteryAcute CVA (cerebrovasc ular accident)His tory of GI bleedParoxys mal atrial fibrillation Venous insufficienc y (chronic) (peripheral) 5 Jeffrey [facility]. [address] [place] [address], [facility] [address] [place], [place], [facility], . tel:[phone] Referring Provider: Christopher Fuentes, [address], [place], [address]. tel:[phone] [facility], [address] [place] [address], [facility], [place] [facility] [place] [address] No Information 5 Abhinav Sweeney. [address] [place] [address], [address], [place], [facility], . tel:[phone] Referring Provider: [facility] Jeffrey, [address] [place] [address] [address] [place], [facility]. tel:[phone] Offic/outpt E&m [facility], [address] [place] [address], [address], [place] [facility], [address] ROV (chief complaint)Ca rdiovascular Review (chief complaint) Occlusion of left carotid arteryAcute CVA (cerebrovasc ular accident)His tory of GI bleedParoxys mal atrial fibrillation 4 Baqai Jason. [address] [place] [address], [address] [place], [address], [place]. tel:[phone] Referring Provider: Christopher Fuentes, [address], [place], [address]. tel:[phone] [facility], [address] [place] [address], [address], [place] [facility] [place] [address] No Information Jul- 4 Baq Jason. [address] [place] [address], [address] [place], [address], [place]. tel:[phone] Referring Provider: [facility], [address] [place] [address] [place] [address], [address]. tel:[phone] Offic/outpt E&m [facility], [address] [place] [address], [address], [place] [facility] [address] *Abnormal ECG (chief complaint) Other persistent atrial fibrillation Occlusion of left carotid arteryAcute CVA (cerebrovasc ular accident)His tory of GI bleedEssenti al (primary) hypertension Pure hypercholest erolemia, unspecified Jul- 4 Sorensen Taral. [address] [place] [address], [address], [place], [address], [place]. tel:[phone] Referring Provider: Christopher Fuentes, [address], [place], [address]. tel:[phone] Offic/outpt E&m [facility], [address] [place] [address], [address], [place] [facility] [address] *Atrial Fibrillation (chief complaint)Ca rdiovascular Review (chief complaint) Occlusion of left carotid arteryAcute CVA (cerebrovasc ular accident)His tory of GI bleedEssenti al (primary) hypertension Other persistent atrial fibrillation Pure hypercholest erolemia, unspecified 4 Christine Crook. [address] [place] [address], [address], [address], [place]. tel:[phone] Referring Provider: Christopher Fuentes, [address], [place], [address]. tel:[phone] Subst Hosp- E&m [facility], [address] [place] [address], [address], [place] [facility] No Information 4 Christine Crook. [address] [place] [address], [address], [address], [place]. tel:[phone] Referring Provider: Armaan Noguera, [address] [place] [address] Suite [facility], [place], [address]. tel:[phone] [facility], [address] [place] [address], [address], [place] [facility] No Information 4 Javier Davis. [address] [place] [address], [id number], [place]. tel:[phone] Referring Provider: Susan Herrera, [address] [place] [address], [address]. tel:[phone] [facility], [address] [place] [address], [address], [place] [facility] No Information 4 Christine Crook. [address] [place] [address], [address], [address], [place]. tel:[phone] Referring Provider: Armaan Noguera, [address] [place] [address] [address], [place], [address]. tel:[phone] Offic/outpt E[facility]m [facility], [address] [place] [address], [address], [place] [facility], [address] ROV (chief complaint)Ca rdiovascular Review (chief complaint) Occlusion of left carotid arteryAcute CVA (cerebrovasc ular accident)His tory of GI bleedParoxys mal atrial fibrillation 4 Baqai Jason. [address], [address] [place] [address], [address], [place]. tel:[phone] Referring Provider: Christopher Fuentes, [address], [place], [address]. tel:[phone] [facility], [address] [place] [address], [address], [place] [facility] [place] [address] No Information 4 Zuleyma Schaefer. [address], [facility] [address] [facility], [place], [address], [place]. tel:[phone] Referring Provider: Silvano Arboleda, [address] [facility] [address] [facility], [place], [address]. tel:[phone] Offic/outpt E&m [facility], [address] [place] [address], [address], [place] [facility], [address] test results (chief complaint)Ca rdiovascular Review (chief complaint) Occlusion of left carotid arteryAcute CVA (cerebrovasc ular accident)His tory of GI bleedParoxys mal atrial fibrillation 4 Baqai Jason. [address], [address] [place] [address], [address], [place]. tel:[phone] Referring Provider: Christopher Fuentes, [address], [place], [address]. tel:[phone] [facility], [address] [place] [address], [address], [place] [facility] [place] [address] No Information 3 Abhinav Sweeney. [address] [place] [address], [address] [place], [address], [place]. tel:[phone] Referring Provider: Patel La, [address] [place] [address] [address] [place], [address]. tel:[phone] Offic/outpt E[facility]m [facility], [address] [place] [address], [address], [place] [facility], [address] post hospital f/u (chief complaint)Fr eeform HPI (chief complaint)Ca rdiovascular Review (chief complaint) Ruptured abdominal aortic aneurysm (AAA), unspecified partOcclusio n of left carotid arteryAcute CVA (cerebrovasc ular accident) 3 Steve Forde. [address] [place] [address] Rd, [address], [place], [place], [id number], [place]. tel:[phone] Referring Provider: Christopher Fuentes, [address], [place], [address]. tel:[phone] [facility], [address] [place] [address], [address], [place] [facility] [address] No Information 3 Jeffrey Caseif. [address] [place] [address] Rd, [address] [place], [address], [place]. tel:[phone] Subsqt Hosp-da E&m St[facility], [address] [place] [address], [address], [place] [facility] No Information 3 Gavin Saba. [address] [place] [address], [address] [place], [address], [place]. tel:[phone] Referring Provider: Jayant Alonso, [address] [place] [address] [address] [place], [address]. tel:[phone] Init Hosp-da E&m Hi [facility], [address] [place] [address], [address], [place] [facility] No Information 3 Gavin Saba. [address] [place] [address], [address] [place], [address], [place]. tel:[phone] Referring Provider: Jayant Alonso, [address] [place] [address] [address], [place], [address]. tel:[phone] Subsqt Hosp-da E&m Sig Compl [facility], [address] [place] [address], [address], [place] [facility] No Information 3 Javier Davis. [address], [address], [id number], [place]. tel:[phone] Referring Provider: Susan Herrera, [address] [place], [place] [address], [address]. tel:[phone] Init Hosp-da E&m Hi [facility], [address] [place] [address], [address], [place] [facility] No Information 3 Baqai Jason. [address], [address], [address], [place]. tel:[phone] Referring Provider: Jason Baqai, [address], [address]. tel:[phone] Subsqt Hosp-da E&m Sig [facility], [address] [place] [address], [address], [place] [facility] No Information 3 Javier Davis. [address], [address], [id number], [place]. tel:[phone] Referring Provider: Susan Herrera, [address] [place] [address], [address]. tel:[phone] [facility], [address] [place] [address], [address], [place] [facility] No Information Dec- 3 Lenore Lobo. [address] [place] [address], [address], [address], . tel:[phone] Referring Provider: Carlos Garcia, [facility] [place], [address]. tel:[phone] [facility], [address] [place] [address], [address], [facility] No Information 3 Groverraul Lobo. [address] [place] [address], [address], [facility], . tel:[phone] Referring Provider: Carlos Garcia, [facility] [place], [address]. tel:[phone] Subsqt Hosp-da E&m Minr Compl [facility], [address] [place] [address], [address], [place] [facility] No Information 3 Adrian Caballero. [address] [place] [address] Rd, [address], [address], [place]. tel:[phone] Referring Provider: Ada Jackson, [address] [place] [address], [address]. tel:[phone] Subsqt Hosp-da E&m Minr Compl [facility], [address] [place] [address], [address], [place] [facility] No Information 3 Javier Davis. [address] [facility], [address], [id number], [place]. tel:[phone] Referring Provider: Susan Herrera, [address] [address], [place], [address]. tel:[phone] [facility], [address] [place] [address], [address], [place] [facility] No Information 3 Javier Davis. [address], [place] [address], [place], [place], [id number], [place]. tel:[phone] Referring Provider: Susan Herrera, [address] [address], [place], [address]. tel:[phone] [facility], [address] [place] [address], [address], [place] [facility] No Information 3 Javier Davis. [address], [place] [address], [place], [place], [id number], [place]. tel:[phone] Referring Provider: Susan Herrera, [address] [address], [place], [address]. tel:[phone] [facility], [address] [place] [address], [address], [place] [facility] No Information 3 Conor Triplett. [address] [place] [address], [address], [address], [place]. tel:[phone] Referring Provider: Uziel Perdomo, [address] [place] [address] [address], [place], [address]. tel:[phone] [facility], [address] [place] [address], [address], [place] [facility] No Information 3 Trevon Hill. [address] [facility], [place], [id number], . tel:[phone] Referring Provider: Liz Galicia, [address], [place], [address]. tel:[phone] Family History Family Member Type Diagnosis Age At Onset Problem No family histor y of Coronary artery disease, premature Payers Payer name Insurance type Covered alliance party ID Authorconniea augie(s) Medicare 16 [facility] [id number] [facility] [id number] Social History Type Description Quantity Date Captured [...] AV disease, afib oneliquis who presented to [place] with aphasia and right sided weakness, found to have acute CVA. She was tx to [facility] for potential thrombectomy but thrombectomy ws deferred [...] disease, afib on eliquis who presented to [place] with aphasia and right sided weakness, found to have acute CVA. She was tx to [facility] for potential thrombectomy but thrombectomy ws deferred [...] disease, afib on eliquis who presented to [place] with aphasia and right sided weakness, found to have acute CVA. She was tx to [facility] for potential thrombectomy but thrombectomy ws deferred [...] disease, afib on eliquis who presented to [place] with aphasia and right sided weakness, found to have acute CVA. She was tx to [facility] for potential thrombectomy but thrombectomy ws deferred [...] disease, afib on eliquis who presented to [place] with aphasia and right sided weakness, found to have acute CVA. She was tx to [facility] for potential thrombectomy but thrombectomy ws deferred [...] disease, afib on eliquis who presented to [place] with aphasia and right sided weakness, found to have acute CVA. She was tx to [facility] for potential thrombectomy but thrombectomy ws deferred [...]
--- OUTSIDE RECORDS SUMMARY | 2025-05-02 22:08 | XMS_ITS | Encounter Summary ---
Author Organization [facility] Address [address] [place] [address] Phone Care Team Providers Care Legal Support Assistant Name Role Phone Genesis Link MD Unavailable [phone] Silvano Lopes MD Primary Care Provider Arnoldo Begum MD Unavailable Dalila Pool APRN, LAMP ASSEMBLER Unavailable Reason for Visit * Reason Comments Medication Refill toprol Encounter Details Date Type Department Care Team (Late st Contact Info) Description [facility] [place] [facility] - [address] [place] [address] Genesis Link MD [address] [place] [address] Medication Refill (toprol) Social History Tobacco Use Types Packs/Day Years Used Date Smoking Tobacco: Never Smokeless Tobacco: Never Alcohol Use Standard Drinks/Week Comments No 0 (1 standard drink = 0.6 oz pur e alcohol) Comments No Sex and Gender Information Value Date Recorded Sex Assigned at Not on file Legal Sex Female 3:08 AM WAREHOUSE LEAD Gender Identity Not on file Sexual Orientation [...] 368 ms QTC CALCULATION 421 ms R [place] -12 degrees T [place] 0 degrees Impression Atrial fibrillation Low voltage QRS Cannot rule out Anterior infarct , age undetermined Abnormal ECG When compared with ECG of 17-JUL-2020 13:37, Vent. rate has decreased BY 43 BPM Minimal criteria for Anterior infarct are now present Confirmed by Pushpa AGUILAR, Gray Galicia ([id number]) on 09/04/2020 8:35:12 AM Refill approved per protocol and sent to for cosign. HOUSE LEAD documented in this encounter Plan of Treatment Not on file documented as of this encounter Visit Diagnoses Not on filedocumented in this encounter Additional Health Concerns Assessment Noted Time PHQ-9 Depression Total Score: 0 02/10/20 18 12:17 PM CDT documented as of this encounter Care Teams Legal Support Assistant Relationship Specialty Start Date End Date Silvano Lopes MD [address] [facility] [address] [address] PCP - General Internal Medicine 08/02/19 Genesis Link MD [address] [place] [id number] Consulting Physician Cardiovascular Disease - Cardiology 10/24/11 Arnoldo Begum MD [address] [place] [address] Consulting Physician Cardiovascular Disease - Cardiology 09/30/19 Dalila Pool APRN, LAMP ASSEMBLER [address] [place] [address] Nurse Practitioner Advanced Practice Nurse 08/02/21 documented as of this encounter
--- OUTSIDE RECORDS SUMMARY | 2025-05-02 22:08 | XMS_ITS ---
Author Name MARIAELENA HOPPER Address [address] [facility] [place] [address] Phone [phone] Organization [facility]) Care Team Providers Care Fermenter Name Role Phone PAUL MARIAELENA Unavailable [phone] Unavailable Unavailable Unavailable Max Leach Unavailable [phone] ALICIA MOSES Unavailable [phone] Reason for Referral Not Available Allergies, adverse [...] at least 75 minutes total time on [facility] 11/01/2024 Unspecified atrial fibrillationEssential (primary) hypertensionHyperlipidemia, unspecifiedHypothyroidism, unspecifiedGout, unspecifiedUnspecified osteoarthritis, unspecified siteChronic diastolic (congestive) heart failurePulmonary hypertension, unspecifiedDepression, unspecified Home visit for evaluation and management of new patient requiring medically appropriate examination and high level of medical decision making. If using time, at least 75 minutes total time on [facility] 11/01/2024 Essential (primary) hypertensionChronic diastolic (congestive) heart failureUnspecified atrial fibrillation Home visit for evaluation and management of new patient requiring medically appropriate examination and high level of medical decision making. If using time, at least 75 minutes total time on [facility] 11/01/2024 Essential (primary) hypertensionChronic diastolic (congestive) heart failure Home visit for evaluation and management of new patient requiring medically appropriate examination and high level of medical decision making. If using time, at least 75 minutes total time on [facility] 11/01/2024 Unspecified osteoart hritis, unspecified site Home visit for evaluation and management of new patient requiring medically appropriate examination and high level of medical decision making. If using time, at least 75 minutes total time on [facility] 11/01/2024 Unspecified atrial fibrillationEssential (primary) hypertensionHyperlipidemia, unspecifiedHypothyroidism, unspecifiedGout, unspecified Home visit for evaluation and management of established patient requiring medically appropriate examination and low level of medical decision making. If using time, at least 30 minutes total time on [employer] [facility] 12/02/2024 Unspecified atrial fibrillationHyperlipidemia, unspecifiedGout, unspecifiedChronic diastolic (congestive) heart failureHypertensive heart disease with heart failureFlu due to oth ident influenza virus w oth resp manifestPulmonary hypertension, unspecified Home visit for evaluation and management of established patient requiring medically appropriate examination and low level of medical decision making. If using time, at least 30 minutes total time on [employer] [facility] 12/02/2024 Essential (primary) hypertension Home visit for evaluation and management of established patient requiring medically appropriate examination and low level of medical decision making. If using time, at least 30 minutes total time on [employer] [facility] 12/02/2024 Essential (primary) hypertension Home visit for evaluation and management of established patient requiring medically appropriate examination and low level of medical decision making. If using time, at least 30 minutes total time on [employer] [facility] 12/02/2024 Flu due to oth ident influenza [...] least 75 minutes total time on encounte [address] 2024-11-01 No Data Available No Data Availa [...] least 30 [place] [address] 2024-12-02 No Data Available No Data Availa [...] directedWell-controlled, no medsDiscussed follow-up with PCP as Veronica, obtain ECHODiscussed follow-up with Zara, however pt is interested in meeting with psychRefignacio sent to [facility] psych provider 2024-12-02 09:21:14 On Metoprolol and [...]
--- OUTSIDE RECORDS SUMMARY | 2025-05-02 22:08 | XMS_ITS | Clinical Summary ---
Author Organization [facility] Address [address] [place] [address] Phone Care Team Providers Care Escalator Mechanic Name Role Phone Genesis Link MD Unavailable [phone] Silvano Lopes MD Primary Care Provider [phone] Arnoldo Begum MD Unavailable Dalila Pool APRN, BODY FINISHER Unavailable Allergies No known active allergies Medications [...] on file Legal Sex Female 3:08 AM DIRECTOR TARGETED MARKETING Gender Identity Not on file Sexual Orientation Not on file Last Filed Vital Signs Vital Sign Reading Time Taken Comments Blood Pressure 136/65 09/22/2021 10:31 AM DIRECTOR TARGETED MARKETING Pulse 84 09/22/2021 10:31 AM DIRECTOR TARGETED MARKETING Temperature 37.2 C (98.9 F) 09/22/2021 10:31 AM DIRECTOR TARGETED MARKETING Respiratory Rate 18 09/22/2021 10:31 AM DIRECTOR TARGETED MARKETING Oxygen Saturation 98% 09/22/2021 10:31 AM DIRECTOR TARGETED MARKETING Inhaled Oxygen Concentration - - Weight 81.6 kg (180 lb) 09/22/2021 10:31 AM DIRECTOR TARGETED MARKETING Height 165.1 cm (5' 5) 08/02/2021 9:16 [...] this topic Medical Devices Implanted Type Area Storm Door Maker Device Identifier Shelf Expiration Date Model / Serial / Lot Wire Fix 5.5in .062in Alyssia Gw .77mm [employer] Crating And Moving Estimator - [id number] Implanted:Qty: 2 on 06/07/2020 by Jemal Davis MD at [facility] IMPLANT [employer] 1600-023 / / NONE Procedures Procedure Name Priority Date/Time Associated Diagnosis Comments [facility] BONE DENSITOMETRY AXIAL SKELETON Routine 08/09/2020 9:41 AM CDT Osteopenia of multiple sites from Last 3 Months or Most Recently Relevant to Health Maintenance Results * [facility] BONE DENSITOMETRY AXIAL SKELETON (08/09/2020 9:41 AM CDT) Anatomical Region Laterality Modality BODY N/A Other 08/09/2020 9:41 AM CDT Impressions 08/09/2020 11:09 AM CDT IMPRESSION: 1. Osteopenia. 2. Data predicts an increased risk of future fractures. 3. A followup DXA exam in 2 years is recommended. Narrative 08/09/2020 11:09 AM CDT DICTATING PHYSICIAN: Davis Betancur M.D. EXAM: [facility] BONE DENSITOMETRY AXIAL SKELETON. DATE: 08/09/2020 [...] 08/09/2020 DICTATING PHYSICIAN: Davis Betancur M.D. EXAM: [facility] BONE DENSITOMETRY AXIAL SKELETON. DATE: 08/09/2020 [...] exam in 2 years is recommended. Sunil Melo MD IMG DEXA ORDERABLES Final Result from Last 3 Months or Most Recently Relevant to Health Maintenance Insurance MEDICARE [facility] [employer] Care Teams Escalator Mechanic Relationship Specialty Start Date End Date Silvano Lopes MD [address] [address] PCP - General Internal Medicine 08/02/19 Genesis Link MD [address] [facility] [place] [address] Consulting Physician Cardiovascular Disease - Cardiology 10/24/11 Arnoldo Begum MD [address] [place] [address] Consulting Physician Cardiovascular Disease - Cardiology 09/30/19 Dalila Pool APRN, BODY FINISHER [address] [place] [address] Nurse Practitioner Advanced Practice Nurse 08/02/21
--- OUTSIDE RECORDS SUMMARY | 2025-05-02 22:08 | XMS_ITS | Continuity of Care Document ---
Author Organization [facility] Address [address] [place] [address] [place] [phone] Phone Care Team Providers Care Supervisor Pipe Finishing Name Role Phone Rashi Orozco PTA Unavailable [...] Diagnoses Date Provider Providers Copied on Encounter [facility], [address] [facility] [address], [place], [place], [id number], tel:[phone] [place] No Information 5 Ohnesorge Rashi. . Referring Provider: Ryan Hinson, [address], [place], [address]. tel:[phone] [facility] [address], [place], [place], [id number], [place] tel:[phone] [place] No Information 5 Perry Alfaro. . Referring Provider: Rayn Hinson [address], [place], [address]. tel:[phone] [facility] [address] [place] [address], [place], [place], [id number], tel:[phone] [place] No Information 0 5 Ohnesorge Rashi. . Referring Provider: Ryan Hinson [address], [place], [address]. tel:[phone] [facility] [address], [place], [place], [id number], tel:[phone] [place] No Information 0 5 Daryl Delatorre. . Referring Provider: Ryan Hinson [address], [place], [address]. tel:[phone] [facility] [address], [place], [place], [id number], [place] tel:[phone] [place] No Information 5 Ohnesorge Rashi. . Referring Provider: Ryan Hinson [address], [place], [address]. tel:[phone] [facility] [address], [place], [place], [id number], [place] tel:[phone] [place] No Information Ok-2 6-202 5 Forbes Aleida. . Referring Provider: Robyn Perez [address], [place], [address]. tel:[phone] [facility] [address], [place], [place], [address], [place] tel:[phone] [place] No Information Ok-2 3-202 5 Forbes Aleida. . Referring Provider: Robyn Perez [address], [place], [address]. tel:[phone] [facility] [address] [place], [place] [address], [place], [place], [id number], [place] tel:[phone] [place] No Information Ok-2 3-202 5 Ohnesorge Rashi. . Referring Provider: Robyn Perez [address], [place], [address]. tel:[phone] [facility] [address], [place], [place], [address], [place] tel:[phone] [place] No Information Ok-2 0-202 5 Ohnesorge Rashi. . Referring Provider: Robyn Perez [address], [place], [address]. tel:[phone] [facility] [address], [place], [place], [address], [place] tel:[phone] [place] No Information Ok-2 0-202 5 Brito Nandini. . Referring Provider: Viviana [address], [place], [address]. tel:[phone] [facility] [address], [place], [place], [id number], [place] tel:[phone] [place] No Information Ok-1 2-202 5 Andrei Shin. . Referring Provider: Ryan Hinson, [address], [place], [address]. tel:[phone] [facility], [address], [place], [place], [id number], tel:[phone] [place] No Information 5 Ernesto Markham. . Referring Provider: Ryan Hinson [address], [place], [address]. tel:[phone] Family History Family Member Type Diagnosis Age At Onset No Information Payers Payer name Insurance type Covered democrat ID Authorconniea augie(s) Medicare [place] [id number] Social History Type Description Quantity Date Captured [...]
--- OUTSIDE RECORDS SUMMARY | 2025-05-02 22:08 | XMS_ITS | Encounter Summary ---
Author Organization [facility] Address [address] [place] [address] Phone Care Team Providers Care Geographic Information System Analyst Name Role Phone Genesis Link MD Unavailable [phone] Silvano Lopes MD Primary Care Provider Arnoldo Begum MD Unavailable Dalila Pool APRN, PRODUCTION MACHINE OPERATOR Unavailable Encounter Details Date Type Department Care Team (Late st Contact Info) Description 06/04/2020 Telephone [facility] [address] [facility] [place] [address] Jemal Davis MD [address] [facility] [address] [place] [id number] Social History Tobacco Use Types Packs/Day Years Used Date Smoking Tobacco: Never Smokeless Tobacco: Never Alcohol Use Standard Drinks/Week Comments No 0 (1 standard drink = 0.6 oz pur e alcohol) Comments No Sex and Gender Information Value Date Recorded Sex Assigned at Not on file Legal Sex Female 3:08 AM NUTRITION EDUCATOR Gender Identity Not on file Sexual Orientation [...] 19 09/22/2021 09/22/2021 10/12/2021 12:1 6 AM NUTRITION EDUCATOR Assessment Noted Time PHQ-9 Depression Total Score: 0 02/10/20 18 12:17 PM CDT documented as of this encounter Care Teams Geographic Information System Analyst Relationship Specialty Start Date End Date Silvano Lopes MD [address] [address] PCP - General Internal Medicine 08/02/19 Genesis Link MD [address] [place] [address] Consulting Physician Cardiovascular Disease - Cardiology 10/24/11 Arnoldo Begum MD [address] [place] [address] Consulting Physician Cardiovascular Disease - Cardiology 09/30/19 Dalila Pool, BALLER TENDER, PRODUCTION MACHINE OPERATOR [address] [place] [address] Nurse Practitioner Advanced Practice Nurse 08/02/21 documented as of this encounter
--- OUTSIDE RECORDS SUMMARY | 2025-05-02 22:09 | XMS_ITS | Encounter Summary ---
Author Organization [facility] Address [address] [place] [address] Phone Care Team Providers Care Bagging Salvager Name Role Phone Genesis Link MD Unavailable [phone] Silvano Lopes MD Primary Care Provider Arnoldo Begum MD Unavailable [phone] Dalila Pool APRN, DOMAIN ARCHITECT Unavailable [phone] Reason for Visit * Reason Onset Date Comments Other 08/31/2020 Encounter Details Date Type Department Care Team (Late st Contact Info) Description 08/31/2020 [facility] [facility] - [facility] [address] [place] [address] Genesis Link MD [address] [place] [address] Other Social History Tobacco Use Types Packs/Day Years Used Date Smoking Tobacco: Never Smokeless Tobacco: Never Alcohol Use Standard Drinks/Week Comments No 0 (1 standard drink = 0.6 oz pur e alcohol) Comments No Sex and Gender Information Value Date Recorded Sex Assigned at Not on file Legal Sex Female 3:08 AM NATURAL GAS INSPECTOR Gender Identity Not on file Sexual Orientation Not on file COVID-19 Exposure Response Date Recorded In the last month, have you been in contact with someone who was confirmed or suspected to have Coronavirus / COVID-19? No / Unsure 08/29/2020 10:01 AM NATURAL GAS INSPECTOR documented as of this encounter Plan of Treatment Not on file documented as of this encounter Visit Diagnoses Not on filedocumented in this encounter Additional Health Concerns Infection Onset Date Last Indicated Resolved Time COVID - 19 09/22/2021 09/22/2021 10/12/2021 12:1 6 AM NATURAL GAS INSPECTOR Assessment Noted Time PHQ-9 Depression Total Score: 0 02/10/20 18 12:17 PM CDT documented as of this encounter Care Teams Bagging Salvager Relationship Specialty Start Date End Date Silvano Lopes MD [address] [address] PCP - General Internal Medicine 08/02/19 Genesis Link MD [address] [place] [phone] Consulting Physician Cardiovascular Disease - Cardiology 10/24/11 Arnoldo Begum MD [address] [place] [address] Consulting Physician Cardiovascular Disease - Cardiology 09/30/19 Dalila Pool, RIB BUILDER, DOMAIN ARCHITECT [address] [place] [address] Nurse Practitioner Advanced Practice Nurse 08/02/21 documented as of this encounter
--- OUTSIDE RECORDS SUMMARY | 2025-05-02 22:09 | XMS_ITS | Encounter Summary ---
Author Organization [facility] Address [address] [place] [address] Phone Care Team Providers Care Superintendent House Name Role Phone Genesis Link MD Unavailable [phone] Silvano Lopes MD Primary Care Provider Arnoldo Begum MD Unavailable Dalila Pool APRN, CATTLE CARE WORKER Unavailable Encounter Details Date Type Department Care Team (Late st Contact Info) Description 06/04/2020 Telephone [facility] [address] [facility] [place] [address] Jemal Davis MD [address] [facility] [address] [place] [phone] Social History Tobacco Use Types Packs/Day Years Used Date Smoking Tobacco: Never Smokeless Tobacco: Never Alcohol Use Standard Drinks/Week Comments No 0 (1 standard drink = 0.6 oz pur e alcohol) Comments No Sex and Gender Information Value Date Recorded Sex Assigned at Not on file Legal Sex Female 3:08 AM BUSINESS UNIT DIRECTOR Gender Identity Not on file Sexual Orientation [...] on 06/05/20 at 1445. Left message on [employer] to return scotty. documented in this encounter Plan of Treatment Not on file documented as of this encounter Results * PRE PROCEDURE/SCREEN SARS-COV-2 PCR (06/05/2020 5:15 PM CDT) SARSCOV2 NOT DETECTED (Reference Range for this test is Not Detected) 06/06/2020 1:36 PM CDT [facility] Swab NASOPHARYNGEAL STRUCTURE / Unknown Non-Phlebotomy Collection / Unknown 06/05/2020 5:15 PM CDT 06/05/2020 5:15 PM CDT Narrative [facility] - 06/06/2020 1:36 PM CDT Authorized Fact Sheets about this test for providers and patients are available at: https://www.fda.gov/medical-devices/eipswmvgn-ugzbwufias-aqxyhzy-devices/emergen cy-us e-authorizations us Jemal Davis MD MICROBIOLOGY - GENERAL ORDERABL ES Final Result [facility] [address] [facility] [place] [address], [place] documented in this encounter Visit Diagnoses Diagnosis Preop testing- Primary Preoperative examination, unspecified documented in this encounter Additional Health Concerns Infection Onset Date Last Indicated Resolved Time COVID - 19 09/22/2021 09/22/2021 10/12/2021 12:1 6 AM BUSINESS UNIT DIRECTOR Assessment Noted Time PHQ-9 Depression Total Score: 0 02/10/20 18 12:17 PM CDT documented as of this encounter Care Teams Superintendent House Relationship Specialty Start Date End Date Silvano Lopes MD [address] [place] [address] PCP - General Internal Medicine 08/02/19 Genesis Link MD [address] [place] [phone] Consulting Physician Cardiovascular Disease - Cardiology 10/24/11 Arnoldo Begum MD [address] [facility] [place] [phone] Consulting Physician Cardiovascular Disease - Cardiology 09/30/19 Dalila Pool APRN, CATTLE CARE WORKER [address] [place] [facility] [place] [address] Nurse Practitioner Advanced Practice Nurse 08/02/21 documented as of this encounter
--- NOTE | 2025-05-02 22:14 | ECG_ITS ---
Test Date: 2025-05-02 22:25:53 Measurements Intervals Louann Rate: 100 P: 0 [place]: 0 QRS: -23 QRSD: 84 T: -3 QT: 352 QTc: 454 Interpretive Statements ATRIAL FIBRILLATION WITH RAPID VENTRICULAR RESPONSE LOW QRS VOLTAGE IN PRECORDIAL LEADS [QRS DEFLECTION < 1.0 mV IN CHEST LEADS] POOR R-WAVE PROGRESSION ABNORMAL ECG No previous ECG available for comparison Electronically Signed On 05-03-2025 07:48:44 CDT by Vick Schumacher M.D.
[2025-05-02] MEDS: SODIUM CHLORIDE 0.9% IV 1,000 ML 999 ML IV CONT (22:37)
[2025-05-02] MEDS: ONDANSETRON INJ 4 MG/2 ML VIAL IV PUSH (22:37)
[2025-05-02 22:43] LABS: Hematocrit 46.5 % (37.0-47.0); Hemoglobin 15.0 g/dL (12.0-15.0); Immature Granulocyte Percent A 0.5 % (0-0.5); Lymphocytes Absolute Auto 1.13 K/mm3 (0.9-3.2); Mean Corpuscular HGB Conc 32.3 g/dl (32-36); Mean Corpuscular Hemoglobin 31.4 pg (26-34); Mean Corpuscular Volume 97.5 fl (80-100); Nucleated Red Blood Cells Absolute Auto 0.000 K/mm3 (0.0-0.012); Nucleated Red Blood Cells Perc 0.0 % (0.0-0.2); Platelet Count Result 171 k/mm3 (150-375); Red Blood Count 4.77 M/mm3 (4.2-5.4); White Blood Count 12.3 K/mm3 (4.5-10.0)
--- NOTE | 2025-05-02 22:47 | ED.ABDPAIN ---
HPI - Abdominal Pain General Chief Complaint: Abdominal Pain <DARIUSZ Shah Last Filed: 05/03/25 02:10> Stated Complaint: ABD PAIN,N/V/D SINCE 1729 <DARIUSZ Shah Last Filed: 05/03/25 02:10> Time Seen by Provider: 05/02/25 21:27 <DARIUSZ Shah Last Filed: 05/03/25 02:10> Source: patient <DARIUSZ Shah Last Filed: 05/03/25 02:10> Mode of arrival: ambulatory <DARIUSZ Shah Last Filed: 05/03/25 02:10> Limitations: no limitations <DARIUSZ Shah Last Filed: 05/03/25 02:10> History of Present Illness HPI narrative: Patient is an 84-year-old female, with PMH of AFIB on eliquis, hypothyroidism, AAA repair, who presents to the ED with report of abdominal pain. Patient reports she developed diffuse pain throughout her abdomen around 5:30 p.m. today. Began having diarrhea which progressed to nausea and vomiting. She has been having dry heaving as well. Denies rectal bleeding, melena, fevers. Patient also reports having intermittent stabbing pains in her chest since the abdominal pain started. Denies shortness of breath. <DARIUSZ Shah Last Filed: 05/03/25 02:10> Related Data Home Medications: Home Medications ?Medication ?Instructions ?Recorded ?Confirmed ?Last Taken ?Type allopurinol 300 mg tablet 300 mg PO DAILY 06/30/23 06/09/24 Unknown History trospium 20 mg tablet 20 mg PO BID 06/30/23 05/23/24 Unknown History aspirin 81 mg tablet,delayed 81 mg PO DAILY 05/03/24 06/09/24 Unknown History release (Adult Aspirin Regimen) <DARIUSZ Shah Last Filed: 05/03/25 02:10> Allergies/Adverse Reactions: Allergies Allergy/AdvReac Type Severity Reaction Status Date / Time No Known Allergies Allergy Verified 05/23/24 11:09 <Diamond Lantigua PA-C - Last Filed: 05/03/25 02:10> Review of Systems Review of Systems: All systems reviewed & are unremarkable except as noted in HPI. 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 Patient lives with son. Full Code. Occasionally uses walker. 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 HEAD: Normocephalic, atraumatic. RESPIRATORY: Airway patent, respirations nonlabored. Clear to auscultation bilaterally, no rales, rhonchi, wheezing. CARDIOVASCULAR: Borderline tachycardic with irregular rhythm without murmurs, rubs, or gallops. ABDOMINAL: Soft, diffuse tenderness throughout lower abdomen. Lower abdomen is somewhat firm. Hypoactive BS. MUSCULOSKELETAL: Moves all extremities. No gross deformities. SKIN: Warm, dry, normal color. NEURO: A&O X3. Speech clear. Cranial nerves II-XII grossly intact. Steady gait. No ataxic movements. PSYCHIATRIC: Appropriate mood and affect. Normal interaction. <Diamond Lantigua PA-C - Last Filed: 05/03/25 02:10> Course TOOL AND DIE ASSEMBLER/PA Physician Supervision For this patient encounter, I reviewed the TOOL AND DIE ASSEMBLER or PA documentation, treatment plan, and medical decision making and had [id number] time with this patient. I performed all aspects of the MDM as documented. <Reagan Desai MD - Last Filed: 05/03/25 03:09> Vital Signs Vital signs: Vital Signs Temperature 98.2 F 05/02/25 21:01 Pulse Rate 100 05/02/25 21:01 Respiratory Rate 20 05/02/25 21:01 Blood Pressure 133/60 05/02/25 21:01 Pulse Oximetry 97 05/02/25 21:01 Oxygen Delivery Room Air 05/02/25 21:01 Temperature 98.2 F 05/02/25 21:01 Pulse Rate 122 H 05/03/25 01:27 Respiratory Rate 19 05/03/25 00:12 Blood Pressure 145/85 H 05/03/25 00:12 Pulse Oximetry 92 05/03/25 00:40 Oxygen Delivery Nasal Cannula 05/03/25 00:40 Oxygen Flow Rate 1 05/03/25 00:40 <Diamond Lantigua PA-C - Last Filed: 05/03/25 02:10> Vital Signs Temperature 98.2 F 05/02/25 21:01 Pulse Rate 100 05/02/25 21:01 Respiratory Rate 20 05/02/25 21:01 Blood Pressure 133/60 05/02/25 21:01 Pulse Oximetry 97 05/02/25 21:01 Oxygen Delivery Room Air 05/02/25 21:01 Temperature 98.2 F 05/02/25 21:01 Pulse Rate 122 H 05/03/25 01:27 Respiratory Rate 19 05/03/25 00:12 Blood Pressure 145/85 H 05/03/25 00:12 Pulse Oximetry 92 05/03/25 00:40 Oxygen Delivery Nasal Cannula 05/03/25 00:40 Oxygen Flow Rate 1 05/03/25 00:40 <Reagan Desai MD - Last Filed: 05/03/25 03:09> MDM - Abdominal Pain MDM Narrative Medical decision making narrative: Patient presented to ED with nausea, vomiting, diarrhea, lower abdominal pain. Onset this evening. Vital signs are stable upon arrival. Patient is afebrile here. Borderline tachycardic. In AFib. Does have history of this. On Eliquis and metoprolol. EKG without concerning ischemic changes. CBC with white blood cell count of 12.3. Neutrophil predominance. No bandemia. CMP without significant abnormalities. Stable kidney function. Stable electrolytes. Slight elevation of AST and alk-phos. Normal bilirubin. Normal lipase. Lactic within normal range at 1.7. Trop undetectable. UA with 1+ leuk esterase, no other signs of infection. CT scan of abdomen/pelvis was obtained and showing evidence of severe enteritis. Diverticulosis, no evidence of diverticulitis. No bowel obstruction. Discussed lab and imaging findings with patient. Patient is still mildly uncomfortable, though does feel improved after morphine/Zofran. Given severity of enteritis on imaging with elevated white blood cell count, concern for infectious etiology. Will start antibiotics. Rocephin/flagyl per ED abx stewardship. Blood cultures obtained. Patient was later noted to be in AFib with RVR. Rates were initially around 100 when I first evaluated patient. Was noted to have heart rates up into the 130/140s. Were consistently ranging in the low 110s, but will jump up. She is on metoprolol succinate 50 mg at home per med rec. She did take this today. She was given additional 5 mg dose of IV metoprolol in the ED with improvement of HR more consistently into 90s. She was appropriately fluid resuscitated. Will be admitted for further evaluation. Discussed case with Dr. Bose, hospitalist, accepted patient for admission. Patient and family in agreement with plan. IV lopressor 5mg prn q6h for HR >100, as long as BP > 100. PRN pain/nausea meds ordered. Stool studies/cdiff testing ordered. <Diamond Lantigua PA-C - Last Filed: 05/03/25 02:10> Medical Records Attestation: I reviewed the patient's medical records. <Diamond Lantigua PA-C - Last Filed: 05/03/25 02:10> Lab Data Attestation: I reviewed the patient's lab results. <Diamond Lantigua PA-C - Last Filed: 05/03/25 02:10> Result diagrams: 05/02/25 22:33 05/02/25 22:33 <DARIUSZ Shah Last Filed: 05/03/25 02:10> Labs: Lab Results 05/02/25 05/02/25 Range/Units 22:33 23:08 WBC 12.3 H (4.5-10.0) K/mm3 RBC 4.77 (4.2-5.4) M/mm3 Hgb 15.0 (12.0-15.0) g/dL Hct 46.5 (37.0-47.0) % MCV 97.5 (80-100) fl MCH 31.4 (26-34) pg MCHC 32.3 (32-36) g/dl RDW 14.1 (11.5-14.5) % Plt Count 171 (150-375) k/mm3 MPV 10.1 (7.4-10.4) fl Immature Gran % (Auto) 0.5 (0-0.5) % Neut % (Auto) 82.5 H (45.5-73.1) % Lymph % (Auto) 9.2 L (18.3-44.2) % [place] % (Auto) 7.2 (2.6-8.5) % Eos % (Auto) 0.3 (0-4.4) % Baso % (Auto) 0.3 (0.2-1.2) % Lymph # (Auto) 1.13 (0.9-3.2) K/mm3 [place] # (Auto) 0.9 H (0.1-0.6) K/mm3 Eos # (Auto) 0.0 (0-0.3) K/mm3 Baso # (Auto) 0.0 (0.0-0.1) K/mm3 Abs Immat Gran (auto) 0.06 H (0.00-0.031) K/mm3 Absolute Neuts (auto) 10.1 H (1.3-6.7) K/mm3 Absolute Nucleated RBC 0.000 (0.0-0.012) K/mm3 Nucleated RBC % 0.0 (0.0-0.2) % Sodium 139 (137-145) mmol/L Potassium 3.4 (3.4-5.0) mmol/L Chloride 104 (98-107) mmol/L Carbon Dioxide 23 (22-30) mmol/L Anion Gap 12 (4-12) mmol/L BUN 15 D (7-17) mg/dL Creatinine 0.76 (0.7-1.0) mg/dL Estim Creat Clear Calc 42 ml/min Estimated GFR > 60 (59 - ) Glucose 114 H (65-110) mg/dL Lactic Acid 1.7 (0.7-2.0) mmol/L Calcium 10.5 H (8.4-10.2) mg/dL Total Bilirubin 1.1 (0.2-1.3) mg/dL AST 52 H (14-36) U/L ALT 30 (6-35) U/L Alkaline Phosphatase 279 H (38-126) U/L Troponin I < 0.012 (0.000-0.034) ng/mL Total Protein 7.3 (6.3-8.2) g/dL Albumin 4.0 (3.5-5.1) g/dL Lipase 107 (23-300) U/L Urine Color Yellow (Yellow) Urine Appearance Clear (Clear) Urine pH 5.0 (5.0-9.0) Ur Specific [place] 1.011 (1.001-1.035) Urine Protein Negative (Negative) mg/dL Urine Glucose (UA) Negative (Negative) mg/dL Urine Ketones Negative (Negative) mg/dL Ur Blood (Man) Negative (Negative) Urine Nitrate Negative (Negative) Urine Bilirubin Negative (Negative) Urine Urobilinogen 0.2 (<2.0) mg/dL Add Ur Microanalysis Reviewed Leukocyte Esterase Rfl 1+ H (Negative) ASHA/UL Urine RBC 0-2 (0-2) /hpf Urine WBC 0-5 (0-3) /hpf Ur Squamous Epith Cells None seen (Few) /hpf Urine Bacteria None seen /hpf Urine Casts 0-2 <Diamond Lantigua PA-C - Last Filed: 05/03/25 02:10> Lab Results 05/02/25 05/02/25 Range/Units 22:33 23:08 WBC 12.3 H (4.5-10.0) K/mm3 RBC 4.77 (4.2-5.4) M/mm3 Hgb 15.0 (12.0-15.0) g/dL Hct 46.5 (37.0-47.0) % MCV 97.5 (80-100) fl MCH 31.4 (26-34) pg MCHC 32.3 (32-36) g/dl RDW 14.1 (11.5-14.5) % Plt Count 171 (150-375) k/mm3 MPV 10.1 (7.4-10.4) fl Immature Gran % (Auto) 0.5 (0-0.5) % Neut % (Auto) 82.5 H (45.5-73.1) % Lymph % (Auto) 9.2 L (18.3-44.2) % [place] % (Auto) 7.2 (2.6-8.5) % Eos % (Auto) 0.3 (0-4.4) % Baso % (Auto) 0.3 (0.2-1.2) % Lymph # (Auto) 1.13 (0.9-3.2) K/mm3 [place] # (Auto) 0.9 H (0.1-0.6) K/mm3 Eos # (Auto) 0.0 (0-0.3) K/mm3 Baso # (Auto) 0.0 (0.0-0.1) K/mm3 Abs Immat Gran (auto) 0.06 H (0.00-0.031) K/mm3 Absolute Neuts (auto) 10.1 H (1.3-6.7) K/mm3 Absolute Nucleated RBC 0.000 (0.0-0.012) K/mm3 Nucleated RBC % 0.0 (0.0-0.2) % Sodium 139 (137-145) mmol/L Potassium 3.4 (3.4-5.0) mmol/L Chloride 104 (98-107) mmol/L Carbon Dioxide 23 (22-30) mmol/L Anion Gap 12 (4-12) mmol/L BUN 15 D (7-17) mg/dL Creatinine 0.76 (0.7-1.0) mg/dL Estim Creat Clear Calc 42 ml/min Estimated GFR > 60 (59 - ) Glucose 114 H (65-110) mg/dL Lactic Acid 1.7 (0.7-2.0) mmol/L Calcium 10.5 H (8.4-10.2) mg/dL Total Bilirubin 1.1 (0.2-1.3) mg/dL AST 52 H (14-36) U/L ALT 30 (6-35) U/L Alkaline Phosphatase 279 H (38-126) U/L Troponin I < 0.012 (0.000-0.034) ng/mL Total Protein 7.3 (6.3-8.2) g/dL Albumin 4.0 (3.5-5.1) g/dL Lipase 107 (23-300) U/L Urine Color Yellow (Yellow) Urine Appearance Clear (Clear) Urine pH 5.0 (5.0-9.0) Ur Specific [place] 1.011 (1.001-1.035) Urine Protein Negative (Negative) mg/dL Urine Glucose (UA) Negative (Negative) mg/dL Urine Ketones Negative (Negative) mg/dL Ur Blood (Man) Negative (Negative) Urine Nitrate Negative (Negative) Urine Bilirubin Negative (Negative) Urine Urobilinogen 0.2 (<2.0) mg/dL Add Ur Microanalysis Reviewed Leukocyte Esterase Rfl 1+ H (Negative) ASHA/UL Urine RBC 0-2 (0-2) /hpf Urine WBC 0-5 (0-3) /hpf Ur Squamous Epith Cells None seen (Few) /hpf Urine Bacteria None seen /hpf Urine Casts 0-2 <Reagan Desai MD - Last Filed: 05/03/25 03:09> Imaging Data Attestation: I personally reviewed and interpreted this imaging study as follows: <DARIUSZ Shah Last Filed: 05/03/25 02:10> Radiologist's impression: STAT RAD CT abd/pelvis: Moderate wall thickening of small bowel in the right lower quadrant, consistent with severe enteritis. Moderate perienteric edema. Diverticulosis, without acute diverticulitis. <DARIUSZ Shah Last Filed: 05/03/25 02:10> ECG Data EKG #1: Attestation: I personally reviewed and interpreted this ECG as follows: <Diamond Lantigua PA-C - Last Filed: 05/03/25 02:10> ECG completion date: 05/02/25 <DARIUSZ Shah Last Filed: 05/03/25 02:10> ECG completion time: 22:25 <DARIUSZ Shah Last Filed: 05/03/25 02:10> tachycardia (100), atrial fibrillation and non-specific ST changes <DARIUSZ Shah Last Filed: 05/03/25 02:10> Discharge Plan Discharge Clinical Impression: Enteritis, Atrial fibrillation with rapid ventricular response Nausea and vomiting Qualifiers: Vomiting type: unspecified Qualified Code(s): R11.2 - Nausea with vomiting, unspecified <DARIUSZ Shah Last Filed: 05/03/25 02:10> Patient Disposition: Still a Patient <DARIUSZ Shah Last Filed: 05/03/25 02:10> Condition: Stable <DARIUSZ Shah Last Filed: 05/03/25 02:10>
[2025-05-02 23:18] LABS: Troponin I < 0.012 ng/mL (0.000-0.034)
[2025-05-02 23:33] LABS: Alanine Aminotransferase 30 U/L (6-35); Albumin Level 4.0 g/dL (3.5-5.1); Alkaline Phosphatase 279 U/L (38-126); Anion Gap 12 mmol/L (4-12); Aspartate Amino Transferase 52 U/L (14-36); Bilirubin,Total 1.1 mg/dL (0.2-1.3); Blood Urea Nitrogen 15 mg/dL (7-17); Calcium 10.5 mg/dL (8.4-10.2); Carbon Dioxide 23 mmol/L (22-30); Chloride 104 mmol/L (98-107); Estimated CRCL calculation 42 ml/min; Estimated Glomerular Filt Rate > 60; Glucose 114 mg/dL (65-110); Lipase 107 U/L (23-300); Potassium 3.4 mmol/L (3.4-5.0); Sodium 139 mmol/L (137-145); Total Protein 7.3 g/dL (6.3-8.2)
[2025-05-02 23:53] LABS: Add Urine Microscopic? YES; Appearance Urine Clear (Clear); Glucose Urine UA Negative (Negative); Leukocyte Esterase Ur 1+ LEU/UL (Negative); Need Manual Microscopic Reviewed; Nitrate Urine Negative (Negative); Non Pathogenic Casts 0-2; Specific Grav Ur 1.011 (1.001-1.035)
[2025-05-03] VITALS (51 sets, daily range): BP systolic 82–145; BP diastolic 49–85; PULSE 72–125; RESP 13–23; TEMP 36.3–36.6; O2SAT 91–100; BMI 28.4
[2025-05-03] MEDS: MORPHINE SULFATE (*CRX) 4 MG/ML INJ IV PUSH (00:07)
[2025-05-03] MEDS: SODIUM CHLORIDE 0.9% IV 1,000 ML 999 ML IV CONT (01:01)
[2025-05-03] MEDS: METOPROLOL TARTRATE INJ 5 MG/5 ML VIAL IV PUSH (01:27)
[2025-05-03] MEDS: cefTRIAXone 1 GM in SODIUM CHLORIDE 0.9% IV 50 ML 100 ML IVPB (01:28)
[2025-05-03] MEDS: metroNIDAZOLE 500 MG/ISO 100ML 500 MG/100 ML BAG 100 MG IVPB ×3 (01:33→17:02)
[2025-05-03] MEDS: SODIUM CHLORIDE 0.9% IV 1,000 ML 100 ML IV CONT ×2 (02:27→13:40)
[2025-05-03] MEDS: ACETAMINOPHEN 325 MG TABLET 650 MG PO ×3 (03:24→17:12)
[2025-05-03] MEDS: KETOROLAC 30 MG/ML VIAL (*BKC) IV PUSH (04:47)
[2025-05-03] MEDS: SODIUM CHLORIDE 0.9% IV 1,000 ML 500 ML IV CONT (04:47)
--- NOTE | 2025-05-03 09:37 | ADMGEN ---
This patient, Catrina Clark, was admitted to IMU Room 207-01 at 0928. Patient/family oriented to hospital policies and general routines including ID bracelet, bed and alarms, visiting hours, pain management, procedures, bathroom and other care routines, personal items, smoking policy, room service/diet, and visiting hours. Information on how to activate the Rapid Response Team has been discussed. Patient/Family are encouraged to report perceived risks to care and to ask questions if they do not understand what they are told or what they should do.
[2025-05-03] MEDS: APIXABAN 5 MG TABLET PO ×2 (10:28→20:55)
--- NOTE | 2025-05-03 15:25 | P.HP_ITS ---
H&P: HPI History of Present Illness Date/Time: 05/03/25 15:25 Chief Complaint: Abdominal pain, n/v/d Narrative: ER-HPI narrative: Patient is an 84-year-old female, with PMH of AFIB on eliquis, hypothyroidism, AAA repair, who presents to the ED with report of abdominal pain. Patient reports she developed diffuse pain throughout her abdomen around 5:30 p.m. today. Began having diarrhea which progressed to nausea and vomiting. She has been having dry heaving as well. Denies rectal bleeding, melena, fevers. Patient also reports having intermittent stabbing pains in her chest since the abdominal pain started. Denies shortness of breath. Patient with abdominal pain, nausea, vomiting and diarrhea, Ct scan of abdomen showed wall thickening of the distal/terminal ileum with adjacent haziness, compatible with infectious/inflammatory enteritis. patient was started ceftriaxone and Flagyl, patient she is feeling much better and pain and nausea, vomiting and diarrhea have subsided, will do stool culture and c diff, will monitor and plan, will have PT/ OT evaluate the patient, will benefit going to rehab. Review of Systems Review of Systems: All systems reviewed & are unremarkable except as noted in HPI. 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 Patient lives with son. Full Code. Occasionally uses walker. 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 Sexual Orientation (if Verbalized by the Patient): Straight or Heterosexual Spiritual care concerns: No Meds Home Medications and Allergies Home Medications ?Medication ?Instructions ?Recorded ?Confirmed ?Type allopurinol 300 mg tablet 300 mg PO DAILY 06/30/23 05/03/25 History trospium 20 mg tablet 20 mg PO BID 06/30/23 05/23/24 History apixaban 5 mg tablet (Eliquis) 5 mg PO Q12H #60 tabs 07/10/23 05/03/25 Rx aspirin 81 mg tablet,delayed 81 mg PO DAILY 05/03/24 05/03/25 History release (Adult Aspirin Regimen) levothyroxine 88 mcg capsule 75 mcg (0.8523 x 88 mcg) PO DAILY 05/03/24 06/09/24 Rx #30 caps colchicine 0.6 mg capsule 0.6 mg PO DAILY #90 caps 05/23/24 06/09/24 Rx lisinopril 20 mg tablet 20 mg PO DAILY #90 tabs 05/23/24 06/09/24 Rx rosuvastatin 10 mg tablet 10 mg PO DAILY #90 tabs 05/23/24 05/03/25 Rx cephalexin 500 mg capsule 500 mg PO Q12H #20 caps 06/09/24 Rx furosemide 20 mg tablet 20 mg PO DAILY 05/03/25 05/03/25 History levothyroxine 75 mcg tablet 75 mcg PO DAILY@0630 05/03/25 05/03/25 History metoprolol succinate 50 mg 50 mg PO DAILY 05/03/25 05/03/25 History tablet,extended release 24 hr Allergies Allergy/AdvReac Type Severity Reaction Status Date / Time No Known Allergies Allergy Verified 05/03/25 10:01 Vital Signs Vital Signs - 24 hr 05/02/25 21:01 05/03/25 00:12 05/03/25 00:40 Temperature 36.8 C Pulse Rate 100 115 H Respiratory Rate 20 19 Blood Pressure 133/60 145/85 H Pulse Oximetry 97 95 92 Oxygen Delivery Room Air Nasal Cannula Oxygen Flow Rate 1 05/03/25 01:00 05/03/25 01:15 05/03/25 01:27 Temperature Pulse Rate 125 H 111 H 122 H Respiratory Rate 19 21 H Blood Pressure 133/82 128/67 Pulse Oximetry 95 95 Oxygen Delivery Oxygen Flow Rate 05/03/25 01:30 05/03/25 01:45 05/03/25 02:00 Temperature Pulse Rate 101 H 92 93 Respiratory Rate 21 H 14 18 Blood Pressure 108/76 87/61 L 108/65 Pulse Oximetry 97 93 98 Oxygen Delivery Oxygen Flow Rate 05/03/25 02:15 05/03/25 02:30 05/03/25 03:00 Temperature Pulse Rate 93 90 89 Respiratory Rate 18 15 20 Blood Pressure 106/61 99/52 L 98/55 L Pulse Oximetry 96 95 95 Oxygen Delivery Oxygen Flow Rate 05/03/25 03:15 05/03/25 03:33 05/03/25 03:35 Temperature Pulse Rate 87 85 88 Respiratory Rate 21 H 16 18 Blood Pressure 99/49 L 92/67 L Pulse Oximetry 95 99 100 Oxygen Delivery Oxygen Flow Rate 05/03/25 03:45 05/03/25 03:46 05/03/25 04:00 Temperature Pulse Rate 89 85 86 Respiratory Rate 21 H 21 H 20 Blood Pressure 89/53 L 93/55 L Pulse Oximetry 97 94 Oxygen Delivery Oxygen Flow Rate 05/03/25 04:15 05/03/25 04:23 05/03/25 05:05 Temperature Pulse Rate 85 95 86 Respiratory Rate 22 H 16 17 Blood Pressure 82/61 L 82/61 L Pulse Oximetry 94 98 95 Oxygen Delivery Oxygen Flow Rate 05/03/25 05:15 05/03/25 05:27 05/03/25 05:32 Temperature Pulse Rate 85 87 90 Respiratory Rate 23 H 16 19 Blood Pressure 86/60 L Pulse Oximetry 94 98 92 Oxygen Delivery Oxygen Flow Rate 05/03/25 05:45 05/03/25 05:46 05/03/25 06:00 Temperature Pulse Rate Respiratory Rate Blood Pressure 98/74 L 93/61 L Pulse Oximetry 96 94 93 Oxygen Delivery Oxygen Flow Rate 05/03/25 06:01 05/03/25 06:15 05/03/25 06:16 Temperature Pulse Rate Respiratory Rate Blood Pressure 89/50 L Pulse Oximetry 95 94 93 Oxygen Delivery Oxygen Flow Rate 05/03/25 06:30 05/03/25 06:31 05/03/25 06:45 Temperature Pulse Rate 83 89 88 Respiratory Rate 13 17 16 Blood Pressure 102/70 96/65 L Pulse Oximetry 94 95 96 Oxygen Delivery Oxygen Flow Rate 05/03/25 06:46 05/03/25 07:00 05/03/25 07:01 Temperature Pulse Rate 91 92 88 Respiratory Rate 18 13 14 Blood Pressure 90/57 L Pulse Oximetry 96 96 93 Oxygen Delivery Oxygen Flow Rate 05/03/25 07:15 05/03/25 07:16 05/03/25 07:30 Temperature Pulse Rate 84 97 89 Respiratory Rate 17 19 15 Blood Pressure 90/56 L Pulse Oximetry 97 94 95 Oxygen Delivery Oxygen Flow Rate 05/03/25 07:31 05/03/25 08:46 05/03/25 10:00 Temperature Pulse Rate 86 80 80 Respiratory Rate 13 16 Blood Pressure 91/50 L Pulse Oximetry 94 98 Oxygen Delivery Oxygen Flow Rate 05/03/25 10:20 05/03/25 10:25 05/03/25 12:00 Temperature 36.3 C L 36.3 C L 36.5 C Pulse Rate 90 90 82 Respiratory Rate 18 18 18 Blood Pressure 97/51 L 97/51 L 102/51 L Pulse Oximetry 96 96 96 Oxygen Delivery Oxygen Flow Rate 05/03/25 12:00 05/03/25 14:00 Temperature Pulse Rate 75 72 Respiratory Rate Blood Pressure Pulse Oximetry Oxygen Delivery Oxygen Flow Rate Exam Narrative: Patient is comfortable, NAD HEENT: eyes are clear and none icteric LUNGS:CTA HEART: RR S1S2 ABD: BS+, Soft and nontender Lower extremities: no edema SKIN: nonjaundiced Neuro: grossly intact. H&P: Results Labs Labs: Short CBC 05/02/25 Range/Units 22:33 WBC 12.3 H (4.5-10.0) K/mm3 Hgb 15.0 (12.0-15.0) g/dL Hct 46.5 (37.0-47.0) % Plt Count 171 (150-375) k/mm3 BMP 05/02/25 22:33 Sodium 139 Potassium 3.4 Chloride 104 Carbon Dioxide 23 BUN 15 D Creatinine 0.76 Glucose 114 H Calcium 10.5 H Cardiac Enzymes 05/02/25 Range/Units 22:33 Troponin I < 0.012 (0.000-0.034) ng/mL Liver Function 05/02/25 Range/Units 22:33 Total Bilirubin 1.1 (0.2-1.3) mg/dL AST 52 H (14-36) U/L ALT 30 (6-35) U/L Alkaline Phosphatase 279 H (38-126) U/L Albumin 4.0 (3.5-5.1) g/dL Urine 05/02/25 Range/Units 23:08 Urine Color Yellow (Yellow) Urine Appearance Clear (Clear) Urine pH 5.0 (5.0-9.0) Ur Specific [place] 1.011 (1.001-1.035) Urine Protein Negative (Negative) mg/dL Urine Glucose (UA) Negative (Negative) mg/dL Assessment and Plan Assessment and plan (1) Nausea and vomiting: Qualifiers: Vomiting type: unspecified Qualified Code(s): R11.2 - Nausea with vomiting, unspecified Code(s): R11.2 - Nausea with vomiting, unspecified Status: Acute (2) Diarrhea: Qualifiers: Diarrhea type: unspecified type Qualified Code(s): R19.7 - Diarrhea, unspecified Code(s): R19.7 - Diarrhea, unspecified Status: Acute (3) Enteritis: Code(s): K52.9 - Noninfective gastroenteritis and colitis, unspecified Status: Acute (4) Lower abdominal pain: Code(s): R10.30 - Lower abdominal pain, unspecified Status: Acute (5) Atrial fibrillation: Qualifiers: Atrial fibrillation type: unspecified Qualified Code(s): I48.91 - Unspecified atrial fibrillation Code(s): I48.91 - Unspecified atrial fibrillation Status: Acute (6) Atrial fibrillation with rapid ventricular response: Code(s): I48.91 - Unspecified atrial fibrillation Status: Acute (7) AAA (abdominal aortic aneurysm) without rupture: Qualifiers: Abdominal aorta location: unspecified Qualified Code(s): I71.40 - Abdominal aortic aneurysm, without rupture, unspecified Code(s): I71.40 - Abdominal aortic aneurysm, without rupture, unspecified Status: Acute Plan ER-HPI narrative: Patient is an 84-year-old female, with PMH of AFIB on eliquis, hypothyroidism, AAA repair, who presents to the ED with report of abdominal pain. Patient reports she developed diffuse pain throughout her abdomen around 5:30 p.m. today. Began having diarrhea which progressed to nausea and vomiting. She has been having dry heaving as well. Denies rectal bleeding, melena, fevers. Patient also reports having intermittent stabbing pains in her chest since the abdominal pain started. Denies shortness of breath. Patient with abdominal pain, nausea, vomiting and diarrhea, Ct scan of abdomen showed wall thickening of the distal/terminal ileum with adjacent haziness, compatible with infectious/inflammatory enteritis. patient was started ceftriaxone and Flagyl, patient she is feeling much better and pain and nausea, vomiting and diarrhea have subsided, will do stool culture and c diff, will monitor and plan, will have PT/ OT evaluate the patient, will benefit going to rehab.
[2025-05-04] VITALS (13 sets, daily range): BP systolic 111–131; BP diastolic 62–70; PULSE 83–109; RESP 18; TEMP 36.6–36.9; O2SAT 94–98
[2025-05-04] MEDS: cefTRIAXone 1 GM in SODIUM CHLORIDE 0.9% IV 50 ML 100 ML IVPB (00:02)
[2025-05-04] MEDS: metroNIDAZOLE 500 MG/ISO 100ML 500 MG/100 ML BAG 100 MG IVPB ×3 (00:41→16:41)
[2025-05-04] MEDS: ONDANSETRON INJ 4 MG/2 ML VIAL IV PUSH (02:29)
[2025-05-04] MEDS: MORPHINE SULFATE (*CRX) 4 MG/ML INJ IV PUSH ×3 (03:56→22:18)
[2025-05-04] MEDS: SODIUM CHLORIDE 0.9% IV 1,000 ML 100 ML IV CONT ×2 (04:36→16:40)
[2025-05-04 05:25] LABS: Hematocrit 36.1 % (37.0-47.0); Hemoglobin 11.2 g/dL (12.0-15.0); Mean Corpuscular HGB Conc 31.0 g/dl (32-36); Mean Corpuscular Hemoglobin 31.7 pg (26-34); Mean Corpuscular Volume 102.3 fl (80-100); Platelet Count Result 136 k/mm3 (150-375); Red Blood Count 3.53 M/mm3 (4.2-5.4); White Blood Count 4.7 K/mm3 (4.5-10.0)
[2025-05-04 05:39] LABS: Alanine Aminotransferase 20 U/L (6-35); Albumin Level 2.9 g/dL (3.5-5.1); Alkaline Phosphatase 184 U/L (38-126); Anion Gap 5 mmol/L (4-12); Aspartate Amino Transferase 40 U/L (14-36); Bilirubin,Total 0.5 mg/dL (0.2-1.3); Blood Urea Nitrogen 12 mg/dL (7-17); Calcium 8.8 mg/dL (8.4-10.2); Carbon Dioxide 21 mmol/L (22-30); Chloride 114 mmol/L (98-107); Estimated CRCL calculation 50 ml/min; Estimated Glomerular Filt Rate > 60; Glucose 81 mg/dL (65-110); Magnesium 1.5 mg/dL (1.6-2.3); Potassium 3.8 mmol/L (3.4-5.0); Sodium 140 mmol/L (137-145); Total Protein 5.5 g/dL (6.3-8.2)
[2025-05-04] MEDS: APIXABAN 5 MG TABLET PO ×2 (10:19→20:34)
[2025-05-04] MEDS: ACETAMINOPHEN 325 MG TABLET 650 MG PO ×2 (12:29→20:34)
[2025-05-04] MEDS: MAGNESIUM SULF 2 GM/WATER 50ML 2 GM/50 ML BAG IVPB (12:29)
--- NOTE | 2025-05-04 14:44 | PM.IMPN ---
Progress Note: A&P Assessment and Plan (1) Nausea and vomiting: Qualifiers: Vomiting type: unspecified Qualified Code(s): R11.2 - Nausea with vomiting, unspecified Code(s): R11.2 - Nausea with vomiting, unspecified Status: Acute (2) Diarrhea: Qualifiers: Diarrhea type: unspecified type Qualified Code(s): R19.7 - Diarrhea, unspecified Code(s): R19.7 - Diarrhea, unspecified Status: Acute (3) Enteritis: Code(s): K52.9 - Noninfective gastroenteritis and colitis, unspecified Status: Acute (4) Lower abdominal pain: Code(s): R10.30 - Lower abdominal pain, unspecified Status: Acute (5) Atrial fibrillation: Qualifiers: Atrial fibrillation type: unspecified Qualified Code(s): I48.91 - Unspecified atrial fibrillation Code(s): I48.91 - Unspecified atrial fibrillation Status: Acute (6) Atrial fibrillation with rapid ventricular response: Code(s): I48.91 - Unspecified atrial fibrillation Status: Acute (7) AAA (abdominal aortic aneurysm) without rupture: Qualifiers: Abdominal aorta location: unspecified Qualified Code(s): I71.40 - Abdominal aortic aneurysm, without rupture, unspecified Code(s): I71.40 - Abdominal aortic aneurysm, without rupture, unspecified Status: Acute Plan Enteritis Vomiting and diarrhea improving CT AP reviewed and Blood pressure improving Continue Rocephin and Flagyl PRN pain control F/u with culture Afib Continue Eliquis and hold Metoprolol for now due to soft blood pressure DVT prophylaxis on Eliquis Subjective Date/time seen: 05/04/25 14:44 Interval history: Comfortable at bedside Review of Systems Review of Systems: All systems reviewed & are unremarkable except as noted in HPI. All systems reviewed & are unremarkable except as noted in HPI and below Exam Narrative: Patient is comfortable, NAD HEENT: eyes are clear and none icteric LUNGS:CTA HEART: RR S1S2 ABD: BS+, Soft and nontender Lower extremities: no edema SKIN: nonjaundiced Neuro: grossly intact. Objective Data Vital Signs Vital Signs: Vital Signs - 24 hr 05/03/25 16:00 05/03/25 16:00 05/03/25 18:00 Temperature 97.8 F Pulse Rate 92 84 73 Respiratory Rate 18 Blood Pressure 110/56 L Pulse Oximetry 95 Oxygen Delivery Fraction of Inspired Oxygen 05/03/25 20:00 05/03/25 20:00 05/03/25 22:00 Temperature 97.8 F Pulse Rate 88 80 83 Respiratory Rate 18 Blood Pressure 109/51 L Pulse Oximetry 98 Oxygen Delivery Fraction of Inspired Oxygen 05/03/25 22:13 05/03/25 23:52 05/04/25 00:00 Temperature 97.8 F Pulse Rate 77 81 83 Respiratory Rate 20 18 Blood Pressure 108/54 L Pulse Oximetry 91 93 Oxygen Delivery Room Air Fraction of Inspired Oxygen 21 05/04/25 02:00 05/04/25 04:00 05/04/25 04:00 Temperature 97.8 F Pulse Rate 84 95 95 Respiratory Rate 18 Blood Pressure 131/65 Pulse Oximetry 98 Oxygen Delivery Fraction of Inspired Oxygen 05/04/25 06:00 05/04/25 08:00 05/04/25 08:00 Temperature 97.8 F Pulse Rate 83 85 102 H Respiratory Rate 18 Blood Pressure 111/62 Pulse Oximetry 94 Oxygen Delivery Fraction of Inspired Oxygen 05/04/25 10:00 05/04/25 11:41 05/04/25 12:00 Temperature 98.2 F Pulse Rate 97 109 H 106 H Respiratory Rate 18 Blood Pressure 129/70 Pulse Oximetry 94 Oxygen Delivery Fraction of Inspired Oxygen 05/04/25 14:00 Temperature Pulse Rate 89 Respiratory Rate Blood Pressure Pulse Oximetry Oxygen Delivery Fraction of Inspired Oxygen Intake/Output Intake/Output: Intake & Output 05/01/25 05/02/25 05/03/25 05/04/25 23:59 23:59 23:59 23:59 Intake Total 6760 810 Output Total 200 Balance 6760 610 Meds/Results Medications: Active Medications Generic Name Dose Route Start Last Admin Trade Name Freq PRN Reason Stop Dose Admin Acetaminophen 650 mg 05/03/25 01:54 05/04/25 12:29 Acetaminophen 325 Mg Tablet PO 650 mg Q4H PRN Administration Mild Pain (1-3) or Fever Apixaban 5 mg 05/03/25 10:10 05/04/25 10:19 Apixaban 5 Mg Tablet PO 5 mg Q12HR MIGUEL ANGEL Administration Dextrose 12.5 gm 05/03/25 02:04 Dextrose 50% 25 Gm/50 Ml Syringe IV PUSH PRN PRN Hypoglycemia Protocol Glucagon 1 mg 05/03/25 02:04 Glucagon For Inj 1 Mg Vial IM PRN PRN Hypoglycemia Protocol Glucose 15 gm 05/03/25 02:04 Glucose Oral Gel 15 Gm Of Glucse In 37.5 Gm Tube PO PRN PRN Hypoglycemia Protocol Ceftriaxone Sodium 1 gm/ 50 mls @ 100 mls/hr 05/04/25 01:00 05/04/25 00:32 Sodium Chloride IVPB Infused Q24H MIGUEL ANGEL Infusion Metronidazole 500 mg in 100 mls @ 100 mls/hr 05/03/25 09:00 05/04/25 10:19 Flagyl 500 Mg/Iso Soln 100 Ml IVPB 100 mls/hr Q8H MIGUEL ANGEL Administration Sodium Chloride 1,000 mls @ 100 mls/hr 05/03/25 02:00 05/04/25 04:36 Normal Saline Iv IV CONT 100 mls/hr .Q10H MIGUEL ANGEL Administration Dextrose 1,000 mls @ 100 mls/hr 05/03/25 02:04 Dextrose 5% 1,000 Ml IVPB PRN PRN Hypoglycemia Protocol Morphine Sulfate 4 mg 05/03/25 01:54 05/04/25 10:19 Morphine Sulfate (*Crx) 4 Mg/Ml Inj IV PUSH 4 mg Q2H PRN Administration Pain Rated 7-10 Ondansetron HCl 4 mg 05/03/25 01:54 05/04/25 02:29 Ondansetron Inj 4 Mg/2 Ml Vial IV PUSH 4 mg Q4H PRN Administration Nausea Radiology Results: ITS Impressions Abdomen/Pelvis CT 05/03/25 05:33 Impression: Wall thickening of the distal/terminal ileum with adjacent haziness, compatible with infectious/inflammatory enteritis. Correlate clinically. Small hiatal hernia. Small fat-containing umbilical hernia. Labs Labs: Laboratory Results - last 24 hr 05/04/25 04:50 WBC 4.7 RBC 3.53 L Hgb 11.2 L D Hct 36.1 L MCV 102.3 H MCH 31.7 MCHC 31.0 L RDW 14.4 Plt Count 136 L MPV 10.3 Sodium 140 Potassium 3.8 Chloride 114 H Carbon Dioxide 21 L Anion Gap 5 BUN 12 Creatinine 0.74 Estim Creat Clear Calc 50 Estimated GFR > 60 Glucose 81 Calcium 8.8 Magnesium 1.5 L Total Bilirubin 0.5 AST 40 H ALT 20 Alkaline Phosphatase 184 H Total Protein 5.5 L Albumin 2.9 L
--- NOTE | 2025-05-04 17:48 | PC.NURSE ---
Report given to So[facility] on [facility].
[2025-05-05] VITALS (10 sets, daily range): BP systolic 114–128; BP diastolic 55–57; PULSE 77–120; RESP 18; TEMP 36.5–36.8; O2SAT 96–97
[2025-05-05] MEDS: cefTRIAXone 1 GM in SODIUM CHLORIDE 0.9% IV 50 ML 100 ML IVPB (00:16)
[2025-05-05] MEDS: metroNIDAZOLE 500 MG/ISO 100ML 500 MG/100 ML BAG 100 MG IVPB ×2 (01:10→08:59)
[2025-05-05] MEDS: SODIUM CHLORIDE 0.9% IV 1,000 ML 100 ML IV CONT (04:40)
[2025-05-05 05:37] LABS: Hematocrit 38.0 % (37.0-47.0); Hemoglobin 11.6 g/dL (12.0-15.0); Immature Granulocyte Percent A 0.4 % (0-0.5); Lymphocytes Absolute Auto 1.54 K/mm3 (0.9-3.2); Mean Corpuscular HGB Conc 30.5 g/dl (32-36); Mean Corpuscular Hemoglobin 31.4 pg (26-34); Mean Corpuscular Volume 103.0 fl (80-100); Nucleated Red Blood Cells Absolute Auto 0.000 K/mm3 (0.0-0.012); Nucleated Red Blood Cells Perc 0.0 % (0.0-0.2); Platelet Count Result 131 k/mm3 (150-375); Red Blood Count 3.69 M/mm3 (4.2-5.4); White Blood Count 5.3 K/mm3 (4.5-10.0)
[2025-05-05 06:10] LABS: Alanine Aminotransferase 17 U/L (6-35); Albumin Level 3.2 g/dL (3.5-5.1); Alkaline Phosphatase 204 U/L (38-126); Anion Gap 4 mmol/L (4-12); Aspartate Amino Transferase 33 U/L (14-36); Bilirubin,Total 0.3 mg/dL (0.2-1.3); Blood Urea Nitrogen 10 mg/dL (7-17); Calcium 8.9 mg/dL (8.4-10.2); Carbon Dioxide 25 mmol/L (22-30); Chloride 110 mmol/L (98-107); Estimated CRCL calculation 44 ml/min; Estimated Glomerular Filt Rate > 60; Glucose 82 mg/dL (65-110); Magnesium 1.8 mg/dL (1.6-2.3); Potassium 3.6 mmol/L (3.4-5.0); Sodium 139 mmol/L (137-145); Total Protein 5.8 g/dL (6.3-8.2)
[2025-05-05] MEDS: ACETAMINOPHEN 325 MG TABLET 650 MG PO ×3 (08:58→21:21)
[2025-05-05] MEDS: APIXABAN 5 MG TABLET PO ×2 (08:59→21:21)
--- NOTE | 2025-05-05 14:36 | PM.IMPN ---
Progress Note: A&P Assessment and Plan (1) Nausea and vomiting: Qualifiers: Vomiting type: unspecified Qualified Code(s): R11.2 - Nausea with vomiting, unspecified Code(s): R11.2 - Nausea with vomiting, unspecified Status: Acute (2) Diarrhea: Qualifiers: Diarrhea type: unspecified type Qualified Code(s): R19.7 - Diarrhea, unspecified Code(s): R19.7 - Diarrhea, unspecified Status: Acute (3) Enteritis: Code(s): K52.9 - Noninfective gastroenteritis and colitis, unspecified Status: Acute (4) Lower abdominal pain: Code(s): R10.30 - Lower abdominal pain, unspecified Status: Acute (5) Atrial fibrillation: Qualifiers: Atrial fibrillation type: unspecified Qualified Code(s): I48.91 - Unspecified atrial fibrillation Code(s): I48.91 - Unspecified atrial fibrillation Status: Acute (6) Atrial fibrillation with rapid ventricular response: Code(s): I48.91 - Unspecified atrial fibrillation Status: Acute (7) AAA (abdominal aortic aneurysm) without rupture: Qualifiers: Abdominal aorta location: unspecified Qualified Code(s): I71.40 - Abdominal aortic aneurysm, without rupture, unspecified Code(s): I71.40 - Abdominal aortic aneurysm, without rupture, unspecified Status: Acute Plan Enteritis Vomiting and diarrhea resolved CT AP reviewed and Blood pressure improving Continue Rocephin and Flagyl PRN pain control F/u with culture UTI urine culture positive for GNB Continue above Rocephin monitor Afib Continue Eliquis and hold Metoprolol for now due to soft blood pressure DVT prophylaxis on Eliquis PT/OT Subjective Date/time seen: 05/05/25 14:36 Interval history: Comfortable at bedside Review of Systems Review of Systems: All systems reviewed & are unremarkable except as noted in HPI. All systems reviewed & are unremarkable except as noted in HPI and below Exam Narrative: Patient is comfortable, NAD HEENT: eyes are clear and none icteric LUNGS:CTA HEART: RR S1S2 ABD: BS+, Soft and nontender Lower extremities: no edema SKIN: nonjaundiced Neuro: grossly intact. Objective Data Vital Signs Vital Signs: Vital Signs - 24 hr 05/04/25 15:58 05/04/25 16:00 05/04/25 20:00 Temperature 98.4 F Pulse Rate 91 90 90 Respiratory Rate 18 18 Blood Pressure 114/70 Pulse Oximetry 94 94 Oxygen Delivery Room Air Fraction of Inspired Oxygen 21 05/04/25 20:00 05/04/25 22:00 05/05/25 00:00 Temperature 98.1 F Pulse Rate 91 93 120 H Respiratory Rate 18 Blood Pressure 117/64 Pulse Oximetry 97 Oxygen Delivery Fraction of Inspired Oxygen 05/05/25 04:00 05/05/25 06:00 05/05/25 11:44 Temperature 98.2 F Pulse Rate 104 H 100 Respiratory Rate 18 Blood Pressure 115/55 L Pulse Oximetry 96 Oxygen Delivery Room Air Fraction of Inspired Oxygen Intake/Output Intake/Output: Intake & Output 05/02/25 05/03/25 05/04/25 05/05/25 23:59 23:59 23:59 23:59 Intake Total 6760 2009 2129 Output Total 200 Balance 6760 1810 2130 Meds/Results Medications: Active Medications Generic Name Dose Route Start Last Admin Trade Name Freq PRN Reason Stop Dose Admin Acetaminophen 650 mg 05/03/25 01:54 05/05/25 08:58 Acetaminophen 325 Mg Tablet PO 650 mg Q4H PRN Administration Mild Pain (1-3) or Fever Apixaban 5 mg 05/03/25 10:10 05/05/25 08:59 Apixaban 5 Mg Tablet PO 5 mg Q12HR MIGUEL ANGEL Administration Dextrose 12.5 gm 05/03/25 02:04 Dextrose 50% 25 Gm/50 Ml Syringe IV PUSH PRN PRN Hypoglycemia Protocol Glucagon 1 mg 05/03/25 02:04 Glucagon For Inj 1 Mg Vial IM PRN PRN Hypoglycemia Protocol Glucose 15 gm 05/03/25 02:04 Glucose Oral Gel 15 Gm Of Glucse In 37.5 Gm Tube PO PRN PRN Hypoglycemia Protocol Ceftriaxone Sodium 1 gm/ 50 mls @ 100 mls/hr 05/04/25 01:00 05/05/25 00:46 Sodium Chloride IVPB Infused Q24H MIGUEL ANGEL Infusion Sodium Chloride 1,000 mls @ 100 mls/hr 05/03/25 02:00 05/05/25 04:40 Normal Saline Iv IV CONT 100 mls/hr .Q10H MIGUEL ANGEL Administration Dextrose 1,000 mls @ 100 mls/hr 05/03/25 02:04 Dextrose 5% 1,000 Ml IVPB PRN PRN Hypoglycemia Protocol Metronidazole 500 mg 05/05/25 15:30 Metronidazole 500 Mg Tablet PO 05/07/25 22:01 Q8HR MIGUEL ANGEL Morphine Sulfate 4 mg 05/03/25 01:54 05/04/25 22:18 Morphine Sulfate (*Crx) 4 Mg/Ml Inj IV PUSH 4 mg Q2H PRN Administration Pain Rated 7-10 Ondansetron HCl 4 mg 05/03/25 01:54 05/04/25 02:29 Ondansetron Inj 4 Mg/2 Ml Vial IV PUSH 4 mg Q4H PRN Administration Nausea Radiology Results: ITS Impressions Abdomen/Pelvis CT 05/03/25 05:33 Impression: Wall thickening of the distal/terminal ileum with adjacent haziness, compatible with infectious/inflammatory enteritis. Correlate clinically. Small hiatal hernia. Small fat-containing umbilical hernia. Labs Labs: Laboratory Results - last 24 hr 05/05/25 04:57 WBC 5.3 RBC 3.69 L Hgb 11.6 L Hct 38.0 MCV 103.0 H MCH 31.4 MCHC 30.5 L RDW 14.3 Plt Count 131 L MPV 10.1 Immature Gran % (Auto) 0.4 Neut % (Auto) 58.3 Lymph % (Auto) 28.8 [place] % (Auto) 9.7 H Eos % (Auto) 2.4 Baso % (Auto) 0.4 Lymph # (Auto) 1.54 [place] # (Auto) 0.5 Eos # (Auto) 0.1 Baso # (Auto) 0.0 Abs Immat Gran (auto) 0.02 Absolute Neuts (auto) 3.1 Absolute Nucleated RBC 0.000 Nucleated RBC % 0.0 Sodium 139 Potassium 3.6 Chloride 110 H Carbon Dioxide 25 Anion Gap 4 BUN 10 Creatinine 0.87 Estim Creat Clear Calc 44 Estimated GFR > 60 Glucose 82 Calcium 8.9 Magnesium 1.8 Total Bilirubin 0.3 AST 33 ALT 17 Alkaline Phosphatase 204 H Total Protein 5.8 L Albumin 3.2 L
[2025-05-06] VITALS: PULSE 84
[2025-05-06] MEDS: cefTRIAXone 1 GM in SODIUM CHLORIDE 0.9% IV 50 ML 100 ML IVPB (00:50)
[2025-05-06 04:00] VITALS: PULSE 99
[2025-05-06 06:00] VITALS: BP 127/89; PULSE 104; RESP 18; TEMP 36.6; O2SAT 98
[2025-05-06 07:02] LABS: Hematocrit 35.9 % (37.0-47.0); Hemoglobin 11.1 g/dL (12.0-15.0); Immature Granulocyte Percent A 0.4 % (0-0.5); Lymphocytes Absolute Auto 1.55 K/mm3 (0.9-3.2); Mean Corpuscular HGB Conc 30.9 g/dl (32-36); Mean Corpuscular Hemoglobin 31.4 pg (26-34); Mean Corpuscular Volume 101.4 fl (80-100); Nucleated Red Blood Cells Absolute Auto 0.000 K/mm3 (0.0-0.012); Nucleated Red Blood Cells Perc 0.0 % (0.0-0.2); Platelet Count Result 136 k/mm3 (150-375); Red Blood Count 3.54 M/mm3 (4.2-5.4); White Blood Count 5.6 K/mm3 (4.5-10.0)
[2025-05-06 07:26] LABS: Alanine Aminotransferase 15 U/L (6-35); Albumin Level 2.8 g/dL (3.5-5.1); Alkaline Phosphatase 219 U/L (38-126); Anion Gap 6 mmol/L (4-12); Aspartate Amino Transferase 34 U/L (14-36); Bilirubin,Total 0.3 mg/dL (0.2-1.3); Blood Urea Nitrogen 7 mg/dL (7-17); Calcium 8.9 mg/dL (8.4-10.2); Carbon Dioxide 24 mmol/L (22-30); Chloride 109 mmol/L (98-107); Estimated CRCL calculation 52 ml/min; Estimated Glomerular Filt Rate > 60; Glucose 73 mg/dL (65-110); Magnesium 1.6 mg/dL (1.6-2.3); Potassium 3.5 mmol/L (3.4-5.0); Sodium 139 mmol/L (137-145); Total Protein 5.3 g/dL (6.3-8.2)
[2025-05-06] MEDS: APIXABAN 5 MG TABLET PO (09:15)
--- NOTE | 2025-05-06 12:27 | PM.DS ---
DS: Admitting Diagnosis Discharge Date 05/06/25 Admitting Diagnosis Abdominal pain, n/v/d DS: Discharge Diagnosis Discharge Diagnosis (1) Enteritis: Code(s): K52.9 - Noninfective gastroenteritis and colitis, unspecified Status: Acute DS: Summary Hospital Course Hospital Course: Patient is an 84-year-old female, with PMH of AFIB on eliquis, hypothyroidism, AAA repair, who presents to the ED with report of abdominal pain. Patient reports she developed diffuse pain throughout her abdomen around 5:30 p.m. today. Began having diarrhea which progressed to nausea and vomiting. She has been having dry heaving as well. Denies rectal bleeding, melena, fevers. Patient also reports having intermittent stabbing pains in her chest since the abdominal pain started. Denies shortness of breath. Patient with abdominal pain, nausea, vomiting and diarrhea, Ct scan of abdomen showed wall thickening of the distal/terminal ileum with adjacent haziness, compatible with infectious/inflammatory enteritis. patient was started ceftriaxone and Flagyl, patient she is feeling much better and pain and nausea, vomiting and diarrhea have subsided, will do stool culture and c diff, will monitor and plan, will have PT/ OT evaluate the patient, will benefit going to rehab. Patient was started on antibiotics and IVF, vomiting and diarrhea resovled. Patient denies any urinary symptoms. Today she is tolerating diet. urine culture growing GNB however leukocytosis has resolved, and vital signs stable and patient has completed 5 days of antibiotics. Patient discharged home to follow up with PCP in 3-5 days continue other home meds Time Spent with Patient Time attestation: Total time spent providing and/or coordinating discharge services: DS: Data Data Completed and Pending Labs on day of discharge: Labs from last 24 hours 05/06/25 05/05/25 05:14 21:07 WBC 5.6 RBC 3.54 L Hgb 11.1 L Hct 35.9 L MCV 101.4 H MCH 31.4 MCHC 30.9 L RDW 14.1 Plt Count 136 L MPV 10.4 Immature Gran % (Auto) 0.4 Neut % (Auto) 59.2 Lymph % (Auto) 27.5 Stewart % (Auto) 10.5 H Eos % (Auto) 2.0 Baso % (Auto) 0.4 Lymph # (Auto) 1.55 Stewart # (Auto) 0.6 Eos # (Auto) 0.1 Baso # (Auto) 0.0 Abs Immat Gran (auto) 0.02 Absolute Neuts (auto) 3.4 Absolute Nucleated RBC 0.000 Nucleated RBC % 0.0 Sodium 139 Potassium 3.5 Chloride 109 H Carbon Dioxide 24 Anion Gap 6 BUN 7 Creatinine 0.71 Estim Creat Clear Calc 52 Estimated GFR > 60 Glucose 73 POC Capillary Glucose 106 H Calcium 8.9 Magnesium 1.6 Total Bilirubin 0.3 AST 34 ALT 15 Alkaline Phosphatase 219 H Total Protein 5.3 L Albumin 2.8 L Preliminary micro results at discharge 05/03/25 01:12 Blood Culture - Preliminary Blood 05/03/25 01:20 Blood Culture - Preliminary Blood 05/03/25 23:08 Urine Culture - Preliminary Urine Clean Catch Gram negative bacilli isolated Discharge Plan Discharge Attending physician on discharge: Luis Manuel Baptiste Discharging Clinician: Luis Manuel Baptiste Anticipated Discharge Date/Time: 05/06/25 12:24 Patient Disposition: Home Activity: as tolerated Diet: as tolerated and heart healthy Patient Instructions: Antibiotic Form Patient Language: Slovenian Stand Alone Forms: General Discharge Information Follow-up/Referrals: Angel [place] DO [Primary Care Provider] - (F/u with PCP in 3-5 days ) Discharge Medications: New polyethylene glycol 3350 [Miralax] 17 gram/dose powder 17 g PO DAILY PRN (Reason: constipation) 5 Days Qty: 119 0RF Continued rosuvastatin 10 mg tablet 10 mg PO DAILY Qty: 90 3RF levothyroxine 88 mcg capsule 75 mcg PO DAILY Qty: 30 0RF aspirin [Adult Aspirin Regimen] 81 mg tablet,delayed release (DR/EC) 81 mg PO DAILY furosemide 20 mg tablet 20 mg PO DAILY levothyroxine 75 mcg tablet 75 mcg PO DAILY@0630 metoprolol succinate 50 mg tablet extended release 24 hr 50 mg PO DAILY allopurinol 300 mg tablet 300 mg PO DAILY trospium 20 mg tablet 20 mg PO BID Eliquis 5 mg tablet 5 mg PO Q12H Qty: 60 0RF Date of admission: 05/04/25 10:23 Primary Care Provider: Angel [place] Admitting Provider: Soila Bose Attending physician on admission: Soila Bose Condition: Stable
[2025-05-06 14:00] VITALS: BP 134/93; PULSE 72; RESP 18; TEMP 36.4; O2SAT 98
== END 2025-05-06 14:52 | disposition home or self-care (01) | DRG 392 ==
LOC: ANHED 05-03 01:13 → ANH3MEDSUR 05-03 02:46 → ANHIMU 05-03 10:00 → ANH3MED 05-05 13:27 → ANHIMU 05-08 13:20
PROVIDERS: Family Medicine; Physician Assistant; Admitting Provider Internal Medicine; Emergency Provider Emergency Medicine; PCP Internal Medicine; Visit Provider Internal Medicine
DX: K52.9 Noninfective gastroenteritis and colitis, unspecified (principal); N39.0 Urinary tract infection, site not specified; I48.91 Unspecified atrial fibrillation; K57.90 Diverticulosis of intestine, part unspecified, without perforation or abscess without bleeding; E03.9 Hypothyroidism, unspecified; I65.22 Occlusion and stenosis of left carotid artery; I50.9 Heart failure, unspecified; E78.5 Hyperlipidemia, unspecified; I71.40 Abdominal aortic aneurysm, without rupture, unspecified; Z79.01 Long term (current) use of anticoagulants
CPT/HCPCS: 36415; 74177; 80053; 81001; 82948; 83605; 83690; 83735; 84484; 85025; 85027; 87040; 87086; 93005; 96361; 96365; 96367; 96375; 96376; 97161; 97165; 99285; A9270; G0378; J0616; J0696; J1836; J1885; J2270; J2405; J3475; J7030; Q9967

== ENCOUNTER 2025-06-19 12:29 | Outpatient (CLI) | payer MEDICARE, OTHER, SELFPAY ==
--- OUTSIDE RECORDS SUMMARY | 2025-06-19 12:35 | XMS_ITS | Clinical Summary ---
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 ACCOUNT EXECUTIVE Gender Identity Not on file Sexual Orientation Not on file Last Filed Vital Signs Vital Sign Reading Time Taken Comments Blood Pressure 136/65 09/22/2021 10:31 AM INTERNATIONAL ACCOUNT EXECUTIVE Pulse 84 09/22/2021 10:31 AM INTERNATIONAL ACCOUNT EXECUTIVE Temperature 37.2 C (98.9 F) 09/22/2021 10:31 AM INTERNATIONAL ACCOUNT EXECUTIVE Respiratory Rate 18 09/22/2021 10:31 AM INTERNATIONAL ACCOUNT EXECUTIVE Oxygen Saturation 98% 09/22/2021 10:31 AM INTERNATIONAL ACCOUNT EXECUTIVE Inhaled Oxygen Concentration - - Weight 81.6 kg (180 lb) 09/22/2021 10:31 AM INTERNATIONAL ACCOUNT EXECUTIVE Height 165.1 cm (5' 5) 08/02/2021 9:16 [...] this topic Medical Devices Implanted Type Area Metallurgical Tester Device Identifier Shelf Expiration Date Model / Serial / Lot Wire Fix 5.5in .062in Alyssia Gw .77mm [employer]aire Wood 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 - [id number] Implanted:Qty: 2 on 06/07/2020 by Jemal Davis MD at [facility] IMPLANT MI[employer] [id number] / / NONE Procedures Procedure Name Priority Date/Time Associated Diagnosis Comments [facility] BONE DENSITOMETRY AXIAL SKELETON Routine 08/09/2020 9:41 AM CDT Osteopenia of multiple sites from Last 3 Months or Most Recently Relevant to Health Maintenance Results * [facility] BONE DENSITOMETRY AXIAL SKELETON (08/09/2020 9:41 AM CDT) Anatomical Region Laterality Modality BODY N/A Other 08/09/2020 9:41 AM CDT Impressions 08/09/2020 11:09 AM CDT IMPRESSION: 1. Osteopenia. 2. Data predicts an increased risk of future fractures. 3. A followup DXA exam in 2 years is recommended. Narrative 08/09/2020 11:09 AM CDT DICTATING PHYSICIAN: Davis Betancur M.D. EXAM: [facility] BONE DENSITOMETRY AXIAL SKELETON. DATE: 08/09/2020 9:41 [...] the prior exam. . Procedure Note Davis Beatncur MD - 08/09/2020 DICTATING PHYSICIAN: Davis Betancur M.D. EXAM: [facility] BONE DENSITOMETRY AXIAL SKELETON. DATE: 08/09/2020 9:41 [...] Recently Relevant to Health Maintenance Insurance MEDICARE [facility] [employer] Care Teams Motorcoach Driver Relationship Specialty Start Date End Date Silvano Lopes MD [address] [place] [address] PCP - General Internal Medicine 08/02/19 Genesis Link MD [address] [facility] [place] [address] Consulting Physician Cardiovascular Disease - Cardiology 10/24/11 Arnoldo Begum MD [address] [place] [address] Consulting Physician Cardiovascular Disease - Cardiology 09/30/19 Dalila Pool APRN, GREASE RENDERER [address] [place] [address] Nurse Practitioner Advanced Practice Nurse 08/02/21
--- OUTSIDE RECORDS SUMMARY | 2025-06-19 12:35 | XMS_ITS | Encounter Summary ---
Author Organization [facility] Address [address] [place] [address] Phone Care Team Providers Care Adaptive Physical Educator Name Role Phone Genesis Link MD Unavailable [phone] Silvano Lopes MD Primary Care Provider [phone] Arnoldo Begum MD Unavailable Dalila Pool APRN, PLATFORM LOADER Unavailable [phone] Reason for Visit * Reason Onset Date Comments Other 08/31/2020 Encounter Details Date Type Department Care Team (Late st Contact Info) Description 08/31/[facility] [place] [facility] [address] [place] [address] Genesis Link MD [address] [place] [address] Other Social History Tobacco Use Types Packs/Day Years Used Date Smoking Tobacco: Never Smokeless Tobacco: Never Alcohol Use Standard Drinks/Week Comments No 0 (1 standard drink = 0.6 oz pur e alcohol) Comments No Sex and Gender Information Value Date Recorded Sex Assigned at Not on file Legal Sex Female 3:08 AM SILK SCREEN 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 No / Unsure 08/29/2020 10:01 AM SILK SCREEN PRINTING RACKER documented as of this encounter Plan of Treatment Not on file documented as of this encounter Visit Diagnoses Not on filedocumented in this encounter Additional Health Concerns Infection Onset Date Last Indicated Resolved Time COVID - 19 09/22/2021 09/22/2021 10/12/2021 12:1 6 AM SILK SCREEN PRINTING RACKER Assessment Noted Time PHQ-9 Depression Total Score: 0 02/10/20 18 12:17 PM CDT documented as of this encounter Care Teams Adaptive Physical Educator Relationship Specialty Start Date End Date Silvano Lopes MD [address] [address] PCP - General Internal Medicine 08/02/19 Genesis Link MD [address] [place] [id number] Consulting Physician Cardiovascular Disease - Cardiology 10/24/11 Arnoldo Begum MD [address] [place] [address] Consulting Physician Cardiovascular Disease - Cardiology 09/30/19 Dalila Pool, MERCHANDISE PRESENTATION MANAGER, PLATFORM LOADER [address] [place] [address] Nurse Practitioner Advanced Practice Nurse 08/02/21 documented as of this encounter
--- OUTSIDE RECORDS SUMMARY | 2025-06-19 12:35 | XMS_ITS | Patient Health Record ---
Author Organization [facility] Address [address] [place] [address] Care Team Providers Care Sports Book Server Name Role Phone Christopher Mejia Primary Care Provider VESTA Torres Unavailable [phone] Allergies No Known Allergies Reason For Referral [...] Problem Status W/U Status Risk Notes Problem [id number] Cerebrovascular event (I63.9) Active confirmed Plan Of Treatment Pending Test Test Name Order Date EEG 04/17/2023 Insurance Providers Payer Name Payer Address Payer Phone Subscriber Number Group Number Insured Name Patient Relationship to Insured Coverage Start Date Coverage End Date MEDICARE [place] [address] [place] [phone] [id number] YOSI PAL Self - patient is the insured [facility] [address] [address] [place] [address] [id number] YOSI PAL Self - patient is the insured Medical (General) History Medical History History ICD Code Stroke Arthritis Hospitalization History Reason Date(Month/Year) [facility] 12/2022 Aneurysm - [facility] 10/2022
--- OUTSIDE RECORDS SUMMARY | 2025-06-19 12:35 | XMS_ITS | Encounter Summary ---
Author Organization [facility] Address [address] [place] [address] Phone Care Team Providers Care Training And Development Head Name Role Phone Genesis Link MD Unavailable [phone] Silvano Lopes MD Primary Care Provider Arnoldo eBgum MD Unavailable [phone] Dalila Pool APRN, TECHNOLOGY ANALYST Unavailable Reason for Visit * Reason Comments Medication Refill toprol Encounter Details Date Type Department Care Team (Late st Contact Info) Description [facility] [place] [facility] Card[facility] - [place] [address] [place] [address] Genesis Link MD [address] [place] [address] Medication Refill (toprol) Social History Tobacco Use Types Packs/Day Years Used Date Smoking Tobacco: Never Smokeless Tobacco: Never Alcohol Use Standard Drinks/Week Comments No 0 (1 standard drink = 0.6 oz pur e alcohol) Comments No Sex and Gender Information Value Date Recorded Sex Assigned at Not on file Legal Sex Female 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 rate has decreased BY 43 BPM Minimal criteria for Anterior infarct are now present Confirmed by Pushpa AGUILAR, Gray Galicia ([id number]) on 09/04/2020 8:35:12 AM Refill approved per protocol and sent to for cosign. [employer] documented in this encounter Plan of Treatment Not on file documented as of this encounter Visit Diagnoses Not on filedocumented in this encounter Additional Health Concerns Assessment Noted Time PHQ-9 Depression Total Score: 0 02/10/20 18 12:17 PM CDT documented as of this encounter Care Teams Training And Development Head Relationship Specialty Start Date End Date Silvano Lopes MD [address] [facility] [address] [address] PCP - General Internal Medicine 08/02/19 Genesis Link MD [address] [place] [id number] Consulting Physician Cardiovascular Disease - Cardiology 10/24/11 Arnoldo Begum MD [address] [place] [address] Consulting Physician Cardiovascular Disease - Cardiology 09/30/19 Dalila Pool APRN, TECHNOLOGY ANALYST [address] [place] [address] Nurse Practitioner Advanced Practice Nurse 08/02/21 documented as of this encounter
--- OUTSIDE RECORDS SUMMARY | 2025-06-19 12:35 | XMS_ITS ---
Author Name MARIAELENA HOPPER Address [address] [facility] [place] [address] Phone [phone] Organization [facility] ([facility]) Care Team Providers Care Biodiesel Engineering Manager Name Role Phone PAUL MARIAELENA Unavailable [phone] Unavailable Unavailable Unavailable Max Leach Unavailable [phone] ALICIA MOSES Unavailable [phone] Reason for Referral Not Available Allergies, adverse [...] at least 75 minutes total time on [facility] 11/01/2024 Unspecified atrial fibrillationEssential (primary) hypertensionHyperlipidemia, unspecifiedHypothyroidism, unspecifiedGout, unspecifiedUnspecified osteoarthritis, unspecified siteChronic diastolic (congestive) heart failurePulmonary hypertension, unspecifiedDepression, unspecified Home visit for evaluation and management of new patient requiring medically appropriate examination and high level of medical decision making. If using time, at least 75 minutes total time on [facility] 11/01/2024 Essential (primary) hypertensionChronic diastolic (congestive) heart failureUnspecified atrial fibrillation Home visit for evaluation and management of new patient requiring medically appropriate examination and high level of medical decision making. If using time, at least 75 minutes total time on [facility] 11/01/2024 Essential (primary) hypertensionChronic diastolic (congestive) heart failure Home visit for evaluation and management of new patient requiring medically appropriate examination and high level of medical decision making. If using time, at least 75 minutes total time on [facility] 11/01/2024 Unspecified osteoart hritis, unspecified site Home visit for evaluation and management of new patient requiring medically appropriate examination and high level of medical decision making. If using time, at least 75 minutes total time on [facility] 11/01/2024 Unspecified atrial fibrillationEssential (primary) hypertensionHyperlipidemia, unspecifiedHypothyroidism, unspecifiedGout, unspecified Home visit for evaluation and management of established patient requiring medically appropriate examination and low level of medical decision making. If using time, at least 30 minutes total time on [facility] 12/02/2024 Unspecified atrial fibrillationHyperlipidemia, unspecifiedGout, unspecifiedChronic diastolic (congestive) heart failureHypertensive heart disease with heart failureFlu due to oth ident influenza virus w oth resp manifestPulmonary hypertension, unspecified Home visit for evaluation and management of established patient requiring medically appropriate examination and low level of medical decision making. If using time, at least 30 minutes total time on [facility] 12/02/2024 Essential (primary) hypertension Home visit for evaluation and management of established patient requiring medically appropriate examination and low level of medical decision making. If using time, at least 30 minutes total time on [facility] 12/02/2024 Essential (primary) hypertension Home visit for evaluation and management of established patient requiring medically appropriate examination and low level of medical decision making. If using time, at least 30 minutes total time on [facility] 12/02/2024 Flu due to oth [...] tive Time Current Smoking Status Never smoker 2025-05-27 5 Sex Female History of Procedures Procedures Service Procedure code Service date Servicing provider Phone# Home visit for evaluation and management of new patient requiring medically appropriate examination and high level of medical decision making. If using time, at least 75 minutes total time on encounte [id number] 2024-11-01 No Data Available No Data Availa [...] least 30 [place] [address] 2024-12-02 No Data Available No Data Availa [...] interested in meeting with psychRefignacio sent to [place] psych provider 2024-12-02 09:21:14 On Metoprolol and [...]
--- OUTSIDE RECORDS SUMMARY | 2025-06-19 12:35 | XMS_ITS | Patient Health Record ---
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) 11/15/2012 Active confirmed Problem Arthralgia of the ankle and/or foot (919795824) Jnt Pain Ankle/Foot (719.47) 11/15/2012 Active confirmed Plan Of Treatment No Information Insurance Providers Payer Name Payer Address Payer Phone Subscriber Number Group Number Insured Name Patient Relationship to Insured Coverage Start Date Coverage End Date Medicare Part B [address] [facility] [place] [id number] Catrina Simpson i Self - patient is the insured 3 [facility] [address] [address] [place] [address] [id number] Brandon Simpson i Spouse - patient is the spouse of the insured 3 Medical (General) History Surgical History Surgery Date(Month/Year) surgical / procedural No surgical / proc edural history
[2025-06-19 14:34] LABS: Hematocrit 45.5 % (37.0-47.0); Hemoglobin 14.9 g/dL (12.0-15.0); Immature Granulocyte Percent A 0.3 % (0-0.5); Lymphocytes Absolute Auto 2.32 K/mm3 (0.9-3.2); Mean Corpuscular HGB Conc 32.7 g/dl (32-36); Mean Corpuscular Hemoglobin 31.4 pg (26-34); Mean Corpuscular Volume 96.0 fl (80-100); Nucleated Red Blood Cells Absolute Auto 0.000 K/mm3 (0.0-0.012); Nucleated Red Blood Cells Perc 0.0 % (0.0-0.2); Platelet Count Result 215 k/mm3 (150-375); Red Blood Count 4.74 M/mm3 (4.2-5.4); White Blood Count 6.6 K/mm3 (4.5-10.0)
[2025-06-19 15:21] LABS: Alanine Aminotransferase 28 U/L (6-35); Albumin Level 4.2 g/dL (3.5-5.1); Alkaline Phosphatase 256 U/L (38-126); Anion Gap 9 mmol/L (4-12); Aspartate Amino Transferase 68 U/L (14-36); Bilirubin,Total 1.2 mg/dL (0.2-1.3); Blood Urea Nitrogen 18 mg/dL (7-17); Calcium 9.8 mg/dL (8.4-10.2); Carbon Dioxide 32 mmol/L (22-30); Chloride 97 mmol/L (98-107); Cholesterol 185 mg/dL (0-200); Estimated Glomerular Filt Rate > 60; Glucose 88 mg/dL (65-110); HDL Direct 55 mg/dL; Potassium 3.1 mmol/L (3.4-5.0); Sodium 138 mmol/L (137-145); Total Protein 7.7 g/dL (6.3-8.2); Triglycerides 87 mg/dL (<150)
[2025-06-19 15:53] LABS: Thyroid Stimulating Hormone 1.760 uIU/mL (0.465-4.680)
== END 2025-06-19 12:30 | disposition home or self-care (01) ==
LOC: ANHGOSHLAB 12:31
PROVIDERS: PCP Internal Medicine; Visit Provider Clinical Nurse Specialist
DX: I50.20 Unspecified systolic (congestive) heart failure (principal); I48.91 Unspecified atrial fibrillation; Z79.01 Long term (current) use of anticoagulants; E03.9 Hypothyroidism, unspecified; R74.8 Abnormal levels of other serum enzymes; R74.01 Elevation of levels of liver transaminase levels; N17.9 Acute kidney failure, unspecified; R26.9 Unspecified abnormalities of gait and mobility
CPT/HCPCS: 36415; 80053; 80061; 84436; 84443; 85025

== ENCOUNTER 2025-07-10 09:45 | Outpatient (CLI) | payer MEDICARE, OTHER, SELFPAY ==
--- OUTSIDE RECORDS SUMMARY | 2025-07-10 10:43 | XMS_ITS ---
Author Name MARIAELENA HOPPER Address [address] [facility] [address] [place] [address] Phone [phone] Organization [facility] ([facility]) Care Team Providers Care Transit Driver Name Role Phone PAUL MARIAELENA Unavailable [phone] Unavailable Unavailable Unavailable Max Leach Unavailable [phone] ALICIA MOSES Unavailable [phone] Reason for Referral Not Available Allergies, adverse [...] at least 75 minutes total time on [facility] 11/01/2024 Unspecified atrial fibrillationEssential (primary) hypertensionHyperlipidemia, unspecifiedHypothyroidism, unspecifiedGout, unspecifiedUnspecified osteoarthritis, unspecified siteChronic diastolic (congestive) heart failurePulmonary hypertension, unspecifiedDepression, unspecified Home visit for evaluation and management of new patient requiring medically appropriate examination and high level of medical decision making. If using time, at least 75 minutes total time on [facility] 11/01/2024 Essential (primary) hypertensionChronic diastolic (congestive) heart failureUnspecified atrial fibrillation Home visit for evaluation and management of new patient requiring medically appropriate examination and high level of medical decision making. If using time, at least 75 minutes total time on [facility] 11/01/2024 Essential (primary) hypertensionChronic diastolic (congestive) heart failure Home visit for evaluation and management of new patient requiring medically appropriate examination and high level of medical decision making. If using time, at least 75 minutes total time on [facility] 11/01/2024 Unspecified osteoart hritis, unspecified site Home visit for evaluation and management of new patient requiring medically appropriate examination and high level of medical decision making. If using time, at least 75 minutes total time on [facility] 11/01/2024 Unspecified atrial fibrillationEssential (primary) hypertensionHyperlipidemia, unspecifiedHypothyroidism, unspecifiedGout, unspecified Home visit for evaluation and management of established patient requiring medically appropriate examination and low level of medical decision making. If using time, at least 30 minutes total time on [facility] 12/02/2024 Unspecified atrial fibrillationHyperlipidemia, unspecifiedGout, unspecifiedChronic diastolic (congestive) heart failureHypertensive heart disease with heart failureFlu due to oth ident influenza virus w oth resp manifestPulmonary hypertension, unspecified Home visit for evaluation and management of established patient requiring medically appropriate examination and low level of medical decision making. If using time, at least 30 minutes total time on [facility] 12/02/2024 Essential (primary) hypertension Home visit for evaluation and management of established patient requiring medically appropriate examination and low level of medical decision making. If using time, at least 30 minutes total time on [facility] 12/02/2024 Essential (primary) hypertension Home visit for evaluation and management of established patient requiring medically appropriate examination and low level of medical decision making. If using time, at least 30 minutes total time on [facility] 12/02/2024 Flu due to oth ident influenza [...] tive Time Current Smoking Status Never smoker 2025-06-26 5 Sex Female History of Procedures Procedures Service Procedure code Service date Servicing provider Phone# Home visit for evaluation and management of new patient requiring medically appropriate examination and high level of medical decision making. If using time, at least 75 minutes total time on encounte [id number] 2024-11-01 No Data Available No Data Availa [...] least 30 [place] [id number] 2024-12-02 No Data Available No Data Availa [...] interested in meeting with psychRefignacio sent to [place] psych provider 2024-12-02 09:21:14 On Metoprolol and [...]
--- OUTSIDE RECORDS SUMMARY | 2025-07-10 10:43 | XMS_ITS | Patient Health Record ---
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) 11/15/2012 Active confirmed Problem Arthralgia of the ankle and/or foot ([id number]) Jnt Pain Ankle/Foot (719.47) 11/15/2012 Active confirmed Plan Of Treatment No Information Insurance Providers Payer Name Payer Address Payer Phone Subscriber Number Group Number Insured Name Patient Relationship to Insured Coverage Start Date Coverage End Date Medicare Part B [address] [facility] [place] [id number] Catrina Simpson i Self - patient is the insured 3 [facility] [address] [address] [place] [address] [id number] Brandon Simpson i Spouse - patient is the spouse of the insured 3 Medical (General) History Surgical History Surgery Date(Month/Year) surgical / procedural No surgical / proc edural history
--- OUTSIDE RECORDS SUMMARY | 2025-07-10 10:43 | XMS_ITS | Clinical Summary ---
Author Organization [facility] Address [address] [place] [address] Care Team Providers Care Health Navigator Name Role Phone Angel Corbin DO Primary Care Provider [phone] Allergies No known active allergies Medications Eliquis 5 mg tablet TAKE 1 TABLET BY MOUTH EVERY MORNING AND BEFORE BEDTIME 3 Active metoprolol tartrate (LOPRESSOR) 25 mg immediate release tablet Take 1 tablet (25 mg total) by mouth every 12 (twelve) hours 3 Active rosuvastatin (CRESTOR) 20 mg tablet Take 1 tablet (20 mg total) by mouth nightly 3 Active levothyroxine (SYNTHROID) 88 mcg tablet Take 1 tablet (88 mcg total) by mouth daily 3 Active hydroCHLOROthia zide (MICROZIDE) 12.5 mg capsule Take by mouth daily 3 Active colchicine (COLCRYS) 0.6 mg capsule Take 1 capsule (0.6 mg total) by mouth 2 (two) times a day 3 Active magnesium hydroxide (MILK OF MAGNESIA) suspension 400 mg/5 mL Active evolocumab (Repatha SureClick) 140 mg/mL pen injector Inject 1 mL (140 mg total) under the skin every 14 (fourteen) days 2 mL 11 3 Active Additional Information Patient not taking.Reported on 06/30/2025 allopurinoL (ZYLOPRIM) 300 mg tablet Take 1 tablet (300 mg total) by mouth 3 Active aspirin 81 mg enteric coated tablet Take 1 tablet (81 mg total) by mouth daily Active furosemide (LASIX) 20 mg tablet Take 1 tablet (20 mg total) by mouth 5 Active acetaminophen (TYLENOL) 500 mg tablet Take 1 tablet (500 mg total) by mouth every 4 hours as needed 3 Active fluticasone (VERAMYST) 27.5 mcg/actuation nasal spray Inhale 2 sprays daily Active Active Problems Problem Noted Date Diagnosed Date Permanent atrial fibrillation 09/22/2023 Left carotid artery occlusion 09/22/2023 Essential hypertension 09/22/2023 Acquired hypothyroidism 09/22/2023 Nonrheumatic tricuspid valve regurgitation 09/22 Encounters Date Type Department Care Team Description 07/04/2025 Telephone [facility] Cardiology [address] [place] [address] [place] [phone] Cristobal Cagle MD 06/30/2025 9:30 AM CDT Office Visit [facility] Cardiology [address] [place] [address] [place] [phone] Cristobal Cagle MD Permanent atrial fibrillation (HCC) (Primary Dx); Nonrheumatic tricuspid valve regurgitation; Left carotid artery occlusion; Essential hypertension; Lipid screening 05/18/2025 Telephone [facility] Cardiology [address] [address] [address] [place] [address] Cristobal Cagle MD from Last 3 Months Surgical History Surgery Date Site/Laterality Comments SPLENIC ARTERY EMBOLIZATION Embolization and coiling of the omental branch of the splenic artery October 2022 Medical History Medical History Date Comments Thyroid disease Atrial fibrillation (HCC) Gout Family History Medical History Relation Name Comments Aortic aneurysm Father Parkinsonism Mother Relation Name Status Comments Father Mother Sister Alive Social History Tobacco Use Types Packs/Day Years Used Date Smoking Tobacco: Never Smokeless Tobacco: Never Tobacco Cessation:Counseling Given: Not Answered Comments Unknown Sex and Gender Information Value Date Recorded Sex Assigned at Not on file Legal Sex Female 10:42 AM CDT Gender Identity Not on file Sexual Orientation Not on file Obstetrics History Last Filed Vital Signs Vital Sign Reading Time Taken Comments Blood Pressure 98/60 06/30/2025 9:39 AM CDT Pulse 89 06/30/2025 9:39 AM CDT Temperature - - Respiratory Rate 14 06/30/2025 9:39 AM CDT Oxygen Saturation 96% 06/30/2025 9:39 AM CDT Inhaled Oxygen Concentration - - Weight 73 kg (161 lb) 06/30/2025 9:39 AM CDT Height 162.6 cm (5' 4) 06/30/2025 9:39 AM CDT Body Mass Index 27.64 06/30/2025 9:39 AM CDT Plan of Treatment Health Maintenance Due Date Last Done Comments Depression Screening 1941 Fall Risk Assessment 1940 Hepatitis B Screening 1959 Well Visit 65+ 2006 Zoster Vaccine (2 of 3) 11/01/2014 09/06/2014 Osteoporosis Screening-Bone Density Scan 08/09/2022 08/09/2020, 08/09/2020, 02/03/2018, Additional history exists Covid-19 Vaccine (2024-2 6 season) 2025 07/27/2022, 03/17/2022, 08/21/2021, Additional history exists Influenza Vaccine (#1) 2025 , 07/27/2022, 07/22/2021, Additional history exists DTaP/Tdap/Td Vaccine (4 - Td or Tdap) 08/28/2034 08/28/2024, 07/20/2023, 05/18/2019 Pneumococcal vaccine 65+ Completed 09/29/2016, 06/2011 Procedures Procedure Name Priority Date/Time Associated Diagnosis Comments POCT LIPID PANEL Routine 06/30/2025 11:1 7 AM CDT Lipid screening ELECTROCARDIOGRAM REPORT Routine 025 11:14 AM CDT Permanent atrial fibrillation (HCC) from Last 3 Months Results * POCT lipid panel (06/30/2025 11:17 AM CDT) Cholesterol, POC 151 <200 MG/DL HDL, POC 46 >=40 mg/dL Triglycerides, POC 110 <=149 mg/dL LDL Cholesterol POC 84 <=129 mg/dL Chol/HDL Ratio, POC 3.3 NONE Non-HDL Cholesterol, POC 106 NONE mg/dL Cholesterol Total, POC 151 30 - 199 mg/dL Capillary blood 06/30/2025 1 1:17 AM CDT us Cristobal Cagle MD POINT OF CARE TEST O RDERABLES Final Result * Electrocardiogram Report (06/30/2025 11:14 AM CDT) us Cristobal Cagle MD ECG ORDERABLES Rosy l Result from Last 3 Months Insurance MEDICARE [facility]/PPO Address: [address] [address] [place] [address] MEDICARE [facility]/PPO Address: [address] [address] [place] [address] IDPA Care Teams Health Navigator Relationship Specialty Start Date End Date Angel Corbin DO PCP - General Internal Medicine 08/22/22
--- OUTSIDE RECORDS SUMMARY | 2025-07-10 10:43 | XMS_ITS | Clinical Summary ---
Author Organization [facility] Address [address] [place] [address] Phone Care Team Providers Care Scarf Gluer Name Role Phone Genesis Link MD Unavailable [phone] Silvano Lopes MD Primary Care Provider Arnoldo Begum MD Unavailable Dalila Pool APRN, TEXTILE CHEMIST Unavailable [phone] Allergies No known active allergies Medications Cholecalciferol [...] on file Legal Sex Female 3:08 AM ACCOUNTS PAYABLE PROCESSOR Gender Identity Not on file Sexual Orientation Not on file Last Filed Vital Signs Vital Sign Reading Time Taken Comments Blood Pressure 136/65 09/22/2021 10:31 AM ACCOUNTS PAYABLE PROCESSOR Pulse 84 09/22/2021 10:31 AM ACCOUNTS PAYABLE PROCESSOR Temperature 37.2 C (98.9 F) 09/22/2021 10:31 AM ACCOUNTS PAYABLE PROCESSOR Respiratory Rate 18 09/22/2021 10:31 AM ACCOUNTS PAYABLE PROCESSOR Oxygen Saturation 98% 09/22/2021 10:31 AM ACCOUNTS PAYABLE PROCESSOR Inhaled Oxygen Concentration - - Weight 81.6 kg (180 lb) 09/22/2021 10:31 AM ACCOUNTS PAYABLE PROCESSOR Height 165.1 cm (5' 5) 08/02/2021 9:16 AM CDT Body Mass Index 29.95 08/02/2021 9:16 AM CDT Plan of Treatment Health Maintenance Due Date Last Done Comments Hepatitis C Virus (HCV) Screening 1940 Zoster Immunization (2 of 3) 11/01/2014 09/06/2014 Respiratory Syncytial Virus (RSV) Immunization (Adult) (1 - 1-dose 75+ series) 2016 Influenza Immunization (#1) 06/26/202511/2021, 07/22/2021, 07/12/2020, Additional history exists SARS-COV-2 Immunization (2024- season) 2025 07/27/2022, 03/17/2022, 08/21/2021, Additional history exists Pneumococcal Immunization (50+ years) [...] this topic Medical Devices Implanted Type Area Wired Sweatband Cutter Device Identifier Shelf Expiration Date Model / Serial / Lot Wire Fix 5.5in .062in Alyssia Gw .77mm Microaire Geometry Tutor - [id number] Implanted:Qty: 2 on 06/07/2020 by Jemal [place] MD at [facility] IMPLANT [employer] [id number] / / NONE Procedures Procedure Name Priority Date/Time Associated Diagnosis Comments [facility] BONE DENSITOMETRY AXIAL SKELETON Routine 08/09/2020 9:41 AM CDT Osteopenia of multiple sites from Last 3 Months or Most Recently Relevant to Health Maintenance Results * [facility] BONE DENSITOMETRY AXIAL SKELETON (08/09/2020 9:41 AM CDT) Anatomical Region Laterality Modality BODY N/A Other 08/09/2020 9:41 AM CDT Impressions 08/09/2020 11:09 AM CDT IMPRESSION: 1. Osteopenia. 2. Data predicts an increased risk of future fractures. 3. A followup DXA exam in 2 years is recommended. Narrative 08/09/2020 11:09 AM CDT DICTATING PHYSICIAN: [place] Betancur M.D. EXAM: [facility] BONE DENSITOMETRY AXIAL SKELETON. DATE: 08/09/2020 9:41 [...] DICTATING PHYSICIAN: [place] Betancur M.D. EXAM: [facility] BONE DENSITOMETRY AXIAL SKELETON. DATE: 08/09/2020 9:41 [...] Recently Relevant to Health Maintenance Insurance MEDICARE [facility] [employer] Care Teams Scarf Gluer Relationship Specialty Start Date End Date Silvano Lopes MD [address] [place] [address] PCP - General Internal Medicine 08/02/19 Genesis Link MD [address] [facility] [place] [address] Consulting Physician Cardiovascular Disease - Cardiology 10/24/11 Arnoldo Begum MD [address] [place] [address] Consulting Physician Cardiovascular Disease - Cardiology 09/30/19 Dalila Pool APRN, TEXTILE CHEMIST [address] [place] [address] Nurse Practitioner Advanced Practice Nurse 08/02/21
--- OUTSIDE RECORDS SUMMARY | 2025-07-10 10:43 | XMS_ITS | Encounter Summary ---
Author Organization [facility] Address [address] [place] [address] Phone Care Team Providers Care Commercial Director Name Role Phone Genesis Link MD Unavailable [phone] Silvano Lopes MD Primary Care Provider Arnoldo Begum MD Unavailable Dalila Pool APRN, CHIEF OPERATOR SYNTHESIS Unavailable Reason for Visit * Reason Onset Date Comments Other 08/31/2020 Encounter Details Date Type Department Care Team (Late st Contact Info) Description 08/31/2020 [facility] [place] [facility] - [facility] [address] [place] [address] Genesis Link MD [address] [place] [address] Other Social History Tobacco Use Types Packs/Day Years Used Date Smoking Tobacco: Never Smokeless Tobacco: Never Alcohol Use Standard Drinks/Week Comments No 0 (1 standard drink = 0.6 oz pur e alcohol) Comments No Sex and Gender Information Value Date Recorded Sex Assigned at Not on file Legal Sex Female 3:08 AM HYDRAULIC REPAIRER Gender Identity Not on file Sexual Orientation Not on file COVID-19 Exposure Response Date Recorded In the last month, have you been in contact with someone who was confirmed or suspected to have Coronavirus / COVID-19? No / Unsure 08/29/2020 10:01 AM HYDRAULIC REPAIRER documented as of this encounter Plan of Treatment Not on file documented as of this encounter Visit Diagnoses Not on filedocumented in this encounter Additional Health Concerns Infection Onset Date Last Indicated Resolved Time COVID - 19 09/22/2021 09/22/2021 10/12/2021 12:1 6 AM HYDRAULIC REPAIRER Assessment Noted Time PHQ-9 Depression Total Score: 0 02/10/20 18 12:17 PM CDT documented as of this encounter Care Teams Commercial Director Relationship Specialty Start Date End Date Silvano Lopes MD [address] [address] PCP - General Internal Medicine 08/02/19 Genesis Link MD [address] [place] [phone] Consulting Physician Cardiovascular Disease - Cardiology 10/24/11 Arnoldo Begum MD [address] [place] [address] Consulting Physician Cardiovascular Disease - Cardiology 09/30/19 Dalila Pool, PRINTING SCREEN ASSEMBLER, CHIEF OPERATOR SYNTHESIS [address] [place] [address] Nurse Practitioner Advanced Practice Nurse 08/02/21 documented as of this encounter
--- OUTSIDE RECORDS SUMMARY | 2025-07-10 10:43 | XMS_ITS | Encounter Summary ---
Author Organization [facility] Address [address] [place] [address] Phone Care Team Providers Care Derrick Man Name Role Phone Genesis Link MD Unavailable [phone] Silvano Lopes MD Primary Care Provider Arnoldo Begum MD Unavailable Dalila Pool APRN, BLOOD BANK BUSINESS MANAGER Unavailable Reason for Visit * Reason Comments Medication Refill toprol Encounter Details Date Type Department Care Team (Late st Contact Info) Description 09/[facility]2022 [facility] [place] [facility] Card[facility] - [place] [address] [place] [address] Genesis Link MD [address] [place] [address] Medication Refill (toprol) Social History Tobacco Use Types Packs/Day Years Used Date Smoking Tobacco: Never Smokeless Tobacco: Never Alcohol Use Standard Drinks/Week Comments No 0 (1 standard drink = 0.6 oz pur e alcohol) Comments No Sex and Gender Information Value Date Recorded Sex Assigned at Not on file Legal Sex Female 3:08 AM BICYCLE SERVICE TECHNICIAN Gender Identity Not on file Sexual Orientation [...] 368 ms QTC CALCULATION 421 ms R [place] -12 degrees T [place] 0 degrees Impression Atrial fibrillation Low voltage QRS Cannot rule out Anterior infarct , age undetermined Abnormal ECG When compared with ECG of 17-JUL-2020 13:37, Vent. rate has decreased BY 43 BPM Minimal criteria for Anterior infarct are now present Confirmed by Pushpa AGUILAR, Gray Galicia ([id number]) on 09/04/2020 8:35:12 AM Refill approved per protocol and sent to for cosign. CLE SERVICE TECHNICIAN documented in this encounter Plan of Treatment Not on file documented as of this encounter Visit Diagnoses Not on filedocumented in this encounter Additional Health Concerns Assessment Noted Time PHQ-9 Depression Total Score: 0 02/10/20 18 12:17 PM CDT documented as of this encounter Care Teams Derrick Man Relationship Specialty Start Date End Date Silvano Lopes MD [address] [facility] [address] [address] PCP - General Internal Medicine 08/02/19 Genesis Link MD [address] [place] [phone] Consulting Physician Cardiovascular Disease - Cardiology 10/24/11 Arnoldo Begum MD [address] [place] [address] Consulting Physician Cardiovascular Disease - Cardiology 09/30/19 Dalila Pool APRN, BLOOD BANK BUSINESS MANAGER [address] [place] [address] Nurse Practitioner Advanced Practice Nurse 08/02/21 documented as of this encounter
[2025-07-10 19:00] LABS: Magnesium 1.8 mg/dL (1.6-2.3)
[2025-07-11 07:09] LABS: GGT 112 IU/L (0-60)
[2025-07-12 13:08] LABS: ANA by IFA Rfx Titer/Pattern Negative (.)
[2025-07-13 13:09] LABS: Alkaline Phosphatase 278 IU/L (48-129)
== END 2025-07-10 09:46 | disposition home or self-care (01) ==
LOC: ANHGOSHLAB 09:46
PROVIDERS: PCP Internal Medicine; Visit Provider Internal Medicine
DX: R74.8 Abnormal levels of other serum enzymes (principal); R74.01 Elevation of levels of liver transaminase levels; E87.6 Hypokalemia
CPT/HCPCS: 36415; 82977; 83735; 84075; 84080; 86037; 86038

== ENCOUNTER 2025-08-21 09:54 | Outpatient (CLI) | payer MEDICARE, OTHER, MEDICAID, SELFPAY ==
--- NOTE | ~2025-08-21 | CT_ITS ---
EXAMINATION: CTA brain carotid DATE: 08/21/2025 10:50 INDICATION: Left-sided carotid stenosis. Stroke. TECHNIQUE: Computed tomographic angiography (CTA) of the head was performed without and with 100 mL Omnipaque-350 intravenous contrast. CTA of the neck was performed with intravenous contrast. Automated exposure control and iterative reconstruction technique were employed. The dose-length product was 1402.84 mGy- cm. Maximum intensity projection and volume rendered 3D-reconstructions were created by the technologist on a separate workstation. COMPARISON: None. FINDINGS: HEAD CTA: There are scattered areas of low attenuation in the cerebral white matter, which is within normal limits for the patient's age. 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 There is no intracranial hemorrhage, acute infarction, or abnormal intracranial mass lesion. The ventricles are normal in size. There is mild mucosal thickening in the paranasal sinuses. There are likely changes of right ocular lens replacement surgery. There is a small left mastoid effusion. The vertebral arteries are codominant. There is no significant stenosis of basilar artery or the posterior cerebral arteries. The posterior communicating arteries are normal. There is no significant stenosis of the intracranial internal carotid arteries or anterior or middle cerebral arteries. Anterior communicating artery is normal. There is no aneurysm. NECK CTA: There is no pathologically enlarged lymph nodes. There is no significant stenosis of the vertebral arteries. There is plaque in the proximal internal carotid arteries. There is 0% stenosis of the proximal right internal carotid artery relative to normal distal artery lumen diameter (NASCET cr iteria). Left cervical internal carotid artery is small, consistent with near- occlusion stenosis. There is mild cervical spondylosis. IMPRESSION: 1. 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 2. No aneurysm or significant intracranial arterial stenosis. 3. 0% stenosis of the proximal right internal carotid artery relative to normal distal artery lumen diameter (NASCET criteria). 4. Near-occlusion stenosis of proximal left internal carotid artery. Reviewed, dictated and finalized at location E.
--- NOTE | ~2025-08-21 | MR_ITS ---
EXAMINATION: MR MRCP wo/w con/w 3D wo ind DATE: 08/21/2025 11:56 INDICATION: Other specified diseases of biliary tract. Abdominal pain. TECHNIQUE: Magnetic resonance imaging (MRI) of the abdomen was performed without and with 14 mL MultiHance intravenous contrast. Sequences included coronal T2- weighted FS FSE, coronal T2-weighted FSE, axial T1-weighted LAVA, coronal FS FIESTA, axial dual-echo T1-weighted SPGR, coronal lava-FLEX, sagittal T2- weighted FSE, axial T2-weighted FSE, and axial DWI. Thick-slab T2-weighted FSE images were obtained for magnetic resonance cholangiopancreatography (MRCP). Maximum intensity projection 3-D reconstructions of the volumetric data were created by the technologist. Postcontrast sequences included coronal LAVA-flex and time course of axial T1-weighted LAVA. COMPARISON: CT abdomen and pelvis 05/02/2025 FINDINGS: ABDOMEN MRI: The liver is normal. There are changes of cholecystectomy. There is a small sliding hiatal hernia. The spleen demonstrates focal volume loss and marginal low signal intensity, likely old hematoma. There is a 4 mm cyst in the pancreas, likely benign. The adrenal glands are normal. There are cysts in the kidneys measuring up to 2.0 cm on the left. There are no dilated loops of bowel. There are no pathologically enlarged lymph nodes. There is no free intraperitoneal fluid. ABDOMEN MRCP: The common duct is normal and measures 3 mm. No choledocholithiasis. IMPRESSION: 1. Small sliding hiatal hernia. Reviewed, dictated and finalized at location E.
[2025-08-21 10:28] LABS: Estimated Glomerular Filt Rate 47
== END 2025-08-21 09:55 | disposition home or self-care (01) ==
LOC: MICIMG 09:56
PROVIDERS: PCP Internal Medicine; Visit Provider Internal Medicine
DX: R19.8 Other specified symptoms and signs involving the digestive system and abdomen (principal); I71.40 Abdominal aortic aneurysm, without rupture, unspecified; I65.22 Occlusion and stenosis of left carotid artery; K83.8 Other specified diseases of biliary tract
CPT/HCPCS: 70496; 70498; 74183; 76376; A9577; Q9967

== ENCOUNTER 2025-10-23 11:51 | Outpatient (CLI) | payer MEDICARE, OTHER, MEDICAID, SELFPAY ==
--- OUTSIDE RECORDS SUMMARY | 2025-10-23 12:27 | XMS_ITS ---
Author Name MARIAELENA HOPPER Address [address] [place] [address] Phone [phone] Organization [facility]) Care Team Providers Care Seat Installer Name Role Phone PAUL MARIAELENA Unavailable [phone] Unavailable Unavailable Unavailable Max Leach Unavailable [phone] ALICIA MOSES Unavailable [phone] Reason for Referral Not Available Allergies, adverse [...] at least 75 minutes total time on [facility] 11/01/2024 Unspecified atrial fibrillationEssential (primary) hypertensionHyperlipidemia, unspecifiedHypothyroidism, unspecifiedGout, unspecifiedUnspecified osteoarthritis, unspecified siteChronic diastolic (congestive) heart failurePulmonary hypertension, unspecifiedDepression, unspecified Home visit for evaluation and management of new patient requiring medically appropriate examination and high level of medical decision making. If using time, at least 75 minutes total time on [facility] 11/01/2024 Essential (primary) hypertensionChronic diastolic (congestive) heart failureUnspecified atrial fibrillation Home visit for evaluation and management of new patient requiring medically appropriate examination and high level of medical decision making. If using time, at least 75 minutes total time on [facility] 11/01/2024 Essential (primary) hypertensionChronic diastolic (congestive) heart failure Home visit for evaluation and management of new patient requiring medically appropriate examination and high level of medical decision making. If using time, at least 75 minutes total time on [facility] 11/01/2024 Unspecified osteoart hritis, unspecified site Home visit for evaluation and management of new patient requiring medically appropriate examination and high level of medical decision making. If using time, at least 75 minutes total time on [facility] 11/01/2024 Unspecified atrial fibrillationEssential (primary) hypertensionHyperlipidemia, unspecifiedHypothyroidism, unspecifiedGout, unspecified Home visit for evaluation and management of established patient requiring medically appropriate examination and low level of medical decision making. If using time, at least 30 minutes total time on [facility] 12/02/2024 Unspecified atrial fibrillationHyperlipidemia, unspecifiedGout, unspecifiedChronic diastolic (congestive) heart failureHypertensive heart disease with heart failureFlu due to oth ident influenza virus w oth resp manifestPulmonary hypertension, unspecified Home visit for evaluation and management of established patient requiring medically appropriate examination and low level of medical decision making. If using time, at least 30 minutes total time on [facility] 12/02/2024 Essential (primary) hypertension Home visit for evaluation and management of established patient requiring medically appropriate examination and low level of medical decision making. If using time, at least 30 minutes total time on [facility] 12/02/2024 Essential (primary) hypertension Home visit for evaluation and management of established patient requiring medically appropriate examination and low level of medical decision making. If using time, at least 30 minutes total time on [facility] 12/02/2024 Flu due to oth ident influenza [...] tive Time Current Smoking Status Never smoker 2025-09-26 9 Sex Female History of Procedures Procedures Service Procedure code Service date Servicing provider Phone# Home visit for evaluation and management of new patient requiring medically appropriate examination and high level of medical decision making. If using time, at least 75 minutes total time on encounte [id number] 2024-11-01 No Data Available No Data Availa [...] least [place] [id number] 2024-12-02 No Data Available No Data Availa [...] interested in meeting with psychRefignacio sent to [facility] psych provider 2024-12-02 09:21:14 On Metoprolol and [...]
--- OUTSIDE RECORDS SUMMARY | 2025-10-23 12:27 | XMS_ITS | Encounter Summary ---
Author Organization [facility] Address [address] [place] [address] Phone Care Team Providers Care Rack Washer Name Role Phone Genesis Link MD Unavailable [phone] Silvano Lopes MD Primary Care Provider Arnoldo Begum MD Unavailable [phone] Dalila Pool APRN, TELEPHONE CLERKS SUPERVISOR Unavailable Reason for Visit * Reason Comments Medication Refill toprol Encounter Details Date Type Department Care Team (Late st Contact Info) Description 09/29/2022 [facility]ill [facility] - [facility] [address] [facility] 2nd [place] [address] Genesis Link MD [address] [place] [address] Medication Refill (toprol) Social History Tobacco Use Types Packs/Day Years Used Date Smoking Tobacco: Never Smokeless Tobacco: Never Alcohol Use Standard Drinks/Week Comments No 0 (1 standard drink = 0.6 oz pur e alcohol) Comments No Sex and Gender Information Value Date Recorded Sex Assigned at Not on file Legal Sex Female 3:08 AM FREIGHT ELEVATOR ERECTOR Gender Identity Not on file Sexual Orientation [...] 368 ms QTC CALCULATION 421 ms R [place] -12 degrees T [place] 0 degrees Impression Atrial fibrillation Low voltage QRS Cannot rule out Anterior infarct , age undetermined Abnormal ECG When compared with ECG of 17-JUL-2020 13:37, Vent. rate has decreased BY 43 BPM Minimal criteria for Anterior infarct are now present Confirmed by Pushpa AGUILAR, Gray Galicia ([id number]) on 09/04/2020 8:35:12 AM Refill approved per protocol and sent to for cosign. GHT ELEVATOR ERECTOR documented in this encounter Plan of Treatment Not on file documented as of this encounter Visit Diagnoses Not on filedocumented in this encounter Additional Health Concerns Assessment Noted Time PHQ-9 Depression Total Score: 0 02/10/20 18 12:17 PM CDT documented as of this encounter Care Teams Rack Washer Relationship Specialty Start Date End Date Silvano Lopes MD [address] [place] [address] PCP - General Internal Medicine 08/02/19 Genesis Link MD [address] [place] [address] Consulting Physician Cardiovascular Disease - Cardiology 10/24/11 Arnoldo Begum MD [address] [place] [address] Consulting Physician Cardiovascular Disease - Cardiology 09/30/19 Dalila Pool APRN, TELEPHONE CLERKS SUPERVISOR [address] [place] [address] Nurse Practitioner Advanced Practice Nurse 08/02/21 documented as of this encounter
--- OUTSIDE RECORDS SUMMARY | 2025-10-23 12:27 | XMS_ITS | Clinical Summary ---
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 Permanent atrial fibrillation 09/22/2023 Left carotid artery stenosis 09/22/2023 Essential hypertension 09/22/2023 Acquired hypothyroidism 09/22/2023 Nonrheumatic tricuspid valve regurgitation 09/22 Encounters Date Type Department Care Team Description 09/13/2025 9:30 AM RACK WORKER Office Visit [facility] Medicine Surgery [facility] [facility] 8th [place] [address] [place] [address] Anurag Lake MD Carotid artery dissection (Primary Dx); Left carotid artery stenosis 09/13/2025 8:45 AM RACK WORKER Ancillary Procedure [facility] at the [address] [place] [address] [place] [address] Left carotid artery occlusion 08/23/2025 Orders Only [facility] Medicine Vascular Surgery [address] [facility] [address] [place] [address] Anurag Lake MD Left carotid artery occlusion (Primary Dx) from Last 3 Months Surgical History Surgery [...] Sign Reading Time Taken Comments Blood Pressure 109/65 09/13/2025 9:49 AM RACK WORKER Pulse 75 09/13/2025 9:49 AM RACK WORKER Temperature - - Respiratory Rate 14 06/30/2025 9:39 AM CDT Oxygen Saturation 97% 09/13/2025 9:49 AM RACK WORKER Inhaled Oxygen Concentration - - Weight 73 kg (161 lb) 09/13/2025 9:49 AM RACK WORKER Height 162.6 cm (5' 4) 09/13/2025 9:49 AM RACK WORKER Body Mass Index 27.64 09/13/2025 9:49 AM RACK WORKER Plan of Treatment Health Maintenance Due Date Last Done Comments Depression Screening 1940 Fall Risk Assessment 1940 Hepatitis B Screening 1958 Well Visit 65+ 2006 Zoster Vaccine (2 of 3) 11/01/2014 09/06/2014 Osteoporosis Screening-Bone Density Scan 08/09/2022 08/09/2020, 08/09/2020, 02/03/2018, Additional history exists Covid-19 Vaccine (6 - 2024-2 6 season) 2025 07/27/2022, 03/17/2022, 08/21/2021, Additional history exists Influenza Vaccine (#1) 2025 , 07/27/2022, 07/22/2021, Additional history exists DTaP/Tdap/Td Vaccine (4 - Td or Tdap) 08/28/2034 08/28/2024, 07/20/2023, 05/18/2019 Pneumococcal vaccine 65+ Completed 09/29/2016, 06/2011 Procedures Procedure Name Priority Date/Time Associated Diagnosis Comments US CAROTIDS DUPLEX BILATERAL Schedule Routine, Read Routine (OP Routine) 09/13/2025 9:54 AM RACK WORKER Left carotid artery occlusion from Last 3 Months Results * US Carotids Duplex Bilateral (09/13/2025 9:54 AM RACK WORKER) Anatomical Region Laterality Modality Vascular Bilateral Ultrasound 09/13/2025 9:06 AM RACK WORKER Narrative 09/13/2025 6:11 PM RACK WORKER [facility] - Department of Vascular Surgery, Vascular Laboratory [address] [place] [id number] Carotid Duplex Ultrasound Report Patient Name: CATRINA CLARK : 1940 (85y 1m) Study Date: 09/13/2025 9:06:50 AM Sex: F Tech: Location: [facility] Provider: ANURAG LAKE Quality: Adequate Order Provider: ANURAG LAKE PROCEDURES: Carotid Report: Carotid duplex examination of the extracranial arteries was performed using 2D, color and spectral Doppler. INDICATIONS: I65.22 Occlusion and stenosis of left carotid artery. MEASUREMENTS: Right Value Units Left Value Units RT Prox CCA PSV 94 cm/sec LT Prox CCA PSV 45 cm/sec RT Prox CCA EDV 30 cm/sec LT Prox CCA EDV 18 cm/sec RT Distal CCA PSV 67 cm/sec LT Distal CCA PSV 165 cm/sec RT Distal CCA EDV 25 cm/sec LT Distal CCA EDV 33 cm/sec RT Prox ICA PSV 79 cm/sec LT Prox ICA PSV 241 cm/sec RT Prox ICA EDV 34 cm/sec LT Prox ICA EDV 102 cm/sec RT Mid ICA PSV 93 cm/sec LT Mid ICA PSV 44 cm/sec RT Mid ICA EDV 41 cm/sec LT Mid ICA EDV 24 cm/sec RT Distal ICA PSV 78 cm/sec LT Distal ICA PSV 67 cm/sec RT Distal ICA EDV 25 cm/sec LT Distal ICA EDV 32 cm/sec RT ECA Prx PSV 89 cm/sec LT ECA Prx PSV 118 cm/sec RT ICA/CCA 1.38 ratio LT VERT PSV 46 cm/sec RT VERT PSV 46 cm/sec FINDINGS: Performing Crossbow Maker: Rita Finch RVT. Rt Common Carotid Artery: The plaque in the right CCA appears to be homogenous. Atherosclerotic changes of the right common carotid artery with no hemodynamically significant Doppler findings. Rt Internal Carotid Artery: The plaque in the right internal carotid artery appears to be heterogeneous, calcified and smooth. Atherosclerotic changes of the right internal carotid artery without hemodynamically significant Doppler findings. <50% stenosis. Rt External Carotid Artery: The right external carotid artery is patent without evidence of atherosclerotic plaque. Rt Vertebral Artery: The right vertebral artery is patent with antegrade flow. Lt Common Carotid Artery: The plaque in the left CCA appears to be heterogeneous and smooth. Distal CCA dissection noted with elevated velocity. Atherosclerotic changes of the left common carotid artery with hemodynamically significant Doppler findings; elevated peak systolic velocity as above. Lt Internal Carotid Artery: The plaque in the left internal carotid artery appears to be homogenous and smooth. Significant atherosclerotic changes of the left internal carotid artery with elevated peak systolic velocity and end diastolic velocity, as above. >70% stenosis. Lt External Carotid Artery: The left external carotid artery is patent without evidence of atherosclerotic plaque. Lt Vertebral Artery: The left vertebral artery is patent with antegrade flow. Comments: Due to LEFT distal CCA stenosis ICA velocities may be underestimated. ICA stenosis grading criteria may not be applicable. Provider Notification: Results called on the above date to Anurag Lake MD at 9:50 am. The patient was sent to clinic per provider request. CONCLUSIONS: 1. The right internal carotid artery disease is consistent with a less than 50% stenosis. 2. The left internal carotid artery disease is consistent with a more than 70% stenosis. 3. No evidence of hemodynamically significant stenosis in the right common carotid artery. 4. Atherosclerotic changes of the left common carotid artery with hemodynamically significant Doppler findings. 5. Normal, antegrade flow is noted in bilateral vertebral arteries. 6. LEFT distal CCA dissection noted. HISTORY: A-Fib. PREVIOUS STUDIES: No previous studies for comparison. DISCLAIMER: The study images and the final report will be retained in the patient chart by the Vascular Laboratory for the legally required time period. This chart constitutes the legal record of any testing performed. ATTESTATION: I have reviewed and interpreted the pertinent images and measurements of this study. I attest to the conclusions in the final report that is provided above. Electronically Signed By: Jaun Tony MD [facility] [phone] 09/13/2025 5:00:35 PM RACK WORKER Procedure Note Jaun Tony MD - 09/13/2025 [facility] - Department of Vascular Surgery,Vascular Laboratory [address] [place] [id number] Carotid Duplex Ultrasound Report Patient Name: CATRINA CLARK : 1940 (85y 1m) Study Date: 09/13/2025 9:06:50 AM Sex: F Tech: Location: [facility] Ref Provider: ANURAG LAKE Quality: Adequate Order Provider: ANURAG LAKE PROCEDURES: Carotid Report: Carotid duplex examination of the extracranial arterieswas performed using 2D, color and spectral Doppler. INDICATIONS: I65.22 Occlusion and stenosis of left carotid artery. MEASUREMENTS: Right Value Units Left Value Units RT Prox CCA PSV 94 cm/sec LT Prox CCA PSV 45 cm/sec RT Prox CCA EDV 30 cm/sec LT Prox CCA EDV 18 cm/sec RT Distal CCA PSV 67 cm/sec LT Distal CCA PSV 165 cm/sec RT Distal CCA EDV 25 cm/sec LT Distal CCA EDV 33 cm/sec RT Prox ICA PSV 79 cm/sec LT Prox ICA PSV 241 cm/sec RT Prox ICA EDV 34 cm/sec LT Prox ICA EDV 102 cm/sec RT Mid ICA PSV 93 cm/sec LT Mid ICA PSV 44 cm/sec RT Mid ICA EDV 41 cm/sec LT Mid ICA EDV 24 cm/sec RT Distal ICA PSV 78 cm/sec LT Distal ICA PSV 67 cm/sec RT Distal ICA EDV 25 cm/sec LT Distal ICA EDV 32 cm/sec RT ECA Prx PSV 89 cm/sec LT ECA Prx PSV 118 cm/sec RT ICA/CCA 1.38 ratio LT VERT PSV 46 cm/sec RT VERT PSV 46 cm/sec FINDINGS: Performing Crossbow Maker: Rita Finch RVT. Rt Common Carotid Artery: The plaque in the right CCA appears to behomogenous. Atherosclerotic changes of the right common carotid artery with nohemodynamically significant Doppler findings. Rt Internal Carotid Artery: The plaque in the right internal carotidartery appears to be heterogeneous, calcified and smooth. Atherosclerotic changes of the rightinternal carotid artery without hemodynamically significant Doppler findings. <50%stenosis. Rt External Carotid Artery: The right external carotid artery is patentwithout evidence of atherosclerotic plaque. Rt Vertebral Artery: The right vertebral artery is patent with antegradeflow. Lt Common Carotid Artery: The plaque in the left CCA appears to beheterogeneous and smooth. Distal CCA dissection noted with elevated velocity.Atherosclerotic changes of the left common carotid artery with hemodynamically significant Dopplerfindings; elevated peak systolic velocity as above. Lt Internal Carotid Artery: The plaque in the left internal carotid arteryappears to be homogenous and smooth. Significant atherosclerotic changes of the leftinternal carotid artery with elevated peak systolic velocity and end diastolic velocity, asabove. >70% stenosis. Lt External Carotid Artery: The left external carotid artery is patentwithout evidence of atherosclerotic plaque. Lt Vertebral Artery: The left vertebral artery is patent with antegradeflow. Comments: Due to LEFT distal CCA stenosis ICA velocities may beunderestimated. ICA stenosis grading criteria may not be applicable. Provider Notification: Results called on the above date to Leslie Lake MD at 9:50 am. The patient was sent to clinic per provider request. CONCLUSIONS: 1. The right internal carotid artery disease is consistent with a lessthan 50% stenosis. 2. The left internal carotid artery disease is consistent with a more than70% stenosis. 3. No evidence of hemodynamically significant stenosis in the right commoncarotid artery. 4. Atherosclerotic changes of the left common carotid artery withhemodynamically significant Doppler findings. 5. Normal, antegrade flow is noted in bilateral vertebral arteries. 6. LEFT distal CCA dissection noted. HISTORY: A-Fib. PREVIOUS STUDIES: No previous studies for comparison. DISCLAIMER: The study images and the final report will be retained in the patientchart by the Vascular Laboratory for the legally required time period. This chartconstitutes the legal record of any testing performed. ATTESTATION: I have reviewed and interpreted the pertinent images and measurements ofthis study. I attest to the conclusions in the final report that is provided above. Electronically Signed By: Jaun Tony MD [facility] [phone] 09/13/2025 5:00:35 PM RACK WORKER [facility] Shelly Lake MD [facility] PROCEDURES Final Result from Last 3 Months Insurance MEDICARE [facility] CHOICE PLUS MEDICARE [facility] CHOICE PLUS IDPA MEDICARE [employer] [facility] CHOICE PLUS Care Teams Seasonal Clerk Relationship Specialty Start Date End Date Angel Corbin DO PCP - General Internal Medicine 08/22/22
--- OUTSIDE RECORDS SUMMARY | 2025-10-23 12:27 | XMS_ITS | Clinical Summary ---
Author Organization [facility] Address [address] [place] [address] Phone Care Team Providers Care Software Product Manager Name Role Phone Genesis Link MD Unavailable [phone] Silvano Lopes MD Primary Care Provider [phone] Arnoldo Begum MD Unavailable [phone] Dalila Pool APRN, GROUNDS PERSON Unavailable Allergies No known active allergies Medications [...] on file Legal Sex Female 3:08 AM CIVIL RIGHTS INVESTIGATOR Gender Identity Not on file Sexual Orientation Not on file Last Filed Vital Signs Vital Sign Reading Time Taken Comments Blood Pressure 136/65 09/22/2021 10:31 AM CIVIL RIGHTS INVESTIGATOR Pulse 84 09/22/2021 10:31 AM CIVIL RIGHTS INVESTIGATOR Temperature 37.2 C (98.9 F) 09/22/2021 10:31 AM CIVIL RIGHTS INVESTIGATOR Respiratory Rate 18 09/22/2021 10:31 AM CIVIL RIGHTS INVESTIGATOR Oxygen Saturation 98% 09/22/2021 10:31 AM CIVIL RIGHTS INVESTIGATOR Inhaled Oxygen Concentration - - Weight 81.6 kg (180 lb) 09/22/2021 10:31 AM CIVIL RIGHTS INVESTIGATOR Height 165.1 cm (5' 5) 08/02/2021 9:16 [...] complete this topic Human Papillomavirus (HPV) Immunization (No Doses Required) Completed Meningococcal Immunization (ACWY) Aged Out No longer eligible based on patient's age to complete this topic Rotavirus Immunization Aged Out No lo nger eligible based on patient's age to complete this topic Medical Devices Implanted Type Area Base Brander Device Identifier Shelf Expiration Date Model / Serial / Lot Wire Fix 5.5in .062in Alyssia Gw .77mm [employer] Specialist - [id number] Implanted:Qty: 2 on 06/07/2020 by Jemal Davis MD at [facility] IMPLANT [employer] [id number] / / NONE Procedures Procedure Name Priority Date/Time Associated Diagnosis Comments [facility] BONE DENSITOMETRY AXIAL SKELETON Routine 08/09/2020 9:41 AM CDT Osteopenia of multiple sites from Last 3 Months or Most Recently Relevant to Health Maintenance Results * [facility] BONE DENSITOMETRY AXIAL SKELETON (08/09/2020 9:41 AM CDT) Anatomical Region Laterality Modality BODY N/A Other 08/09/2020 9:41 AM CDT Impressions 08/09/2020 11:09 AM CDT IMPRESSION: 1. Osteopenia. 2. Data predicts an increased risk of future fractures. 3. A followup DXA exam in 2 years is recommended. Narrative 08/09/2020 11:09 AM CDT DICTATING PHYSICIAN: Davis Betancur M.D. EXAM: [facility] BONE DENSITOMETRY AXIAL SKELETON. DATE: [...] 08/09/2020 DICTATING PHYSICIAN: Davis Betancur M.D. EXAM: [facility] BONE DENSITOMETRY AXIAL SKELETON. DATE: [...] Recently Relevant to Health Maintenance Insurance MEDICARE [facility] [employer] Care Teams Software Product Manager Relationship Specialty Start Date End Date Silvano Lopes MD [address] [place] [address] PCP - General Internal Medicine 08/02/19 Genesis Link MD [address] [place] [address] Consulting Physician Cardiovascular Disease - Cardiology 10/24/11 Arnoldo Begum MD [address] [place] [address] Consulting Physician Cardiovascular Disease - Cardiology 09/30/19 Dalila Pool APRN, GROUNDS PERSON [address] [facility] [place] [address] Nurse Practitioner Advanced Practice Nurse 08/02/21
[2025-10-23 13:51] LABS: Alanine Aminotransferase 30 U/L (6-35); Albumin Level 4.3 g/dL (3.5-5.1); Alkaline Phosphatase 257 U/L (38-126); Anion Gap 5 mmol/L (4-12); Aspartate Amino Transferase 52 U/L (14-36); Bilirubin,Total 1.4 mg/dL (0.2-1.3); Blood Urea Nitrogen 15 mg/dL (7-17); Calcium 9.5 mg/dL (8.4-10.2); Carbon Dioxide 34 mmol/L (22-30); Chloride 102 mmol/L (98-107); Estimated Glomerular Filt Rate 57; Glucose 90 mg/dL (65-110); Potassium 3.2 mmol/L (3.4-5.0); Sodium 141 mmol/L (137-145); Total Protein 8.0 g/dL (6.3-8.2)
[2025-10-23 16:25] LABS: Iron 95 ug/dL (37-170)
[2025-10-23 16:34] LABS: Percent Iron Saturation 24 % (20-50)
[2025-10-23 17:11] LABS: Ferritin 29.50 ng/mL (11.1-264)
[2025-10-24 07:09] LABS: GGT 134 IU/L (0-60)
== END 2025-10-23 11:52 | disposition home or self-care (01) ==
PROVIDERS: PCP Internal Medicine; Visit Provider Internal Medicine
DX: R74.8 Abnormal levels of other serum enzymes (principal); N17.9 Acute kidney failure, unspecified; R11.10 Vomiting, unspecified
CPT/HCPCS: 36415; 80053; 82728; 82977; 83540; 83550